=== PATIENT | female | born 1940 | race Two or more races ===

== ENCOUNTER 2017-04-28 20:31 | Emergency (ER) | payer OTHER ==
[2017-04-28 20:56] VITALS: BP 123/45; PULSE 64; TEMP 97.4; BMI 23.3
--- NOTE | 2017-04-28 21:08 | PDOC ---
History of Present Illness - General History Source: Patient Exam Limitations: No Limitations - History of Present Illness Initial Comments: 04/28/17 21:22 76 y.o female with significant past medical history of IDDM, CAD s/p stents x2, CHF, who presents today BIBA from home after her blood glucose dropped to 34. EMS administered D-50 in the field. The patient states that she did not eat anything after she took her insulin this evening and believes this is why her glucose dropped. The patient notes that she is taking a Z-pack for a nonproductive cough/ possible pneumonia from her PCP with significant relief of the cough. The patients son reports that the patient was complaining of chest pain this afternoon, however, the patient explains that she just felt "very tired when cooking her food." Denies fever, chills, nausea, vomiting. Denies headache, lightheadedness. Denies SOB, chest pain. PAST SURGICAL HISTORY: no significant history FAMILY HISTORY: no pertinent history SOCIAL HISTORY: Pt lives with family and is employed. MEDICATIONS: reviewed ALLERGIES: As per nursing notes PCP: Dr. Leah MCMILLAN General: No fevers or chills, no weakness, no weight loss HEENT: No change in vision. No sore throat, No ear pain Cardiovascular: No chest pain or shortness of breath Respiratory:No cough, no wheezing. Gastrointestinal: No nausea, vomiting, diarrhea or constipation, No rectal bleeding Genitourinary: No dysuria, hematuria, or frequency Musculoskeletal: No joint or muscle pain or swelling Neurologic: No headache, vertigo, dizziness or loss of consciousness Psychiatric: No depression Skin: No rashes or easy bruising Endocrine: +low blood glucose. No increased thirst or abnormal weight change Allergic: No skin or latex allergy All other systems reviewed and normal Physical Exam General: Well-nourished well-developed individual, no acute distress HEENT: Throat: Normal, tonsils normal, no erythema or exudate Neck: Supple, no meningeal signs, no lymphadenopathy Eyes::Pupils equal reactive and round, extraocular motion intact Chest: Nontender to palpation Cardiac: S1-S2 normal, regular rate and rhythm, no murmurs rubs or gallops Respiratory: Lungs clear to auscultation bilateral Abdomen: Soft, nondistended, normal bowel sounds, nontender to palpation diffusely Extremities: Warm, dry, no cyanosis, clubbing, or edema Skin: No rashes Neuro: Alert and oriented x3, nonfocal exam, grossly intact, normal gait Psych: Normal mood and affect <Trisha Hernandez - Last Filed: 04/28/17 21:23> - General History Source: Patient Exam Limitations: No Limitations - History of Present Illness Initial Comments: A portion of this note was documented by scribe services under my direction. I have reviewed the details of the note, within reason, and agree with the documentation. The case summary and management plan written by me. Medical decision making: This is a 76 her old female who comes via EMS post a hypoglycemic episode. Patient has history significant for being on azithromycin for a presumptive pneumonia. Patient takes insulin for her diabetes. Will obtain workup including EKG, chest x-ray, CBC, comp and cardiac profile. EKG shows normal sinus rhythm at a rate of [address]-T wave changes normal EKG Chest x-ray shows a probable resolving atypical pneumonia. Patient's repeat fingerstick post a sandwich and some orange juice was 156 Assessment and plan: This is a 76 her old female who comes in via EMS for evaluation of hypoglycemia. Patient had a fingerstick blood sugar in the field of 35. Patient is an insulin-dependent diabetic who said she took her insulin and then was late eating her dinner. Patient was given glucose in the field and her fingerstick prior to arrival was over 100. Here in the emergency room patient was given a sandwich and some orange juice and a repeat fingerstick was Patient did have a mildly elevated white count but no left shift. Patient is also anemia but in review of prior labs it appears that this is close to her baseline. Patient's x-ray is consistent with a resolving atypical pneumonia for which patient is taking azithromycin and improving. Patient's O2 sat was 100% and her respiratory rate was normal she complained of no shortness of breath but was noted to have a nonproductive mild cough in the emergency room. Patient will be discharged discussed with her family the importance of returning if she develops a fever, worsening cough congestion or shortness of breath. <Mateusz Bach I - Last Filed: 04/28/17 22:27> - General Chief Complaint: Blood Sugar Problem Stated Complaint: LOW BLOOD SUGAR Time Seen by Provider: 04/28/17 21:05 Past History <Trisha Hernandez - Last Filed: 04/28/17 21:23> - Past Medical History Anemia: Yes Asthma: No Cancer: No Cardiac Disorders: Yes (CHEST PAIN) CVA: No COPD: No CHF: No Diabetes: Yes (NIDDM) GI Disorders: Yes (GERD) Disorders: No HTN: Yes Hypercholesterolemia: Yes Liver Disease: No Seizures: No Thyroid Disease: No - Surgical History Abdominal Surgery: No Appendectomy: No Cardiac Surgery: Yes (STENT X 2) Cholecystectomy: No Lung Surgery: No Neurologic Surgery: No Orthopedic Surgery: No - Suicide/Smoking/Psychosocial Hx Smoking Status: No Smoking History: Never smoked Have you smoked in the past 12 months: No Number of Cigarettes Smoked Daily: 0 Information on smoking cessation initiated: No Hx Alcohol Use: No Drug/Substance Use Hx: No Substance Use Type: None Hx Substance Use Treatment: No <Mateusz Bach I - Last Filed: 04/28/17 22:27> - Past Medical History Allergies/Adverse Reactions: Allergies Allergy/AdvReac Type Severity Reaction Status Date / Time diphenhydramine HCl Allergy Severe Itching Verified 04/28/17 20:51 [From Benadryl] Home Medications: Ambulatory Orders Alprazolam 1 mg PO DAILY 04/06/14 Amlodipine Besylate [Norvasc -] 10 mg PO DAILY 04/06/14 Brimonidine Tartrate [Alphagan 0.15% -] 1 drop OS Q12H 04/06/14 Carvedilol [Coreg] 25 mg PO Q12H 04/06/14 Cholecalciferol (Vitamin D3) [Vitamin D3] 2,000 unit PO DAILY 04/06/14 Clopidogrel Bisulfate [Clopidogrel] 75 mg PO DAILY 04/06/14 Docosahexanoic Acid/Epa [Fish Oil Softgel] 1 each PO BID 04/06/14 Dorzolamide HCl/Timolol Maleat [Cosopt Eye Drops] 1 drop OU DAILY 04/06/14 Ferrous Sulfate [Feosol] 325 mg PO BID 04/06/14 Glipizide Xl [Glucotrol Xl -] 10 mg PO BID 04/06/14 Insulin (Levemir) [Levemir Vial] 18 unit SQ DAILY 04/06/14 Insulin Aspart [Novolog] 0 unit SQ ASDIR 04/06/14 Isosorbide Mononitrate [Isosorbide Mononitrate ER] 30 mg PO Q12H 04/06/14 Latanoprost 1 drop OU HS 04/06/14 Pnv/Iron,Carb/Om-3/FA/Fat 1 [Multivitamin with Minerals Cap] 1 each PO DAILY Sertraline HCl [Zoloft -] 100 mg PO Q12H 04/06/14 Simvastatin [Zocor] 80 mg PO HS 04/06/14 Vitamin B Complex 1 each PO DAILY 04/06/14 Docusate Sodium [Colace -] 100 mg PO BID #60 capsule 10/11/14 Losartan 50Mg/Hctz 12.5MG [Hyzaar -] 1 tab PO DAILY tablet 10/11/14 *Physical Exam - Vital Signs Last Vital Signs Temp Pulse Resp BP Pulse Ox 97.4 F L 64 18 123/45 100 04/28/17 20:52 04/28/17 20:52 04/28/17 20:52 04/28/17 20:52 04/28/17 20:52 <Trisha Hernandez - Last Filed: 04/28/17 21:23> - Vital Signs Last Vital Signs Temp Pulse Resp BP Pulse Ox 97.4 F L 64 18 123/45 100 04/28/17 20:52 04/28/17 20:52 04/28/17 20:52 04/28/17 20:52 04/28/17 20:52 <Mateusz Bach I - Last Filed: 04/28/17 22:27> ED Treatment Course - LABORATORY CBC & Chemistry Diagram: 04/28/17 21:15 04/28/17 21:15 <Trisha Hernandez - Last Filed: 04/28/17 21:23> - LABORATORY CBC & Chemistry Diagram: 04/28/17 21:15 04/28/17 21:15 <Mateusz Bach I - Last Filed: 04/28/17 22:27> *DC/Admit/Observation/Transfer - Attestations Scribe Attestion: 04/28/17 21:23 Documentation prepared by KP Hi, acting as coroner/medical examiner for Mateusz Bach MD. <Trisha Hernandez - Last Filed: 04/28/17 21:23> <Mateusz Bach I - Last Filed: 04/28/17 22:27> Diagnosis at time of Disposition: Hypoglycemia - Discharge Dispostion Disposition: HOME Condition at time of disposition: Stable - Patient Instructions Additional Instructions: It is important that you finish taking her antibiotics. Call your doctor in the morning and get an appointment to follow-up with your doctor as soon as possible/ Return to the emergency department immediately with ANY new, persistent or worsening symptoms. Continue any medications as previously prescribed by your physician. . Please make sure your doctor reviews the results of your emergency evaluation. Thank you for coming to the Emergency Department today for your care. It was a pleasure to see you today. Please note that your evaluation is INCOMPLETE until you follow-up with your doctor.
[2017-04-28 21:35] LABS: BASO % 0.2 % (0-2.0); EOS % 5.3 % (0-4.5); HEMATOCRIT 29.4 % (32.4-45.2); HEMOGLOBIN 9.5 GM/dl (10.7-15.3); LYMPH % 12.6 % (8-40); MCH 30.3 pg (25.7-33.7); MCHC 32.5 g/dl (32.0-36.0); MEAN CELL VOLUME 93.2 fl (80-96); MEAN PLT VOLUME 9.6 fl (7.5-11.1); MONO % 7.6 % (3.8-10.2); NEUT % 74.3 % (42.8-82.8); PLATELET COUNT 325 K/MM3 (134-434); RBC 3.15 M/mm3 (3.60-5.2); RDW 12.4 % (11.6-15.6); WHITE BLOOD COUNT 12.2 K/mm3 (4.0-10.8)
[2017-04-28 21:41] LABS: ALBUMIN 3.4 g/dl (3.5-5.0); ALK PHOS 65 U/L (32-92); ANION GAP 8 (8-16); BILIRUBIN,TOTAL 0.2 mg/dl (0.2-1.0); BLOOD UREA NITROGEN 44 mg/dl (7-18); CALCIUM 9.3 mg/dl (8.4-10.2); CHLORIDE 102 mmol/L (98-107); CO2 24 mmol/L (22-28); CREATININE 1.5 mg/dl (0.6-1.3); GLUCOSE,RANDOM 58 mg/dl (74-106); SGOT/AST 27 U/L (10-42); SGPT/ALT 16 U/L (10-40); SODIUM 134 mmol/L (136-145); TOT PROT 6.5 g/dl (6.4-8.3)
[2017-04-28 21:59] LABS: TROPONIN I (DFP) < 0.03 ng/ml (0.03-0.50)
[2017-04-28] MEDS ORDERED: HEMOQUE TEST 1 EACH EACH ONE (22:22)
--- NOTE | 2017-04-29 18:57 | EKG ---
Test Reason : Blood Pressure : / mmHG Vent. Rate : 062 BPM Atrial Rate : 062 BPM P-R Int : 148 ms QRS Dur : 074 ms QT Int : 432 ms P-R-T Axes : 064 023 083 degrees QTc Int : 438 ms NORMAL SINUS RHYTHM NONSPECIFIC T WAVE ABNORMALITY WHEN COMPARED WITH ECG OF 05-OCT-2014 09:16, NO SIGNIFICANT CHANGE WAS FOUND Confirmed by SHERRY CARPENTER MD ([id number]) on 04/29/2017 6:57:31 PM Referred By: DR LAMAR Confirmed By:SHERRY CARPENTER MD
== END 2017-04-28 22:31 | disposition home or self-care (01) ==
LOC: FER 20:31
DX: E11.649 Type 2 diabetes mellitus with hypoglycemia without coma (principal); Z79.84 Long term (current) use of oral hypoglycemic drugs; Z79.4 Long term (current) use of insulin; I50.9 Heart failure, unspecified
CPT/HCPCS: 36415; 71045-TC; 80053; 82550; 82962; 84484; 85025; 93005; 99281-25

== ENCOUNTER 2017-11-07 14:12 | Inpatient (IN) | payer OTHER ==
[2017-11-07] MEDS ORDERED: LABETALOL HCL 5 MG/1 ML (100MG/20 ML VIAL) IVPUSH ONE (15:03)
[2017-11-07 15:33] LABS: BASO % 0.4 % (0-2.0); EOS % 1.8 % (0-4.5); HEMATOCRIT 34.2 % (32.4-45.2); HEMOGLOBIN 11.6 GM/dL (10.7-15.3); LYMPH % 18.5 % (8-40); MCH 31.5 pg (25.7-33.7); MCHC 33.8 g/dl (32.0-36.0); MEAN CELL VOLUME 93.1 fl (80-96); MEAN PLT VOLUME 10.3 fl (7.5-11.1); MONO % 7.2 % (3.8-10.2); NEUT % 72.1 % (42.8-82.8); PLATELET COUNT 213 K/MM3 (134-434); RBC 3.67 M/mm3 (3.60-5.2); RDW 12.9 % (11.6-15.6); WHITE BLOOD COUNT 9.5 K/mm3 (4.0-10.0)
[2017-11-07 16:22] LABS: ALBUMIN 3.8 g/dl (3.4-5.0); ANION GAP 9 (8-16); BLOOD UREA NITROGEN 42 mg/dL (7-18); CALCIUM 9.6 mg/dL (8.5-10.1); CHLORIDE 95 mmol/L (98-107); CO2 28 mmol/L (21-32); CREATININE 1.3 mg/dL (0.55-1.02); GLUCOSE,RANDOM 198 mg/dL (74-106); POTASSIUM 4.6 mmol/L (3.5-5.1); SGOT/AST 24 U/L (15-37); SGPT/ALT 29 U/L (12-78); SODIUM 132 mmol/L (136-145)
[2017-11-07 16:24] LABS: ALK PHOS 171 U/L (45-117); BILIRUBIN,TOTAL 0.3 mg/dL (0.2-1.0); TOT PROT 7.3 g/dl (6.4-8.2)
--- NOTE | 2017-11-07 16:49 | PDOC ---
History of Present Illness - General Chief Complaint: CVA/TIA Stated Complaint: WEAKNESS Time Seen by Provider: 11/07/17 14:37 Past History - Past Medical History Allergies/Adverse Reactions: Allergies Allergy/AdvReac Type Severity Reaction Status Date / Time diphenhydramine HCl Allergy Severe Itching Verified 11/07/17 14:22 [From Bobby] Home Medications: Ambulatory Orders Alprazolam 1 mg PO DAILY 04/06/14 Amlodipine Besylate [Norvasc -] 10 mg PO DAILY 04/06/14 Brimonidine Tartrate [Alphagan 0.15% -] 1 drop OS Q12H 04/06/14 Carvedilol [Coreg] 25 mg PO Q12H 04/06/14 Cholecalciferol (Vitamin D3) [Vitamin D3] 2,000 unit PO DAILY 04/06/14 Clopidogrel Bisulfate [Clopidogrel] 75 mg PO DAILY 04/06/14 Docosahexanoic Acid/Epa [Fish Oil Softgel] 1 each PO BID 04/06/14 Dorzolamide HCl/Timolol Maleat [Cosopt Eye Drops] 1 drop OU DAILY 04/06/14 Ferrous Sulfate [Feosol] 325 mg PO BID 04/06/14 Glipizide Xl [Glucotrol Xl -] 10 mg PO BID 04/06/14 Insulin (Levemir) [Levemir Vial] 18 unit SQ DAILY 04/06/14 Insulin Aspart [Novolog] 0 unit SQ ASDIR 04/06/14 Isosorbide Mononitrate [Isosorbide Mononitrate ER] 30 mg PO Q12H 04/06/14 Latanoprost 1 drop OU HS 04/06/14 Pnv/Iron,Carb/Om-3/FA/Fat 1 [Multivitamin with Minerals Cap] 1 each PO DAILY Sertraline HCl [Zoloft -] 100 mg PO Q12H 04/06/14 Simvastatin [Zocor] 80 mg PO HS 04/06/14 Vitamin B Complex 1 each PO DAILY 04/06/14 Docusate Sodium [Colace -] 100 mg PO BID #60 capsule 10/11/14 Losartan 50Mg/Hctz 12.5MG [Hyzaar -] 1 tab PO DAILY tablet 10/11/14 Anemia: Yes Asthma: No Cancer: No Cardiac Disorders: Yes (CHEST PAIN) CVA: No COPD: No CHF: No Diabetes: Yes (NIDDM) GI Disorders: Yes (GERD) Disorders: No HTN: Yes Hypercholesterolemia: Yes Liver Disease: No Seizures: No Thyroid Disease: No - Surgical History Abdominal Surgery: No Appendectomy: No Cardiac Surgery: Yes (STENT X 2) Cholecystectomy: No Lung Surgery: No Neurologic Surgery: No Orthopedic Surgery: No - Suicide/Smoking/Psychosocial Hx Smoking Status: No Smoking History: Never smoked Have you smoked in the past 12 months: No Number of Cigarettes Smoked Daily: 0 Information on smoking cessation initiated: No Hx Alcohol Use: No Drug/Substance Use Hx: No Substance Use Type: None Hx Substance Use Treatment: No *Physical Exam - Vital Signs Last Vital Signs Temp Pulse Resp BP Pulse Ox 98.3 F 73 20 186/78 99 11/07/17 14:18 11/07/17 14:18 11/07/17 14:18 11/07/17 14:18 11/07/17 14:18 ED Treatment Course - LABORATORY CBC & Chemistry Diagram: 11/07/17 15:07 11/07/17 15:07 - ADDITIONAL ORDERS Additional order review: Laboratory Results 11/07/17 11/07/17 15:14 15:07 Sodium 132 L Potassium 4.6 Chloride 95 L Carbon Dioxide 28 Anion Gap 9 BUN 42 H Creatinine 1.3 H Creat Clearance w eGFR 39.72 POC Glucometer [phone] Random Glucose 198 H Calcium 9.6 Total Bilirubin 0.3 AST 24 ALT 29 Alkaline Phosphatase 171 H Total Protein 7.3 Albumin 3.8 11/07/17 11/07/17 15:14 15:07 RBC 3.67 MCV 93.1 MCHC 33.8 RDW 12.9 MPV 10.3 Neutrophils % 72.1 Lymphocytes % 18.5 Monocytes % 7.2 Eosinophils % 1.8 Basophils % 0.4 POC Glucometer [phone] - RADIOLOGY Radiology Studies Ordered: Category Date Time Status HEAD CT WITHOUT CONTRAST [CT] Stat CT Scan 11/07/17 14:55 Completed *DC/Admit/Observation/Transfer Diagnosis at time of Disposition: TIA (transient ischemic attack) - Discharge Dispostion Condition at time of disposition: Stable Decision to Admit order: Yes - Referrals Referrals: Emerson Soto MD [Primary Care Provider] - - Patient Instructions - Post Discharge Activity
[2017-11-07 18:01] LABS: URINE APPEARANCE CLEAR; URINE BILIRUBIN NEGATIVE (<2.0 mg/dL); URINE COLOR STRAW; URINE GLUCOSE (UA) 1+ (NEGATIVE); URINE KETONE NEGATIVE (NEGATIVE); URINE LEUK ESTERASE NEGATIVE (NEGATIVE); URINE NITRITE NEGATIVE (NEGATIVE); URINE UROBILINOGEN NEGATIVE mg/dL (0.2-1.0)
[2017-11-07 18:03] LABS: URINE PROTEIN 2+ (NEGATIVE)
--- NOTE | 2017-11-07 18:26 | HP ---
CHIEF COMPLAINT: confusion PCP: Dr. Navarro Nephro: dr. Soto Cardiology: Dr. Soto ([facility]) Endo: Dr. Forde HISTORY OF PRESENT ILLNESS: 77 yr old woman with DM, HTN, CKD III, CAD, HLD, IBS referred from subscription crew leader' s office for elevated BP and AMS. Pt at baseline is alert, oriented and fully cooperative in her care. In the office she appeared confused and was referred to ED for evaluation of stroke. Pt has not been feeling like herself for the past week. Since last friday she has not been able to complete all of the activities she is normally able to do, she is able to make the bed, clean the house and cook, but she has felt confused , "unlike herself" and tired. Her BP during this time showed elevated systolic pressure, 2 days ago it was 250 systolic. Associated with blurry vision. When she was driving today to her appointment she felt "God got" her here. She felt like she was outside herself and she wasn't the one driving, she felt that she should not have been driving. She made it to the appt without an accident. Normally BP is well controlled around 120-130's systolic. She goes to all her dr appts every 3 months, seen by Dr. Burns last week and was told A1c was 6.6. Denies chest pain, palpitations, light ER course was notable for: (1) head ct - negative (2) (3) Recent Travel: none PAST MEDICAL HISTORY: PAST SURGICAL HISTORY: stent placement in 2005 and 2011 Social History: Smoking: never Alcohol: never Drugs: never Family History:[place] Allergies diphenhydramine HCl [From Benadryl] Allergy (Severe, Verified 11/07/17 14:22) Itching HOME MEDICATIONS: Home Medications as per pharmacy [facility] HCTZ 25mg po daily, Dr. Navarro Lipitor 40mg po daily Irbasartan 300mg qd, Dr. Prater last filed 10/27 for a 30-day supply losartan 7-day supply filled 10/[address] Navarro, then mail delivery order alprazalam 1 mg po bid, and 2 tabs at bedtime plavix 75mg po daily valsartan 80mg po BID last filled august 2017 for 3-mo supple isosorbide ER 30mg po bid mirtazapine 15mg [address] loaiza sertraline 100mg bid by dr. loaiza amlodipine 5mg po dq by dr. navarro mailed meds: diclomine 10mg po tid last filled september [address] sanabria carvedilol 25mg bid [address]. navarro, last filled september 09 levemir flex touch pen 20units qd last filled in june eye drops dorzolim bid REVIEW OF SYSTEMS CONSTITUTIONAL: Absent: fever, chills, diaphoresis, generalized weakness, malaise, loss of appetite, weight change HEENT: Absent: rhinorrhea, nasal congestion, throat pain, throat swelling, difficulty swallowing, mouth swelling, ear pain, eye pain, visual changes CARDIOVASCULAR: Absent: chest pain, syncope, palpitations, irregular heart rate, lightheadedness , peripheral edema RESPIRATORY: Absent: cough, shortness of breath, dyspnea with exertion, orthopnea, wheezing, stridor, hemoptysis GASTROINTESTINAL: Absent: abdominal pain, abdominal distension, nausea, vomiting, diarrhea, constipation, melena, hematochezia GENITOURINARY: Absent: dysuria, frequency, urgency, hesitancy, hematuria, flank pain, genital pain MUSCULOSKELETAL: Absent: myalgia, arthralgia, joint swelling, back pain, neck pain SKIN: Absent: rash, itching, pallor HEMATOLOGIC/IMMUNOLOGIC: Absent: easy bleeding, easy bruising, lymphadenopathy, frequent infections ENDOCRINE: Absent: unexplained weight gain, unexplained weight loss, heat intolerance, cold intolerance NEUROLOGIC: Present:headache, Absent: focal weakness or paresthesias, dizziness, unsteady gait, seizure, mental status changes, bladder or bowel incontinence PSYCHIATRIC: Present:anxiety, Absent: depression PHYSICAL EXAMINATION Vital Signs - 24 hr 11/07/17 11/07/17 11/07/17 14:18 14:55 15:04 Temperature 98.3 F Pulse Rate 73 Pulse Rate [ 73 Left Radial] Respiratory 20 16 Rate Blood Pressure 186/78 Blood Pressure 163/80 [Right Arm] O2 Sat by Pulse 99 98 98 Oximetry (%) GENERAL: Awake, alert, and oriented to person, place, date, persident. in no acute distress. HEAD: Normal with no signs of trauma. EYES: Pupils equal, round and reactive to light, extraocular movements intact, sclera anicteric, conjunctiva clear. No lid lag. EARS, NOSE, THROAT: Ears normal, nares patent, oropharynx clear without exudates. Moist mucous membranes. NECK: Normal range of motion, supple without lymphadenopathy, JVD, or masses. LUNGS: Breath sounds equal, clear to auscultation bilaterally. No wheezes, and no crackles. No accessory muscle use. HEART: Regular rate and rhythm, normal S1 and S2 with MILAGROS ABDOMEN: Soft, nontender, not distended, normoactive bowel sounds, no guarding, no rebound, no masses. MUSCULOSKELETAL: Normal range of motion at all joints. No bony deformities or tenderness. No CVA tenderness. UPPER EXTREMITIES: 2+ radial pulses, warm, well-perfused. No cyanosis. No clubbing. No peripheral edema. LOWER EXTREMITIES: 2+ dp pulses, warm, well-perfused. No calf tenderness. No peripheral edema. NEUROLOGICAL: Cranial nerves II-XII intact. Normal speech. Normal gait. facial symmetry, delayed response to tasks and verbal answers but answers appropriately and completes task. finger-to nose intact b/l. 4/5 hand histologist technologist b/l, 4/5 extension and flexion at shoulders/triceps/biceps/hips/knees/ankles. 2+ DTR in b/l ue and le. PSYCHIATRIC: Cooperative. Good eye contact. Appropriate mood and affect. SKIN: Warm, dry, normal turgor, no rashes or lesions noted, normal capillary refill. Laboratory Results - last 24 hr 11/07/17 11/07/17 11/07/17 15:07 15:07 15:07 WBC 9.5 RBC 3.67 Hgb 11.6 Hct 34.2 MCV 93.1 MCH 31.5 MCHC 33.8 RDW 12.9 Plt Count 213 MPV 10.3 Absolute Neuts (auto) 6.8 Neutrophils % 72.1 Lymphocytes % 18.5 Monocytes % 7.2 Eosinophils % 1.8 Basophils % 0.4 Nucleated RBC % 0 Sodium 132 L Potassium 4.6 Chloride 95 L Carbon Dioxide 28 Anion Gap 9 BUN 42 H Creatinine 1.3 H Creat Clearance w eGFR 39.72 POC Glucometer Random Glucose 198 H Calcium 9.6 Total Bilirubin 0.3 AST 24 ALT 29 Alkaline Phosphatase 171 H Troponin I < 0.02 Total Protein 7.3 Albumin 3.8 Urine Color Urine Appearance Urine pH Ur Specific [place] Urine Protein Urine Glucose (UA) Urine Ketones Urine Blood Urine Nitrite Urine Bilirubin Urine Urobilinogen Ur Leukocyte Esterase Urine WBC (Auto) Urine RBC (Auto) 11/07/17 11/07/17 15:14 17:40 WBC RBC Hgb Hct MCV MCH MCHC RDW Plt Count MPV Absolute Neuts (auto) Neutrophils % Lymphocytes % Monocytes % Eosinophils % Basophils % Nucleated RBC % Sodium Potassium Chloride Carbon Dioxide Anion Gap BUN Creatinine Creat Clearance w eGFR POC Glucometer [phone] Random Glucose Calcium Total Bilirubin AST ALT Alkaline Phosphatase Troponin I Total Protein Albumin Urine Color Straw Urine Appearance Clear Urine pH 6.0 Ur Specific [place] 1.005 Urine Protein 2+ H Urine Glucose (UA) 1+ H D Urine Ketones Negative Urine Blood Negative Urine Nitrite Negative Urine Bilirubin Negative Urine Urobilinogen Negative Ur Leukocyte Esterase Negative Urine WBC (Auto) <1 Urine RBC (Auto) None Called son for further information. as per son who lives with her, this has been happening for 2 weeks, pt has been anxious about her granddaughter leaving for college. pt saw Dr. Navarro 2 days ago, BP with nurse was 120/80, with dr in the room it was 200's systolic, son thinks it was white coat syndrome. agrees that pt is not acting like herself, and having trouble remembering her medications. This week she appears to have progressed in her confusion. Normally she does her own meds but it took her hours to do what she normally can do in a much shorter amount of time. pt had c/o pain on the left judaism for last 2 weeks. Has not seen a psychiatrist in some time. ASSESSMENT/PLAN: 77 yr old woman with HTN, CKD stage III, DM, CAD, IBS referred to ED by physician to be evaluated for elevated BP and AMS admitted for further work-up. admitted to stroke unit to r.o stroke. - there are variations in pt's medication list between what is in the pharmacy and what is in the progress notes from dr's office. Please have family bring in the pill bottles to verify what the pt is taking. Pharmacy has losartain, irbasartan and valsartan on file. list from nephro's office use to reconcile medications in EMR. #R.o CVA - MRI of brain ordered, echo, evaluate for further carotid stenosis, pt's previous carotid doppler 03/2017 with 60-79% stenosis in left ICA - speech and swallow evaluation, npo until bedside evaluation - neuro consult: Dr. Herrera - physical therapy consult - neuro checks #HTN - elevated on repeat measurements - incr norvasc to 10mg from 5mg for better control - continue coreg 25mg po BID, diovan 80mg po BID - isosorbide mononitrate 30mg po bid - hold nitro SL since pt is not c/o chest pain #DM - check A1c, BGM/NISS ACHS - hold home levemir and novolog #Anxiety d/o - continue home medication sertraline 100mg po HS, alprazolam 1mg po daily, buspar 5mg po daily - remeron, as per chart review pt has previous episode of AMS that was attributed to remeron and was dc'd at that time, unclear if pt is taking this medication and if it should be continued at this time. currently on hold. #CAD - continue plavix 75mg po daily, no ASA due to hx of GI bleed #HLD - continue simvastatin 40mg po HS - Trilipix 45mg daily #IBS - continue xifaxan - continue polyethylenel glycol continue home supplements for vitamin D, calcium, iron supplements, MVI DVT: heparin BID Diet; npo until s/s evaluation then start tolerated diet Visit type - Emergency Visit Emergency Visit: Yes ED Registration Date: 11/07/17 Care time: The patient presented to the Emergency Department on the above date and was hospitalized for further evaluation of their emergent condition. - New Patient This patient is new to me today: Yes Date on this admission: 11/07/17 - Critical Care Critical Care patient: No Hospitalist Screening - Colonoscopy Questionnaire Colonoscopy Questionnaire: Colonoscopy Questionnaire - Patient: 50 - 75 years old and never had a screening colonoscopy: Unknown History of colon or rectal polyps, or CA: Unknown History of IBD, Crohn's disease or UC: Unknown History of abdominal radiation therapy as a child: Unknown - Relative: 1 with colon or rectal CA, or polyps at age 60 or younger: Unknown Colon or rectal CA diagnosed at age 45 or younger: Unknown Multiple relatives with colon or rectal CA: Unknown - Outcome: Screening Result: Negative Screen
[2017-11-07] MEDS ORDERED: amLODIPine BESYLATE 10 MG TABLET (FP) PO ONE (18:30)
[2017-11-07] MEDS ORDERED: SODIUM CHLORIDE 1,000 ML IV SCH ×2 (18:45→20:41)
[2017-11-07] MEDS ORDERED: amLODIPine BESYLATE 5 MG TABLET (FP) ONE (19:04)
--- NOTE | 2017-11-07 19:21 | PDOC ---
Attending Attestation - Resident Resident Name: Daphnie Brock - ED Attending Attestation I have performed the following: I have examined & evaluated the patient, The case was reviewed & discussed with the resident, I agree w/resident's findings & plan, Exceptions are as noted - Medical Decision Making 11/07/17 19:18 A portion of this note was documented by scribe services under my direction. I have reviewed the details of the note, within reason, and agree with the documentation with the following case summary and management plan written by me. Jemima Pittman: The patient is a 77 year old female with significant past medical history of anemia, CAD, CKD III, NIDDM, GERD, HTN, HLD, DM, IBS p/w AMS and elevated BP x 1 week. sent in for r/o CVA/TIA by PMD, Dr. Soto. DDx. CVA, TIA, electrolyte/metabolic derangements. infection, UTI, arrhythmia, ACs. vital signs with mild hypertension. but labs wnl, mildly elevated Cr, lytes wnl , UA neg for infection, CT head unremarkable. no CVA or bleed admit inpatient for medical management, eval for AMS and BP. possible HTN urgency, no indication to treat now, no focal deficits, alert and appropriate currently but concerning story of progressive AMS>. pt made aware of impression and plan 11/07/17 19:19 <Candida Tay - Last Filed: 11/07/17 19:18> - HPI HPI: 11/07/17 19:29 The patient is a 77 year old female with significant past medical history of anemia, CAD, CKD III, NIDDM, GERD, HTN, HLD, DM, IBS, who presents to the emergency department sent from Dr. Soto to be evaluated for high blood pressure and altered mental status. She reports that she has not been feeling like herself lately. The patient states that she has been experiencing episodes of forgetfulness and blurred vision. She currently endorses gas pain and constipation. Denies shortness of breath, chest pain, cough, weakness, numbness, tingling. Allergies: diphenhydramine HCl Social history: none reported Surgical history: Stents x2 PCP: Dr. Navarro Cardio: Dr. Soto Endo: Dr. Forde Nephro: Dr. Soto - Physicial Exam PE: 11/07/17 19:32 No acute distress, well appearing, moist mucus membranes, nl conjunctiva; neck supple, FROM. lungs clear, RRR, abdomen soft NTND, warm and well perfused. No peripheral edema. normal color for ethnicity. Alert, oriented to person time and place. CN II-XII grossly intact. Strength prox and distally 5/5 throughout. Sensation grossly intact to light touch. FARLEY x4. No cerebellar signs, no dysmetria. Speech clear. <Halle Felipe - Last Filed: 11/07/17 19:33> Attestations - Attestations 11/07/17 19:30 Documentation prepared by Halle Felipe, acting as medical transport specialist for Candida Tay MD. <Halle Felipe - Last Filed: 11/07/17 19:33>
--- NOTE | 2017-11-07 20:35 | PN ---
Teaching Attending Note Name of Resident: Dinh Garcia ATTENDING PHYSICIAN STATEMENT I saw and evaluated the patient. I reviewed the resident's note and discussed the case with the resident. I agree with the resident's findings and plan as documented. SUBJECTIVE: Patient is a 77yo female with PMHx of DM, HTN, CKD III, CAD, HLD, IBS , was send from [employer] [facility] [employer] office for elevated SBP of 250/120's and AMS.Patient denies any headache no chest pain or palpitation, no nausea. OBJECTIVE: Vital Signs Temperature 98.1 F 11/07/17 19:14 Pulse Rate 78 11/07/17 19:14 Respiratory Rate 16 11/07/17 19:14 Blood Pressure 174/86 11/07/17 19:14 O2 Sat by Pulse Oximetry (%) 98 11/07/17 19:14 GENERAL: The patient is awake, alert, and fully oriented, with slow speech . HEAD: Normal with no signs of trauma. EYES: PERRL, extraocular movements intact, sclera anicteric, conjunctiva clear. ENT: Ears normal, oropharynx clear without exudates, moist mucous membranes. NECK: Trachea midline, full range of motion, supple. LUNGS: Breath sounds equal, clear to auscultation bilaterally, no wheezes, no crackles, no accessory muscle use. HEART: Regular rate and rhythm, S1, S2 without murmur, rub or gallop. ABDOMEN: Soft, nontender, nondistended, normoactive bowel sounds, no guarding, no rebound, no hepatosplenomegaly, no masses. EXTREMITIES: 2+ pulses, warm, well-perfused, no edema. NEUROLOGICAL: Cranial nerves II through XII grossly intact. slow speech, gait not observed. PSYCH: Normal mood, normal affect. SKIN: Warm, dry, normal turgor, no rashes or lesions noted CBCD WBC 9.5 K/mm3 (4.0-10.0) 11/07/17 15:07 RBC 3.67 M/mm3 (3.60-5.2) 11/07/17 15:07 Hgb 11.6 GM/dL (10.7-15.3) 11/07/17 15:07 Hct 34.2 % (32.4-45.2) 11/07/17 15:07 MCV 93.1 fl (80-96) 11/07/17 15:07 MCHC 33.8 g/dl (32.0-36.0) 11/07/17 15:07 RDW 12.9 % (11.6-15.6) 11/07/17 15:07 Plt Count 213 K/MM3 (134-434) 11/07/17 15:07 MPV 10.3 fl (7.5-11.1) 11/07/17 15:07 CMP Sodium 132 mmol/L (136-145) L 11/07/17 15:07 Potassium 4.6 mmol/L (3.5-5.1) 11/07/17 15:07 Chloride 95 mmol/L (98-107) L 11/07/17 15:07 Carbon Dioxide 28 mmol/L (21-32) 11/07/17 15:07 Anion Gap 9 (8-16) 11/07/17 15:07 BUN 42 mg/dL (7-18) H 11/07/17 15:07 Creatinine 1.3 mg/dL (0.55-1.02) H 11/07/17 15:07 Creat Clearance w eGFR 39.72 (>60) 11/07/17 15:07 Random Glucose 198 mg/dL (74-106) H 11/07/17 15:07 Calcium 9.6 mg/dL (8.5-10.1) 11/07/17 15:07 Total Bilirubin 0.3 mg/dL (0.2-1.0) 11/07/17 15:07 AST 24 U/L (15-37) 11/07/17 15:07 ALT 29 U/L (12-78) 11/07/17 15:07 Alkaline Phosphatase 171 U/L (45-117) H 11/07/17 15:07 Total Protein 7.3 g/dl (6.4-8.2) 11/07/17 15:07 Albumin 3.8 g/dl (3.4-5.0) 11/07/17 15:07 CARDIAC ENZYMES Troponin I < 0.02 ng/ml (0.00-0.05) 11/07/17 15:07 Current Medications Generic Name Dose Route Start Last Admin Trade Name Freq PRN Reason Stop Dose Admin Alprazolam 1 mg 11/08/17 10:00 Xanax - PO 11/14/17 09:59 DAILY [facility] Atorvastatin Calcium 20 mg 11/07/17 22:00 Lipitor - PO HS [facility] Buspirone HCl 5 mg 11/08/17 10:00 Buspar - PO DAILY [facility] Carvedilol 25 mg 11/07/17 22:00 Coreg - PO BID [facility] Cholecalciferol 2,000 unit 11/08/17 10:00 Vitamin D3 - PO DAILY [facility] Clopidogrel Bisulfate 75 mg 11/08/17 10:00 Plavix - PO DAILY [facility] Fenofibric Acid 45 mg 11/08/17 10:00 Trilipix - PO DAILY [facility] Ferrous Sulfate 325 mg 11/08/17 10:00 Feosol - PO DAILY [facility] Fluticasone Propionate 1 spray 11/08/17 10:00 Flonase - NS DAILY [facility] Heparin Sodium (Porcine) 5,000 unit 11/07/17 22:00 Heparin - SQ BID [facility] Hydrochlorothiazide 25 mg 11/07/17 22:00 Hctz - PO BID [facility] Sodium Chloride 1,000 mls @ 75 mls/hr 11/07/17 18:45 11/07/17 19:04 Normal Saline - IV 11/08/17 08:04 75 mls/hr ASDIR [facility] Administration Insulin Aspart 1 vial 11/07/17 22:00 Novolog Vial Sliding Scale - SQ ACHS [facility] Protocol Isosorbide Mononitrate 30 mg 11/07/17 22:00 Imdur - PO BID [facility] Multivitamins 1 each 11/08/17 10:00 Total B With C - PO DAILY [facility] Multivitamins/Minerals 1 each 11/08/17 10:00 Theragran-M PO DAILY [facility] Non-Formulary Medication 290 mcg 11/08/17 10:00 Linaclotide [Linzess] PO DAILY [facility] Polyethylene Glycol 17 gm 11/08/17 10:00 Miralax (For Daily Use) - PO DAILY [facility] Rifaximin 550 mg 11/08/17 10:00 Xifaxan - PO DAILY [facility] Sertraline HCl 100 mg 11/07/17 22:00 Zoloft - PO HS [facility] Valsartan 80 mg 11/07/17 22:00 Diovan - PO BID [facility] Home Medications Medication Instructions Recorded Alprazolam 1 mg PO DAILY 11/07/17 Amlodipine Besylate 5 mg PO DAILY 11/07/17 Buspirone HCl [Buspar -] 5 mg PO DAILY 11/07/17 Cholecalciferol (Vitamin D3) 2,000 unit PO DAILY 11/07/17 [Vitamin D3 -] Clopidogrel Bisulfate [Plavix -] 75 mg PO DAILY 11/07/17 Fenofibrate Nanocrystallized 48 mg PO DAILY 11/07/17 [Fenofibrate] Ferrous Sulfate 325 mg PO DAILY 11/07/17 Fluticasone Prop 0.05% Nasal 1 - 2 spray NS DAILY 11/07/17 [Flonase -] Hydrochlorothiazide 25 mg PO BID 11/07/17 Insulin (LOG) Aspart [NovoLOG -] 0 unit SQ DAILY 11/07/17 Insulin Detemir [Levemir Flextouch] 0 unit SQ ASDIR 11/07/17 Isosorbide Mononitrate [Imdur -] 30 mg PO BID 11/07/17 Ketoconazole 2% Cream [Nizoral 2% 1 applic TP DAILY 11/07/17 Cream -] Linaclotide [Linzess] 290 mcg PO DAILY 11/07/17 Mirtazapine [Remeron -] 15 mg PO DAILY 11/07/17 Multivit-Min/Iron/Folic/Lutein 1 each PO DAILY 11/07/17 [Centrum Silver Women Tablet] Nitroglycerin 0.4 mg SL PRN PRN 11/07/17 Polyethylene Glycol 3350 [Clearlax] 17 gm PO DAILY 11/07/17 Rifaximin [Xifaxan] 550 mg PO DAILY 11/07/17 Sertraline HCl 100 mg PO HS 11/07/17 Simvastatin 40 mg PO HS 11/07/17 Valsartan [Diovan] 80 mg PO BID 11/07/17 Vitamin B Complex 1 each PO DAILY 11/07/17 ASSESSMENT AND PLAN: Patient is a 77yo female with PMHx of DM, HTN, CKD III, CAD, HLD, IBS referred from [employer] office for elevated BP 250/120 and AMS # Hypertensive Urgency with possible hypertensive encephalopathy initially On coreg/ diovan/ Imdur/Hctz continue since has not taken any meds today , r/o TIA getting admitted to stroke unit , will get echo and carotids, CT of the head is negative # difficulty with speech with Hx of CVA in 2014 , neuro consult appreciated # Hx of CAD on Plavix/Asa continue, Lipitor # T2DM SS with coverage, Levemir continue # HLD on Lipitor and Fenofibrate #Hx of depression continue zoloft # Hx of constipation continue Miralax DVT Px: heparin
[2017-11-07] MEDS ORDERED: CARVEDILOL 25 MG TABLET (FP) PO SCH (22:00)
[2017-11-07] MEDS ORDERED: HYDROCHLOROTHIAZIDE 25 MG TABLET (FP) PO SCH (22:00)
[2017-11-07] MEDS: ISOSORBIDE MONONITRATE 30 MG TAB.SR.24H (FP) PO SCH (23:22)
[2017-11-07] MEDS: VALSARTAN 80 MG TABLET (UD) PO SCH (23:23)
[2017-11-07] MEDS: SERTRALINE HCL 50 MG TABLET (FP) PO SCH (23:23)
[2017-11-07] MEDS: INSULIN SLIDING SCALE (NOVOLOG) 1 VIAL SQ SCH (23:23)
[2017-11-07] MEDS: HEPARIN NA (PORCINE) 5,000 UNITS/ML 1ML VIAL SQ SCH (23:23)
[2017-11-07] MEDS: ATORVASTATIN CA 20 MG TABLET (FP) PO SCH (23:23)
[2017-11-08] MEDS: INSULIN SLIDING SCALE (NOVOLOG) 1 VIAL SQ SCH ×4 (08:12→21:06)
[2017-11-08 08:42] LABS: ANION GAP 7 (8-16); BLOOD UREA NITROGEN 36 mg/dL (7-18); CALCIUM 9.2 mg/dL (8.5-10.1); CHLORIDE 101 mmol/L (98-107); CO2 29 mmol/L (21-32); CREATININE 1.2 mg/dL (0.55-1.02); GLUCOSE,RANDOM 182 mg/dL (74-106); POTASSIUM 4.4 mmol/L (3.5-5.1); SODIUM 137 mmol/L (136-145)
--- NOTE | 2017-11-08 09:12 | EKG ---
Test Reason : Blood Pressure : / mmHG Vent. Rate : 069 BPM Atrial Rate : 069 BPM P-R Int : 160 ms QRS Dur : 070 ms QT Int : 390 ms P-R-T Axes : 044 008 093 degrees QTc Int : 417 ms NORMAL SINUS RHYTHM POSSIBLE LEFT ATRIAL ENLARGEMENT LEFT VENTRICULAR HYPERTROPHY ABNORMAL QRS-T ANGLE, CONSIDER PRIMARY T WAVE ABNORMALITY ABNORMAL ECG WHEN COMPARED WITH ECG OF 28-APR-2017 21:47, NO SIGNIFICANT CHANGE WAS FOUND Confirmed by PAUL LUJAN MD ([id number]) on 11/08/2017 9:12:22 AM Referred By: Confirmed By:PAUL LUJAN MD
[2017-11-08] MEDS ORDERED: PATIENT'S OWN MEDICATION (NON-FORMULARY) (Linaclotide [Linzess] 290 MCG) PO SCH (10:00)
[2017-11-08] MEDS ORDERED: PT OWN MED DRAWER 7, Y5N ONE (10:20)
[2017-11-08] MEDS: HEPARIN NA (PORCINE) 5,000 UNITS/ML 1ML VIAL SQ SCH ×2 (10:22→21:06)
[2017-11-08] MEDS: amLODIPine BESYLATE 10 MG TABLET (FP) PO SCH (10:23)
[2017-11-08] MEDS: MULTIVITAMINS THER W-MINERALS COMBO TABLET (FP) PO SCH (10:23)
[2017-11-08] MEDS: CHOLECALCIFEROL (VITAMIN D3) 1,000 UNIT TABLET (FP) PO SCH (10:23)
[2017-11-08] MEDS: VALSARTAN 80 MG TABLET (UD) PO SCH ×2 (10:23→20:59)
[2017-11-08] MEDS: CLOPIDOGREL BISULFATE 75 MG TABLET (FP) PO SCH (10:23)
[2017-11-08] MEDS: ISOSORBIDE MONONITRATE 30 MG TAB.SR.24H (FP) PO SCH ×2 (10:23→20:59)
[2017-11-08] MEDS: busPIRone HCL 5 MG TABLET PO SCH (10:23)
[2017-11-08] MEDS: RIFAXIMIN 550 MG TABLET (UD) PO SCH (10:23)
[2017-11-08] MEDS: FERROUS SO4 325 MG TABLET (FP) PO SCH (10:23)
[2017-11-08] MEDS: VITAMIN B COMPLEX W/C COMBO TABLET (FP) PO SCH (10:23)
[2017-11-08] MEDS: FENOFIBRIC ACID 45 MG CAP PO SCH (10:24)
[2017-11-08] MEDS: ALPRAZolam 2 MG TABLET PO SCH (10:24)
[2017-11-08] MEDS: POLYETHYLENE GLYCOL 3350 119 GM BTL PO SCH (10:25)
[2017-11-08] MEDS: CARVEDILOL 25 MG TABLET (FP) PO SCH ×2 (11:18→20:59)
[2017-11-08] MEDS: ENALAPRILAT DIHYDRATE 1.25 MG/1 ML VIAL IVPB SCH ×3 (11:18→21:14)
[2017-11-08] MEDS: FLUTICASONE PROP 0.05% 16 GM NASAL SPRAY NS SCH (11:49)
--- NOTE | 2017-11-08 12:03 | CON.NEURO ---
Consult Consult Specialty:: Sharon Referred by:: Neurology - History of Present Illness History of Present Illness: 77 woman with AMS HPI 77 years old woman with PMH CAD IBS OA DM CRI patient was sent from the [facility] worker office with the altered mental status CAT scan of the head was done in the emergency room revealed no evidence of acute patholog Patient had an MRI this morning of the brain I reviewed the MRI with no acute stroke Patient with no altered sensorium since admission to telemetry Patient still hemodynamically unstable with high blood pressure I spoke to the registered nurse patient with no confusion no change in behavior no fever no neck pain. Patient is a poor historian she keeps talking about pain with no specific location - History Source History Provided By: Medical Record Limitations to Obtaining History: Clinical Condition - Past Medical History Cardio/Vascular: Yes: CAD, CHF, HTN, Hyperlipdemia, Other (s/p stent in LAD and RCA.) ...: No Psych: Yes: Anxiety, Depression, Other (had suicidal attempts in the past and recently few months ago had been admitted in [facility] for suicidal attempt.) Endocrine: Yes: Diabetes Mellitus - Past Surgical History Past Surgical History: Yes: - Alcohol/Substance Use Hx Alcohol Use: No History of Substance Use: reports: None - Smoking History Smoking history: Never smoked Have you smoked in the past 12 months: No Aproximately how many cigarettes per day: 0 - Social History Usual Living Arrangement: With Child ADL: Independent 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 of Recent Travel: No Home Medications - Allergies Allergies/Adverse Reactions: Allergies Allergy/AdvReac Type Severity Reaction Status Date / Time diphenhydramine HCl Allergy Severe Itching Verified 11/07/17 14:22 [From Benadryl] - Home Medications Home Medications: Ambulatory Orders Alprazolam 1 mg PO DAILY 11/07/17 Amlodipine Besylate 5 mg PO DAILY 11/07/17 Buspirone HCl [Buspar -] 5 mg PO DAILY 11/07/17 Cholecalciferol (Vitamin D3) [Vitamin D3 -] 2,000 unit PO DAILY 11/07/17 Clopidogrel Bisulfate [Plavix -] 75 mg PO DAILY 11/07/17 Fenofibrate Nanocrystallized [Fenofibrate] 48 mg PO DAILY 11/07/17 Ferrous Sulfate 325 mg PO DAILY 11/07/17 Fluticasone Prop 0.05% Nasal [Flonase -] 1 - 2 spray NS DAILY 11/07/17 Hydrochlorothiazide 25 mg PO BID 11/07/17 Insulin (LOG) Aspart [NovoLOG -] 0 unit SQ DAILY 11/07/17 Insulin Detemir [Levemir Flextouch] 0 unit SQ ASDIR 11/07/17 Isosorbide Mononitrate [Imdur -] 30 mg PO BID 11/07/17 Ketoconazole 2% Cream [Nizoral 2% Cream -] 1 applic TP DAILY 11/07/17 Linaclotide [Linzess] 290 mcg PO DAILY 11/07/17 Mirtazapine [Remeron -] 15 mg PO DAILY 11/07/17 Multivit-Min/Iron/Folic/Lutein [Centrum Silver Women Tablet] 1 each PO DAILY 06/22 Nitroglycerin 0.4 mg SL PRN PRN 11/07/17 Polyethylene Glycol 3350 [Clearlax] 17 gm PO DAILY 11/07/17 Rifaximin [Xifaxan] 550 mg PO DAILY 11/07/17 Sertraline HCl 100 mg PO HS 11/07/17 Simvastatin 40 mg PO HS 11/07/17 Valsartan [Diovan] 80 mg PO BID 11/07/17 Vitamin B Complex 1 each PO DAILY 11/07/17 Family Disease History - Family Disease History Family History: Unable to Obtain Review of Systems - Review of Systems Gastrointestinal: reports: Abdominal Pain Physical Exam-Neuro Vital Signs: Vital Signs Temperature 98.4 F 11/08/17 10:15 Pulse Rate 71 11/08/17 10:15 Respiratory Rate 18 11/08/17 10:15 Blood Pressure 192/70 11/08/17 10:15 O2 Sat by Pulse Oximetry (%) 98 11/07/17 23:00 Constitutional: Yes: Well Nourished Neck: Yes: WNL Labs: CBC, BMP 11/07/17 15:07 11/08/17 07:30 - Neuro Exam Level Of Consciousness: Yes: Oriented to Person, Oriented to Place, Oriented to Time Eyes: Yes: PERRLA Speech: WNL Dominant Hand: Right Mini Mental Exam: 22 Cranial Nerves II-XII Intact: Yes DTR's: 0 Left Brachioradialis, 0 Right Brachioradialis, 0 Left Achilles, 0 Right Achilles, 1+ Left Bicep, 1+ Right Bicep Babinski: Present Response to light touch: Abnormal Response to pain prick: Abnormal Motor Strength: 2/5: Right Arm, 4/5: Left Arm, Left Leg, Right Leg Gait: Deferred (pt on monitor ) Imaging - Results Cat Scan: Image Reviewed MRI: Image Reviewed Assessment/Plan Ams Slightly better Still with high BP No evidence of acute CVA HTN urgency 1. neuro q2 2. Fall precaution 3 .Tight BOP control 4. Carvidolol 5. One dose lopressor 6. DVT prophylaxis 7. Blood work Thank you for [facility] kind referral
[2017-11-08] MEDS ORDERED: METOPROLOL TARTRATE 5 MG/5 ML VIAL IVPUSH ONE (12:22)
--- NOTE | 2017-11-08 13:21 | CON.CARD ---
Consult Consult Specialty:: Cardiology Referred by:: Refugio Reason for Consultation:: HTN CVA - History of Present Illness Chief Complaint: AMS History of Present Illness: She is a 77 year old woman with a history of CAD, CHF, HTN, Hyperlipdemia, Other (s/p stent in LAD and RCA.), DJD admitted with changing mental status, confusion found with very elevated blood pressure. It is unclear whether she is taking her medications. She is a poor informant due to confusion at this time. Echo ordered Carotid duplex 11/07/17 bilat disease. - History Source History Provided By: Patient, Medical Record - Past Medical History Cardio/Vascular: Yes: CAD, CHF, HTN, Hyperlipdemia, Other (s/p stent in LAD and RCA.) ...: No Psych: Yes: Anxiety, Depression, Other (had suicidal attempts in the past and recently few months ago had been admitted in [facility] for suicidal attempt.) Endocrine: Yes: Diabetes Mellitus - Past Surgical History Past Surgical History: Yes: - Alcohol/Substance Use Hx Alcohol Use: No History of Substance Use: reports: None - Smoking History Smoking history: Never smoked Have you smoked in the past 12 months: No Aproximately how many cigarettes per day: 0 - Social History Usual Living Arrangement: With Child ADL: Independent 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 of 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 Travel: No Home Medications - Allergies Allergies/Adverse Reactions: Allergies Allergy/AdvReac Type Severity Reaction Status Date / Time diphenhydramine HCl Allergy Severe Itching Verified 11/07/17 14:22 [From Benadryl] - Home Medications Home Medications: Ambulatory Orders Alprazolam 1 mg PO DAILY 11/07/17 Amlodipine Besylate 5 mg PO DAILY 11/07/17 Buspirone HCl [Buspar -] 5 mg PO DAILY 11/07/17 Cholecalciferol (Vitamin D3) [Vitamin D3 -] 2,000 unit PO DAILY 11/07/17 Clopidogrel Bisulfate [Plavix -] 75 mg PO DAILY 11/07/17 Fenofibrate Nanocrystallized [Fenofibrate] 48 mg PO DAILY 11/07/17 Ferrous Sulfate 325 mg PO DAILY 11/07/17 Fluticasone Prop 0.05% Nasal [Flonase -] 1 - 2 spray NS DAILY 11/07/17 Hydrochlorothiazide 25 mg PO BID 11/07/17 Insulin (LOG) Aspart [NovoLOG -] 0 unit SQ DAILY 11/07/17 Insulin Detemir [Levemir Flextouch] 0 unit SQ ASDIR 11/07/17 Isosorbide Mononitrate [Imdur -] 30 mg PO BID 11/07/17 Ketoconazole 2% Cream [Nizoral 2% Cream -] 1 applic TP DAILY 11/07/17 Linaclotide [Linzess] 290 mcg PO DAILY 11/07/17 Mirtazapine [Remeron -] 15 mg PO DAILY 11/07/17 Multivit-Min/Iron/Folic/Lutein [Centrum Silver Women Tablet] 1 each PO DAILY 06/22 Nitroglycerin 0.4 mg SL PRN PRN 11/07/17 Polyethylene Glycol 3350 [Clearlax] 17 gm PO DAILY 11/07/17 Rifaximin [Xifaxan] 550 mg PO DAILY 11/07/17 Sertraline HCl 100 mg PO HS 11/07/17 Simvastatin 40 mg PO HS 11/07/17 Valsartan [Diovan] 80 mg PO BID 11/07/17 Vitamin B Complex 1 each PO DAILY 11/07/17 Vital Signs: Vital Signs Temperature 98.4 F 11/08/17 10:15 Pulse Rate 67 11/08/17 12:38 Respiratory Rate 18 11/08/17 12:19 Blood Pressure 185/74 11/08/17 12:38 O2 Sat by Pulse Oximetry (%) 98 11/07/17 23:00 - Other Data Labs, Other Data: CBC, BMP 11/07/17 15:07 11/08/17 07:30 Troponin, BNP 11/07/17 15:07 Troponin I < 0.02 Troponin, BNP 11/07/17 15:07 Troponin I < 0.02 Imaging - Results EKG: Report Reviewed (nsr LVH) Other: Report Reviewed (carotid 50-70% right ICA, 70% left ICA. MRI negative for CVA) Problem List - Problems (1) Hypertension Assessment/Plan: Her blood pressure is slowly coming under control. Would continue PO and discontinue IV blood pressure medications. No acute CVA, ACS or hypertensive emergency. add HCTZ 25 mg daily. If blood pressure continues to rise change valsartan to Valsartan HCTZ and increase dose to 320 mg/25 mg. Hydralazine or minoxidil is another option. Continue amlodipine and coreg. Echo pending. Code(s): I10 - ESSENTIAL (PRIMARY) HYPERTENSION Qualifiers: Hypertension type: essential hypertension Qualified Code(s): I10 - Essential (primary) hypertension
[2017-11-08] MEDS: HYDROCHLOROTHIAZIDE 25 MG TABLET (FP) PO SCH (14:29)
--- NOTE | 2017-11-08 18:22 | PN ---
Physical Exam: SUBJECTIVE: Patient seen and examined Patient is comfortable , but continues to have elevated high blood pressure. Speech is better but still is slow but not as slow as at the admission time. OBJECTIVE: Vital Signs Temperature 98.7 F 11/08/17 14:30 Pulse Rate 63 11/08/17 14:30 Respiratory Rate 19 11/08/17 14:30 Blood Pressure 180/66 11/08/17 14:30 O2 Sat by Pulse Oximetry (%) 98 11/08/17 09:00 GENERAL: The patient is awake, alert, and fully oriented, in no acute distress. HEAD: Normal with no signs of trauma. EYES: PERRL, extraocular movements intact, sclera anicteric, conjunctiva clear. ENT: Ears normal, oropharynx clear without exudates, moist mucous membranes. NECK: Trachea midline, full range of motion, supple. LUNGS: Breath sounds equal, clear to auscultation bilaterally, no wheezes, no crackles, no accessory muscle use. HEART: Regular rate and rhythm, S1, S2 without murmur, rub or gallop. ABDOMEN: Soft, nontender, nondistended, normoactive bowel sounds, no guarding, no rebound, no hepatosplenomegaly, no masses. EXTREMITIES: 2+ pulses, warm, well-perfused, no edema. NEUROLOGICAL: Cranial nerves II through XII grossly intact. Normal speech, gait is not observed. PSYCH: Normal mood, normal affect. SKIN: Warm, dry, normal turgor, no rashes or lesions noted CBCD WBC 9.5 K/mm3 (4.0-10.0) 11/07/17 15:07 RBC 3.67 M/mm3 (3.60-5.2) 11/07/17 15:07 Hgb 11.6 GM/dL (10.7-15.3) 11/07/17 15:07 Hct 34.2 % (32.4-45.2) 11/07/17 15:07 MCV 93.1 fl (80-96) 11/07/17 15:07 MCHC 33.8 g/dl (32.0-36.0) 11/07/17 15:07 RDW 12.9 % (11.6-15.6) 11/07/17 15:07 Plt Count 213 K/MM3 (134-434) 11/07/17 15:07 MPV 10.3 fl (7.5-11.1) 11/07/17 15:07 CMP Sodium 137 mmol/L (136-145) 11/08/17 07:30 Potassium 4.4 mmol/L (3.5-5.1) 11/08/17 07:30 Chloride 101 mmol/L (98-107) 11/08/17 07:30 Carbon Dioxide 29 mmol/L (21-32) 11/08/17 07:30 Anion Gap 7 (8-16) L 11/08/17 07:30 BUN 36 mg/dL (7-18) H 11/08/17 07:30 Creatinine 1.2 mg/dL (0.55-1.02) H 11/08/17 07:30 Creat Clearance w eGFR 43.56 (>60) 11/08/17 07:30 Random Glucose 182 mg/dL (74-106) H 11/08/17 07:30 Calcium 9.2 mg/dL (8.5-10.1) 11/08/17 07:30 Total Bilirubin 0.3 mg/dL (0.2-1.0) 11/07/17 15:07 AST 24 U/L (15-37) 11/07/17 15:07 ALT 29 U/L (12-78) 11/07/17 15:07 Alkaline Phosphatase 171 U/L (45-117) H 11/07/17 15:07 Total Protein 7.3 g/dl (6.4-8.2) 11/07/17 15:07 Albumin 3.8 g/dl (3.4-5.0) 11/07/17 15:07 CARDIAC ENZYMES Troponin I < 0.02 ng/ml (0.00-0.05) 11/07/17 15:07 Active Medications Generic Name Dose Route Start Last Admin Trade Name Freq PRN Reason Stop Dose Admin Alprazolam 1 mg 11/08/17 10:00 11/08/17 10:24 Xanax - PO 11/14/17 09:59 1 mg DAILY BLAS Administration Amlodipine Besylate 10 mg 11/08/17 10:00 11/08/17 10:23 Norvasc - PO 10 mg DAILY BLAS Administration Atorvastatin Calcium 20 mg 11/07/17 22:00 11/07/17 23:23 Lipitor - PO 20 mg HS BLAS Administration Buspirone HCl 5 mg 11/08/17 10:00 11/08/17 10:23 Buspar - PO 5 mg DAILY BLAS Administration Carvedilol 25 mg 11/08/17 11:00 11/08/17 11:18 Coreg - PO 25 mg BID BLAS Administration Cholecalciferol 2,000 unit 11/08/17 10:00 11/08/17 10:23 Vitamin D3 - PO 2,000 unit DAILY BLAS Administration Clopidogrel Bisulfate 75 mg 11/08/17 10:00 11/08/17 10:23 Plavix - PO 75 mg DAILY BLAS Administration Enalaprilat 1.25 mg 11/08/17 09:45 11/08/17 15:19 Vasotec Injection - IVPB 1.25 mg Q6H-IV BLAS Administration Fenofibric Acid 45 mg 11/08/17 10:00 11/08/17 10:24 Trilipix - PO 45 mg DAILY BLAS Administration Ferrous Sulfate 325 mg 11/08/17 10:00 11/08/17 10:23 Feosol - PO 325 mg DAILY BLAS Administration Fluticasone Propionate 1 spray 11/08/17 10:00 11/08/17 11:49 Flonase - NS 1 spray DAILY BLAS Administration Heparin Sodium (Porcine) 5,000 unit 11/07/17 22:00 11/08/17 10:22 Heparin - SQ 5,000 unit BID BLAS Administration Hydrochlorothiazide 25 mg 11/08/17 13:30 11/08/17 14:29 Hctz - PO 25 mg DAILY BLAS Administration Sodium Chloride 1,000 mls @ 42 mls/hr 11/07/17 20:41 11/07/17 20:54 Normal Saline - IV 11/08/17 18:34 42 mls/hr ASDIR BLAS Administration Insulin Aspart 1 vial 11/07/17 22:00 11/08/17 17:22 Novolog Vial Sliding Scale - SQ Not Given ACHS [facility] Protocol Isosorbide Mononitrate 30 mg 11/07/17 22:00 11/08/17 10:23 Imdur - PO 30 mg BID BLAS Administration Multivitamins 1 each 11/08/17 10:00 11/08/17 10:23 Total B With C - PO 1 each DAILY BLAS Administration Multivitamins/Minerals 1 each 11/08/17 10:00 11/08/17 10:23 Theragran-M PO 1 each DAILY BLAS Administration Non-Formulary Medication 290 mcg 11/08/17 10:00 Linaclotide [Linzess] PO DAILY BLAS Polyethylene Glycol 17 gm 11/08/17 10:00 11/08/17 10:25 Miralax (For Daily Use) - PO 17 gm DAILY BLAS Administration Rifaximin 550 mg 11/08/17 10:00 11/08/17 10:23 Xifaxan - PO 550 mg DAILY BLAS Administration Sertraline HCl 100 mg 11/07/17 22:00 11/07/17 23:23 Zoloft - PO 100 mg HS BLAS Administration Valsartan 80 mg 11/07/17 22:00 11/08/17 10:23 Diovan - PO 80 mg BID BLAS Administration Home Medications Medication Instructions Recorded Alprazolam 1 mg PO DAILY 11/07/17 Amlodipine Besylate 5 mg PO DAILY 11/07/17 Buspirone HCl [Buspar -] 5 mg PO DAILY 11/07/17 Cholecalciferol (Vitamin D3) 2,000 unit PO DAILY 11/07/17 [Vitamin D3 -] Clopidogrel Bisulfate [Plavix -] 75 mg PO DAILY 11/07/17 Fenofibrate Nanocrystallized 48 mg PO DAILY 11/07/17 [Fenofibrate] Ferrous Sulfate 325 mg PO DAILY 11/07/17 Fluticasone Prop 0.05% Nasal 1 - 2 spray NS DAILY 11/07/17 [Flonase -] Hydrochlorothiazide 25 mg PO BID 11/07/17 Insulin (LOG) Aspart [NovoLOG -] 0 unit SQ DAILY 11/07/17 Insulin Detemir [Levemir Flextouch] 0 unit SQ ASDIR 11/07/17 Isosorbide Mononitrate [Imdur -] 30 mg PO BID 11/07/17 Ketoconazole 2% Cream [Nizoral 2% 1 applic TP DAILY 11/07/17 Cream -] Linaclotide [Linzess] 290 mcg PO DAILY 11/07/17 Mirtazapine [Remeron -] 15 mg PO DAILY 11/07/17 Multivit-Min/Iron/Folic/Lutein 1 each PO DAILY 11/07/17 [Centrum Silver Women Tablet] Nitroglycerin 0.4 mg SL PRN PRN 11/07/17 Polyethylene Glycol 3350 [Clearlax] 17 gm PO DAILY 11/07/17 Rifaximin [Xifaxan] 550 mg PO DAILY 11/07/17 Sertraline HCl 100 mg PO HS 11/07/17 Simvastatin 40 mg PO HS 11/07/17 Valsartan [Diovan] 80 mg PO BID 11/07/17 Vitamin B Complex 1 each PO DAILY 11/07/17 EXAM#: TYPE/EXAM: RESULT: [id number] MRI/BRAIN MRI W/O CONTRAST MRI of the brain noncontrast Clinical history: Rule out CVA. Sagittal, coronal and axial T1, T2, FLAIR and diffusion weighted images were obtained. The midline structures unremarkable. No evidence Chiari malformation. On the T2 and FLAIR weighted images there are scattered small vessel infarcts in periventricular distribution in both cerebral hemispheres which may be sequela of small vessel atherosclerosis or hypertension. No evidence of acute infarction. The diffusion weighted images unremarkable. No evidence of acute intracerebral hemorrhage, subdural fluid collection or hydrocephalus. Cerebellopontine angles and basilar artery unremarkable. Impression: No evidence of acute infarct. No evidence of acute intracerebral hemorrhage, subdural fluid collection or hydrocephalus. Scattered old small vessel infarctions in the white matter of both cerebral hemispheres sequela most probably to long-standing hypertension or small vessel atherosclerosis. Cerebellopontine angles, basilar artery and cavernous portion internal carotid arteries unremarkable. Satisfactory pneumatization of the facial sinuses and mastoid cells. Reported By: Arron Toure MD 11/08/17 0676 Carotid duplex: the exam was performed utilizing grayscale as well as color flow and spectral Doppler sonography. Evaluation of the extracranial left carotid artery demonstrates a peak systolic flow velocity of 258 cm/s at the level of the proximal internal carotid artery suggestive of a luminal diameter stenosis of more than 70% (NASCET criteria). There also appears to be an elevated end-diastolic flow velocity at that level of 49 cm/s. Evaluation of the extracranial right carotid artery demonstrates a somewhat elevated peak systolic flow velocity of 136 cm/s at the level of the proximal internal carotid artery which could be on the basis of an approximately 50-70% luminal diameter stenosis (NASCET criteria). The remaining flow velocities within the right carotid artery appear unremarkable. At least moderate atherosclerotic plaque formation is seen at the level of the carotid artery bifurcations. The vertebral arteries appear to be patent demonstrating antegrade flow. Impression : The exam suggests a stenosis of more than 70% involving the proximal left internal carotid artery The exam is also suggestive of an approximately 50-70% stenosis of the proximal right internal carotid artery. Confirmation and further evaluation utilizing CT angiography is suggested. If there is a significant contraindication to contrast enhanced imaging additional evaluation utilizing noncontrast MRA may be performed. Reported By: Kushal Bowman MD 06/22 ASSESSMENT AND PLAN: Patient is a 77yo female with PMHx of DM, HTN, CKD III, CAD, HLD, IBS referred from [facility] office for elevated BP 250/120 and AMS # Hypertensive Urgency still elevated will continue coreg/ diovan/ Imdur/Hctz continue , Cardio consult appreciated , MRI is done , echo ordered carotids are done , CT of the head is negative #Proximal Left internal carotid artery stenosis more than 70% , will get vascular involved, will increase the Lipitor to 40mg # difficulty with speech with Hx of CVA in 2014 , neuro consult appreciated, Going for mRI # Hx of CAD on Plavix/Asa continue, Lipitor # T2DM SS with coverage, Levemir continue # HLD on Lipitor and Fenofibrate #Hx of depression continue zoloft # Hx of constipation continue Miralax DVT Px: heparin Visit type - Emergency Visit Emergency Visit: Yes ED Registration Date: 11/07/17 Care time: The patient presented to the Emergency Department on the above date and was hospitalized for further evaluation of their emergent condition. - New Patient This patient is new to me today: No - Critical Care Critical Care patient: No - Discharge Referral Referred to [facility] Med P.C.: No
[2017-11-08] MEDS: ATORVASTATIN CA 20 MG TABLET (FP) PO SCH (20:59)
[2017-11-08] MEDS: SERTRALINE HCL 50 MG TABLET (FP) PO SCH (20:59)
[2017-11-09] MEDS: ENALAPRILAT DIHYDRATE 1.25 MG/1 ML VIAL IVPB SCH ×4 (02:42→21:56)
[2017-11-09] MEDS: INSULIN SLIDING SCALE (NOVOLOG) 1 VIAL SQ SCH ×4 (06:20→22:00)
[2017-11-09] MEDS: MULTIVITAMINS THER W-MINERALS COMBO TABLET (FP) PO SCH (09:01)
[2017-11-09] MEDS: HEPARIN NA (PORCINE) 5,000 UNITS/ML 1ML VIAL SQ SCH ×2 (09:01→21:55)
[2017-11-09] MEDS: FERROUS SO4 325 MG TABLET (FP) PO SCH (09:01)
[2017-11-09] MEDS: VALSARTAN 80 MG TABLET (UD) PO SCH ×2 (09:01→21:59)
[2017-11-09] MEDS: amLODIPine BESYLATE 10 MG TABLET (FP) PO SCH (09:01)
[2017-11-09] MEDS: CHOLECALCIFEROL (VITAMIN D3) 1,000 UNIT TABLET (FP) PO SCH (09:01)
[2017-11-09] MEDS: HYDROCHLOROTHIAZIDE 25 MG TABLET (FP) PO SCH (09:01)
[2017-11-09] MEDS: FLUTICASONE PROP 0.05% 16 GM NASAL SPRAY NS SCH ×2 (09:02→10:22)
[2017-11-09] MEDS: ISOSORBIDE MONONITRATE 30 MG TAB.SR.24H (FP) PO SCH ×2 (09:02→21:59)
[2017-11-09] MEDS: CLOPIDOGREL BISULFATE 75 MG TABLET (FP) PO SCH (09:02)
[2017-11-09] MEDS: CARVEDILOL 25 MG TABLET (FP) PO SCH ×2 (09:02→21:59)
[2017-11-09] MEDS: POLYETHYLENE GLYCOL 3350 119 GM BTL PO SCH (09:02)
[2017-11-09] MEDS: busPIRone HCL 5 MG TABLET PO SCH (09:03)
[2017-11-09] MEDS: FENOFIBRIC ACID 45 MG CAP PO SCH (09:03)
[2017-11-09] MEDS: VITAMIN B COMPLEX W/C COMBO TABLET (FP) PO SCH (09:03)
[2017-11-09] MEDS: RIFAXIMIN 550 MG TABLET (UD) PO SCH (09:03)
--- NOTE | 2017-11-09 09:42 | HP ---
CHIEF COMPLAINT: PCP: HISTORY OF PRESENT ILLNESS: ER course was notable for: (1) (2) (3) Recent Travel: PAST MEDICAL HISTORY: PAST SURGICAL HISTORY: Social History: Smoking: Alcohol: Drugs: Family History: Allergies diphenhydramine HCl [From Benadryl] Allergy (Severe, Verified 11/07/17 14:22) Itching HOME MEDICATIONS: Home Medications Medication Instructions Recorded Alprazolam 1 mg PO DAILY 11/07/17 Amlodipine Besylate 5 mg PO DAILY 11/07/17 Buspirone HCl [Buspar -] 5 mg PO DAILY 11/07/17 Cholecalciferol (Vitamin D3) 2,000 unit PO DAILY 11/07/17 [Vitamin D3 -] Clopidogrel Bisulfate [Plavix -] 75 mg PO DAILY 11/07/17 Fenofibrate Nanocrystallized 48 mg PO DAILY 11/07/17 [Fenofibrate] Ferrous Sulfate 325 mg PO DAILY 11/07/17 Fluticasone Prop 0.05% Nasal 1 - 2 spray NS DAILY 11/07/17 [Flonase -] Hydrochlorothiazide 25 mg PO BID 11/07/17 Insulin (LOG) Aspart [NovoLOG -] 0 unit SQ DAILY 11/07/17 Insulin Detemir [Levemir Flextouch] 0 unit SQ ASDIR 11/07/17 Isosorbide Mononitrate [Imdur -] 30 mg PO BID 11/07/17 Ketoconazole 2% Cream [Nizoral 2% 1 applic TP DAILY 11/07/17 Cream -] Linaclotide [Linzess] 290 mcg PO DAILY 11/07/17 Mirtazapine [Remeron -] 15 mg PO DAILY 11/07/17 Multivit-Min/Iron/Folic/Lutein 1 each PO DAILY 11/07/17 [Centrum Silver Women Tablet] Nitroglycerin 0.4 mg SL PRN PRN 11/07/17 Polyethylene Glycol 3350 [Clearlax] 17 gm PO DAILY 11/07/17 Rifaximin [Xifaxan] 550 mg PO DAILY 11/07/17 Sertraline HCl 100 mg PO HS 11/07/17 Simvastatin 40 mg PO HS 11/07/17 Valsartan [Diovan] 80 mg PO BID 11/07/17 Vitamin B Complex 1 each PO DAILY 11/07/17 REVIEW OF SYSTEMS CONSTITUTIONAL: Absent: fever, chills, diaphoresis, generalized weakness, malaise, loss of appetite, weight change HEENT: Absent: rhinorrhea, nasal congestion, throat pain, throat swelling, difficulty swallowing, mouth swelling, ear pain, eye pain, visual changes CARDIOVASCULAR: Absent: chest pain, syncope, palpitations, irregular heart rate, lightheadedness , peripheral edema RESPIRATORY: Absent: cough, shortness of breath, dyspnea with exertion, orthopnea, wheezing, stridor, hemoptysis GASTROINTESTINAL: Absent: abdominal pain, abdominal distension, nausea, vomiting, diarrhea, constipation, melena, hematochezia GENITOURINARY: Absent: dysuria, frequency, urgency, hesitancy, hematuria, flank pain, genital pain MUSCULOSKELETAL: Absent: myalgia, arthralgia, joint swelling, back pain, neck pain SKIN: Absent: rash, itching, pallor HEMATOLOGIC/IMMUNOLOGIC: Absent: easy bleeding, easy bruising, lymphadenopathy, frequent infections ENDOCRINE: Absent: unexplained weight gain, unexplained weight loss, heat intolerance, cold intolerance NEUROLOGIC: Absent: headache, focal weakness or paresthesias, dizziness, unsteady gait, seizure, mental status changes, bladder or bowel incontinence PSYCHIATRIC: Absent: anxiety, depression, suicidal or homicidal ideation, hallucinations. PHYSICAL EXAMINATION Vital Signs - 24 hr 11/08/17 11/08/17 11/08/17 10:15 12:19 12:38 Temperature 98.4 F Pulse Rate 71 67 67 Respiratory 18 18 Rate Blood Pressure 192/70 185/74 185/74 O2 Sat by Pulse Oximetry (%) 11/08/17 11/08/17 11/08/17 14:30 18:24 20:30 Temperature 98.7 F 97.8 F 97.0 F L Pulse Rate 63 75 81 Respiratory 19 18 18 Rate Blood Pressure 180/66 188/74 169/63 O2 Sat by Pulse Oximetry (%) 11/08/17 11/09/17 11/09/17 21:00 02:00 06:00 Temperature 98 F 98.0 F Pulse Rate 67 68 Respiratory 18 20 Rate Blood Pressure 147/72 146/66 O2 Sat by Pulse 98 Oximetry (%) 11/09/17 09:16 Temperature 98.9 F Pulse Rate 61 Respiratory 19 Rate Blood Pressure 155/62 O2 Sat by Pulse Oximetry (%) GENERAL: Awake, alert, and fully oriented, in no acute distress. HEAD: Normal with no signs of trauma. EYES: Pupils equal, round and reactive to light, extraocular movements intact, sclera anicteric, conjunctiva clear. No lid lag. EARS, NOSE, THROAT: Ears normal, nares patent, oropharynx clear without exudates. Moist mucous membranes. NECK: Normal range of motion, supple without lymphadenopathy, JVD, or masses. LUNGS: Breath sounds equal, clear to auscultation bilaterally. No wheezes, and no crackles. No accessory muscle use. HEART: Regular rate and rhythm, normal S1 and S2 without murmur, rub or gallop. ABDOMEN: Soft, nontender, not distended, normoactive bowel sounds, no guarding, no rebound, no masses. No hepatomegaly or splenomegaly. MUSCULOSKELETAL: Normal range of motion at all joints. No bony deformities or tenderness. No CVA tenderness. UPPER EXTREMITIES: 2+ pulses, warm, well-perfused. No cyanosis. No clubbing. No peripheral edema. LOWER EXTREMITIES: 2+ pulses, warm, well-perfused. No calf tenderness. No peripheral edema. NEUROLOGICAL: Cranial nerves II-XII intact. Normal speech. Normal gait. PSYCHIATRIC: Cooperative. Good eye contact. Appropriate mood and affect. SKIN: Warm, dry, normal turgor, no rashes or lesions noted, normal capillary refill. Laboratory Results - last 24 hr 11/07/17 11/08/17 11/08/17 15:02 07:30 11:21 POC Glucometer 240 Hemoglobin A1c % 7.0 H Vitamin B12 2533 H 11/08/17 11/08/17 11/09/17 16:54 21:00 06:18 POC Glucometer 143 328 164 Hemoglobin A1c % Vitamin B12 ASSESSMENT/PLAN: Hospitalist Screening - Colonoscopy Questionnaire Colonoscopy Questionnaire: Colonoscopy Questionnaire
--- NOTE | 2017-11-09 09:56 | PN ---
Physical Exam: SUBJECTIVE: Patient seen and examined feels better today, more like her normal self. has been eating well, says she has been walking by herself to the bathroom without difficulty OBJECTIVE: Vital Signs Period Temp Pulse Resp BP Sys/Morrison Pulse Ox Last 24 Hr 97.0 F-98.9 F 61-81 18-20 146-192/62-74 98 GENERAL: The patient is awake, alert, and fully oriented, in no acute distress. EYES: extraocular movements intact, sclera anicteric, conjunctiva clear. No ptosis. ENT: oropharynx clear without exudates, moist mucous membranes. LUNGS: Breath sounds equal, clear to auscultation bilaterally, no wheezes, no crackles, no accessory muscle use. HEART: Regular rate and rhythm, S1, S2 with murmur, ABDOMEN: Soft, nontender, nondistended, normoactive bowel sounds, EXTREMITIES: 2+ radial pulses, warm, well-perfused, no LE edema. NEUROLOGICAL: Cranial nerves II through XII grossly intact. Normal speech, facial symmetry. no delay in completing tasks or answering questions. PSYCH: Normal mood, normal affect. SKIN: Warm, dry, normal turgor, no rashes or lesions noted Laboratory Results - last 24 hr 11/07/17 11/08/17 11/08/17 15:02 07:30 11:21 POC Glucometer 240 Hemoglobin A1c % 7.0 H Vitamin B12 2533 H 11/08/17 11/08/17 11/09/17 16:54 21:00 06:18 POC Glucometer 143 328 164 Hemoglobin A1c % Vitamin B12 Active Medications Generic Name Dose Route Start Last Admin Trade Name Naa PRN Reason Stop Dose Admin Alprazolam 1 mg 11/08/17 10:00 11/08/17 10:24 Xanax - PO 11/14/17 09:59 1 mg DAILY BLAS Administration Amlodipine Besylate 10 mg 11/08/17 10:00 11/09/17 09:01 Norvasc - PO 10 mg DAILY BLAS Administration Atorvastatin Calcium 20 mg 11/07/17 22:00 11/08/17 20:59 Lipitor - PO 20 mg HS BLAS Administration Carvedilol 25 mg 11/08/17 11:00 11/09/17 09:02 Coreg - PO 25 mg BID BLAS Administration Cholecalciferol 2,000 unit 11/08/17 10:00 08/05/18 09:01 Vitamin D3 - PO 2,000 unit DAILY BLAS Administration Clopidogrel Bisulfate 75 mg 11/08/17 10:00 11/09/17 09:02 Plavix - PO 75 mg DAILY BLAS Administration Enalaprilat 1.25 mg 11/08/17 09:45 11/09/17 09:01 Vasotec Injection - IVPB 1.25 mg Q6H-IV BLAS Administration Fenofibric Acid 45 mg 11/08/17 10:00 11/09/17 09:03 Trilipix - PO 45 mg DAILY BLAS Administration Ferrous Sulfate 325 mg 11/08/17 10:00 11/09/17 09:01 Feosol - PO 325 mg DAILY BLAS Administration Fluticasone Propionate 1 spray 11/08/17 10:00 11/09/17 09:02 Flonase - NS 1 spray DAILY BLAS Administration Heparin Sodium (Porcine) 5,000 unit 11/07/17 22:00 11/09/17 09:01 Heparin - SQ 5,000 unit BID BLAS Administration Hydrochlorothiazide 25 mg 11/08/17 13:30 11/09/17 09:01 Hctz - PO 25 mg DAILY BLAS Administration Insulin Aspart 1 vial 11/07/17 22:00 11/09/17 06:20 Novolog Vial Sliding Scale - SQ 2 units ACHS BLAS Administration Protocol Isosorbide Mononitrate 30 mg 11/07/17 22:00 11/09/17 09:02 Imdur - PO 30 mg BID BLAS Administration Multivitamins 1 each 11/08/17 10:00 11/09/17 09:03 Total B With C - PO 1 each DAILY BLAS Administration Multivitamins/Minerals 1 each 11/08/17 10:00 11/09/17 09:01 Theragran-M PO 1 each DAILY BLAS Administration Non-Formulary Medication 290 mcg 11/08/17 10:00 Linaclotide [Linzess] PO DAILY BLAS Polyethylene Glycol 17 gm 11/08/17 10:00 11/09/17 09:02 Miralax (For Daily Use) - PO 17 gm DAILY BLAS Administration Rifaximin 550 mg 11/08/17 10:00 11/09/17 09:03 Xifaxan - PO 550 mg DAILY BLAS Administration Sertraline HCl 100 mg 11/07/17 22:00 11/08/17 20:59 Zoloft - PO 100 mg HS BLAS Administration Valsartan 80 mg 11/07/17 22:00 11/09/17 09:01 Diovan - PO 80 mg BID BLAS Administration ASSESSMENT/PLAN: 77 yr old woman with HTN, CKD stage III, DM, CAD, IBS referred to ED by physician to be evaluated for elevated BP and AMS admitted for further work-up. admitted to stroke unit to r.o stroke. - there are variations in pt's medication list between what is in the pharmacy and what is in the progress notes from dr's office. Please have family bring in the pill bottles to verify what the pt is taking. Pharmacy has losartain, irbasartan and valsartan on file. list from nephro's office use to reconcile medications in EMR. #R.o CVA - MRI of brain without acute infarct - carotid doppler with 70% in left ICA and 50-70% in right ICA, suggest noncontrast MRA for further evaluation pt's previous carotid doppler 03/2017 with 60-79% stenosis in left ICA - speech and swallow evaluation, npo until bedside evaluation - neuro consult: Dr. Herrera - physical therapy consult: pt walked 20ft, discussed with pt and family, pt refused placement and wants VNS - neuro checks #HTN - improved, ongoing medication adjustments for optimal control - incr norvasc to 10mg from 5mg for better control - continue coreg 25mg po BID, diovan 80mg po BID - addition of HCTZ 25mg po daily - isosorbide mononitrate 30mg po bid - hold nitro SL since pt is not c/o chest pain - cardio consult Dr. Flor - pending echo #DM - A1c 7.0% - BGM/NISS ACHS - hold home levemir and novolog #Anxiety d/o - continue home medication sertraline 100mg po HS, alprazolam 1mg po daily - dc'd buspar - pt is not taking - remeron, as per chart review pt has previous episode of AMS that was attributed to remeron and was dc'd at that time, unclear if pt is taking this medication and if it should be continued at this time. currently on hold. - consulted Dr. Gould, appreciate recommendation for psychiatry f/u for cognitive therapy and neuropsych evalution for developing appropriate treatment plan #CAD - continue plavix 75mg po daily, no ASA due to hx of GI bleed #HLD - continue simvastatin 40mg po HS - Trilipix 45mg daily #IBS - continue xifaxan - continue polyethylenel glycol continue home supplements for vitamin D, calcium, iron supplements, MVI DVT: heparin BID Diet; diabetic/renal/low sodium Visit type - Emergency Visit Emergency Visit: No - New Patient This patient is new to me today: No - Critical Care Critical Care patient: No - Discharge Referral Referred to [facility] Med P.C.: No
[2017-11-09] MEDS: ALPRAZolam 2 MG TABLET PO SCH (10:20)
--- NOTE | 2017-11-09 13:24 | PN ---
Progress Note, Physician Chief Complaint: comfortable. tele neg. History of Present Illness: She is a 77 year old woman with a history of CAD, CHF, HTN, Hyperlipdemia, Other (s/p stent in LAD and RCA.), DJD admitted with changing mental status, confusion found with very elevated blood pressure. It is unclear whether she is taking her medications. She is a poor informant due to confusion at this time. Echo ordered Carotid duplex 11/07/17 bilat disease. - Current Medication List Current Medications: Active Medications Alprazolam (Xanax -) 1 mg PO DAILY [facility] Stop: 11/14/17 09:59 Last Admin: 11/09/17 10:20 Dose: 1 mg Amlodipine Besylate (Norvasc -) 10 mg PO DAILY [facility] Last Admin: 11/09/17 09:01 Dose: 10 mg Atorvastatin Calcium (Lipitor -) 20 mg PO HS [facility] Last Admin: 11/08/17 20:59 Dose: 20 mg Carvedilol (Coreg -) 25 mg PO BID [facility] Last Admin: 11/09/17 09:02 Dose: 25 mg Cholecalciferol (Vitamin D3 -) 2,000 unit PO DAILY [facility] Last Admin: 11/09/17 09:01 Dose: 2,000 unit Clopidogrel Bisulfate (Plavix -) 75 mg PO DAILY [facility] Last Admin: 11/09/17 09:02 Dose: 75 mg Enalaprilat (Vasotec Injection -) 1.25 mg IVPB Q6H-IV [facility] Last Admin: 11/09/17 09:01 Dose: 1.25 mg Fenofibric Acid (Trilipix -) 45 mg PO DAILY [facility] Last Admin: 11/09/17 09:03 Dose: 45 mg Ferrous Sulfate (Feosol -) 325 mg PO DAILY [facility] Last Admin: 11/09/17 09:01 Dose: 325 mg Fluticasone Propionate (Flonase -) 1 spray NS DAILY [facility] Last Admin: 11/09/17 10:22 Dose: Not Given Heparin Sodium (Porcine) (Heparin -) 5,000 unit SQ BID [facility] Last Admin: 11/09/17 09:01 Dose: 5,000 unit Hydrochlorothiazide (Hctz -) 25 mg PO DAILY [facility] Last Admin: 11/09/17 09:01 Dose: 25 mg Insulin Aspart (Novolog Vial Sliding Scale -) 1 vial SQ [facility]; Protocol Last Admin: 11/09/17 11:42 Dose: 6 units Isosorbide Mononitrate (Imdur -) 30 mg PO BID [facility] Last Admin: 11/09/17 09:02 Dose: 30 mg Multivitamins (Total B With C -) 1 each PO DAILY [facility] Last Admin: 11/09/17 09:03 Dose: 1 each Multivitamins/Minerals (Theragran-M) 1 each PO DAILY [facility] Last Admin: 11/09/17 09:01 Dose: 1 each Non-Formulary Medication (Linaclotide [Linzess]) 290 mcg PO DAILY [facility] Polyethylene Glycol (Miralax (For Daily Use) -) 17 gm PO DAILY [facility] Last Admin: 11/09/17 09:02 Dose: 17 gm Rifaximin (Xifaxan -) 550 mg PO DAILY [facility] Last Admin: 11/09/17 09:03 Dose: 550 mg Sertraline HCl (Zoloft -) 100 mg PO HS [facility] Last Admin: 11/08/17 20:59 Dose: 100 mg Valsartan (Diovan -) 80 mg PO BID [facility] Last Admin: 11/09/17 09:01 Dose: 80 mg - Objective Vital Signs: Vital Signs Temperature 98.9 F 11/09/17 09:16 Pulse Rate 61 11/09/17 09:16 Respiratory Rate 19 11/09/17 09:16 Blood Pressure 155/62 11/09/17 09:16 O2 Sat by Pulse Oximetry (%) 98 11/08/17 21:00 Constitutional: Yes: No Distress, Calm Eyes: Yes: Conjunctiva Clear, EOM Intact HENT: Yes: Atraumatic, Normocephalic Neck: Yes: Supple, Trachea Midline Cardiovascular: Yes: Regular Rate and Rhythm Respiratory: Yes: CTA Bilaterally Musculoskeletal: Yes: WNL Extremities: Yes: WNL Edema: No Labs: CBC, BMP 11/07/17 15:07 11/08/17 07:30 Problem List - Problems (1) Hypertension Assessment/Plan: Her blood pressure is slowly coming under control. Would continue PO and discontinue IV blood pressure medications. No acute CVA, ACS or hypertensive emergency. add HCTZ 25 mg daily. If blood pressure continues to rise change valsartan to Valsartan HCTZ and increase dose to 320 mg/25 mg. Hydralazine or minoxidil is another option. Continue amlodipine and coreg. Echo pending. Code(s): I10 - ESSENTIAL (PRIMARY) HYPERTENSION Qualifiers: Hypertension type: essential hypertension Qualified Code(s): I10 - Essential (primary) hypertension
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
--- NOTE | 2017-11-09 16:05 | PN ---
Teaching Attending Note Name of Resident: Dinh Garcia ATTENDING PHYSICIAN STATEMENT I saw and evaluated the patient. I reviewed the resident's note and discussed the case with the resident. I agree with the resident's findings and plan as documented. SUBJECTIVE: Patient is feeling better , with no acute events. OBJECTIVE: Vital Signs Temperature 98.2 F 11/09/17 14:00 Pulse Rate 63 11/09/17 14:00 Respiratory Rate 18 11/09/17 14:00 Blood Pressure 141/58 11/09/17 14:00 O2 Sat by Pulse Oximetry (%) 98 11/09/17 09:00 CBCD WBC 9.5 K/mm3 (4.0-10.0) 11/07/17 15:07 RBC 3.67 M/mm3 (3.60-5.2) 11/07/17 15:07 Hgb 11.6 GM/dL (10.7-15.3) 11/07/17 15:07 Hct 34.2 % (32.4-45.2) 11/07/17 15:07 MCV 93.1 fl (80-96) 11/07/17 15:07 MCHC 33.8 g/dl (32.0-36.0) 11/07/17 15:07 RDW 12.9 % (11.6-15.6) 11/07/17 15:07 Plt Count 213 K/MM3 (134-434) 11/07/17 15:07 MPV 10.3 fl (7.5-11.1) 11/07/17 15:07 CMP Sodium 137 mmol/L (136-145) 11/08/17 07:30 Potassium 4.4 mmol/L (3.5-5.1) 11/08/17 07:30 Chloride 101 mmol/L (98-107) 11/08/17 07:30 Carbon Dioxide 29 mmol/L (21-32) 11/08/17 07:30 Anion Gap 7 (8-16) L 11/08/17 07:30 BUN 36 mg/dL (7-18) H 11/08/17 07:30 Creatinine 1.2 mg/dL (0.55-1.02) H 11/08/17 07:30 Creat Clearance w eGFR 43.56 (>60) 11/08/17 07:30 Random Glucose 182 mg/dL (74-106) H 11/08/17 07:30 Calcium 9.2 mg/dL (8.5-10.1) 11/08/17 07:30 Total Bilirubin 0.3 mg/dL (0.2-1.0) 11/07/17 15:07 AST 24 U/L (15-37) 11/07/17 15:07 ALT 29 U/L (12-78) 11/07/17 15:07 Alkaline Phosphatase 171 U/L (45-117) H 11/07/17 15:07 Total Protein 7.3 g/dl (6.4-8.2) 11/07/17 15:07 Albumin 3.8 g/dl (3.4-5.0) 11/07/17 15:07 CARDIAC ENZYMES Troponin I < 0.02 ng/ml (0.00-0.05) 11/07/17 15:07 Current Medications Generic Name Dose Route Start Last Admin Trade Name Freq PRN Reason Stop Dose Admin Alprazolam 1 mg 11/08/17 10:00 11/09/17 10:20 Xanax - PO 11/14/17 09:59 1 mg DAILY [facility] Administration Amlodipine Besylate 10 mg 11/08/17 10:00 11/09/17 09:01 Norvasc - PO 10 mg DAILY [facility] Administration Atorvastatin Calcium 20 mg 11/07/17 22:00 11/08/17 20:59 Lipitor - PO 20 mg HS [facility] Administration Carvedilol 25 mg 11/08/17 11:00 11/09/17 09:02 Coreg - PO 25 mg BID [facility] Administration Cholecalciferol 2,000 unit 11/08/17 10:00 11/09/17 09:01 Vitamin D3 - PO 2,000 unit DAILY [facility] Administration Clopidogrel Bisulfate 75 mg 11/08/17 10:00 11/09/17 09:02 Plavix - PO 75 mg DAILY [facility] Administration Enalaprilat 1.25 mg 11/08/17 09:45 11/09/17 09:01 Vasotec Injection - IVPB 1.25 mg Q6H-IV [facility] Administration Fenofibric Acid 45 mg 11/08/17 10:00 11/09/17 09:03 Trilipix - PO 45 mg DAILY [facility] Administration Ferrous Sulfate 325 mg 11/08/17 10:00 11/09/17 09:01 Feosol - PO 325 mg DAILY [facility] Administration Fluticasone Propionate 1 spray 11/08/17 10:00 11/09/17 10:22 Flonase - NS Not Given DAILY [facility] Heparin Sodium (Porcine) 5,000 unit 11/07/17 22:00 11/09/17 09:01 Heparin - SQ 5,000 unit BID [facility] Administration Hydrochlorothiazide 25 mg 11/08/17 13:30 11/09/17 09:01 Hctz - PO 25 mg DAILY [facility] Administration Insulin Aspart 1 vial 11/07/17 22:00 11/09/17 11:42 Novolog Vial Sliding Scale - SQ 6 units ACHS [facility] Administration Protocol Isosorbide Mononitrate 30 mg 11/07/17 22:00 11/09/17 09:02 Imdur - PO 30 mg BID [facility] Administration Multivitamins 1 each 11/08/17 10:00 11/09/17 09:03 Total B With C - PO 1 each DAILY [facility] Administration Multivitamins/Minerals 1 each 11/08/17 10:00 11/09/17 09:01 Theragran-M PO 1 each DAILY [facility] Administration Non-Formulary Medication 290 mcg 11/08/17 10:00 Linaclotide [Linzess] PO DAILY [facility] Polyethylene Glycol 17 gm 11/08/17 10:00 11/09/17 09:02 Miralax (For Daily Use) - PO 17 gm DAILY [facility] Administration Rifaximin 550 mg 11/08/17 10:00 11/09/17 09:03 Xifaxan - PO 550 mg DAILY [facility] Administration Sertraline HCl 100 mg 11/07/17 22:00 11/08/17 20:59 Zoloft - PO 100 mg HS [facility] Administration Valsartan 80 mg 11/07/17 22:00 11/09/17 09:01 Diovan - PO 80 mg BID [facility] Administration Home Medications Medication Instructions Recorded Alprazolam 1 mg PO DAILY 11/07/17 Amlodipine Besylate 5 mg PO DAILY 11/07/17 Buspirone HCl [Buspar -] 5 mg PO DAILY 11/07/17 Cholecalciferol (Vitamin D3) 2,000 unit PO DAILY 11/07/17 [Vitamin D3 -] Clopidogrel Bisulfate [Plavix -] 75 mg PO DAILY 11/07/17 Fenofibrate Nanocrystallized 48 mg PO DAILY 11/07/17 [Fenofibrate] Ferrous Sulfate 325 mg PO DAILY 11/07/17 Fluticasone Prop 0.05% Nasal 1 - 2 spray NS DAILY 11/07/17 [Flonase -] Hydrochlorothiazide 25 mg PO BID 11/07/17 Insulin (LOG) Aspart [NovoLOG -] 0 unit SQ DAILY 11/07/17 Insulin Detemir [Levemir Flextouch] 0 unit SQ [facility]IR 11/07/17 Isosorbide Mononitrate [Imdur -] 30 mg PO BID 11/07/17 Ketoconazole 2% Cream [Nizoral 2% 1 applic TP DAILY 11/07/17 Cream -] Linaclotide [Linzess] 290 mcg PO DAILY 11/07/17 Mirtazapine [Remeron -] 15 mg PO DAILY 11/07/17 Multivit-Min/Iron/Folic/Lutein 1 each PO DAILY 11/07/17 [Centrum Silver Women Tablet] Nitroglycerin 0.4 mg SL PRN PRN 11/07/17 Polyethylene Glycol 3350 [Clearlax] 17 gm PO DAILY 11/07/17 Rifaximin [Xifaxan] 550 mg PO DAILY 11/07/17 Sertraline HCl 100 mg PO HS 11/07/17 Simvastatin 40 mg PO HS 11/07/17 Valsartan [Diovan] 80 mg PO BID 11/07/17 Vitamin B Complex 1 each PO DAILY 11/07/17 PE: per resident's note EXAM#: TYPE/EXAM: RESULT: [id number] MRI/BRAIN MRI W/O CONTRAST MRI of the brain noncontrast Clinical history: Rule out CVA. Sagittal, coronal and axial T1, T2, FLAIR and diffusion weighted images were obtained. The midline structures unremarkable. No evidence Chiari malformation. On the T2 and FLAIR weighted images there are scattered small vessel infarcts in periventricular distribution in both cerebral hemispheres which may be sequela of small vessel atherosclerosis or hypertension. No evidence of acute infarction. The diffusion weighted images unremarkable. No evidence of acute intracerebral hemorrhage, subdural fluid collection or hydrocephalus. Cerebellopontine angles and basilar artery unremarkable. Impression: No evidence of acute infarct. No evidence of acute intracerebral hemorrhage, subdural fluid collection or hydrocephalus. Scattered old small vessel infarctions in the white matter of both cerebral hemispheres sequela most probably to long-standing hypertension or small vessel atherosclerosis. Cerebellopontine angles, basilar artery and cavernous portion internal carotid arteries unremarkable. Satisfactory pneumatization of the facial sinuses and mastoid cells. Reported By: Arron Toure MD 11/08/17 1207 Carotid duplex: the exam was performed utilizing grayscale as well as color flow and spectral Doppler sonography. Evaluation of the extracranial left carotid artery demonstrates a peak systolic flow velocity of 258 cm/s at the level of the proximal internal carotid artery suggestive of a luminal diameter stenosis of more than 70% (NASCET criteria). There also appears to be an elevated end-diastolic flow velocity at that level of 49 cm/s. Evaluation of the extracranial right carotid artery demonstrates a somewhat elevated peak systolic flow velocity of 136 cm/s at the level of the proximal internal carotid artery which could be on the basis of an approximately 50-70% luminal diameter stenosis (NASCET criteria). The remaining flow velocities within the right carotid artery appear unremarkable. At least moderate atherosclerotic plaque formation is seen at the level of the carotid artery bifurcations. The vertebral arteries appear to be patent demonstrating antegrade flow. Impression : The exam suggests a stenosis of more than 70% involving the proximal left internal carotid artery The exam is also suggestive of an approximately 50-70% stenosis of the proximal right internal carotid artery. Confirmation and further evaluation utilizing CT angiography is suggested. If there is a significant contraindication to contrast enhanced imaging additional evaluation utilizing noncontrast MRA may be performed. Reported By: Kushal Bowman MD 06/22 ASSESSMENT AND PLAN: Patient is a 77yo female with PMHx of DM, HTN, CKD III, CAD, HLD, IBS referred from principal automation engineer's office for elevated BP 250/120 and AMS # Hypertensive Urgency still elevated will continue coreg/ diovan/ Imdur/Hctz continue , Cardio consult appreciated , MRI is done , echo ordered carotids are done , CT of the head is negative . The result of MRI as above and carotid #Proximal Left internal carotid artery stenosis more than 70% , will get vascular involved, will increase the Lipitor to 40mg # difficulty with speech with Hx of CVA in 2015 , neuro consult appreciated. # Hx of CAD on Plavix/Asa continue, Lipitor # T2DM SS with coverage, Levemir continue # HLD on Lipitor and Fenofibrate #Hx of depression continue zoloft # Hx of constipation continue Miralax DVT Px: heparin
[2017-11-09] MEDS ORDERED: PT OWN MED DRAWER 7, Y5N ONE (21:44)
[2017-11-09] MEDS ORDERED: INSULIN (NOVOLOG) ASPART 100 UNITS/ML 10ML VIAL ONE (21:45)
[2017-11-09] MEDS: SERTRALINE HCL 50 MG TABLET (FP) PO SCH (21:58)
[2017-11-09] MEDS: ATORVASTATIN CA 20 MG TABLET (FP) PO SCH (21:59)
[2017-11-10] MEDS: ENALAPRILAT DIHYDRATE 1.25 MG/1 ML VIAL IVPB SCH ×2 (02:29→09:09)
[2017-11-10] MEDS: INSULIN SLIDING SCALE (NOVOLOG) 1 VIAL SQ SCH ×4 (06:15→22:07)
[2017-11-10] MEDS: HEPARIN NA (PORCINE) 5,000 UNITS/ML 1ML VIAL SQ SCH ×2 (09:09→22:08)
[2017-11-10] MEDS: POLYETHYLENE GLYCOL 3350 119 GM BTL PO SCH (09:10)
[2017-11-10] MEDS: CLOPIDOGREL BISULFATE 75 MG TABLET (FP) PO SCH (09:10)
[2017-11-10] MEDS: VALSARTAN 80 MG TABLET (UD) PO SCH (09:10)
[2017-11-10] MEDS: HYDROCHLOROTHIAZIDE 25 MG TABLET (FP) PO SCH (09:10)
[2017-11-10] MEDS: CARVEDILOL 25 MG TABLET (FP) PO SCH ×2 (09:10→22:06)
[2017-11-10] MEDS: ISOSORBIDE MONONITRATE 30 MG TAB.SR.24H (FP) PO SCH ×2 (09:10→22:06)
[2017-11-10] MEDS: amLODIPine BESYLATE 10 MG TABLET (FP) PO SCH (09:10)
[2017-11-10] MEDS: FERROUS SO4 325 MG TABLET (FP) PO SCH (09:10)
[2017-11-10] MEDS: CHOLECALCIFEROL (VITAMIN D3) 1,000 UNIT TABLET (FP) PO SCH (09:10)
[2017-11-10] MEDS: MULTIVITAMINS THER W-MINERALS COMBO TABLET (FP) PO SCH (09:10)
[2017-11-10] MEDS: FLUTICASONE PROP 0.05% 16 GM NASAL SPRAY NS SCH (09:11)
[2017-11-10] MEDS ORDERED: PT OWN MED DRAWER 7, Y5N ONE ×2 (09:30→12:21)
[2017-11-10] MEDS: ALPRAZolam 2 MG TABLET PO SCH (09:40)
[2017-11-10] MEDS: RIFAXIMIN 550 MG TABLET (UD) PO SCH (09:42)
[2017-11-10] MEDS: VITAMIN B COMPLEX W/C COMBO TABLET (FP) PO SCH (09:42)
[2017-11-10] MEDS: FENOFIBRIC ACID 45 MG CAP PO SCH (09:44)
[2017-11-10] MEDS ORDERED: ACETAMINOPHEN 500 MG TABLET (FP) PO ONE (09:45)
[2017-11-10] MEDS ORDERED: VALSARTAN 80 MG TABLET (UD) PO ONE (10:57)
--- NOTE | 2017-11-10 11:12 | CONSULT ---
Admitting History and Physical - Primary Care Physician PCP: Nickie Ferrer - Admission History of Present Illness: 77 year old woman with a history of CAD, CHF, HTN, Hyperlipdemia, Other (s/p stent in LAD and RCA.), DJD admitted with changing mental status, confusion found with very elevated blood pressure. - MRI of brain without acute infarct - carotid doppler with 70% in left ICA and 50-70% in right ICA, suggest noncontrast MRA for further evaluation pt's previous carotid doppler 03/2017 with 60-79% stenosis in left ICA Selected Entries 11/08/17 11/08/17 11/09/17 14:30 18:24 02:00 Breakfast 50% Lunch 50% Supper 50% Temperature 98 F 11/09/17 11/09/17 11/09/17 06:00 09:16 09:43 Breakfast 100% Lunch Supper Temperature 98.0 F 98.9 F 11/09/17 11/09/17 11/09/17 14:00 18:32 21:00 Breakfast Lunch 100% Supper 100% Temperature 98.2 F 98.1 F 97.3 F L 11/10/17 11/10/17 11/10/17 02:00 06:00 10:00 Breakfast Lunch Supper Temperature 98.3 F 98.8 F 98.3 F 11/10/17 10:02 Breakfast 100% Lunch Supper Temperature Laboratory Tests 11/07/17 15:07 WBC 9.5 History Source: Patient Limitations to Obtaining History: No Limitations - Past Medical History Cardiovascular: Yes: CAD, CHF, HTN, Hyperlipdemia, Other (s/p stent in LAD and RCA.) ...: No Psych: Yes: Anxiety, Depression, Other (had suicidal attempts in the past and recently few months ago had been admitted in [facility] for suicidal attempt.) Endocrine: Yes: Diabetes Mellitus - Past Surgical History Past Surgical History: Yes: - Advance Directives Advance Directives: Yes: Health Care Proxy - Smoking History Smoking history: Never smoked Have you smoked in the past 12 months: No Aproximately how many cigarettes per day: 0 - Alcohol/Substance Use Hx Alcohol Use: No History of Substance Use: reports: None - Social History ADL: Independent 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 of Recent Travel: No History - Admission Reason For Visit: ALTERED MENTAL STATUS - Diagnostics X-ray: Report Reviewed CT Scan: Report Reviewed MRI: Report Reviewed - General Mental Status: Alert and Oriented, Awake and Alert, Able to Follow Commands, Anxious Attention: Intact Ability to Follow Directions: Good Head/Neck Control: Fair - Hearing Hearing: Normal Hearing Aide: No With Patient: No Speech Evaluation - Communication Primary Language: AZERI Communication: Yes: Within Normal Limits Oral Expression Ability: Yes: No Impairment - Speech Production Able to Make Needs Known: Yes: WNL Intelligibility: Yes: WNL - Speech Characteristics Voice Loudness: Mildly Soft/Quiet Voice Pitch: Yes: Normal Voice Phonatory-based Quality: Yes: Normal Speech Pattern: Normal Nasal Resonance: Normal Articulation: Yes: Precise Dysfluency: Yes: Clonic (occasional. facial twitching.) - Language/Auditory Comprehension Follows: Yes: 1 Stage Simple Commands Observation: Able to respond to yes/no queries: Yes, Yes/No Confusion: No, Comprehends Conversational Speech: Yes - Language/Verbal Expression Functional Communication Status: Yes: Mildly Impaired (Low volume, occasional dysfluency, oral twitching, rambles about her career, seems anxious although nursing reports this is improved, as compaired to previous.) Attention: Yes: Intact - Swallow Evaluation/Bedside Assessment Current Nutritional Intake: Regular, Thin Liquids Oral Secretions: Yes: WFL Dentition: Yes: Adequate Facial Symmetry at Rest: Symmetrical Facial Symmetry on Retraction: Symmetrical Facial Movement: Involuntary (twitches) Against Resistance Opening: Normal Against Resistance Closing: Normal Pucker Lips: Normal Smile: Normal Lingual Movement: Normal, Symmetric Lingual Speed of Movement: Normal Lingual Movement Strgth Against Opposition: Normal Lingual Movement Characteristics: Normal Velopharyngeal Movement: Normal Laryngeal Elevation: WFL Laryngeal Movement: Able to Palpate Rate of Intake: WFL Bolus Size: WFL Labial Seal: WFL Chewing: WFL Oral Prep Time: WFL A-P Transit: WFL Pocketing: None Coughing/Throat Clear: No Change in Voice: No Recommendations - Speech Evaluation, Impression/Plan Impression: Seems anxious, but this is reportedly improves. Low volume. Swallowing intact. - Dysphagia Impressions/Plan Swallowing Skills: WFL Dysphagia Impressions: No Impairment *Silent aspiration: cannot be R/O at bedside - Recommendations Diet Consistency: Regular Medication Administration: Whole with water Liquids: Thin Liquids
[2017-11-10] MEDS ORDERED: INSULIN (NOVOLOG) ASPART 100 UNITS/ML 10ML VIAL ONE (12:22)
--- NOTE | 2017-11-10 13:41 | CONSULT ---
- Consultation REQUESTING PROVIDER: CONSULT REQUEST: We have been asked to surgically evaluate this patient for Carotid stenosis. PCP:Nickie Ferrer HISTORY OF PRESENT ILLNESS: 77yo F was consulted to evaluate for carotid stenosis found on inpatient workup. Pt was initially admitted for HTN and AMS, which has since resolved. Pt states she has known history of carotid stenosis and has 6 month follow up carotid US with her PMD. Pt denies any history of stroke. Denies tobacco. PMHx: CAD, CKD, DM, HTN Home Medications Medication Instructions Recorded Alprazolam 1 mg PO DAILY 11/07/17 Amlodipine Besylate 5 mg PO DAILY 11/07/17 Buspirone HCl [Buspar -] 5 mg PO DAILY 11/07/17 Cholecalciferol (Vitamin D3) 2,000 unit PO DAILY 11/07/17 [Vitamin D3 -] Clopidogrel Bisulfate [Plavix -] 75 mg PO DAILY 11/07/17 Fenofibrate Nanocrystallized 48 mg PO DAILY 11/07/17 [Fenofibrate] Ferrous Sulfate 325 mg PO DAILY 11/07/17 Fluticasone Prop 0.05% Nasal 1 - 2 spray NS DAILY 11/07/17 [Flonase -] Hydrochlorothiazide 25 mg PO BID 11/07/17 Insulin (LOG) Aspart [NovoLOG -] 0 unit SQ DAILY 11/07/17 Insulin Detemir [Levemir Flextouch] 0 unit SQ ASDIR 11/07/17 Isosorbide Mononitrate [Imdur -] 30 mg PO BID 11/07/17 Ketoconazole 2% Cream [Nizoral 2% 1 applic TP DAILY 11/07/17 Cream -] Linaclotide [Linzess] 290 mcg PO DAILY 11/07/17 Mirtazapine [Remeron -] 15 mg PO DAILY 11/07/17 Multivit-Min/Iron/Folic/Lutein 1 each PO DAILY 11/07/17 [Centrum Silver Women Tablet] Nitroglycerin 0.4 mg SL PRN PRN 11/07/17 Polyethylene Glycol 3350 [Clearlax] 17 gm PO DAILY 11/07/17 Rifaximin [Xifaxan] 550 mg PO DAILY 11/07/17 Sertraline HCl 100 mg PO HS 11/07/17 Simvastatin 40 mg PO HS 11/07/17 Valsartan [Diovan] 80 mg PO BID 11/07/17 Vitamin B Complex 1 each PO DAILY 11/07/17 Allergies Allergy/AdvReac Type Severity Reaction Status Date / Time diphenhydramine HCl Allergy Severe Itching Verified 11/07/17 14:22 [From Bobby] REVIEW OF SYSTEMS: CONSTITUTIONAL: Absent: fever, chills, diaphoresis, generalized weakness, malaise, loss of appetite, weight change CARDIOVASCULAR: Absent: chest pain, syncope, palpitations, irregular heart rate, lightheadedness , peripheral edema RESPIRATORY: Absent: cough, shortness of breath, dyspnea with exertion, wheezing, stridor, hemoptysis GASTROINTESTINAL: Absent: abdominal pain, abdominal distension, nausea, vomiting, diarrhea, constipation, melena, hematochezia GENITOURINARY: Absent: dysuria, frequency, urgency, hesitancy, hematuria, flank pain, genital pain MUSCULOSKELETAL: Absent: myalgia, arthralgia, joint swelling, back pain, neck pain SKIN: Absent: rash, itching, pallor HEMATOLOGIC/IMMUNOLOGIC: Absent: easy bleeding, easy bruising, lymphadenopathy NEUROLOGIC: Absent: headache, focal weakness, paresthesias, dizziness, unsteady gait, seizure, mental status changes, bladder or bowel incontinence PSYCHIATRIC: Absent: anxiety, depression, suicidal or homicidal ideation, hallucinations. PHYSICAL EXAM: GENERAL: Awake, alert, and fully oriented, in no acute distress. HEAD: Normal with no signs of trauma. EYES: PERRL, sclera anicteric, conjunctiva clear. NECK: Normal ROM, supple without lymphadenopathy, JVD, or masses. LUNGS: Clear to auscultation bilat anteriorly. No wheezes, and no crackles. No accessory muscle use. HEART: Regular rate and rhythm. No murmurs UPPER EXTREMITIES: 2+ pulses, warm, well-perfused. No cyanosis. Cap refill <2 seconds. No peripheral edema. LOWER EXTREMITIES: 2+ pulses, warm, well-perfused. No calf tenderness. No peripheral edema. NEUROLOGICAL: Normal speech, gait not observed. PSYCH: Cooperative. Good eye contact. Appropriate mood and affect. SKIN: Warm, dry, normal turgor, no rashes or lesions noted. Vital Signs Temperature 98.3 F 11/10/17 10:00 Pulse Rate 85 11/10/17 11:55 Respiratory Rate 19 11/10/17 11:55 Blood Pressure 143/52 11/10/17 11:55 O2 Sat by Pulse Oximetry (%) 98 11/10/17 09:00 Lab Results WBC 9.5 K/mm3 (4.0-10.0) 11/07/17 15:07 RBC 3.67 M/mm3 (3.60-5.2) 11/07/17 15:07 Hgb 11.6 GM/dL (10.7-15.3) 11/07/17 15:07 Hct 34.2 % (32.4-45.2) 11/07/17 15:07 MCV 93.1 fl (80-96) 11/07/17 15:07 MCHC 33.8 g/dl (32.0-36.0) 11/07/17 15:07 RDW 12.9 % (11.6-15.6) 11/07/17 15:07 Plt Count 213 K/MM3 (134-434) 11/07/17 15:07 Sodium 137 mmol/L (136-145) 11/08/17 07:30 Potassium 4.4 mmol/L (3.5-5.1) 11/08/17 07:30 Chloride 101 mmol/L (98-107) 11/08/17 07:30 Carbon Dioxide 29 mmol/L (21-32) 11/08/17 07:30 Anion Gap 7 (8-16) L 11/08/17 07:30 BUN 36 mg/dL (7-18) H 11/08/17 07:30 Creatinine 1.2 mg/dL (0.55-1.02) H 11/08/17 07:30 Random Glucose 182 mg/dL (74-106) H 11/08/17 07:30 Calcium 9.2 mg/dL (8.5-10.1) 11/08/17 07:30 Problem List - Problems (1) Carotid stenosis Assessment/Plan: Plan -pt had carotid duplex in 03/2017 which was largely unchanged, would advise continue conservative management/observation at this time. -pt may follow up with Dr. Tran as an outpatient for management -please contact vascular surgery if any further questions. Code(s): I65.29 - OCCLUSION AND STENOSIS OF UNSPECIFIED CAROTID ARTERY Qualifiers: Laterality: left Qualified Code(s): I65.22 - Occlusion and stenosis of left carotid artery
--- NOTE | 2017-11-10 14:14 | PN ---
Progress Note, Physician Chief Complaint: comfortable. tele neg. History of Present Illness: She is a 77 year old woman with a history of CAD, CHF, HTN, Hyperlipdemia, Other (s/p stent in LAD and RCA.), DJD admitted with changing mental status, confusion found with very elevated blood pressure. It is unclear whether she is taking her medications. She is a poor informant due to confusion at this time. Echo ordered Carotid duplex 11/07/17 bilat disease. - Current Medication List Current Medications: Active Medications Alprazolam (Xanax -) 1 mg PO DAILY [facility] TO [facility] Stop: 11/14/17 09:59 Last Admin: 11/10/17 09:40 Dose: 1 mg Amlodipine Besylate (Norvasc -) 10 mg PO DAILY [facility] Last Admin: 11/10/17 09:10 Dose: 10 mg Atorvastatin Calcium (Lipitor -) 20 mg PO HS [facility] Last Admin: 11/09/17 21:59 Dose: 20 mg Carvedilol (Coreg -) 25 mg PO BID [facility] Last Admin: 11/10/17 09:10 Dose: 25 mg Cholecalciferol (Vitamin D3 -) 2,000 unit PO DAILY [facility] Last Admin: 11/10/17 09:10 Dose: 2,000 unit Clopidogrel Bisulfate (Plavix -) 75 mg PO DAILY [facility] Last Admin: 11/10/17 09:10 Dose: 75 mg Fenofibric Acid (Trilipix -) 45 mg PO DAILY [facility] Last Admin: 11/10/17 09:44 Dose: 45 mg Ferrous Sulfate (Feosol -) 325 mg PO DAILY [facility] Last Admin: 11/10/17 09:10 Dose: 325 mg Fluticasone Propionate (Flonase -) 1 spray NS DAILY [facility] Last Admin: 11/10/17 09:11 Dose: Not Given Heparin Sodium (Porcine) (Heparin -) 5,000 unit SQ BID [facility] Last Admin: 11/10/17 09:09 Dose: 5,000 unit Hydrochlorothiazide (Hctz -) 25 mg PO DAILY [facility] Last Admin: 11/10/17 09:10 Dose: 25 mg Insulin Aspart (Novolog Vial Sliding Scale -) 1 vial SQ ACHS [facility]; Protocol Last Admin: 11/10/17 12:25 Dose: 6 units Isosorbide Mononitrate (Imdur -) 30 mg PO BID [facility] Last Admin: 11/10/17 09:10 Dose: 30 mg Multivitamins (Total B With C -) 1 each PO DAILY [facility] Last Admin: 11/10/17 09:42 Dose: 1 each Multivitamins/Minerals (Theragran-M) 1 each PO DAILY [facility] Last Admin: 11/10/17 09:10 Dose: 1 each Non-Formulary Medication (Linaclotide [Linzess]) 290 mcg PO DAILY [facility] Polyethylene Glycol (Miralax (For Daily Use) -) 17 gm PO DAILY [facility] Last Admin: 11/10/17 09:10 Dose: 17 gm Rifaximin (Xifaxan -) 550 mg PO DAILY [facility] Last Admin: 11/10/17 09:42 Dose: 550 mg Sertraline HCl (Zoloft -) 100 mg PO HS [facility] Last Admin: 11/09/17 21:58 Dose: 100 mg Valsartan (Diovan -) 160 mg PO BID [facility] - Objective Vital Signs: Vital Signs Temperature 98.7 F 11/10/17 13:46 Pulse Rate 62 11/10/17 13:46 Respiratory Rate 19 11/10/17 13:46 Blood Pressure 116/54 11/10/17 13:46 O2 Sat by Pulse Oximetry (%) 98 11/10/17 09:00 Constitutional: Yes: No Distress Eyes: Yes: Conjunctiva Clear HENT: Yes: Normocephalic Neck: Yes: Trachea Midline Cardiovascular: Yes: Regular Rate and Rhythm Respiratory: Yes: CTA Bilaterally Musculoskeletal: Yes: WNL Edema: No Labs: CBC, BMP 11/07/17 15:07 11/08/17 07:30 Problem List - Problems (1) Hypertension Assessment/Plan: Her blood pressure is slowly coming under control. Would continue PO and discontinue IV blood pressure medications. No acute CVA, ACS or hypertensive emergency. add HCTZ 25 mg daily. If blood pressure continues to rise change valsartan to Valsartan HCTZ and increase dose to 320 mg/25 mg. Hydralazine or minoxidil is another option. Continue amlodipine and coreg. Echo pending. Code(s): I10 - ESSENTIAL (PRIMARY) HYPERTENSION Qualifiers: Hypertension type: essential hypertension Qualified Code(s): I10 - Essential (primary) hypertension
[2017-11-10] MEDS ORDERED: ATORVASTATIN CA 40 MG TABLET (FP) PO SCH (14:23)
--- NOTE | 2017-11-10 14:23 | PN ---
Teaching Attending Note Name of Resident: Dori Rosario ATTENDING PHYSICIAN STATEMENT I saw and evaluated the patient. I reviewed the resident's note and discussed the case with the resident. I agree with the resident's findings and plan as documented. SUBJECTIVE: Patient is feeling better with no acute distress. No nausea or vomiting, no shortness of breath. OBJECTIVE: Vital Signs Temperature 98.7 F 11/10/17 13:46 Pulse Rate 62 11/10/17 13:46 Respiratory Rate 19 11/10/17 13:46 Blood Pressure 116/54 11/10/17 13:46 O2 Sat by Pulse Oximetry (%) 98 11/10/17 09:00 CBCD WBC 9.5 K/mm3 (4.0-10.0) 11/07/17 15:07 RBC 3.67 M/mm3 (3.60-5.2) 11/07/17 15:07 Hgb 11.6 GM/dL (10.7-15.3) 11/07/17 15:07 Hct 34.2 % (32.4-45.2) 11/07/17 15:07 MCV 93.1 fl (80-96) 11/07/17 15:07 MCHC 33.8 g/dl (32.0-36.0) 11/07/17 15:07 RDW 12.9 % (11.6-15.6) 11/07/17 15:07 Plt Count 213 K/MM3 (134-434) 11/07/17 15:07 MPV 10.3 fl (7.5-11.1) 11/07/17 15:07 CMP Sodium 137 mmol/L (136-145) 11/08/17 07:30 Potassium 4.4 mmol/L (3.5-5.1) 11/08/17 07:30 Chloride 101 mmol/L (98-107) 11/08/17 07:30 Carbon Dioxide 29 mmol/L (21-32) 11/08/17 07:30 Anion Gap 7 (8-16) L 11/08/17 07:30 BUN 36 mg/dL (7-18) H 11/08/17 07:30 Creatinine 1.2 mg/dL (0.55-1.02) H 11/08/17 07:30 Creat Clearance w eGFR 43.56 (>60) 11/08/17 07:30 Random Glucose 182 mg/dL (74-106) H 11/08/17 07:30 Calcium 9.2 mg/dL (8.5-10.1) 11/08/17 07:30 Total Bilirubin 0.3 mg/dL (0.2-1.0) 11/07/17 15:07 AST 24 U/L (15-37) 11/07/17 15:07 ALT 29 U/L (12-78) 11/07/17 15:07 Alkaline Phosphatase 171 U/L (45-117) H 11/07/17 15:07 Total Protein 7.3 g/dl (6.4-8.2) 11/07/17 15:07 Albumin 3.8 g/dl (3.4-5.0) 11/07/17 15:07 CARDIAC ENZYMES Troponin I < 0.02 ng/ml (0.00-0.05) 11/07/17 15:07 Home Medications Medication Instructions Recorded Alprazolam 1 mg PO DAILY 11/07/17 Amlodipine Besylate 5 mg PO DAILY 11/07/17 Buspirone HCl [Buspar -] 5 mg PO DAILY 11/07/17 Cholecalciferol (Vitamin D3) 2,000 unit PO DAILY 11/07/17 [Vitamin D3 -] Clopidogrel Bisulfate [Plavix -] 75 mg PO DAILY 11/07/17 Fenofibrate Nanocrystallized 48 mg PO DAILY 11/07/17 [Fenofibrate] Ferrous Sulfate 325 mg PO DAILY 11/07/17 Fluticasone Prop 0.05% Nasal 1 - 2 spray NS DAILY 11/07/17 [Flonase -] Hydrochlorothiazide 25 mg PO BID 11/07/17 Insulin (LOG) Aspart [NovoLOG -] 0 unit SQ DAILY 11/07/17 Insulin Detemir [Levemir Flextouch] 0 unit SQ ASDIR 11/07/17 Isosorbide Mononitrate [Imdur -] 30 mg PO BID 11/07/17 Ketoconazole 2% Cream [Nizoral 2% 1 applic TP DAILY 11/07/17 Cream -] Linaclotide [Linzess] 290 mcg PO DAILY 11/07/17 Mirtazapine [Remeron -] 15 mg PO DAILY 11/07/17 Multivit-Min/Iron/Folic/Lutein 1 each PO DAILY 11/07/17 [Centrum Silver Women Tablet] Nitroglycerin 0.4 mg SL PRN PRN 11/07/17 Polyethylene Glycol 3350 [Clearlax] 17 gm PO DAILY 11/07/17 Rifaximin [Xifaxan] 550 mg PO DAILY 11/07/17 Sertraline HCl 100 mg PO HS 11/07/17 Simvastatin 40 mg PO HS 11/07/17 Valsartan [Diovan] 80 mg PO BID 11/07/17 Vitamin B Complex 1 each PO DAILY 11/07/17 Current Medications Generic Name Dose Route Start Last Admin Trade Name Freq PRN Reason Stop Dose Admin Alprazolam 2 mg 11/10/17 22:00 Xanax - PO HS [facility] Alprazolam 1 mg 11/10/17 14:25 Xanax - PO 11/14/17 09:59 BID PRN ANXIETY Amlodipine Besylate 10 mg 11/08/17 10:00 11/10/17 09:10 Norvasc - PO 10 mg DAILY [facility] Administration Atorvastatin Calcium 40 mg 11/10/17 14:23 Lipitor - PO HS [facility] Carvedilol 25 mg 11/08/17 11:00 11/10/17 09:10 Coreg - PO 25 mg BID [facility] Administration Cholecalciferol 2,000 unit 11/08/17 10:00 11/10/17 09:10 Vitamin D3 - PO 2,000 unit DAILY [facility] Administration Clopidogrel Bisulfate 75 mg 11/08/17 10:00 11/10/17 09:10 Plavix - PO 75 mg DAILY [facility] Administration Fenofibric Acid 45 mg 11/08/17 10:00 11/10/17 09:44 Trilipix - PO 45 mg DAILY [facility] Administration Ferrous Sulfate 325 mg 11/08/17 10:00 11/10/17 09:10 Feosol - PO 325 mg DAILY [facility] Administration Fluticasone Propionate 1 spray 11/08/17 10:00 11/10/17 09:11 Flonase - NS Not Given DAILY [facility] Heparin Sodium (Porcine) 5,000 unit 11/07/17 22:00 11/10/17 09:09 Heparin - SQ 5,000 unit BID [facility] Administration Hydrochlorothiazide 25 mg 11/08/17 13:30 11/10/17 09:10 Hctz - PO 25 mg DAILY [facility] Administration Insulin Aspart 1 vial 11/07/17 22:00 11/10/17 12:25 Novolog Vial Sliding Scale - SQ 6 units ACHS [facility] Administration Protocol Isosorbide Mononitrate 30 mg 11/07/17 22:00 11/10/17 09:10 Imdur - PO 30 mg BID [facility] Administration Multivitamins 1 each 11/08/17 10:00 11/10/17 09:42 Total B With C - PO 1 each DAILY [facility] Administration Multivitamins/Minerals 1 each 11/08/17 10:00 11/10/17 09:10 Theragran-M PO 1 each DAILY [facility] Administration Non-Formulary Medication 290 mcg 11/08/17 10:00 Linaclotide [Linzess] PO DAILY [facility] Polyethylene Glycol 17 gm 11/08/17 10:00 11/10/17 09:10 Miralax (For Daily Use) - PO 17 gm DAILY [facility] Administration Rifaximin 550 mg 11/08/17 10:00 11/10/17 09:42 Xifaxan - PO 550 mg DAILY [facility] Administration Sertraline HCl 100 mg 11/07/17 22:00 11/09/17 21:58 Zoloft - PO 100 mg HS [facility] Administration Valsartan 160 mg 11/10/17 22:00 Diovan - PO BID [facility] PE: per resident's note EXAM#: TYPE/EXAM: RESULT: [id number] MRI/BRAIN MRI W/O CONTRAST MRI of the brain noncontrast Clinical history: Rule out CVA. Sagittal, coronal and axial T1, T2, FLAIR and diffusion weighted images were obtained. The midline structures unremarkable. No evidence Chiari malformation. On the T2 and FLAIR weighted images there are scattered small vessel infarcts in periventricular distribution in both cerebral hemispheres which may be sequela of small vessel atherosclerosis or hypertension. No evidence of acute infarction. The diffusion weighted images unremarkable. No evidence of acute intracerebral hemorrhage, subdural fluid collection or hydrocephalus. Cerebellopontine angles and basilar artery unremarkable. Impression: No evidence of acute infarct. No evidence of acute intracerebral hemorrhage, subdural fluid collection or hydrocephalus. Scattered old small vessel infarctions in the white matter of both cerebral hemispheres sequela most probably to long-standing hypertension or small vessel atherosclerosis. Cerebellopontine angles, basilar artery and cavernous portion internal carotid arteries unremarkable. Satisfactory pneumatization of the facial sinuses and mastoid cells. Reported By: Arron Toure MD 11/08/17 1207 Carotid duplex: the exam was performed utilizing grayscale as well as color flow and spectral Doppler sonography. Evaluation of the extracranial left carotid artery demonstrates a peak systolic flow velocity of 258 cm/s at the level of the proximal internal carotid artery suggestive of a luminal diameter stenosis of more than 70% (NASCET criteria). There also appears to be an elevated end-diastolic flow velocity at that level of 49 cm/s. Evaluation of the extracranial right carotid artery demonstrates a somewhat elevated peak systolic flow velocity of 136 cm/s at the level of the proximal internal carotid artery which could be on the basis of an approximately 50-70% luminal diameter stenosis (NASCET criteria). The remaining flow velocities within the right carotid artery appear unremarkable. At least moderate atherosclerotic plaque formation is seen at the level of the carotid artery bifurcations. The vertebral arteries appear to be patent demonstrating antegrade flow. Impression : The exam suggests a stenosis of more than 70% involving the proximal left internal carotid artery The exam is also suggestive of an approximately 50-70% stenosis of the proximal right internal carotid artery. Confirmation and further evaluation utilizing CT angiography is suggested. If there is a significant contraindication to contrast enhanced imaging additional evaluation utilizing noncontrast MRA may be performed. 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 The result of MRI as above and carotid #Proximal Left internal carotid artery stenosis more than 70% , will get vascular involved, will increase the Lipitor to 40mg # difficulty with speech with Hx of CVA in 2014 , neuro consult appreciated. Patient's speech improved back to her baseline # Hx of CAD on Plavix/Asa continue, Lipitor # T2DM SS with coverage, Levemir continue # HLD on Lipitor and Fenofibrate #Hx of depression continue zoloft # Hx of constipation continue Miralax DVT Px: heparin
[2017-11-10] MEDS ORDERED: ALPRAZolam 2 MG TABLET PO PRN (14:25)
--- NOTE | 2017-11-10 15:19 | ECHO ---
Name: SHERLEY ARIAS Exam:Adult Echocardiogram Study Date: 11/10/2017 11:36 AM Age: 77 yrs Reason For Study: R/O LV DYSFUNCTION Height: 63 in Weight: 126 lb BSA: 1.6 m2 MMode/2D Measurements & Calculations IVSd: 0.86 cm Ao root diam: 2.3 cm LVIDd: 4.4 cm LA dimension: 3.1 cm LVIDs: 2.7 cm LVPWd: 0.74 cm EDV(Teich): 86.4 ml TAPSE: 2.5 cm ESV(Teich): 27.3 ml RV S Chris: 13.7 cm/sec Doppler Measurements & Calculations MV E max chris: 43.9 cm/sec MR max chris: 275.5 cm/sec MV A max chris: 78.5 cm/sec MR max P.4 mmHg MV E/A: 0.56 TR max chris: 232.7 cm/sec PI end-d chris: 52.4 cm/sec TR max P.8 mmHg Med Peak E' Chris: 4.0 cm/sec Med E/e': 11.0 Lat Peak E' Chris: 4.1 cm/sec Lat E/e': 10.7 Procedure The study was technically adequate with some images being suboptimal in quality. Left Ventricle The left ventricle is normal in size. Left ventricular systolic function is normal. Ejection Fraction = 65- 70%. E/A reversal with TDI revaling impaired relaxation with normal filling pressure (E' 4 and E/E' 1 1). No regional wall motion abnormalities noted. Right Ventricle The right ventricle is normal size. The right ventricular systolic function is normal. RV systolic TD I is 14 cm/s. Atria The left atrial size is normal. Right atrial size is normal. Mitral Valve There is mild mitral annular calcification. There is mild mitral regurgitation. Tricuspid Valve The tricuspid valve is normal in structure and function. There is moderate tricuspid regurgitation. P ulmonary artery sysolic pressure is at least 30 mmHg assuming RA pressure of 3 mmHg. Aortic Valve The aortic valve is normal in structure and function. The aortic valve is trileaflet. The aortic valv e opens well. No aortic regurgitation is present. Pulmonic Valve The pulmonic valve is not well visualized. Great Vessels The aortic root is normal size. Pericardium/Pleura Small pericardial effusion (<1cm). Interpretation Summary The left ventricle is normal in size. Left ventricular systolic function is normal. No regional wall motion abnormalities noted. Ejection Fraction = 65-70%. E/A reversal with TDI revaling impaired relaxation with normal filling pressure (E' 4 and E/E' 11) The right ventricular systolic function is normal. The left atrial size is normal. Right atrial size is normal. There is mild mitral annular calcification. There is mild mitral regurgitation. There is moderate tricuspid regurgitation. Pulmonary artery sysolic pressure is at least 30 mmHg assuming RA pressure of 3 mmHg Small pericardial effusion (<1cm) Ricardo Quick MD 11/10/2017 03:19 PM
[2017-11-10 15:46] VITALS: BMI 22.1
--- NOTE | 2017-11-10 17:17 | PN ---
Physical Exam: SUBJECTIVE: Patient is a 77 y/o woman with HTN, CKD stage III, DM, CAD, IBS who is here for elevated BP. Patient only complained of headache over night. No acute events but states she has some anxiety. OBJECTIVE: Vital Signs Period Temp Pulse Resp BP Sys/Morrison Pulse Ox Last 24 Hr 97.3 F-98.8 F 62-85 16-20 116-196/52-72 98-98 GENERAL: The patient is awake, alert, and fully oriented HEAD: Normal with no signs of trauma. LUNGS: Breath sounds equal, clear to auscultation bilaterally HEART: Regular rate and rhythm, ABDOMEN: Soft, nontender, nondistended, normoactive bowel sounds EXTREMITIES: 2+ pulses, warm, well-perfused, no edema. PSYCH: Normal mood, normal affect. SKIN: Warm, dry, normal turgor, no rashes or lesions noted Laboratory Results - last 24 hr 11/09/1718 11/10/17 06:05 20:48 05:27 POC Glucometer 264 137 ADRIENNE Screen Negative 11/10/17 12:24 POC Glucometer 265 ADRIENNE Screen Active Medications Generic Name Dose Route Start Last Admin Trade Name Freq PRN Reason Stop Dose Admin Alprazolam 2 mg 11/10/17 22:00 Xanax - PO HS BLAS Alprazolam 1 mg 11/10/17 14:25 Xanax - PO 11/14/17 09:59 BID PRN ANXIETY Amlodipine Besylate 10 mg 11/08/17 10:00 11/10/17 09:10 Norvasc - PO 10 mg DAILY BLAS Administration Atorvastatin Calcium 40 mg 11/10/17 14:23 Lipitor - PO HS BLAS Carvedilol 25 mg 11/08/17 11:00 11/10/17 09:10 Coreg - PO 25 mg BID BLAS Administration Cholecalciferol 2,000 unit 11/08/17 10:00 11/10/17 09:10 Vitamin D3 - PO 2,000 unit DAILY BLAS Administration Clopidogrel Bisulfate 75 mg 11/08/17 10:00 11/10/17 09:10 Plavix - PO 75 mg DAILY BLAS Administration Fenofibric Acid 45 mg 11/08/17 10:00 11/10/17 09:44 Trilipix - PO 45 mg DAILY BLAS Administration Ferrous Sulfate 325 mg 11/08/17 10:00 11/10/17 09:10 Feosol - PO 325 mg DAILY BLAS Administration Fluticasone Propionate 1 spray 11/08/17 10:00 11/10/17 09:11 Flonase - NS Not Given DAILY BLAS Heparin Sodium (Porcine) 5,000 unit 11/07/17 22:00 11/10/17 09:09 Heparin - SQ 5,000 unit BID BLAS Administration Hydrochlorothiazide 25 mg 11/08/17 13:30 11/10/17 09:10 Hctz - PO 25 mg DAILY BLAS Administration Insulin Aspart 1 vial 11/07/17 22:00 11/10/17 12:25 Novolog Vial Sliding Scale - SQ 6 units ACHS BLAS Administration Protocol Isosorbide Mononitrate 30 mg 11/07/17 22:00 11/10/17 09:10 Imdur - PO 30 mg BID BLAS Administration Multivitamins 1 each 11/08/17 10:00 11/10/17 09:42 Total B With C - PO 1 each DAILY BLAS Administration Multivitamins/Minerals 1 each 11/08/17 10:00 11/10/17 09:10 Theragran-M PO 1 each DAILY BLAS Administration Non-Formulary Medication 290 mcg 11/08/17 10:00 Linaclotide [Linzess] PO DAILY BLAS Polyethylene Glycol 17 gm 11/08/17 10:00 11/10/17 09:10 Miralax (For Daily Use) - PO 17 gm DAILY BLAS Administration Rifaximin 550 mg 11/08/17 10:00 11/10/17 09:42 Xifaxan - PO 550 mg DAILY BLAS Administration Sertraline HCl 100 mg 11/07/17 22:00 11/09/17 21:58 Zoloft - PO 100 mg HS BLAS Administration Valsartan 160 mg 11/10/17 22:00 Diovan - PO BID BLAS ASSESSMENT/PLAN: Patient is a 77 y/o woman with HTN, CKD stage III, DM, CAD, IBS who is here for elevated BP. #Hypertension - Valsartan 160 mg BID - Carvediliol 25 mg po - HCTZ 25 mg po daily - amlodipine 10 mg daily - isosorbide mononitrate 30 mg po bid - f/u Cardio consult Dr. Flor - pending echo - carotid doppler 70% left ICA and 50-70% in right ICA - MRI of brain without acute infarct #DM - A1c% - BGM/NISS ACHS - SS #CAD - continue plavix 75 mg po daily #Anxiety - Zoloft, Xifaxan, Xanax #IBS - continue xifaxan - continue polethylenel glycol Dispo: tomorrow Visit type - Emergency Visit Emergency Visit: No - New Patient This patient is new to me today: No - Critical Care Critical Care patient: No
[2017-11-10] MEDS ORDERED: ALPRAZolam 2 MG TABLET PO SCH (22:00)
[2017-11-10] MEDS: VALSARTAN 160 MG TABLET (UD) PO SCH (22:06)
[2017-11-10] MEDS: SERTRALINE HCL 50 MG TABLET (FP) PO SCH (22:06)
[2017-11-11] MEDS: INSULIN SLIDING SCALE (NOVOLOG) 1 VIAL SQ SCH ×3 (06:40→16:37)
--- NOTE | 2017-11-11 08:43 | PN ---
Teaching Attending Note Name of Resident: Dori Rosario ATTENDING PHYSICIAN STATEMENT I saw and evaluated the patient. I reviewed the resident's note and discussed the case with the resident. I agree with the resident's findings and plan as documented. SUBJECTIVE: Patient is comfortable with no acute distress. Blood pressure is better controlled now. OBJECTIVE: Vital Signs Temperature 98.1 F 11/11/17 05:59 Pulse Rate 80 11/11/17 05:59 Respiratory Rate 18 11/11/17 05:59 Blood Pressure 144/74 11/11/17 05:59 O2 Sat by Pulse Oximetry (%) 98 11/10/17 21:00 CBCD WBC 9.5 K/mm3 (4.0-10.0) 11/07/17 15:07 RBC 3.67 M/mm3 (3.60-5.2) 11/07/17 15:07 Hgb 11.6 GM/dL (10.7-15.3) 11/07/17 15:07 Hct 34.2 % (32.4-45.2) 11/07/17 15:07 MCV 93.1 fl (80-96) 11/07/17 15:07 MCHC 33.8 g/dl (32.0-36.0) 11/07/17 15:07 RDW 12.9 % (11.6-15.6) 11/07/17 15:07 Plt Count 213 K/MM3 (134-434) 11/07/17 15:07 MPV 10.3 fl (7.5-11.1) 11/07/17 15:07 CMP Sodium 137 mmol/L (136-145) 11/08/17 07:30 Potassium 4.4 mmol/L (3.5-5.1) 11/08/17 07:30 Chloride 101 mmol/L (98-107) 11/08/17 07:30 Carbon Dioxide 29 mmol/L (21-32) 11/08/17 07:30 Anion Gap 7 (8-16) L 11/08/17 07:30 BUN 36 mg/dL (7-18) H 11/08/17 07:30 Creatinine 1.2 mg/dL (0.55-1.02) H 11/08/17 07:30 Creat Clearance w eGFR 43.56 (>60) 11/08/17 07:30 Random Glucose 182 mg/dL (74-106) H 11/08/17 07:30 Calcium 9.2 mg/dL (8.5-10.1) 11/08/17 07:30 Total Bilirubin 0.3 mg/dL (0.2-1.0) 11/07/17 15:07 AST 24 U/L (15-37) 11/07/17 15:07 ALT 29 U/L (12-78) 11/07/17 15:07 Alkaline Phosphatase 171 U/L (45-117) H 11/07/17 15:07 Total Protein 7.3 g/dl (6.4-8.2) 11/07/17 15:07 Albumin 3.8 g/dl (3.4-5.0) 11/07/17 15:07 CARDIAC ENZYMES Troponin I < 0.02 ng/ml (0.00-0.05) 11/07/17 15:07 Current Medications Generic Name Dose Route Start Last Admin Trade Name Freq PRN Reason Stop Dose Admin Alprazolam 2 mg 11/10/17 22:00 11/10/17 22:07 Xanax - PO 2 mg HS BLAS Administration Alprazolam 1 mg 11/10/17 14:25 Xanax - PO 11/14/17 09:59 BID PRN ANXIETY Amlodipine Besylate 10 mg 11/08/17 10:00 11/10/17 09:10 Norvasc - PO 10 mg DAILY BLAS Administration Atorvastatin Calcium 40 mg 11/10/17 14:23 11/10/17 22:06 Lipitor - PO 40 mg HS BLAS Administration Carvedilol 25 mg 11/08/17 11:00 11/10/17 22:06 Coreg - PO 25 mg BID BLAS Administration Cholecalciferol 2,000 unit 11/08/17 10:00 11/10/17 09:10 Vitamin D3 - PO 2,000 unit DAILY BLAS Administration Clopidogrel Bisulfate 75 mg 11/08/17 10:00 11/10/17 09:10 Plavix - PO 75 mg DAILY BLAS Administration Fenofibric Acid 45 mg 11/08/17 10:00 11/10/17 09:44 Trilipix - PO 45 mg DAILY BLAS Administration Ferrous Sulfate 325 mg 11/08/17 10:00 11/10/17 09:10 Feosol - PO 325 mg DAILY BLAS Administration Fluticasone Propionate 1 spray 11/08/17 10:00 11/10/17 09:11 Flonase - NS Not Given DAILY BLAS Heparin Sodium (Porcine) 5,000 unit 11/07/17 22:00 11/10/17 22:08 Heparin - SQ 5,000 unit BID BLAS Administration Hydrochlorothiazide 25 mg 11/08/17 13:30 11/10/17 09:10 Hctz - PO 25 mg DAILY BLAS Administration Insulin Aspart 1 vial 11/07/17 22:00 11/11/17 06:40 Novolog Vial Sliding Scale - SQ Not Given [facility] Protocol Isosorbide Mononitrate 30 mg 11/07/17 22:00 11/10/17 22:06 Imdur - PO 30 mg BID BLAS Administration Multivitamins 1 each 11/08/17 10:00 11/10/17 09:42 Total B With C - PO 1 each DAILY BLAS Administration Multivitamins/Minerals 1 each 11/08/17 10:00 11/10/17 09:10 Theragran-M PO 1 each DAILY BLAS Administration Non-Formulary Medication 290 mcg 11/08/17 10:00 Linaclotide [Linzess] PO DAILY BLAS Polyethylene Glycol 17 gm 11/08/17 10:00 11/10/17 09:10 Miralax (For Daily Use) - PO 17 gm DAILY [facility] Administration Rifaximin 550 mg 11/08/17 10:00 11/10/17 09:42 Xifaxan - PO 550 mg DAILY BLAS Administration Sertraline HCl 100 mg 11/07/17 22:00 11/10/17 22:06 Zoloft - PO 100 mg HS [facility] Administration Valsartan 160 mg 11/10/17 22:00 11/10/17 22:06 Diovan - PO 160 mg BID BLAS Administration Home Medications Medication Instructions Recorded Alprazolam 1 mg PO BId 11/11/17 Alprazolam [Xanax] 2 mg PO HS 11/11/17 Amlodipine Besylate [Norvasc -] 10 mg PO DAILY #30 tablet 11/11/17 Atorvastatin Ca [Lipitor] 40 mg PO HS 11/11/17 Buspirone HCl [Buspar -] 5 mg PO BID 11/11/17 Carvedilol 25 mg PO BID #60 tablet 11/11/17 Cholecalciferol (Vitamin D3) 1 cap PO DAILY 11/11/17 [Vitamin D3] Clopidogrel Bisulfate [Plavix] 75 mg PO DAILY 11/11/17 Dorzolamide HCl [Trusopt 2% -] 1 drop OU DAILY 11/11/17 Econazole Nitrate 1 applic TP ASDIR 11/11/17 Ferrous Sulfate 325 mg PO DAILY 11/11/17 Fluticasone Prop 0.05% Nasal 1 spray NS DAILY spray 11/11/17 [Flonase -] Hydrochlorothiazide [Hctz -] 25 mg PO DAILY #30 tablet 11/11/17 Hydroxyzine HCl 25 mg PO DAILY 11/11/17 Insulin Aspart [Novolog Flexpen] See Protocol SQ TIDCM 11/11/17 Insulin Detemir [Levemir Flextouch] 20 units SQ DAILY 11/11/17 Isosorbide Mononitrate [Isosorbide 30 mg PO BID #60 tab.er.24h 11/11/17 Mononitrate ER] Latanoprost 0.005% Eye Drops 1 drop OU HS 11/11/17 [Xalatan 0.005% Eye Drops -] Linaclotide [Linzess] 290 mcg PO DAILY 11/11/17 Losartan Potassium 50 mg PO BID #60 tablet 11/11/17 Mirtazapine [Remeron -] 15 mg PO DAILY 11/11/17 Nitroglycerin [Nitrostat] 0.4 mg SL TID PRN 11/11/17 Polyethylene Glycol 3350 238 gm PO DAILY 11/11/17 [Powderlax] Rifaximin [Xifaxan] 550 mg PO DAILY 11/11/17 Sertraline HCl 100 mg PO DAILY 11/11/17 Triamcinolone Acetonide 1 applic TP DAILY 11/11/17 Vitamin B Complex 1 cap PO DAILY 11/11/17 PE: per resident's note Chest: CTA bl Heart:S1S2 positive abdomen: soft, NT ext: No edema, pulses are positive. EXAM#: TYPE/EXAM: RESULT: [id number] MRI/BRAIN MRI W/O CONTRAST MRI of the brain noncontrast Clinical history: Rule out CVA. Sagittal, coronal and axial T1, T2, FLAIR and diffusion weighted images were obtained. The midline structures unremarkable. No evidence Chiari malformation. On the T2 and FLAIR weighted images there are scattered small vessel infarcts in periventricular distribution in both cerebral hemispheres which may be sequela of small vessel atherosclerosis or hypertension. No evidence of acute infarction. The diffusion weighted images unremarkable. No evidence of acute intracerebral hemorrhage, subdural fluid collection or hydrocephalus. Cerebellopontine angles and basilar artery unremarkable. Impression: No evidence of acute infarct. No evidence of acute intracerebral hemorrhage, subdural fluid collection or hydrocephalus. Scattered old small vessel infarctions in the white matter of both cerebral hemispheres sequela most probably to long-standing hypertension or small vessel atherosclerosis. Cerebellopontine angles, basilar artery and cavernous portion internal carotid arteries unremarkable. Satisfactory pneumatization of the facial sinuses and mastoid cells. Reported By: Arron Toure MD 11/08/17 1204 Carotid duplex: the exam was performed utilizing grayscale as well as color flow and spectral Doppler sonography. Evaluation of the extracranial left carotid artery demonstrates a peak systolic flow velocity of 258 cm/s at the level of the proximal internal carotid artery suggestive of a luminal diameter stenosis of more than 70% (NASCET criteria). There also appears to be an elevated end-diastolic flow velocity at that level of 49 cm/s. Evaluation of the extracranial right carotid artery demonstrates a somewhat elevated peak systolic flow velocity of 136 cm/s at the level of the proximal internal carotid artery which could be on the basis of an approximately 50-70% luminal diameter stenosis (NASCET criteria). The remaining flow velocities within the right carotid artery appear unremarkable. At least moderate atherosclerotic plaque formation is seen at the level of the carotid artery bifurcations. The vertebral arteries appear to be patent demonstrating antegrade flow. Impression : The exam suggests a stenosis of more than 70% involving the proximal left internal carotid artery The exam is also suggestive of an approximately 50-70% stenosis of the proximal right internal carotid artery. Confirmation and further evaluation utilizing CT angiography is suggested. If there is a significant contraindication to contrast enhanced imaging additional evaluation utilizing noncontrast MRA may be performed. 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 The result of MRI as above and carotid #Proximal Left internal carotid artery stenosis more than 70% , will get vascular involved, will increase the Lipitor to 40mg. follow with vascular as an outpatient, patient is aware and this is not new as per patient. # difficulty with speech with Hx of CVA in 2014 , neuro consult appreciated. 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
[2017-11-11] MEDS: ISOSORBIDE MONONITRATE 30 MG TAB.SR.24H (FP) PO SCH (10:25)
[2017-11-11] MEDS: CHOLECALCIFEROL (VITAMIN D3) 1,000 UNIT TABLET (FP) PO SCH (10:25)
[2017-11-11] MEDS: HEPARIN NA (PORCINE) 5,000 UNITS/ML 1ML VIAL SQ SCH (10:25)
[2017-11-11] MEDS: HYDROCHLOROTHIAZIDE 25 MG TABLET (FP) PO SCH (10:26)
[2017-11-11] MEDS: FERROUS SO4 325 MG TABLET (FP) PO SCH (10:26)
[2017-11-11] MEDS: CLOPIDOGREL BISULFATE 75 MG TABLET (FP) PO SCH (10:26)
[2017-11-11] MEDS: FLUTICASONE PROP 0.05% 16 GM NASAL SPRAY NS SCH (10:26)
[2017-11-11] MEDS: CARVEDILOL 25 MG TABLET (FP) PO SCH (10:26)
[2017-11-11] MEDS: amLODIPine BESYLATE 10 MG TABLET (FP) PO SCH (10:26)
[2017-11-11] MEDS: VALSARTAN 160 MG TABLET (UD) PO SCH (10:26)
[2017-11-11] MEDS: MULTIVITAMINS THER W-MINERALS COMBO TABLET (FP) PO SCH (10:26)
[2017-11-11] MEDS: POLYETHYLENE GLYCOL 3350 119 GM BTL PO SCH (10:26)
[2017-11-11] MEDS: FENOFIBRIC ACID 45 MG CAP PO SCH (10:27)
[2017-11-11] MEDS: RIFAXIMIN 550 MG TABLET (UD) PO SCH (10:27)
[2017-11-11] MEDS: VITAMIN B COMPLEX W/C COMBO TABLET (FP) PO SCH (10:27)
[2017-11-11] MEDS ORDERED: INSULIN (NOVOLOG) ASPART 100 UNITS/ML 10ML VIAL ONE (10:34)
--- NOTE | 2017-11-11 11:40 | PN ---
Progress Note, TELESERVICES REPRESENTATIVE - Note Progress Note: Selected Entries 11/10/17 11/10/17 11/11/17 10:02 14:03 01:28 Breakfast 100% 100% Diet Tolerated Well Well Temperature 98.2 F 11/11/17 11/11/17 11/11/17 05:59 09:00 10:59 Breakfast 100% Diet Tolerated Well Temperature 98.1 F 97.4 F L Laboratory Tests 11/07/17 15:07 WBC 9.5 Tolerating diet. No further f/u indicated.
--- NOTE | 2017-11-11 11:59 | PN ---
Progress Note, Physician History of Present Illness: seen and examined today in nad. sitting in chair, nad, states she is feeling well, denies any complaints. - Current Medication List Current Medications: Active Medications Alprazolam (Xanax -) 2 mg PO HS [facility] Last Admin: 11/10/17 22:07 Dose: 2 mg Alprazolam (Xanax -) 1 mg PO BID PRN PRN Reason: ANXIETY Stop: 11/14/17 09:59 Amlodipine Besylate (Norvasc -) 10 mg PO DAILY [facility] Last Admin: 11/11/17 10:26 Dose: 10 mg Atorvastatin Calcium (Lipitor -) 40 mg PO HS [facility] Last Admin: 11/10/17 22:06 Dose: 40 mg Carvedilol (Coreg -) 25 mg PO BID [facility] Last Admin: 11/11/17 10:26 Dose: 25 mg Cholecalciferol (Vitamin D3 -) 2,000 unit PO DAILY [facility] Last Admin: 11/11/17 10:25 Dose: 2,000 unit Clopidogrel Bisulfate (Plavix -) 75 mg PO DAILY [facility] Last Admin: 11/11/17 10:26 Dose: 75 mg Fenofibric Acid (Trilipix -) 45 mg PO DAILY [facility] Last Admin: 11/11/17 10:27 Dose: 45 mg Ferrous Sulfate (Feosol -) 325 mg PO DAILY [facility] Last Admin: 11/11/17 10:26 Dose: 325 mg Fluticasone Propionate (Flonase -) 1 spray NS DAILY [facility] Last Admin: 11/11/17 10:26 Dose: Not Given Heparin Sodium (Porcine) (Heparin -) 5,000 unit SQ BID [facility] Last Admin: 11/11/17 10:25 Dose: 5,000 unit Hydrochlorothiazide (Hctz -) 25 mg PO DAILY [facility] Last Admin: 11/11/17 10:26 Dose: 25 mg Insulin Aspart (Novolog Vial Sliding Scale -) 1 vial SQ ACHS [facility]; Protocol Last Admin: 11/11/17 11:27 Dose: 6 units Isosorbide Mononitrate (Imdur -) 30 mg PO BID [facility] Last Admin: 11/11/17 10:25 Dose: 30 mg Multivitamins (Total B With C -) 1 each PO DAILY [facility] Last Admin: 11/11/17 10:27 Dose: 1 each Multivitamins/Minerals (Theragran-M) 1 each PO DAILY [facility] Last Admin: 11/11/17 10:26 Dose: 1 each Non-Formulary Medication (Linaclotide [Linzess]) 290 mcg PO DAILY [facility] Polyethylene Glycol (Miralax (For Daily Use) -) 17 gm PO DAILY [facility] Last Admin: 11/11/17 10:26 Dose: 17 gm Rifaximin (Xifaxan -) 550 mg PO DAILY [facility] Last Admin: 11/11/17 10:27 Dose: 550 mg Sertraline HCl (Zoloft -) 100 mg PO HS [facility] Last Admin: 11/10/17 22:06 Dose: 100 mg Valsartan (Diovan -) 160 mg PO BID [facility] Last Admin: 11/11/17 10:26 Dose: 160 mg - Objective Vital Signs: Vital Signs Temperature 97.4 F L 11/11/17 09:00 Pulse Rate 65 11/11/17 09:00 Respiratory Rate 18 11/11/17 09:00 Blood Pressure 129/51 11/11/17 09:00 O2 Sat by Pulse Oximetry (%) 98 11/10/17 21:00 Constitutional: Yes: Well Nourished, No Distress, Calm Eyes: Yes: Conjunctiva Clear, EOM Intact HENT: Yes: Atraumatic, Normocephalic Neck: Yes: Supple, Trachea Midline Cardiovascular: Yes: WNL, Regular Rate and Rhythm, S1, S2. No: Bradycardia, Tachycardia, Pulse Irregular, Bruit, JVD, Gallop, Murmur, Rub, S3, S4, Varicosities Respiratory: Yes: Regular, CTA Bilaterally. No: Rales, Rhonchi, Wheezes Gastrointestinal: Yes: Normal Bowel Sounds, Soft. No: Distention, Tenderness Musculoskeletal: Yes: WNL Extremities: Yes: WNL Edema: No Peripheral Pulses WNL: Yes Peripheral Pulses: Left Doralis Pedis: 2+, Right Dorsalis Pedis: 2+ Neurological: Yes: Alert, Oriented Psychiatric: Yes: Alert, Oriented Labs: CBC, BMP 11/07/17 15:07 11/08/17 07:30 - ....Imaging Chest X-ray: Report Reviewed, Image Reviewed EKG: Report Reviewed, Image Reviewed Other: Report Reviewed, Image Reviewed (tele-nsr, no events recorded) Assessment/Plan 77 year old woman with a history of CAD, CHF, HTN, Hyperlipdemia, Other (s/p stent in LAD and RCA.), DJD admitted with changing mental status, confusion found with very elevated blood pressure. It is unclear whether she is taking her medications. She is a poor informant due to confusion at this time. Echo 11/10/17-Normal LVEF, small pericardial effusion, mod TR, mild MR Carotid duplex 11/07/17 bilat disease. HTN is much better controlled, well controlled on last check 129/51 cont Coreg, norvasc, HCTZ, Imdur -would change Valsartan to Losartan or other ARB given recent recall of Valsartan No signs of acute CVA, ACS or hypertensive emergency. Echo as above showed normal LVEF, small pericardial effusion, mod TR, mild MR -Carotid stenosis on doppler, fup Vascular evaluation -no additional inpatient cardiac work up needed at this time, pt can follow as outpatient for further work up as needed Please call with any additional questions.
--- NOTE | 2017-11-11 14:51 | DS ---
Physical Exam: SUBJECTIVE: Patient is a 77 y/o woman with HTN, CKD stage III, DM, CAD, IBS who is here for elevated BP. Patient has no complaints overnight. States she is working with her PCP to find a psychologist to talk with. OBJECTIVE: Vital Signs Period Temp Pulse Resp BP Sys/Morrison Pulse Ox Last 24 Hr 97.4 F-98.4 F 62-80 16-18 129-150/51-74 98-98 PHYSICAL EXAM GENERAL: The patient is awake, alert, and fully oriented HEAD: Normal with no signs of trauma. LUNGS: Breath sounds equal, clear to auscultation bilaterally HEART: Regular rate and rhythm, ABDOMEN: Soft, nontender, nondistended, normoactive bowel sounds EXTREMITIES: 2+ pulses, warm, well-perfused, no edema. PSYCH: Normal mood, normal affect. SKIN: Warm, dry, normal turgor, no rashes or lesions noted LABS Laboratory Results - last 24 hr 11/09/17 11/10/17 11/10/17 06:05 16:44 22:05 POC Glucometer 173 227 ADRIENNE Screen Negative 11/11/17 11/11/17 06:39 11:26 POC Glucometer 129 279 ARDIENNE Screen HOSPITAL COURSE: Date of Admission:11/07/17 Patient is a 77 y/o woman with HTN, CKD stage III, DM, CAD, IBS who is presented with elevated BP and AMS. BP on admission was 186/78. Her norvasc was increased to 10 mg and she was given one dose of lopressor. Imaging was done and showed: Head CT: no intracranial hemorrhage, no discrete infarct Carotid Doppler: stenosis of more than 70% of proximal left carotid artery, 50- 70% stenosis of the right internal carotid artery Brain MRI: no evidence of intracerebral hemorrhage, scattered old small vessel infarcts Patients HTN medications were adjusted and her BP stabalized with: Losartan 50 mg BID Carvedilol 25 mg po BID HCTZ 25 mg po daily Amlodipine 10 mg daily Isosorbide mononitrate 30 mg po BID Patient will continue these new medications as an outpatient. Surgery was consulted, Dr. Navarrete, and patient will follow up with Dr. Tran for management of her carotid artery stenosis. Psychology was consulted, Dr. Gould, and recommended patient finding a psychiatrist. Patient reports she is working with her PCP to find one that fits her needs. Date of Discharge: 11/11/17 Minutes to complete discharge: 36 Discharge Summary Reason For Visit: ALTERED MENTAL STATUS Current Active Problems Depressed (Chronic) Condition: Stable - Instructions Diet, Activity, Other Instructions: You came to the hospital because you had high blood pressure. While you were here we adjusted your medications and your blood pressure has stabilized. You will continue to take: Carvedilol 25 by mouth twice a day Losartan 50 mg by mouth twice a day Hydrochlorothiazide 25 mg by mouth once a day Isosorbide Mononitrate 30 mg by mouth twice a day Amlodipine 10 mg by mouth once a day You should follow up with Dr. Flor as an outpatient to continue to monitor you high blood pressure. Please take your other home medications as prescribed. Please follow up with your primary care physician within one week. Please return to the Emergency department if you have chest pain, shortness of breath, nausea, vomiting, or headache. Referrals: Bill Flor MD [Staff Physician] - Emerson Soto MD [Primary Care Provider] - 1 Week Disposition: HOME - Home Medications Comprehensive Discharge Medication List: Ambulatory Orders Alprazolam 1 mg PO QID 11/11/17 Alprazolam [Xanax] 2 mg PO HS 11/11/17 Amlodipine Besylate [Norvasc -] 10 mg PO DAILY #30 tablet 11/11/17 Atorvastatin Ca [Lipitor] 40 mg PO HS 11/11/17 Buspirone HCl [Buspar -] 5 mg PO BID 11/11/17 Carvedilol 25 mg PO BID #60 tablet 11/11/17 Cholecalciferol (Vitamin D3) [Vitamin D3] 1 cap PO DAILY 11/11/17 Clopidogrel Bisulfate [Plavix] 75 mg PO DAILY 11/11/17 Dorzolamide HCl [Trusopt 2%] 1 drop OU DAILY 11/11/17 Econazole Nitrate 1 applic TP ASDIR 11/11/17 Ferrous Sulfate 325 mg PO DAILY 11/11/17 Fluticasone Prop 0.05% Nasal [Flonase -] 1 spray NS DAILY spray 11/11/17 Hydrochlorothiazide [Hctz -] 25 mg PO DAILY #30 tablet 11/11/17 Hydroxyzine HCl 25 mg PO DAILY 11/11/17 Insulin Aspart [Novolog] See Protocol SQ TIDCM 11/11/17 Insulin Detemir [Levemir Flextouch] 20 units SQ DAILY 11/11/17 Isosorbide Mononitrate [Isosorbide Mononitrate ER] 30 mg PO BID #60 tab.er.24h 11/11/17 Latanoprost 0.005% Eye Drops [Xalatan 0.005% Eye Drops -] 1 drop OU HS 11/11/17 Linaclotide [Linzess] 290 mcg PO DAILY 11/11/17 Losartan Potassium 50 mg PO BID #60 tablet 11/11/17 Mirtazapine [Remeron -] 15 mg PO DAILY 11/11/17 Nitroglycerin [Nitrostat] 0.4 mg SL TID PRN 11/11/17 Polyethylene Glycol 3350 [Powderlax] 238 gm PO DAILY 11/11/17 Rifaximin [Xifaxan] 550 mg PO DAILY 11/11/17 Sertraline HCl 100 mg PO DAILY 11/11/17 Triamcinolone Acetonide 1 applic TP DAILY 11/11/17 Vitamin B Complex 1 cap PO DAILY 11/11/17 This patient is new to me today: No Emergency Visit: No Critical Care patient: No - Discharge Referral Referred to [facility] No
[2017-11-11 17:42] VITALS: BP 140/70; PULSE 60; TEMP 98.2
== END 2017-11-11 20:08 | disposition home or self-care (01) | DRG 78 ==
LOC: JER 14:12 → J4S 16:49
PROVIDERS: ADMIT Internal Medicine; ATTEND Internal Medicine
DX: I67.4 Hypertensive encephalopathy (principal); F33.1 Major depressive disorder, recurrent, moderate; I16.0 Hypertensive urgency; I65.03 Occlusion and stenosis of bilateral vertebral arteries; I13.10 Hypertensive heart and chronic kidney disease without heart failure, with stage 1 through stage 4 chronic kidney disease, or unspecified chronic kidney disease; N18.3 Chronic kidney disease, stage 3 (moderate); E78.5 Hyperlipidemia, unspecified; E11.22 Type 2 diabetes mellitus with diabetic chronic kidney disease; I25.10 Atherosclerotic heart disease of native coronary artery without angina pectoris; R41.82 Altered mental status, unspecified; Z79.4 Long term (current) use of insulin; K59.00 Constipation, unspecified; F41.8 Other specified anxiety disorders; K21.9 Gastro-esophageal reflux disease without esophagitis
CPT/HCPCS: 36415; 70450-TC; 70551-TC; 80048; 80053; 81003; 81015; 82607; 82962; 83036; 83090; 84484; 85025; 86038; 86593; 87086; 93005; 93010; 93306-TC; 93880-TC; 97116-GP; 99285-25; J1644; J7030

== ENCOUNTER 2018-02-28 11:11 | Inpatient (IN) | payer OTHER ==
[2018-02-28 11:37] VITALS: BMI 24.3
[2018-02-28 13:00] LABS: BASO % 0.2 % (0-2.0); EOS % 0.4 % (0-4.5); HEMATOCRIT 23.5 % (32.4-45.2); HEMOGLOBIN 8.1 GM/dL (10.7-15.3); LYMPH % 6.2 % (8-40); MCH 32.2 pg (25.7-33.7); MCHC 34.3 g/dl (32.0-36.0); MEAN CELL VOLUME 93.8 fl (80-96); MEAN PLT VOLUME 10.6 fl (7.5-11.1); MONO % 7.3 % (3.8-10.2); NEUT % 85.9 % (42.8-82.8); PLATELET COUNT 194 K/MM3 (134-434); RBC 2.51 M/mm3 (3.60-5.2); RDW 13.8 % (11.6-15.6); WHITE BLOOD COUNT 11.4 K/mm3 (4.0-10.0)
--- NOTE | 2018-02-28 13:00 | PDOC ---
History of Present Illness - General Chief Complaint: Weakness Stated Complaint: WEANKESS,BILATERAL SWELLING Time Seen by Provider: 02/28/18 11:53 - History of Present Illness Initial Comments: 02/28/18 12:55 The patient is a 77-year-old female with past medical history significant for NIDDM, HTN, GERD, HLD, CAD s/p stents, CKD III, anemia and IBS presents to the emergency department with bilateral lower extremity swelling for the past 4 days. The patient reports since Friday shes been having increased bilateral swelling to the legs, associated with 10-pound weight gain. The patient reports associated symptoms of shortness of breath and orthopnea with difficulty moving around secondary to leg heaviness. She reports that the swelling has extended to her abdomen as well. The patient reports following up with Dr. Navarro (PCP) on Friday, who referred the patient the ER for IV Lasix. The patient did not come in at that time because she wanted to spend Thanksgiving with her family. Pt denies CP. Allergies: diphenhydramine HCl Social history: No past or present use of tobacco, alcohol or recreational drugs. Surgical history: Cardiac Stents (2005 and 2011) PCP: Dr. Kar Navarro Support Group Manager: Dr. Soto. ([place]) Travel Cota: Dr. Eason. Past History - Past Medical History Allergies/Adverse Reactions: Allergies Allergy/AdvReac Type Severity Reaction Status Date / Time diphenhydramine HCl Allergy Severe Itching Verified 02/28/18 11:37 [From Benadryl] Influenza Virus Vaccines Allergy Verified 02/28/18 12:22 trazodone Allergy Verified 02/28/18 12:22 zolpidem [From Ambien] Allergy Verified 02/28/18 12:22 prestik Allergy Uncoded 02/28/18 12:22 Home Medications: Ambulatory Orders Alprazolam [Xanax] 1 mg PO BID PRN 11/11/17 Amlodipine Besylate [Norvasc -] 10 mg PO DAILY #30 tablet 11/11/17 Atorvastatin Ca [Lipitor] 40 mg PO HS 11/11/17 Carvedilol 25 mg PO BID #60 tablet 11/11/17 Cholecalciferol (Vitamin D3) [Vitamin D3] 1 cap PO DAILY 11/11/17 Clopidogrel Bisulfate [Plavix] 75 mg PO DAILY 11/11/17 Dorzolamide HCl [Trusopt 2% -] 1 drop OU DAILY 11/11/17 Ferrous Sulfate 325 mg PO BID 11/11/17 Hydrochlorothiazide [Hctz -] 25 mg PO DAILY #30 tablet 11/11/17 Hydroxyzine HCl 25 mg PO DAILY 11/11/17 Insulin Aspart [Novolog Flexpen] See Protocol SQ TIDCM 11/11/17 Insulin Detemir [Levemir Flextouch] 20 units SQ DAILY 11/11/17 Isosorbide Mononitrate [Isosorbide Mononitrate ER] 30 mg PO BID #60 tab.er.24h 11/11/17 Latanoprost 0.005% Eye Drops [Xalatan 0.005% Eye Drops -] 1 drop OU HS 11/11/17 Linaclotide [Linzess] 290 mcg PO DAILY 11/11/17 Losartan Potassium 50 mg PO BID #60 tablet 11/11/17 Nitroglycerin [Nitrostat] 0.4 mg SL TID PRN 11/11/17 Polyethylene Glycol 3350 [Powderlax] 238 gm PO DAILY 11/11/17 Sertraline HCl 100 mg PO BID 11/11/17 Vitamin B Complex 1 cap PO DAILY 11/11/17 Fluticasone Prop 0.05% Nasal [Flonase -] 1 spray NS DAILY PRN 02/28/18 Anemia: Yes Asthma: No Cancer: No Cardiac Disorders: Yes (CHEST PAIN) CVA: No COPD: No CHF: No Diabetes: Yes (NIDDM) GI Disorders: Yes (GERD) Disorders: No HTN: Yes Hypercholesterolemia: Yes Liver Disease: No Seizures: No Thyroid Disease: No - Surgical History Abdominal Surgery: No Appendectomy: No Cardiac Surgery: Yes (STENT X 2) Cholecystectomy: No Lung Surgery: No Neurologic Surgery: No Orthopedic Surgery: No - Suicide/Smoking/Psychosocial Hx Smoking Status: No Smoking History: Never smoked Have you smoked in the past 12 months: No Number of Cigarettes Smoked Daily: 0 Information on smoking cessation initiated: No Hx Alcohol Use: No Drug/Substance Use Hx: No Substance Use Type: None Hx Substance Use Treatment: No Review of Systems - Review of Systems Comments:: 02/28/18 13:00 "GENERAL/CONSTITUTIONAL: No fever or chills. No weakness. HEAD, EYES, EARS, NOSE AND THROAT: No change in vision. No ear pain or discharge. No sore throat. CARDIOVASCULAR: + shortness of breath. No chest pain. RESPIRATORY: No cough, wheezing, or hemoptysis. GASTROINTESTINAL: No nausea, vomiting, diarrhea or constipation. GENITOURINARY: No dysuria, frequency, or change in urination. MUSCULOSKELETAL: +bilateral lower extremity swelling. No joint or muscle swelling or pain. No neck or back pain. SKIN: No rash NEUROLOGIC: No headache, vertigo, loss of consciousness, or change in strength/ sensation. ENDOCRINE: No increased thirst. No abnormal weight change. HEMATOLOGIC/LYMPHATIC: No anemia, easy bleeding, or history of blood clots. ALLERGIC/IMMUNOLOGIC: No hives or skin allergy. *Physical Exam - Vital Signs Last Vital Signs Temp Pulse Resp BP Pulse Ox 98.6 F 73 16 150/47 L 100 02/28/18 11:20 02/28/18 11:20 02/28/18 11:20 02/28/18 11:20 02/28/18 11:20 - Physical Exam Comments: 02/28/18 13:00 GENERAL: Awake, alert, and fully oriented, in no acute distress. HEAD: No signs of trauma EYES: PERRLA, EOMI, sclera anicteric, conjunctiva clear ENT: Auricles normal inspection, hearing grossly normal, nares patent, oropharynx clear without exudates. Moist mucosa NECK: Nontender, no stepoffs, Normal ROM, supple, no lymphadenopathy, JVD, or masses LUNGS: + bibasilar rales HEART: Regular rate and rhythm, normal S1 and S2, no murmurs, rubs or gallops ABDOMEN: Soft, nontender, normoactive bowel sounds. No guarding, no rebound. No masses EXTREMITIES: +2 PE BLE, Normal range of motion, No clubbing or cyanosis. No cords, erythema, or tenderness NEUROLOGICAL: Cranial nerves II through XII intact. 5/5 strength and sensation in all extremities, Normal speech, normal gait, normal cerebellar function SKIN: Warm, Dry, normal turgor, no rashes or lesions noted. Heart Score/ECG Review - ECG Impressions Comment:: 02/28/18 13:04 NSR, no CHAY/STDs, TWI in I and aVL, axis wnl, intervals wnl, rate 70 ED Treatment Course - LABORATORY CBC & Chemistry Diagram: 11/24/18 12:50 02/28/18 12:50 - RADIOLOGY Radiology Studies Ordered: Category Date Time Status CHEST PA & LAT [RAD] Stat Radiology 02/28/18 12:27 Ordered Medical Decision Making - Medical Decision Making 02/28/18 13:01 77 F with BLE swelling and orthopnea + SOB. Pt clinically appears volume overloaded. - Labs, BNP, trop - CXR - IV lasix - Admit 02/28/18 14:23 CXR with new congestive changes Last echo in 11/2017 was normal Likely new CHF Lasix 40mg IV given Will admit to hospitalist 02/28/18 14:42 Pt admitted to tele obs *DC/Admit/Observation/Transfer Diagnosis at time of Disposition: CHF (congestive heart failure) - Discharge Dispostion Decision to Admit order: Yes - Referrals Referrals: Leah Navarro [Primary Care Provider] - - Patient Instructions - Post Discharge Activity - Attestations Physician Attestion: 02/28/18 14:42 I, Dr. Calixto Mercedes MD, attest that this document has been prepared under my direction and personally reviewed by me in its entirety. I further attest, that it accurately reflects all work, treatment, procedures and medical decision -making performed by me.
[2018-02-28] MEDS ORDERED: FUROSEMIDE 40 MG/4 ML INJECTABLE VIAL IVPUSH ONE (13:01)
[2018-02-28 13:25] LABS: ALK PHOS 160 U/L (45-117); ANION GAP 9 MMOL/L (8-16); BILIRUBIN,TOTAL 0.4 mg/dL (0.2-1); BLOOD UREA NITROGEN 56 mg/dL (7-18); CALCIUM 8.3 mg/dL (8.5-10.1); CHLORIDE 101 mmol/L (98-107); CO2 22 mmol/L (21-32); CREATININE 1.8 mg/dL (0.55-1.3); GLUCOSE,RANDOM 236 mg/dL (74-106); POTASSIUM 4.4 mmol/L (3.5-5.1); SGOT/AST 38 U/L (15-37); SGPT/ALT 82 U/L (13-61); SODIUM 132 mmol/L (136-145); TOT PROT 6.1 g/dl (6.4-8.2)
[2018-02-28] MEDS ORDERED: FUROSEMIDE 40 MG/4 ML INJECTABLE VIAL ONE (13:34)
[2018-02-28 14:25] LABS: URINE APPEARANCE CLEAR; URINE BILIRUBIN NEGATIVE (<2.0 mg/dL); URINE COLOR LTYELLOW; URINE GLUCOSE (UA) NEGATIVE (NEGATIVE); URINE KETONE NEGATIVE (NEGATIVE); URINE LEUK ESTERASE NEGATIVE (NEGATIVE); URINE NITRITE NEGATIVE (NEGATIVE); URINE PROTEIN 2+ (NEGATIVE); URINE UROBILINOGEN NEGATIVE mg/dL (0.2-1.0)
[2018-02-28 14:32] LABS: N-TERMINAL BNP 4756.5 pg/ml (5-450)
[2018-02-28] MEDS ORDERED: NITROGLYCERIN SUBLINGUAL 1/150 0.4 MG TAB SL PRN (15:16)
[2018-02-28] MEDS ORDERED: FLUTICASONE PROP 0.05% 16 GM NASAL SPRAY NS PRN (15:16)
[2018-02-28] MEDS ORDERED: ALPRAZolam 2 MG TABLET PO PRN (15:16)
--- NOTE | 2018-02-28 16:07 | HP ---
CHIEF COMPLAINT: SOB, b/l edema PCP: Dr. Kar Navarro Commercial Lender: Dr. Soto. ([place]) Post Doc Fellowship: Dr. Soto. HISTORY OF PRESENT ILLNESS: 77 year old female with a PMH significant for CAD s/p 2 stents, HTN, HLD, DM, CKD stage III, Depression/anxiety, glaucoma and IBS presented to the ED at the request of her PCP with increased leg swelling and SOB, cough, ECKERT over the past 4 days. Patient reports she has had a 10 lb weight gain over the past several weeks though it has been harder for her to eat with the fluid accumulation and chronic gas problem. She was seen by her PCP Dr. Navarro on Friday who recommended she present to the ED for IV diuresis. Denies headaches, chest pain, palpitations, n/v/d. Upon admission to the ED she had a low grade temperature of 99.0. Labs notable for BNP 4756, BUN/Cr 56/1.8 (baseline), slightly elevated AST/ALT/Alk Phos elevated at 38/82/160, Trop negative CXR positive for congestive changes, ECG unremarkable. She was given IM Lasix in the ED which she reports at the time of exam not to have cause her to urinate very much yet. 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 Smoking: No Alcohol: No Drugs: No Family History: Allergies diphenhydramine HCl [From Benadryl] Allergy (Severe, Verified 02/28/18 11:37) Itching Influenza Virus Vaccines Allergy (Verified 02/28/18 12:22) trazodone Allergy (Verified 02/28/18 12:22) zolpidem [From Ambien] Allergy (Verified 02/28/18 12:22) prestik Allergy (Uncoded 02/28/18 12:22) HOME MEDICATIONS: Home Medications Medication Instructions Recorded Alprazolam [Xanax] 1 mg PO BID PRN 11/11/17 Amlodipine Besylate [Norvasc -] 10 mg PO DAILY #30 tablet 11/11/17 Atorvastatin Ca [Lipitor] 40 mg PO HS 11/11/17 Carvedilol 25 mg PO BID #60 tablet 11/11/17 Cholecalciferol (Vitamin D3) 1 cap PO DAILY 11/11/17 [Vitamin D3] Clopidogrel Bisulfate [Plavix] 75 mg PO DAILY 11/11/17 Dorzolamide HCl [Trusopt 2% -] 1 drop OU DAILY 11/11/17 Ferrous Sulfate 325 mg PO BID 11/11/17 Hydrochlorothiazide [Hctz -] 25 mg PO DAILY #30 tablet 11/11/17 Hydroxyzine HCl 25 mg PO DAILY 11/11/17 Insulin Aspart [Novolog Flexpen] See Protocol SQ TIDCM 11/11/17 Insulin Detemir [Levemir Flextouch] 20 units SQ DAILY 11/11/17 Isosorbide Mononitrate [Isosorbide 30 mg PO BID #60 tab.er.24h 11/11/17 Mononitrate ER] Latanoprost 0.005% Eye Drops 1 drop OU HS 11/11/17 [Xalatan 0.005% Eye Drops -] Linaclotide [Linzess] 290 mcg PO DAILY 11/11/17 Losartan Potassium 50 mg PO BID #60 tablet 11/11/17 Nitroglycerin [Nitrostat] 0.4 mg SL TID PRN 11/11/17 Polyethylene Glycol 3350 238 gm PO DAILY 11/11/17 [Powderlax] Sertraline HCl 100 mg PO BID 11/11/17 Vitamin B Complex 1 cap PO DAILY 11/11/17 Fluticasone Prop 0.05% Nasal 1 spray NS DAILY PRN 02/28/18 [Flonase -] REVIEW OF SYSTEMS CONSTITUTIONAL: Absent: fever, chills, diaphoresis, generalized weakness, malaise, loss of appetite, weight change HEENT: Absent: rhinorrhea, nasal congestion, throat pain, throat swelling, difficulty swallowing, mouth swelling, ear pain, eye pain, visual changes CARDIOVASCULAR: Absent: chest pain, syncope, palpitations, irregular heart rate, lightheadedness , peripheral edema RESPIRATORY: Absent: cough, shortness of breath, dyspnea with exertion, orthopnea, wheezing, stridor, hemoptysis GASTROINTESTINAL: Absent: abdominal pain, abdominal distension, nausea, vomiting, diarrhea, constipation, melena, hematochezia GENITOURINARY: Absent: dysuria, frequency, urgency, hesitancy, hematuria, flank pain, genital pain MUSCULOSKELETAL: Absent: myalgia, arthralgia, joint swelling, back pain, neck pain SKIN: Absent: rash, itching, pallor HEMATOLOGIC/IMMUNOLOGIC: Absent: easy bleeding, easy bruising, lymphadenopathy, frequent infections ENDOCRINE: Absent: unexplained weight gain, unexplained weight loss, heat intolerance, cold intolerance NEUROLOGIC: Absent: headache, focal weakness or paresthesias, dizziness, unsteady gait, seizure, mental status changes, bladder or bowel incontinence PSYCHIATRIC: Absent: anxiety, depression, suicidal or homicidal ideation, hallucinations. PHYSICAL EXAMINATION Vital Signs - 24 hr 02/28/18 11:20 Temperature 98.6 F Pulse Rate 73 Respiratory 16 Rate Blood Pressure 150/47 L O2 Sat by Pulse 100 Oximetry (%) GENERAL: Frail, elderly awake, alert, and fully oriented, speaks in a quite voice HEAD: Receding hairline, no signs of trauma. EYES: Arcus senilis b/l, pupils equal, round and reactive to light, extraocular movements intact, sclera anicteric, conjunctiva clear. No lid lag. EARS, NOSE, THROAT: Nares patent, oropharynx clear without exudates. Moist mucous membranes. NECK: Normal range of motion, supple without lymphadenopathy, JVD, or masses. LUNGS: Basilar crackles b/l. No accessory muscle use. HEART: Regular rate and rhythm, normal S1 and S2 without murmur, rub or gallop. ABDOMEN: Soft, nontender, distended, tympanic to percussion normoactive bowel sounds, no guarding, no rebound, no masses. UPPER EXTREMITIES: 2+ pulses, warm, well-perfused. No cyanosis. No clubbing. No peripheral edema. LOWER EXTREMITIES: 2+ pitting edema to b/l LE 2+ pulses, warm, well-perfused. No calf tenderness. NEUROLOGICAL: No facial droop, tongue midline PSYCHIATRIC: Cooperative. Good eye contact. somnolent affect. SKIN: Warm, dry, normal turgor, no rashes or lesions noted, normal capillary refill. Laboratory Results - last 24 hr 02/28/18 02/28/18 02/28/18 12:50 12:50 13:40 WBC 11.4 H RBC 2.51 L Hgb 8.1 L Hct 23.5 L D MCV 93.8 MCH 32.2 MCHC 34.3 RDW 13.8 Plt Count 194 MPV 10.6 Absolute Neuts (auto) 9.8 H Neutrophils % 85.9 H Lymphocytes % 6.2 L D Monocytes % 7.3 Eosinophils % 0.4 Basophils % 0.2 Nucleated RBC % 0 Sodium 132 L Potassium 4.4 Chloride 101 Carbon Dioxide 22 Anion Gap 9 BUN 56 H Creatinine 1.8 H Creat Clearance w eGFR 27.28 Random Glucose 236 H Calcium 8.3 L Total Bilirubin 0.4 AST 38 H ALT 82 H Alkaline Phosphatase 160 H Creatine Kinase 122 Troponin I 0.04 B-Natriuretic Peptide 4756.5 H Total Protein 6.1 L Albumin 3.0 L Urine Color Ltyellow Urine Appearance Clear Urine pH 6.0 Ur Specific [place] 1.014 Urine Protein 2+ H Urine Glucose (UA) Negative Urine Ketones Negative Urine Blood Negative Urine Nitrite Negative Urine Bilirubin Negative Urine Urobilinogen Negative Ur Leukocyte Esterase Negative Urine WBC (Auto) 1 Urine RBC (Auto) 1 CXR New congestive changes and fluid in horizontal fissure compared with . ECG NSR, no CHAY/STDs, TWI in I and aVL, axis wnl, intervals wnl, rate 70 ASSESSMENT/PLAN: 77 year old woman with a PMH significant for CAD s/p 2 stents, HTN, HLD, DM, CKD stage III, Depression/anxiety, glaucoma and IBS presented to the ED at the request of her PCP with increased leg swelling and SOB over the past 4 days. CXR positive for congestive changes, BNP 4756, she was given IM Lasix in the ED. She was placed on observation for diuresis and cardiac monitoring. CHF Exacerbation - CXR with new congestive changes - BNP 4756 - Echo in 11/10/2017 EF WNL - Possibly new CHF - Lasix 40mg IV given in ED - Repeat echo pending Transaminitis - AST/ALT/Alk Phos elevated at 38/82/160 - Repeat CMP ordered TIA history - Plavix 75 mg PO qday CAD - S/p LAD and RCA stents - Carotid Doppler from 11/07/17: stenosis of more than 70% of proximal left carotid artery, 50-70% stenosis of the right internal carotid artery - Imdur 30 mg PO BID - Nitroglycerin SL PRN - Followed by budget manager Dr. Soto ([place]) Diabetes - Levemir 20 U SQ QHS - SS with Novolog - Monitor BS - Diabetic diet HTN - Amlodipine 10 mg PO qday - Carvedilol 25 mg PO BID - HCZT 25 mg PO qday - Losartan 50 mg PO BID HLD - Atorvastatin 40 mg PO QHS CKD Stage III - BUN/Cr 56/1.8 (baseline) - Followed by can pusher Dr. Soto - Monitor BMP - Renally dose medications Iron Deficiency Anemia - H&H currently stable: 8.1/23.5 - FeSO4 325 mg PO BID IBS - Linzess 290 mcg PO qday - Miralax 238 gm qday Depression/anxiety - Hx of suicide attempts - Xanax 1 mg PO BID - Vistaril 25 mg PO qday - Zoloft 100 mg PO BID Glaucoma - Dorzolamide 2% 1 gtt OU qday - Lantanoprost 0.005% 1 gtt OU qhs Supplement - Vitamin D3 - Vitamin B Complex Prophylaxis DVT: On Plavix FEN - PO intake adequate - Replete as needed - Diabetic, sodium controlled diet Disp: Patient requires inpatient observation, may be appropriate for d/c tomorrow after diuresis. FULL CODE Visit type - Emergency Visit Emergency Visit: Yes ED Registration Date: 02/28/18 Care time: The patient presented to the Emergency Department on the above date and was hospitalized for further evaluation of their emergent condition. - New Patient This patient is new to me today: Yes Date on this admission: 02/28/18 - Critical Care Critical Care patient: No
[2018-02-28] MEDS: INSULIN SLIDING SCALE (NOVOLOG) 1 VIAL SQ SCH (18:14)
[2018-02-28] MEDS: LOSARTAN POTASSIUM 50 MG TABLET (FP) PO SCH (21:44)
[2018-02-28] MEDS: CARVEDILOL 25 MG TABLET (FP) PO SCH (21:44)
[2018-02-28] MEDS: SERTRALINE HCL 50 MG TABLET (FP) PO SCH (21:44)
[2018-02-28] MEDS: FERROUS SO4 325 MG TABLET (FP) PO SCH (21:44)
[2018-02-28] MEDS: ATORVASTATIN CA 40 MG TABLET (FP) PO SCH (21:44)
[2018-02-28] MEDS: ISOSORBIDE MONONITRATE 30 MG TAB.SR.24H (FP) PO SCH (21:44)
[2018-02-28] MEDS: INSULIN (LEVEMIR) 100 UNITS/ML UNITS SQ SCH (22:00)
[2018-02-28] MEDS ORDERED: PT OWN MED DRAWER 7, Y5N ONE (22:55)
[2018-03-01] MEDS: LATANOPROST 0.005% OPHTH SOLN 2.5ML BOTTLE OU SCH ×2 (04:21→21:09)
[2018-03-01] MEDS: INSULIN SLIDING SCALE (NOVOLOG) 1 VIAL SQ SCH ×3 (06:22→18:55)
[2018-03-01] MEDS ORDERED: ACETAMINOPHEN 325 MG TABLET (FP) PO ONE ×2 (06:30→21:41)
[2018-03-01 08:23] LABS: HEMATOCRIT 24.1 % (32.4-45.2); HEMOGLOBIN 7.9 GM/dL (10.7-15.3); MCH 31.2 pg (25.7-33.7); MEAN CELL VOLUME 94.6 fl (80-96); MEAN PLT VOLUME 10.4 fl (7.5-11.1); PLATELET COUNT 209 K/MM3 (134-434); RBC 2.55 M/mm3 (3.60-5.2); RDW 13.9 % (11.6-15.6)
[2018-03-01 08:27] LABS: ALK PHOS 137 U/L (45-117); ANION GAP 12 MMOL/L (8-16); BILIRUBIN,TOTAL 0.4 mg/dL (0.2-1); BLOOD UREA NITROGEN 51 mg/dL (7-18); CALCIUM 8.7 mg/dL (8.5-10.1); CHLORIDE 105 mmol/L (98-107); CO2 24 mmol/L (21-32); CREATININE 1.8 mg/dL (0.55-1.3); GLUCOSE,RANDOM 140 mg/dL (74-106); MAGNESIUM 2.5 mg/dL (1.8-2.4); POTASSIUM 3.9 mmol/L (3.5-5.1); SGOT/AST 24 U/L (15-37); SGPT/ALT 64 U/L (13-61); SODIUM 140 mmol/L (136-145); TOT PROT 6.2 g/dl (6.4-8.2)
[2018-03-01] MEDS ORDERED: PATIENT'S OWN MEDICATION (NON-FORMULARY) (Linaclotide [Linzess] 290 MCG) PO SCH (10:00)
[2018-03-01] MEDS ORDERED: hydrOXYzine HCL 25 MG TABLET (FP) PO SCH (10:00)
[2018-03-01] MEDS: CHOLECALCIFEROL (VITAMIN D3) 1,000 UNIT TABLET (FP) PO SCH (11:27)
[2018-03-01] MEDS: CLOPIDOGREL BISULFATE 75 MG TABLET (FP) PO SCH (11:28)
[2018-03-01] MEDS: FERROUS SO4 325 MG TABLET (FP) PO SCH ×2 (11:28→21:05)
[2018-03-01] MEDS: LOSARTAN POTASSIUM 50 MG TABLET (FP) PO SCH ×2 (11:28→21:04)
[2018-03-01] MEDS: SERTRALINE HCL 50 MG TABLET (FP) PO SCH ×2 (11:28→21:04)
[2018-03-01] MEDS: amLODIPine BESYLATE 10 MG TABLET (FP) PO SCH (11:28)
[2018-03-01] MEDS: HYDROCHLOROTHIAZIDE 25 MG TABLET (FP) PO SCH (11:28)
[2018-03-01] MEDS: ISOSORBIDE MONONITRATE 30 MG TAB.SR.24H (FP) PO SCH ×2 (11:28→21:04)
[2018-03-01] MEDS: CARVEDILOL 25 MG TABLET (FP) PO SCH ×2 (11:28→21:04)
--- NOTE | 2018-03-01 11:28 | PN ---
Physical Exam: SUBJECTIVE: Patient seen and examined. Patient reports she is feeling better than yesterday; breathing much easier but she still somewhat weak and not completely better. Denies pain. Low grade temperature and slight WBC, seen by ID specialist Dr. Bee who started her on ceftriaxone and azithromycin. OBJECTIVE: Vital Signs Period Temp Pulse Resp BP Sys/Morrison Pulse Ox Last 24 Hr 98.1 F-101.5 F 73-85 16-24 127-167/47-66 97-100 GENERAL: Frail, elderly awake, alert, and fully oriented, speaks in a quite voice HEAD: Receding hairline, no signs of trauma. EYES: Arcus senilis b/l, pupils equal, round and reactive to light, extraocular movements intact, sclera anicteric, conjunctiva clear. No lid lag. EARS, NOSE, THROAT: Nares patent, oropharynx clear without exudates. Moist mucous membranes. NECK: Normal range of motion, supple without lymphadenopathy, JVD, or masses. LUNGS: Diminished breath sounds, b/l. No accessory muscle use. HEART: Regular rate and rhythm, normal S1 and S2 without murmur, rub or gallop. ABDOMEN: Soft, nontender, distended, tympanic to percussion normoactive bowel sounds, no guarding, no rebound, no masses. UPPER EXTREMITIES: 2+ pulses, warm, well-perfused. No cyanosis. No clubbing. No peripheral edema. LOWER EXTREMITIES: 1+ pitting edema to b/l LE 2+ pulses, warm, well-perfused. No calf tenderness. NEUROLOGICAL: No facial droop, tongue midline PSYCHIATRIC: Cooperative. Good eye contact. somnolent affect. SKIN: Warm, dry, normal turgor, no rashes or lesions noted, normal capillary refill. Laboratory Results - last 24 hr 02/28/18 02/28/18 02/28/18 12:50 12:50 13:40 WBC 11.4 H RBC 2.51 L Hgb 8.1 L Hct 23.5 L D MCV 93.8 MCH 32.2 MCHC 34.3 RDW 13.8 Plt Count 194 MPV 10.6 Absolute Neuts (auto) 9.8 H Neutrophils % 85.9 H Lymphocytes % 6.2 L D Monocytes % 7.3 Eosinophils % 0.4 Basophils % 0.2 Nucleated RBC % 0 Sodium 132 L Potassium 4.4 Chloride 101 Carbon Dioxide 22 Anion Gap 9 BUN 56 H Creatinine 1.8 H Creat Clearance w eGFR 27.28 POC Glucometer Random Glucose 236 H Lactic Acid Calcium 8.3 L Magnesium Total Bilirubin 0.4 AST 38 H ALT 82 H Alkaline Phosphatase 160 H Creatine Kinase 122 Troponin I 0.04 B-Natriuretic Peptide 4756.5 H Total Protein 6.1 L Albumin 3.0 L Urine Color Ltyellow Urine Appearance Clear Urine pH 6.0 Ur Specific Spencer 1.014 Urine Protein 2+ H Urine Glucose (UA) Negative Urine Ketones Negative Urine Blood Negative Urine Nitrite Negative Urine Bilirubin Negative Urine Urobilinogen Negative Ur Leukocyte Esterase Negative Urine WBC (Auto) 1 Urine RBC (Auto) 1 02/28/18 02/28/18 02/28/18 17:13 19:54 21:55 WBC RBC Hgb Hct MCV MCH MCHC RDW Plt Count MPV Absolute Neuts (auto) Neutrophils % Lymphocytes % Monocytes % Eosinophils % Basophils % Nucleated RBC % Sodium Potassium Chloride Carbon Dioxide Anion Gap BUN Creatinine Creat Clearance w eGFR POC Glucometer 178 129 Random Glucose Lactic Acid Calcium Magnesium Total Bilirubin AST ALT Alkaline Phosphatase Creatine Kinase Troponin I 0.11 H B-Natriuretic Peptide Total Protein Albumin Urine Color Urine Appearance Urine pH Ur Specific Spencer Urine Protein Urine Glucose (UA) Urine Ketones Urine Blood Urine Nitrite Urine Bilirubin Urine Urobilinogen Ur Leukocyte Esterase Urine WBC (Auto) Urine RBC (Auto) 03/01/18 03/01/18 03/01/18 05:56 06:20 06:20 WBC 11.0 H RBC 2.55 L Hgb 7.9 L Hct 24.1 L MCV 94.6 MCH 31.2 MCHC 33.0 RDW 13.9 Plt Count 209 MPV 10.4 Absolute Neuts (auto) Neutrophils % Lymphocytes % Monocytes % Eosinophils % Basophils % Nucleated RBC % Sodium 140 Potassium 3.9 Chloride 105 Carbon Dioxide 24 Anion Gap 12 BUN 51 H Creatinine 1.8 H Creat Clearance w eGFR 27.28 POC Glucometer 156 Random Glucose 140 H Lactic Acid Calcium 8.7 Magnesium 2.5 H Total Bilirubin 0.4 AST 24 ALT 64 H Alkaline Phosphatase 137 H Creatine Kinase Troponin I 0.16 H B-Natriuretic Peptide Total Protein 6.2 L Albumin 3.0 L Urine Color Urine Appearance Urine pH Ur Specific Spencer Urine Protein Urine Glucose (UA) Urine Ketones Urine Blood Urine Nitrite Urine Bilirubin Urine Urobilinogen Ur Leukocyte Esterase Urine WBC (Auto) Urine RBC (Auto) 03/01/18 06:20 WBC RBC Hgb Hct MCV MCH MCHC RDW Plt Count MPV Absolute Neuts (auto) Neutrophils % Lymphocytes % Monocytes % Eosinophils % Basophils % Nucleated RBC % Sodium Potassium Chloride Carbon Dioxide Anion Gap BUN Creatinine Creat Clearance w eGFR POC Glucometer Random Glucose Lactic Acid 0.8 Calcium Magnesium Total Bilirubin AST ALT Alkaline Phosphatase Creatine Kinase Troponin I B-Natriuretic Peptide Total Protein Albumin Urine Color Urine Appearance Urine pH Ur Specific Spencer Urine Protein Urine Glucose (UA) Urine Ketones Urine Blood Urine Nitrite Urine Bilirubin Urine Urobilinogen Ur Leukocyte Esterase Urine WBC (Auto) Urine RBC (Auto) Active Medications Generic Name Dose Route Start Last Admin Trade Name Freq PRN Reason Stop Dose Admin Alprazolam 1 mg 02/28/18 15:16 02/28/18 21:43 Xanax - PO 1 mg Q12H PRN Administration ANXIETY Amlodipine Besylate 10 mg 03/01/18 10:00 Norvasc - PO DAILY [facility] Atorvastatin Calcium 40 mg 02/28/18 22:00 02/28/18 21:44 Lipitor - PO 40 mg HS [facility] Administration Carvedilol 25 mg 02/28/18 22:00 02/28/18 21:44 Coreg - PO 25 mg BID [facility] Administration Cholecalciferol 2,000 unit 03/01/18 10:00 Vitamin D3 - PO DAILY [facility] Clopidogrel Bisulfate 75 mg 03/01/18 10:00 Plavix - PO DAILY [facility] Dorzolamide HCl 1 drop 03/01/18 10:00 Trusopt 2% OU DAILY [facility] Ferrous Sulfate 325 mg 02/28/18 22:00 02/28/18 21:44 Feosol - PO 325 mg BID [facility] Administration Fluticasone Propionate 1 spray 02/28/18 15:16 Flonase - NS DAILY PRN NASAL ALLERGY Hydrochlorothiazide 25 mg 03/01/18 10:00 Hctz - PO DAILY [facility] Insulin Aspart 1 vial 02/28/18 16:30 03/01/18 06:22 Novolog Vial Sliding Scale - SQ 2 units TIDAC [facility] Administration Protocol Insulin Detemir 20 units 02/28/18 22:00 02/28/18 22:00 Levemir Vial SQ Not Given HS [facility] Isosorbide Mononitrate 30 mg 02/28/18 22:00 02/28/18 21:44 Imdur - PO 30 mg BID [facility] Administration Latanoprost 1 drop 02/28/18 22:00 03/01/18 04:21 Xalatan 0.005% Eye Drops - OU 1 drop HS [facility] Administration Losartan Potassium 50 mg 02/28/18 22:00 02/28/18 21:44 Cozaar - PO 50 mg BID [facility] Administration Multivitamins 1 each 03/01/18 10:00 Total B With C - PO DAILY [facility] Nitroglycerin 0.4 mg 02/28/18 15:16 Nitrostat - SL TID PRN FOR CHEST PAIN Non-Formulary Medication 290 mcg 03/01/18 10:00 Linaclotide [Linzess] PO DAILY [facility] Polyethylene Glycol 17 gm 03/01/18 10:00 Miralax (For Daily Use) - PO DAILY [facility] Sertraline HCl 100 mg 02/28/18 22:00 02/28/18 21:44 Zoloft - PO 100 mg BID [facility] Administration CXR New congestive changes and fluid in horizontal fissure compared with . ECG NSR, no CHAY/STDs, TWI in I and aVL, axis wnl, intervals wnl, rate 70 ASSESSMENT/PLAN: 77 year old woman with a PMH significant for CAD s/p 2 stents, HTN, HLD, DM, CKD stage III, Depression/anxiety, glaucoma and IBS presented to the ED at the request of her PCP with increased leg swelling and SOB over the past 4 days. CXR positive for congestive changes, BNP 4756, she was given IM Lasix in the ED. She was placed on observation for diuresis and cardiac monitoring. CHF Exacerbation - CXR with new congestive changes - BNP 4756 - Echo in 11/10/2017 EF WNL - Possibly new CHF - Lasix 40mg IV given in ED - Repeat echo pending Leukocytosis/Temperature - Temperature 101.5 - 11.4 -> 11.0 - Seen by ID specialist Dr. Bee - Start ceftriaxone 1 mg IV until fever breaks, then PO - Azithromycin 500 mg IV, then 250 mg IV - Azithromycin 500 mg IVP x 1 Transaminitis - Improving - AST/ALT/Alk Phos elevated at 38/82/160 -> 24/64/137 - Repeat CMP ordered TIA history - Plavix 75 mg PO qday CAD - S/p LAD and RCA stents - Carotid Doppler from 11/07/17: stenosis of more than 70% of proximal left carotid artery, 50-70% stenosis of the right internal carotid artery - Imdur 30 mg PO BID - Nitroglycerin SL PRN - Followed by round corner cutter operator Dr. Soto ([place]) Diabetes - Levemir 20 U SQ QHS - SS with Novolog - Monitor BS - Diabetic diet HTN - Amlodipine 10 mg PO qday - Carvedilol 25 mg PO BID - HCZT 25 mg PO qday - Losartan 50 mg PO BID HLD - Atorvastatin 40 mg PO QHS CKD Stage III - BUN/Cr 56/1.8 -> 51/1.8 (baseline) - Followed by length control tester Dr. Soto - Monitor BMP - Renally dose medications Iron Deficiency Anemia - H&H currently stable: .04/29.5 - FeSO4 325 mg PO BID IBS - Linzess 290 mcg PO qday - Miralax 238 gm qday Depression/anxiety - Hx of suicide attempts - Xanax 1 mg PO BID - Vistaril 25 mg PO qday - Zoloft 100 mg PO BID Glaucoma - Dorzolamide 2% 1 gtt OU qday - Lantanoprost 0.005% 1 gtt OU qhs Supplement - Vitamin D3 - Vitamin B Complex Prophylaxis DVT: On Plavix FEN - PO intake adequate - Replete as needed - Diabetic, sodium controlled diet Disp: Patient requires inpatient observation, may be appropriate for d/c tomorrow after diuresis. FULL CODE Visit type - Emergency Visit Emergency Visit: No - New Patient This patient is new to me today: No - Critical Care Critical Care patient: No
[2018-03-01] MEDS ORDERED: AZITHROMYCIN IVPB 500 MG/250 ML BAG IVPB ONE (12:00)
--- NOTE | 2018-03-01 13:44 | EKG ---
Test Reason : Blood Pressure : / mmHG Vent. Rate : 070 BPM Atrial Rate : 070 BPM P-R Int : 150 ms QRS Dur : 078 ms QT Int : 394 ms P-R-T Axes : 050 032 107 degrees QTc Int : 425 ms NORMAL SINUS RHYTHM NONSPECIFIC T WAVE ABNORMALITY ABNORMAL ECG WHEN COMPARED WITH ECG OF 07-NOV-2017 15:41, NONSPECIFIC T WAVE ABNORMALITY, WORSE IN LATERAL LEADS Confirmed by GUEVARA DUGGAN MD ([id number]) on 03/01/2018 1:43:55 PM Referred By: Confirmed By:GUEVARA DUGGAN MD
--- NOTE | 2018-03-01 14:28 | CON.ID ---
Consult Consult Specialty:: infectious diseases Referred by:: Joanne Reason for Consultation:: fever,leukocytosis - History of Present Illness Chief Complaint: weakness History of Present Illness: 77 year old female with a PMH significant for CAD s/p 2 stents, HTN, HLD, DM, CKD stage III, Depression/anxiety, glaucoma and IBS presented to the ED at the request of her PCP with increased leg swelling and SOB, cough, ECKERT over the past 4 days. Patient reports she has had a 10 lb weight gain over the past several weeks though it has been harder for her to eat with the fluid accumulation and chronic gas problem. She was seen by her PCP Dr. Navarro on Friday who recommended she present to the ED for IV diuresis. Denies headaches, chest pain, palpitations, n/v/d. patient had low grade fever and was started on zithro also of note was that patient had leukocytosis. according to her son patient is more lethargic and not herself - History Source History Provided By: Patient, Medical Record Limitations to Obtaining History: Poor Historian - Past Medical History Cardio/Vascular: Yes: CAD, CHF, HTN, Hyperlipdemia, Other (s/p stent in LAD and RCA.) Psych: Yes: Anxiety, Depression, Other (had suicidal attempts in the past and recently few months ago had been admitted in [facility] for suicidal attempt.) Endocrine: Yes: Diabetes Mellitus - Past Surgical History Past Surgical History: Yes: - Alcohol/Substance Use Hx Alcohol Use: No History of Substance Use: reports: None - Smoking History Smoking history: Never smoked Have you smoked in the past 12 months: No Aproximately how many cigarettes per day: 0 - Social History Usual Living Arrangement: With Child ADL: Independent 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 of Recent Travel: No Home Medications - Allergies Allergies/Adverse Reactions: Allergies Allergy/AdvReac Type Severity Reaction Status Date / Time diphenhydramine HCl Allergy Severe Itching Verified 02/28/18 11:37 [From Benadryl] Influenza Virus Vaccines Allergy Verified 02/28/18 12:22 trazodone Allergy Verified 02/28/18 12:22 zolpidem [From Ambien] Allergy Verified 02/28/18 12:22 prestik Allergy Uncoded 02/28/18 12:22 - Home Medications Home Medications: Ambulatory Orders RX: Alprazolam [Xanax] 1 mg PO BID PRN 11/11/17 RX: Amlodipine Besylate [Norvasc -] 10 mg PO DAILY #30 tablet 11/11/17 RX: Atorvastatin Ca [Lipitor] 40 mg PO HS 11/11/17 RX: Carvedilol 25 mg PO BID #60 tablet 11/11/17 RX: Cholecalciferol (Vitamin D3) [Vitamin D3] 1 cap PO DAILY 11/11/17 RX: Clopidogrel Bisulfate [Plavix] 75 mg PO DAILY 11/11/17 RX: Dorzolamide HCl [Trusopt 2% -] 1 drop OU DAILY 11/11/17 RX: Ferrous Sulfate 325 mg PO BID 11/11/17 RX: Hydrochlorothiazide [Hctz -] 25 mg PO DAILY #30 tablet 11/11/17 RX: Hydroxyzine HCl 25 mg PO DAILY 11/11/17 RX: Insulin Aspart [Novolog Flexpen] See Protocol SQ TIDCM 11/11/17 RX: Insulin Detemir [Levemir Flextouch] 20 units SQ DAILY 11/11/17 RX: Isosorbide Mononitrate [Isosorbide Mononitrate ER] 30 mg PO BID #60 tab.er.24h 11/11/17 RX: Latanoprost 0.005% Eye Drops [Xalatan 0.005% Eye Drops -] 1 drop OU HS 11/11 RX: Linaclotide [Linzess] 290 mcg PO DAILY 11/11/17 RX: Losartan Potassium 50 mg PO BID #60 tablet 11/11/17 RX: Nitroglycerin [Nitrostat] 0.4 mg SL TID PRN 11/11/17 RX: Polyethylene Glycol 3350 [Powderlax] 238 gm PO DAILY 11/11/17 RX: Sertraline HCl 100 mg PO BID 11/11/17 RX: Vitamin B Complex 1 cap PO DAILY 11/11/17 RX: Fluticasone Prop 0.05% Nasal [Flonase -] 1 spray NS DAILY PRN 02/28/18 Review of Systems - Review of Systems Constitutional: reports: Fever, Weakness Eyes: reports: No Symptoms HENT: reports: No Symptoms Neck: reports: No Symptoms Cardiovascular: reports: No Symptoms Respiratory: reports: No Symptoms Gastrointestinal: reports: No Symptoms Genitourinary: reports: No Symptoms Musculoskeletal: reports: No Symptoms Integumentary: reports: No Symptoms Neurological: reports: No Symptoms Endocrine: reports: No Symptoms Hematology/Lymphatic: reports: No Symptoms Psychiatric: reports: No Symptoms Physical Exam Vital Signs: Vital Signs Temperature 99.5 F 03/01/18 10:00 Pulse Rate 80 03/01/18 10:00 Respiratory Rate 20 03/01/18 10:00 Blood Pressure 144/49 L 03/01/18 10:00 O2 Sat by Pulse Oximetry (%) 99 03/01/18 04:00 Constitutional: Yes: No Distress, Calm Cardiovascular: Yes: Regular Rate and Rhythm Respiratory: Yes: Regular, CTA Bilaterally, On Nasal O2 Gastrointestinal: Yes: Normal Bowel Sounds, Soft Musculoskeletal: Yes: WNL Extremities: Yes: Other Neurological: Yes: Alert, Other Psychiatric: Yes: Alert Labs: CBC, BMP 03/01/18 06:20 03/01/18 06:20 Imaging - Results Chest X-ray: Report Reviewed, Image Reviewed Assessment/Plan 7 year old woman with a PMH significant for CAD s/p 2 stents, HTN, HLD, DM, CKD stage III, Depression/anxiety, glaucoma and IBS presented to the ED at the request of her PCP with increased leg swelling and SOB over the past 4 days. CXR positive for congestive changes, BNP 4756, she was given IM Lasix in the ED. She was placed on observation for diuresis and cardiac monitoring. CHF Exacerbation Transaminitis TIA history CAD Diabetes HTN HLD CKD Stage III Iron Deficiency Anemia IBS Depression/anxiety Glaucoma plan continue zithro will add ceftriaxone resp support rest as per the team
[2018-03-01] MEDS ORDERED: cefTRIAXone SODIUM 1 GM VIAL ONE (17:24)
[2018-03-01] MEDS ORDERED: DEXTROSE 5%-WATER - 50 ML IVPB ONE (17:24)
[2018-03-01] MEDS: CEFTRIAXONE 1 GM in DEXTROSE 5%-WATER - 50 ML IVPB SCH (17:30)
[2018-03-01] MEDS: DORZOLAMIDE 2% HCL OPHTHALMIC SOLUTION 10 ML BOTTLE OU SCH (18:53)
[2018-03-01] MEDS: POLYETHYLENE GLYCOL 3350 119 GM BTL PO SCH (18:54)
[2018-03-01] MEDS: VITAMIN B COMPLEX W/C COMBO TABLET (FP) PO SCH (19:04)
[2018-03-01] MEDS: ATORVASTATIN CA 40 MG TABLET (FP) PO SCH (21:04)
[2018-03-01] MEDS: INSULIN (LEVEMIR) 100 UNITS/ML UNITS SQ SCH (21:08)
[2018-03-01] MEDS ORDERED: PT OWN MED DRAWER 7, Y5N ONE (21:31)
[2018-03-02] MEDS: INSULIN SLIDING SCALE (NOVOLOG) 1 VIAL SQ SCH ×3 (06:50→18:45)
[2018-03-02 07:00] LABS: HEMATOCRIT 24.6 % (32.4-45.2); HEMOGLOBIN 7.9 GM/dL (10.7-15.3); MCH 30.5 pg (25.7-33.7); MCHC 32.2 g/dl (32.0-36.0); MEAN CELL VOLUME 94.6 fl (80-96); MEAN PLT VOLUME 9.9 fl (7.5-11.1); PLATELET COUNT 236 K/MM3 (134-434); RDW 13.8 % (11.6-15.6); WHITE BLOOD COUNT 12.8 K/mm3 (4.0-10.0)
[2018-03-02 07:37] LABS: ALBUMIN 2.9 g/dl (3.4-5.0); ALK PHOS 122 U/L (45-117); ANION GAP 8 MMOL/L (8-16); BILIRUBIN,TOTAL 0.3 mg/dL (0.2-1); BLOOD UREA NITROGEN 51 mg/dL (7-18); CALCIUM 8.8 mg/dL (8.5-10.1); CHLORIDE 108 mmol/L (98-107); CO2 25 mmol/L (21-32); CREATININE 1.6 mg/dL (0.55-1.3); GLUCOSE,RANDOM 56 mg/dL (74-106); POTASSIUM 3.7 mmol/L (3.5-5.1); SGOT/AST 24 U/L (15-37); SGPT/ALT 52 U/L (13-61); SODIUM 141 mmol/L (136-145); TOT PROT 6.3 g/dl (6.4-8.2)
[2018-03-02] MEDS: SERTRALINE HCL 50 MG TABLET (FP) PO SCH ×2 (10:00→21:07)
[2018-03-02] MEDS ORDERED: cefTRIAXone SODIUM 1 GM VIAL ONE (10:18)
[2018-03-02] MEDS ORDERED: PT OWN MED DRAWER 7, Y5N ONE ×2 (10:18→15:03)
[2018-03-02] MEDS ORDERED: DEXTROSE 5%-WATER - 50 ML IVPB ONE (10:18)
[2018-03-02] MEDS: CEFTRIAXONE 1 GM in DEXTROSE 5%-WATER - 50 ML IVPB SCH (10:49)
[2018-03-02] MEDS: ISOSORBIDE MONONITRATE 30 MG TAB.SR.24H (FP) PO SCH ×2 (10:50→21:07)
[2018-03-02] MEDS: FERROUS SO4 325 MG TABLET (FP) PO SCH ×2 (10:50→21:07)
[2018-03-02] MEDS: CLOPIDOGREL BISULFATE 75 MG TABLET (FP) PO SCH (10:50)
[2018-03-02] MEDS: CHOLECALCIFEROL (VITAMIN D3) 1,000 UNIT TABLET (FP) PO SCH (10:50)
[2018-03-02] MEDS: LOSARTAN POTASSIUM 50 MG TABLET (FP) PO SCH ×2 (10:50→21:07)
[2018-03-02] MEDS: HYDROCHLOROTHIAZIDE 25 MG TABLET (FP) PO SCH (10:50)
[2018-03-02] MEDS: amLODIPine BESYLATE 10 MG TABLET (FP) PO SCH (10:50)
[2018-03-02] MEDS ORDERED: POTASSIUM CHLORIDE ORAL LIQUID 20 MEQ/15 ML PO ONE (10:51)
[2018-03-02] MEDS: VITAMIN B COMPLEX W/C COMBO TABLET (FP) PO SCH (10:51)
[2018-03-02] MEDS: CARVEDILOL 25 MG TABLET (FP) PO SCH ×2 (10:51→21:07)
[2018-03-02] MEDS: AZITHROMYCIN IVPB 250 MG in DEXTROSE 5%-WATER - 250 ML IVPB SCH (10:52)
[2018-03-02] MEDS: DORZOLAMIDE 2% HCL OPHTHALMIC SOLUTION 10 ML BOTTLE OU SCH (11:05)
[2018-03-02] MEDS: POLYETHYLENE GLYCOL 3350 119 GM BTL PO SCH (11:06)
--- NOTE | 2018-03-02 11:14 | PN ---
Progress Note, Physician History of Present Illness: patient looks more dull today says she is not feeling that well tired according to the son she is not at baseline no fevers after yesterday - Current Medication List Current Medications: Active Medications Alprazolam (Xanax -) 1 mg PO Q12H PRN PRN Reason: ANXIETY Last Admin: 02/28/18 21:43 Dose: 1 mg Amlodipine Besylate (Norvasc -) 10 mg PO DAILY [facility] Last Admin: 03/02/18 10:50 Dose: 10 mg Atorvastatin Calcium (Lipitor -) 40 mg PO HS [facility] Last Admin: 03/01/18 21:04 Dose: 40 mg Carvedilol (Coreg -) 25 mg PO BID [facility] Last Admin: 03/02/18 10:51 Dose: 25 mg Cholecalciferol (Vitamin D3 -) 2,000 unit PO DAILY [facility] Last Admin: 03/02/18 10:50 Dose: 2,000 unit Clopidogrel Bisulfate (Plavix -) 75 mg PO DAILY [facility] Last Admin: 03/02/18 10:50 Dose: 75 mg Dorzolamide HCl (Trusopt 2%) 1 drop OU DAILY [facility] Last Admin: 03/02/18 11:05 Dose: 1 drop Ferrous Sulfate (Feosol -) 325 mg PO BID [facility] Last Admin: 03/02/18 10:50 Dose: 325 mg Fluticasone Propionate (Flonase -) 1 spray NS DAILY PRN PRN Reason: NASAL ALLERGY Hydrochlorothiazide (Hctz -) 25 mg PO DAILY [facility] Last Admin: 03/02/18 10:50 Dose: 25 mg Azithromycin 250 mg/ Dextrose 250 mls @ 250 mls/hr IVPB DAILY [facility] Stop: 03/05/18 10:59 Last Admin: 03/02/18 10:52 Dose: 250 mls/hr Ceftriaxone Sodium 1 gm/ (Dextrose) 50 mls @ 100 mls/hr IVPB DAILY [facility] Last Admin: 03/02/18 10:49 Dose: 100 mls/hr Insulin Aspart (Novolog Vial Sliding Scale -) 1 vial SQ TIDAC [facility]; Protocol Last Admin: 03/02/18 06:50 Dose: Not Given Insulin Detemir (Levemir Vial) 20 units SQ [facility] Last Admin: 03/01/18 21:08 Dose: 20 units Isosorbide Mononitrate (Imdur -) 30 mg PO BID [facility] Last Admin: 03/02/18 10:50 Dose: 30 mg Latanoprost (Xalatan 0.005% Eye Drops -) 1 drop OU HS [facility] Last Admin: 03/01/18 21:09 Dose: 1 drop Losartan Potassium (Cozaar -) 50 mg PO BID [facility] Last Admin: 03/02/18 10:50 Dose: 50 mg Multivitamins (Total B With C -) 1 each PO DAILY [facility] Last Admin: 03/02/18 10:51 Dose: 1 each Nitroglycerin (Nitrostat -) 0.4 mg SL TID PRN PRN Reason: FOR CHEST PAIN Non-Formulary Medication (Linaclotide [Linzess]) 290 mcg PO DAILY [facility] Polyethylene Glycol (Miralax (For Daily Use) -) 17 gm PO DAILY [facility] Last Admin: 03/02/18 11:06 Dose: Not Given Sertraline HCl (Zoloft -) 100 mg PO BID [facility] Last Admin: 03/01/18 21:04 Dose: 100 mg - Objective Vital Signs: Vital Signs Temperature 98.2 F 03/02/18 05:00 Pulse Rate 73 03/02/18 05:00 Respiratory Rate 20 03/02/18 05:00 Blood Pressure 164/67 03/02/18 05:00 O2 Sat by Pulse Oximetry (%) 100 03/01/18 20:00 Constitutional: Yes: Calm, Other Cardiovascular: Yes: S1, S2 Respiratory: Yes: Regular, On Nasal O2 Gastrointestinal: Yes: Normal Bowel Sounds, Soft Musculoskeletal: Yes: WNL Extremities: Yes: WNL Labs: CBC, BMP 03/02/18 05:50 03/02/18 05:50 Assessment/Plan 7 year old woman with a PMH significant for CAD s/p 2 stents, HTN, HLD, DM, CKD stage III, Depression/anxiety, glaucoma and IBS presented to the ED at the request of her PCP with increased leg swelling and SOB over the past 4 days. CXR positive for congestive changes, BNP 4756, she was given IM Lasix in the ED. She was placed on observation for diuresis and cardiac monitoring. CHF Exacerbation Transaminitis TIA history CAD Diabetes HTN HLD CKD Stage III Iron Deficiency Anemia IBS Depression/anxiety Glaucoma patients wbc is increasing,close watch continue abx if wbc still increases then check urine and blood again monitor sugars carefully rest as per the team
[2018-03-02 11:48] LABS: HEMATOCRIT 23.6 % (32.4-45.2); MCH 31.9 pg (25.7-33.7); MCHC 33.9 g/dl (32.0-36.0); MEAN CELL VOLUME 94.1 fl (80-96); PLATELET COUNT 248 K/MM3 (134-434); RBC 2.51 M/mm3 (3.60-5.2); WHITE BLOOD COUNT 12.7 K/mm3 (4.0-10.0)
--- NOTE | 2018-03-02 12:10 | ECHO ---
Name: SHERLEY ARIAS Exam:Adult Echocardiogram Study Date: 03/02/2018 08:04 AM Age: 77 yrs Reason For Study: CHF EXACERBATION Height: 63 in Weight: 137 lb BSA: 1.6 m2 MMode/2D Measurements & Calculations IVSd: 0.87 cm Ao root diam: 2.5 cm LVIDd: 4.1 cm LA dimension: 3.9 cm LVIDs: 2.2 cm ACS: 1.5 cm LVPWd: 0.99 cm IVSs: 1.2 cm LVPWs: 1.2 cm EDV(Teich): 72.1 ml ESV(Teich): 15.4 ml Doppler Measurements & Calculations MV E max chris: 142.2 cm/sec Ao V2 max: 162.9 cm/sec MV A max chris: 91.5 cm/sec Ao max P.6 mmHg MV E/A: 1.6 MR max chris: 499.5 cm/sec TR max chris: 350.2 cm/sec MR max P.8 mmHg TR max P.1 mmHg PA V2 max: 133.0 cm/sec PI end-d chris: 131.7 cm/sec PA max P.1 mmHg PA V2 mean: 82.9 cm/sec PA mean P.3 mmHg PA V2 VTI: 28.0 cm Med Peak E' Chris: 5.7 cm/sec Med E/e': 24.9 Procedure A complete two-dimensional transthoracic echocardiogram was performed (2D, M-mode, Doppler and color flow Doppler). Left Ventricle The left ventricle is normal in size. Left ventricular systolic function is normal. Ejection Fraction = 65- 70%. Diastolic dysfunction, Grade II, consistent with elevated left atrial pressure. No regional wall motion abnormalities noted. Right Ventricle The right ventricle is normal size. The right ventricular systolic function is normal. Atria Borderline left atrial enlargement. Right atrial size is normal. Mitral Valve There is mild mitral annular calcification. There is mild mitral regurgitation. Tricuspid Valve The tricuspid valve is normal in structure and function. There is moderate tricuspid regurgitation. P ulmonary artery systolic pressure is at least 54 mmHg assuming RA pressure of 3 mmHg. Aortic Valve The aortic valve is normal in structure and function. No aortic regurgitation is present. Pulmonic Valve The pulmonic valve is not well visualized. Mild pulmonic valvular regurgitation. Great Vessels The aortic root is normal size. Pericardium/Pleura Trivial pericardial effusion not hemodynamically significant. Interpretation Summary The left ventricle is normal in size. Left ventricular systolic function is normal. No regional wall motion abnormalities noted. Ejection Fraction = 65-70%. Diastolic dysfunction, Grade II, consistent with elevated left atrial pressure. (Pseudonormal mitral inflow) The right ventricular systolic function is normal. Borderline left atrial enlargement. Right atrial size is normal. There is mild mitral annular calcification. There is mild mitral regurgitation. There is moderate tricuspid regurgitation. Pulmonary artery systolic pressure is at least 54 mmHg assuming RA pressure of 3 mmHg Mild pulmonic valvular regurgitation. Trivial pericardial effusion not hemodynamically significant When compared to study dated 11/10/17, pulmonary artery systolic pressure has increased and mitral infl ow and TDI demonstrates pseudonormal pattern with increased filling pressure. Clinical correlation is recomm ended Ricardo Quick MD 03/02/2018 12:09 PM
--- NOTE | 2018-03-02 15:52 | CON.GI ---
Consult Consult Specialty:: GI Referred by:: Medicine Reason for Consultation:: Anemia - History of Present Illness Chief Complaint: SOB History of Present Illness: 77F with h/o CAD s/p stents , CHF, HTN, HL, DM, CKDIII, h/o CVA on Plavix, admitted with edema, ECKERT, SOB, LE edema c/w CHF exacerbation. Has been diuresed and has improved. GI consulted for anemia. Per record, hgb was baseline 11 in summer 2017, but has been 8 on this hospitalization. Patient denies N/V, BRBPR. Denies weight loss. Reports episodic abdominal pain which she relates to gas. She has an outpatient GI doctor (Pablito Story MD) who has prescribed her phazyme and dicyclomine for this. She reports she has had several colonoscopies and endoscopies in search of the etiology of anemia, but on last outpatient visit with her GI, they decided not to investigate further. h /o EGD at [facility] with Dr. Soto 2011 with antral erythema, otherwise normal. She thinks her last colonoscopy was at [facility] within the last couple of years. She chronically takes iron BID-TID, and reports her stool is always formed dark. 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: TIA Cardio/Vascular: Yes: CAD, CHF, HTN, Hyperlipdemia, Other (s/p stent in LAD and RCA.) Renal/: Yes: Renal Inusuff Psych: Yes: Anxiety, Depression, Other (had suicidal attempts in the past and recently few months ago had been admitted in psych [facility] for suicidal attempt.) Endocrine: Yes: Diabetes Mellitus - Past Surgical History Past Surgical History: Yes: - Alcohol/Substance Use Hx Alcohol Use: No History of Substance Use: reports: None - Smoking History Smoking history: Never smoked Have you smoked in the past 12 months: No Aproximately how many cigarettes per day: 0 - Social History Usual Living Arrangement: With Child ADL: Independent 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 of Recent Travel: No Home Medications - Allergies Allergies/Adverse Reactions: Allergies Allergy/AdvReac Type Severity Reaction Status Date / Time diphenhydramine HCl Allergy Severe Itching Verified 02/28/18 11:37 [From Benadryl] Influenza Virus Vaccines Allergy Verified 02/28/18 12:22 trazodone Allergy Verified 02/28/18 12:22 zolpidem [From Ambien] Allergy Verified 02/28/18 12:22 prestik Allergy Uncoded 02/28/18 12:22 - Home Medications Home Medications: Ambulatory Orders Alprazolam [Xanax] 1 mg PO BID PRN 11/11/17 Amlodipine Besylate [Norvasc -] 10 mg PO DAILY #30 tablet 11/11/17 Atorvastatin Ca [Lipitor] 40 mg PO HS 11/11/17 Carvedilol 25 mg PO BID #60 tablet 11/11/17 Cholecalciferol (Vitamin D3) [Vitamin D3] 1 cap PO DAILY 11/11/17 Clopidogrel Bisulfate [Plavix] 75 mg PO DAILY 11/11/17 Dorzolamide HCl [Trusopt 2% -] 1 drop OU DAILY 11/11/17 Ferrous Sulfate 325 mg PO BID 11/11/17 Hydrochlorothiazide [Hctz -] 25 mg PO DAILY #30 tablet 11/11/17 Hydroxyzine HCl 25 mg PO DAILY 11/11/17 Insulin Aspart [Novolog Flexpen] See Protocol SQ TIDCM 11/11/17 Insulin Detemir [Levemir Flextouch] 20 units SQ DAILY 11/11/17 Isosorbide Mononitrate [Isosorbide Mononitrate ER] 30 mg PO BID #60 tab.er.24h 11/11/17 Latanoprost 0.005% Eye Drops [Xalatan 0.005% Eye Drops -] 1 drop OU HS 11/11/17 Linaclotide [Linzess] 290 mcg PO DAILY 11/11/17 Losartan Potassium 50 mg PO BID #60 tablet 11/11/17 Nitroglycerin [Nitrostat] 0.4 mg SL TID PRN 11/11/17 Polyethylene Glycol 3350 [Powderlax] 238 gm PO DAILY 11/11/17 Sertraline HCl 100 mg PO BID 11/11/17 Vitamin B Complex 1 cap PO DAILY 11/11/17 Fluticasone Prop 0.05% Nasal [Flonase -] 1 spray NS DAILY PRN 02/28/18 Review of Systems - Review of Systems Constitutional: denies: Loss of Appetite, Unintentional Wgt. Loss Cardiovascular: reports: Shortness of Breath Respiratory: reports: Exercise Intolerance, SOB, SOB on Exertion Gastrointestinal: reports: Abdominal Pain, Bloating. denies: Diarrhea, Melena, Nausea, Rectal Bleeding, Vomiting Neurological: reports: Change in Speech Physical Exam-GI Vital Signs: Vital Signs Temperature 98.6 F 03/02/18 14:00 Pulse Rate 74 03/02/18 14:00 Respiratory Rate 20 03/02/18 14:00 Blood Pressure 145/66 03/02/18 14:00 O2 Sat by Pulse Oximetry (%) 100 03/01/18 20:00 Constitutional: Yes: Well Nourished, No Distress, Calm Eyes: Yes: WNL, Conjunctiva Clear HENT: Yes: WNL, Atraumatic, Normocephalic Cardiovascular: Yes: WNL, Regular Rate and Rhythm, Other (soft MILAGROS across precordium) Respiratory: Yes: WNL, Regular, CTA Bilaterally, On Nasal O2. No: Rales, Rhonchi ...Palpate: Yes: Soft, Tenderness (mild diffuse left sided ttp) ...Percussion: Yes: Tympanitic (mild) ...Rectal Exam: Yes: Other (External no lesions, SURESH without mass or blood; dark greenish scant stool) Psychiatric: Yes: WNL, Alert, Oriented Labs: CBC, BMP 03/02/18 11:40 03/02/18 05:50 Of note, hgb 8.1 --> 7.9 --> 7.9 --> 8, MCV 94 Low level elevations in transaminases on admission have largely resolved Imaging - Results Other: Other (TTE results reviewed) Problem List - Problems (1) Anemia, unspecified Assessment/Plan: Likely multifactorial - anemia of chronic disease given multiple comorbidities and renal insufficiency and possible component of iron deficiency given history. - check Fe, TIBC, % saturation, ferritin - would ask that family bring in reports from prior endoscopic exams for review , patient reports she has them at home - defer endoscopic evaluation at this time but suggest short interval follow up with her outpatient senior support engineer Code(s): D64.9 - ANEMIA, UNSPECIFIED (2) Abnormal liver function tests Assessment/Plan: Given rapid improvement with diuresis and TTE findings, likely congestive hepatopathy. - can get abdominal US with doppler to assess, but given improvement, can consider deferring this to outpatient setting, as well. Code(s): R94.5 - ABNORMAL RESULTS OF LIVER FUNCTION STUDIES Assessment/Plan Please call GI with questions or changes in clinical status Anabel Lou MD
--- NOTE | 2018-03-02 18:29 | PN ---
Progress Note, Physician Chief Complaint: Patient admitted with CHF exacerbation which has now improved. Today, she reports general malaise and not feeling herself. Her speech is pressured and she appears short of breath with extensive speaking. There is a notable drop in her H/H, today 7.5/25. Will repeat CBC and transfuse if hgb remains < 8.0. Pt reports decreased appetite, BG = 65mg/dl this morning. - Current Medication List Current Medications: Active Medications Alprazolam (Xanax -) 1 mg PO Q12H PRN PRN Reason: ANXIETY Last Admin: 02/28/18 21:43 Dose: 1 mg Amlodipine Besylate (Norvasc -) 10 mg PO DAILY [facility] Last Admin: 03/02/18 10:50 Dose: 10 mg Atorvastatin Calcium (Lipitor -) 40 mg PO HS [facility] Last Admin: 03/01/18 21:04 Dose: 40 mg Carvedilol (Coreg -) 25 mg PO BID [facility] Last Admin: 03/02/18 10:51 Dose: 25 mg Cholecalciferol (Vitamin D3 -) 2,000 unit PO DAILY [facility] Last Admin: 03/02/18 10:50 Dose: 2,000 unit Clopidogrel Bisulfate (Plavix -) 75 mg PO DAILY [facility] Last Admin: 03/02/18 10:50 Dose: 75 mg Dorzolamide HCl (Trusopt 2%) 1 drop OU DAILY [facility] Last Admin: 03/02/18 11:05 Dose: 1 drop Ferrous Sulfate (Feosol -) 325 mg PO BID [facility] Last Admin: 03/02/18 10:50 Dose: 325 mg Fluticasone Propionate (Flonase -) 1 spray NS DAILY PRN PRN Reason: NASAL ALLERGY Hydrochlorothiazide (Hctz -) 25 mg PO DAILY [facility] Last Admin: 03/02/18 10:50 Dose: 25 mg Azithromycin 250 mg/ Dextrose 250 mls @ 250 mls/hr IVPB DAILY [facility] Stop: 03/05/18 10:59 Last Admin: 03/02/18 10:52 Dose: 250 mls/hr Ceftriaxone Sodium 1 gm/ (Dextrose) 50 mls @ 100 mls/hr IVPB DAILY [facility] Last Admin: 03/02/18 10:49 Dose: 100 mls/hr Insulin Aspart (Novolog Vial Sliding Scale -) 1 vial SQ TIDAC [facility]; Protocol Last Admin: 03/02/18 13:03 Dose: 6 units Insulin Detemir (Levemir Vial) 20 units SQ HS [facility] Last Admin: 03/01/18 21:08 Dose: 20 units Isosorbide Mononitrate (Imdur -) 30 mg PO BID [facility] Last Admin: 03/02/18 10:50 Dose: 30 mg Latanoprost (Xalatan 0.005% Eye Drops -) 1 drop OU HS [facility] Last Admin: 03/01/18 21:09 Dose: 1 drop Losartan Potassium (Cozaar -) 50 mg PO BID [facility] Last Admin: 03/02/18 10:50 Dose: 50 mg Multivitamins (Total B With C -) 1 each PO DAILY [facility] Last Admin: 03/02/18 10:51 Dose: 1 each Nitroglycerin (Nitrostat -) 0.4 mg SL TID PRN PRN Reason: FOR CHEST PAIN Non-Formulary Medication (Linaclotide [Linzess]) 290 mcg PO DAILY [facility] Polyethylene Glycol (Miralax (For Daily Use) -) 17 gm PO DAILY [facility] Last Admin: 03/02/18 11:06 Dose: Not Given Sertraline HCl (Zoloft -) 100 mg PO BID [facility] Last Admin: 03/02/18 10:00 Dose: Not Given - Objective Vital Signs: Vital Signs Temperature 98.6 F 03/02/18 14:00 Pulse Rate 74 03/02/18 14:00 Respiratory Rate 20 03/02/18 14:00 Blood Pressure 145/66 03/02/18 14:00 O2 Sat by Pulse Oximetry (%) 100 03/01/18 20:00 Constitutional: Yes: No Distress, Calm Eyes: Yes: Conjunctiva Clear, PERRL HENT: Yes: Atraumatic, Normocephalic Neck: Yes: Supple Cardiovascular: Yes: Regular Rate and Rhythm, Murmur (3/6 SM) Respiratory: Yes: CTA Bilaterally Gastrointestinal: Yes: Soft, Hypoactive Bowel Sounds Musculoskeletal: Yes: Muscle Weakness Extremities: Yes: WNL Edema: No Peripheral Pulses WNL: Yes Peripheral Pulses: Left Radial: 2+, Right Radial: 2+, Left Doralis Pedis: 2+, Right Dorsalis Pedis: 2+ Integumentary: Yes: WNL Neurological: Yes: Oriented, Lethargy, Unsteady Gait, Weakness, Other (slow pressured speech) ...Motor Strength: LLE (decreased 4/5), RLE Psychiatric: Yes: Oriented Labs: CBC, BMP 03/02/18 11:40 03/02/18 05:50 - ....Imaging Cat Scan: Report Reviewed (HEAD CT 03/02: no evidence of intracranial hemorrhage , edema, midline shift, mass effect or skull fracture.) Other: Report Reviewed (ECHO: 03/02 Summary: EF 65-70%. Diastolis dysfunction grade II, consistent with elevated left atrial pressure. Borderline LAE. Mild mitral annular calcifications, mild mitral regurg, moderate tricuspid regurg. Pulmonary artery systolic pressure is at least 54mmHg. RA 3mmHg.) Problem List - Problems (1) Anemia, unspecified Assessment/Plan: goal hemoglobin 8.0 transfuse for hgb < 8 c/w iron therapy GI consult today Code(s): D64.9 - ANEMIA, UNSPECIFIED (2) CHF (congestive heart failure) Assessment/Plan: c/w coreg, imdur Code(s): I50.9 - HEART FAILURE, UNSPECIFIED (3) Depressed Assessment/Plan: c/w xanax 1mg BID c/w Zoloft 100mg BID Code(s): F32.9 - MAJOR DEPRESSIVE DISORDER, SINGLE EPISODE, UNSPECIFIED Qualifiers: Depression Type: major depressive disorder Major depression recurrence: recurrent Active/Remission status: currently active Major depression episode severity: moderate Qualified Code(s): F33.1 - Major depressive disorder, recurrent, moderate (4) Diabetes mellitus Assessment/Plan: diabetic diet insulin SS monitor for hypoglycemia in setting of decreased appetite Code(s): E11.9 - TYPE 2 DIABETES MELLITUS WITHOUT COMPLICATIONS (5) Hyperlipidemia Assessment/Plan: lipitor qhs Code(s): E78.5 - HYPERLIPIDEMIA, UNSPECIFIED (6) Hypertension Assessment/Plan: norvasc and coreg at current dose, hold for SBP <90mmHg Code(s): I10 - ESSENTIAL (PRIMARY) HYPERTENSION Qualifiers: Hypertension type: essential hypertension Qualified Code(s): I10 - Essential (primary) hypertension (7) Altered mental status Assessment/Plan: head CT to evaluate for pathologic causes Code(s): R41.82 - ALTERED MENTAL STATUS, UNSPECIFIED (8) Leukocytosis, unspecified Assessment/Plan: c/w with empiric abx for leukocytosis and low grade fever trend WBCs and fever curve. pt being followed by ID Code(s): D72.829 - ELEVATED WHITE BLOOD CELL COUNT, UNSPECIFIED (9) TIA on medication Assessment/Plan: c/w plavix daily Code(s): G45.9 - TRANSIENT CEREBRAL ISCHEMIC ATTACK, UNSPECIFIED (10) CKD (chronic kidney disease) stage 3, GFR 30-59 ml/min Assessment/Plan: renally dose meds serial Cr trend electrolytes and replete as needed Code(s): N18.3 - CHRONIC KIDNEY DISEASE, STAGE 3 (MODERATE) (11) IBS (irritable bowel syndrome) Assessment/Plan: continue Linzess and miralax Code(s): K58.9 - IRRITABLE BOWEL SYNDROME WITHOUT DIARRHEA Visit type - Emergency Visit Emergency Visit: Yes ED Registration Date: 03/02/18 Care time: The patient presented to the Emergency Department on the above date and was hospitalized for further evaluation of their emergent condition. - New Patient This patient is new to me today: Yes Date on this admission: 02/28/18 - Critical Care Critical Care patient: No - Discharge Referral Referred to [facility] Med P.C.: No
[2018-03-02] MEDS: ATORVASTATIN CA 40 MG TABLET (FP) PO SCH (21:07)
[2018-03-02] MEDS: INSULIN (LEVEMIR) 100 UNITS/ML UNITS SQ SCH (21:08)
[2018-03-02] MEDS: LATANOPROST 0.005% OPHTH SOLN 2.5ML BOTTLE OU SCH (21:08)
[2018-03-03] MEDS: INSULIN SLIDING SCALE (NOVOLOG) 1 VIAL SQ SCH ×3 (06:00→17:51)
--- NOTE | 2018-03-03 09:26 | PN ---
Physical Exam: SUBJECTIVE: Patient seen and examined at the bedside. In no acute distress. ambulating, denies shortness of breath. OBJECTIVE: Vital Signs Period Temp Pulse Resp BP Sys/Morrison Pulse Ox Last 24 Hr 98.1 F-98.9 F 74-81 20-20 145-174/64-69 98 GENERAL: The patient is awake, alert, and fully oriented, in no acute distress. HEAD: Normal with no signs of trauma. EYES: PERRL, extraocular movements intact, sclera anicteric, conjunctiva clear. No ptosis. ENT: Ears normal, nares patent, oropharynx clear without exudates, moist mucous membranes. NECK: Trachea midline, full range of motion, supple. LUNGS: fine crackles at the bases HEART: Regular rate and rhythm ABDOMEN: Soft, nontender, nondistended, normoactive bowel sounds, no guarding EXTREMITIES: no edema. NEUROLOGICAL: Normal speech, gait steady PSYCH: withdrawn at times. SKIN: Warm, dry, normal turgor, no rashes or lesions noted Laboratory Results - last 24 hr 03/02/18 03/02/18 03/02/18 11:40 11:40 11:40 WBC 12.7 H RBC 2.51 L Hgb 8.0 L Hct 23.6 L MCV 94.1 MCH 31.9 MCHC 33.9 RDW 14.0 Plt Count 248 MPV 10.0 POC Glucometer Hemoglobin A1c % Ferritin Ammonia Creatine Kinase 60 Troponin I 0.05 Blood Type O POSITIVE Antibody Screen Negative 03/02/18 03/02/18 03/02/18 11:40 11:40 11:40 WBC RBC Hgb Hct MCV MCH MCHC RDW Plt Count MPV POC Glucometer Hemoglobin A1c % 6.6 H Ferritin 338.0 Ammonia 23.80 Creatine Kinase Troponin I Blood Type Antibody Screen 03/02/18 03/02/18 03/02/18 11:51 17:27 21:06 WBC RBC Hgb Hct MCV MCH MCHC RDW Plt Count MPV POC Glucometer 262 248 151 Hemoglobin A1c % Ferritin Ammonia Creatine Kinase Troponin I Blood Type Antibody Screen 03/03/18 05:46 WBC RBC Hgb Hct MCV MCH MCHC RDW Plt Count MPV POC Glucometer 248 Hemoglobin A1c % Ferritin Ammonia Creatine Kinase Troponin I Blood Type Antibody Screen Active Medications Generic Name Dose Route Start Last Admin Trade Name Freq PRN Reason Stop Dose Admin Alprazolam 1 mg 02/28/18 15:16 02/28/18 21:43 Xanax - PO 1 mg Q12H PRN Administration ANXIETY Amlodipine Besylate 10 mg 03/01/18 10:00 03/02/18 10:50 Norvasc - PO 10 mg DAILY [facility] Administration Atorvastatin Calcium 40 mg 02/28/18 22:00 03/02/18 21:07 Lipitor - PO 40 mg HS [facility] Administration Carvedilol 25 mg 02/28/18 22:00 03/02/18 21:07 Coreg - PO 25 mg BID [facility] Administration Cholecalciferol 2,000 unit 03/01/18 10:00 03/02/18 10:50 Vitamin D3 - PO 2,000 unit DAILY [facility] Administration Clopidogrel Bisulfate 75 mg 03/01/18 10:00 03/02/18 10:50 Plavix - PO 75 mg DAILY [facility] Administration Dorzolamide HCl 1 drop 03/01/18 10:00 03/02/18 11:05 Trusopt 2% OU 1 drop DAILY [facility] Administration Ferrous Sulfate 325 mg 02/28/18 22:00 03/02/18 21:07 Feosol - PO 325 mg BID [facility] Administration Fluticasone Propionate 1 spray 02/28/18 15:16 Flonase - NS DAILY PRN NASAL ALLERGY Hydrochlorothiazide 25 mg 03/01/18 10:00 03/02/18 10:50 Hctz - PO 25 mg DAILY [facility] Administration Azithromycin 250 mg/ Dextrose 250 mls @ 250 mls/hr 03/02/18 10:00 03/02/18 10 :52 IVPB 03/05/18 10:59 250 mls/hr DAILY [facility] Administration Ceftriaxone Sodium 1 gm/ 50 mls @ 100 mls/hr 03/01/18 16:00 03/02/18 10:49 Dextrose IVPB 100 mls/hr DAILY [facility] Administration Insulin Aspart 1 vial 02/28/18 16:30 03/03/18 06:00 Novolog Vial Sliding Scale - SQ 4 units TIDAC [facility] Administration Protocol Insulin Detemir 20 units 02/28/18 22:00 03/02/18 21:08 Levemir Vial SQ Not Given HS [facility] Isosorbide Mononitrate 30 mg 02/28/18 22:00 03/02/18 21:07 Imdur - PO 30 mg BID [facility] Administration Latanoprost 1 drop 02/28/18 22:00 03/02/18 21:08 Xalatan 0.005% Eye Drops - OU 1 drop HS [facility] Administration Losartan Potassium 50 mg 02/28/18 22:00 03/02/18 21:07 Cozaar - PO 50 mg BID [facility] Administration Multivitamins 1 each 03/01/18 10:00 03/02/18 10:51 Total B With C - PO 1 each DAILY [facility] Administration Nitroglycerin 0.4 mg 02/28/18 15:16 Nitrostat - SL TID PRN FOR CHEST PAIN Non-Formulary Medication 290 mcg 03/01/18 10:00 Linaclotide [Linzess] PO DAILY [facility] Polyethylene Glycol 17 gm 03/01/18 10:00 03/02/18 11:06 Miralax (For Daily Use) - PO Not Given DAILY [facility] Sertraline HCl 100 mg 02/28/18 22:00 03/02/18 21:07 Zoloft - PO 100 mg BID [facility] Administration Imaging: chest xray: new congestive changes and fluid in horizontal fissure compared with 07/23 EKG: nsr, TWI in leads 1 and avl, axis wnl, intervals wnl ASSESSMENT/PLAN: Patient is a 77 year old female with a significant past medical history of s/p 2 stents, HTN, HLD, DM, CKD stage III, depression/anxiety, glaucoma and IBS. She presented to the ED at the request of her PCP after she was noted to have increased leg swelling, SOB, cough, decreased physical activity over the past 4 days. Patient reports she has had a 10 lb weight gain over the past several weeks. On admission she was noted to have a low grade temperature of 99F and labs notable with BNP 4756, BUN/Cr 56/1.8 (baseline), slightly elevated AST/ALT/Alk Phos elevated at 38/82/160. Her initial troponin was negative. Cardiology: CHF exacerbation. shortness of breath. CXR with new congestive changes. bnp elevated @ 4700 on admission. Echo 2017 Given lasix 40mg iv in the Ed, now on HCTZ. echo with normal LVEF; severe pulmonary HTN CAD S/p LAD and RCA stents. On imdur, nitroglycerin Outpatient cardiology follow up Hypertension. slightly elevated today. On amlodopine 10mg daily, coreq 25 po bid, hctz 25mg daily, losartan 50mg bid. monitor. HLD, chronic On statin therapy ID: Leukocytosis, improved fever of 101.5 and leukocytosis on admission. WBC trending down, now afebrile. Followed by ID and started on ceftriaxone and azithromycin. Monitor labs, vitals. blood cultures negative. UA negative. GI: Transaminitis. improving Monitor with daily labs Neuro: TIA, history No neuro deficits noted. On Plavix 75 mg PO Endocrine: Diabetes. SS with Novolog coverage. On Levemir. diabetic diet. Renal: CKD Stage III. creat at baseline. Follows renal outpatient Heme: Iron Deficiency Anemia. hmg/hct, low stable. Seen by GI. Patient had colonoscopy outpatient. will need GI follow up as outpatient. On Iron 325mg bid tabs. GI: IBS On Linzess 290 mcg PO qday Psyche: Depression/anxiety Hx of suicide attempts On Vistaril 25 mg PO qday, Zoloft 100 mg PO BID Hold xanax as pt was much weaker today and had episode of confusion earlier in day. fen tolerating PO monitor electrolytes low salt diet prophy ambulation defer a/c 2/2 anemia full code Visit type - Emergency Visit Emergency Visit: Yes ED Registration Date: 03/02/18 Care time: The patient presented to the Emergency Department on the above date and was hospitalized for further evaluation of their emergent condition. - New Patient This patient is new to me today: Yes Date on this admission: 03/03/18 - Critical Care Critical Care patient: No - Discharge Referral Referred to [facility] Med P.C.: No
[2018-03-03 09:49] LABS: BASO % 0.3 % (0-2.0); EOS % 0.6 % (0-4.5); HEMATOCRIT 22.7 % (32.4-45.2); HEMOGLOBIN 7.7 GM/dL (10.7-15.3); LYMPH % 7.2 % (8-40); MCH 32.3 pg (25.7-33.7); MCHC 34.1 g/dl (32.0-36.0); MEAN CELL VOLUME 94.7 fl (80-96); MEAN PLT VOLUME 10.3 fl (7.5-11.1); NEUT % 86.9 % (42.8-82.8); PLATELET COUNT 261 K/MM3 (134-434); RDW 13.8 % (11.6-15.6); WHITE BLOOD COUNT 12.4 K/mm3 (4.0-10.0)
[2018-03-03 10:02] LABS: ALBUMIN 2.8 g/dl (3.4-5.0); ALK PHOS 120 U/L (45-117); ANION GAP 9 MMOL/L (8-16); BILIRUBIN,TOTAL 0.3 mg/dL (0.2-1); BLOOD UREA NITROGEN 42 mg/dL (7-18); CALCIUM 8.6 mg/dL (8.5-10.1); CHLORIDE 110 mmol/L (98-107); CO2 23 mmol/L (21-32); CREATININE 1.3 mg/dL (0.55-1.3); GLUCOSE,RANDOM 216 mg/dL (74-106); POTASSIUM 4.1 mmol/L (3.5-5.1); SGOT/AST 17 U/L (15-37); SGPT/ALT 42 U/L (13-61); SODIUM 143 mmol/L (136-145); TOT PROT 5.9 g/dl (6.4-8.2)
[2018-03-03] MEDS: CLOPIDOGREL BISULFATE 75 MG TABLET (FP) PO SCH (10:13)
[2018-03-03] MEDS: SERTRALINE HCL 50 MG TABLET (FP) PO SCH ×2 (10:13→21:36)
[2018-03-03] MEDS: ISOSORBIDE MONONITRATE 30 MG TAB.SR.24H (FP) PO SCH ×2 (10:13→21:36)
[2018-03-03] MEDS: CHOLECALCIFEROL (VITAMIN D3) 1,000 UNIT TABLET (FP) PO SCH (10:13)
[2018-03-03] MEDS: amLODIPine BESYLATE 10 MG TABLET (FP) PO SCH (10:13)
[2018-03-03] MEDS: LOSARTAN POTASSIUM 50 MG TABLET (FP) PO SCH ×2 (10:13→21:36)
[2018-03-03] MEDS: VITAMIN B COMPLEX W/C COMBO TABLET (FP) PO SCH (10:13)
[2018-03-03] MEDS: DORZOLAMIDE 2% HCL OPHTHALMIC SOLUTION 10 ML BOTTLE OU SCH (10:14)
[2018-03-03] MEDS: CARVEDILOL 25 MG TABLET (FP) PO SCH ×2 (10:14→21:36)
[2018-03-03] MEDS: CEFTRIAXONE 1 GM in DEXTROSE 5%-WATER - 50 ML IVPB SCH (10:14)
[2018-03-03] MEDS: FERROUS SO4 325 MG TABLET (FP) PO SCH ×2 (10:14→21:36)
[2018-03-03] MEDS: HYDROCHLOROTHIAZIDE 25 MG TABLET (FP) PO SCH (10:14)
[2018-03-03] MEDS: AZITHROMYCIN IVPB 250 MG in DEXTROSE 5%-WATER - 250 ML IVPB SCH (10:15)
--- NOTE | 2018-03-03 12:32 | CON.CARD ---
Consult Consult Specialty:: cardiology Reason for Consultation:: shortness of breath; rapid weight gain - History of Present Illness History of Present Illness: 77 year old black female (zaria Rouse), with a PMH significant for CAD s/p 2 stents ,(the 1st in 2005), HTN, HLD, DM, CKD stage III, Depression/anxiety, glaucoma and IBS presented to the ED at the request of her PCP with increased leg swelling and SOB, cough, ECKERT over the past 4 days. Patient reports she has had a 10 lb weight gain over the past several weeks though it has been harder for her to eat with the fluid accumulation and chronic gas problem. She was seen by her PCP Dr. Navarro on Friday who recommended she present to the ED for IV diuresis. Denies headaches, chest pain, palpitations, n/v/d. Upon admission to the ED she had a low grade temperature of 99.0. Labs notable for BNP 4756, BUN/Cr 56/1.8 (baseline), slightly elevated AST/ALT/Alk Phos elevated at 38/82/160, Trop negative CXR positive for congestive changes, ECG unremarkable. She was given IM Lasix in the ED which she reports at the time of exam not to have cause her to urinate very much yet. - History Source History Provided By: Patient, Medical Record - Past Medical History DEPARTMENT CHAIR: Yes: TIA Cardio/Vascular: Yes: CAD, CHF, HTN, Hyperlipdemia, Other (s/p stent in LAD and RCA.) Renal/: Yes: Renal Inusuff Psych: Yes: Anxiety, Depression, Other (had suicidal attempts in the past and recently few months ago had been admitted in [facility] for suicidal attempt.) Endocrine: Yes: Diabetes Mellitus - Past Surgical History Past Surgical History: Yes: - Alcohol/Substance Use Hx Alcohol Use: No History of Substance Use: reports: None - Smoking History Smoking history: Never smoked Have you smoked in the past 12 months: No Aproximately how many cigarettes per day: 0 - Social History Usual Living Arrangement: With Child ADL: Independent 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 of Recent Travel: No Home Medications - Allergies Allergies/Adverse Reactions: Allergies Allergy/AdvReac Type Severity Reaction Status Date / Time diphenhydramine HCl Allergy Severe Itching Verified 02/28/18 11:37 [From Benadryl] Influenza Virus Vaccines Allergy Verified 02/28/18 12:22 trazodone Allergy Verified 02/28/18 12:22 zolpidem [From Ambien] Allergy Verified 02/28/18 12:22 prestik Allergy Uncoded 02/28/18 12:22 - Home Medications Home Medications: Ambulatory Orders Alprazolam [Xanax] 1 mg PO BID PRN 11/11/17 Amlodipine Besylate [Norvasc -] 10 mg PO DAILY #30 tablet 11/11/17 Atorvastatin Ca [Lipitor] 40 mg PO HS 11/11/17 Carvedilol 25 mg PO BID #60 tablet 11/11/17 Cholecalciferol (Vitamin D3) [Vitamin D3] 1 cap PO DAILY 11/11/17 Clopidogrel Bisulfate [Plavix] 75 mg PO DAILY 11/11/17 Dorzolamide HCl [Trusopt 2% -] 1 drop OU DAILY 11/11/17 Ferrous Sulfate 325 mg PO BID 11/11/17 Hydrochlorothiazide [Hctz -] 25 mg PO DAILY #30 tablet 11/11/17 Hydroxyzine HCl 25 mg PO DAILY 11/11/17 Insulin Aspart [Novolog Flexpen] See Protocol SQ TIDCM 11/11/17 Insulin Detemir [Levemir Flextouch] 20 units SQ DAILY 11/11/17 Isosorbide Mononitrate [Isosorbide Mononitrate ER] 30 mg PO BID #60 tab.er.24h 11/11/17 Latanoprost 0.005% Eye Drops [Xalatan 0.005% Eye Drops -] 1 drop OU HS 11/11/17 Linaclotide [Linzess] 290 mcg PO DAILY 11/11/17 Losartan Potassium 50 mg PO BID #60 tablet 11/11/17 Nitroglycerin [Nitrostat] 0.4 mg SL TID PRN 11/11/17 Polyethylene Glycol 3350 [Powderlax] 238 gm PO DAILY 11/11/17 Sertraline HCl 100 mg PO BID 11/11/17 Vitamin B Complex 1 cap PO DAILY 11/11/17 Fluticasone Prop 0.05% Nasal [Flonase -] 1 spray NS DAILY PRN 02/28/18 Vital Signs: Vital Signs Temperature 99 F 03/03/18 10:11 Pulse Rate 84 03/03/18 11:00 Respiratory Rate 20 03/03/18 10:11 Blood Pressure 158/78 03/03/18 10:11 O2 Sat by Pulse Oximetry (%) 100 03/03/18 11:00 - Other Data Labs, Other Data: CBC, BMP 03/03/18 05:30 03/03/18 05:30 Problem List - Problems (1) Acute on chronic diastolic (congestive) heart failure Assessment/Plan: ECHO: normal LVEF; severe pulmonary HTN On beta blockers. On ARB, HCTZ, Imdur. F/u BUN/Cr, electrolytes, daily weight, Is and Os. Code(s): I50.33 - ACUTE ON CHRONIC DIASTOLIC (CONGESTIVE) HEART FAILURE (2) CKD (chronic kidney disease) stage 3, GFR 30-59 ml/min Code(s): N18.3 - CHRONIC KIDNEY DISEASE, STAGE 3 (MODERATE) (3) IBS (irritable bowel syndrome) Code(s): K58.9 - IRRITABLE BOWEL SYNDROME WITHOUT DIARRHEA (4) Diabetes mellitus Code(s): E11.9 - TYPE 2 DIABETES MELLITUS WITHOUT COMPLICATIONS (5) Hyperlipidemia Code(s): E78.5 - HYPERLIPIDEMIA, UNSPECIFIED (6) Hypertension Assessment/Plan: See "diastolic CHF". Code(s): I10 - ESSENTIAL (PRIMARY) HYPERTENSION Qualifiers: Hypertension type: essential hypertension Qualified Code(s): I10 - Essential (primary) hypertension (7) Severe pulmonary arterial systolic hypertension Code(s): I27.21 - SECONDARY PULMONARY ARTERIAL HYPERTENSION (8) H/O heart artery stent Assessment/Plan: f/u records of coronary angiograms and PCIs. TNI 0.05 Consider stress MIBI when stable. Code(s): Z95.5 - PRESENCE OF CORONARY ANGIOPLASTY IMPLANT AND GRAFT
[2018-03-03] MEDS: POLYETHYLENE GLYCOL 3350 119 GM BTL PO SCH (12:51)
[2018-03-03] MEDS: ATORVASTATIN CA 40 MG TABLET (FP) PO SCH (21:35)
[2018-03-03] MEDS: INSULIN (LEVEMIR) 100 UNITS/ML UNITS SQ SCH (21:36)
[2018-03-03] MEDS: LATANOPROST 0.005% OPHTH SOLN 2.5ML BOTTLE OU SCH (21:36)
--- NOTE | 2018-03-04 01:42 | HOSP ---
Subjective - Review of Symptoms Events since last encounter: Hospitalist Encounter Notified by the RN, that the patient appears confused, refusing to wear the cardiac electrodes for monitoring, removed the hospital gown and redressed in her street clothes, insisting on leaving to go home. Subjective: Arrived to bedside patient is awake, alert, oriented x2, patient at times appears to be searching for words when she is speaking. Per the RN the patient' s son who was visiting last evening thought his mother was confused and acting different. Assessment: Patient is a 77 year old female with a significant past medical history of s/p 2 stents, HTN, HLD, DM, CKD stage III, depression/anxiety, glaucoma and IBS. She presented to the ED at the request of her PCP after she was noted to have increased leg swelling, SOB, cough, decreased physical activity over the past 4 days. Admitted for CHF Exacerbation, AMS Plan: Neurology Consult Fall Precautions Neurological: Yes: Confusion Physical Examination Vital Signs: Vital Signs Temperature 99.2 F 03/03/18 22:00 Pulse Rate 87 03/03/18 22:00 Respiratory Rate 20 03/03/18 22:00 Blood Pressure 157/62 03/03/18 22:00 O2 Sat by Pulse Oximetry (%) 97 03/03/18 21:00 Constitutional: Yes: No Distress, Calm, Thin Eyes: Yes: WNL, Conjunctiva Clear, EOM Intact, PERRL HENT: Yes: WNL, Atraumatic, Normocephalic Neck: Yes: WNL, Supple, Trachea Midline Cardiovascular: Yes: Regular Rate and Rhythm, S1, S2 Respiratory: Yes: On Nasal O2, Rhonchi (bases) Gastrointestinal: Yes: WNL, Normal Bowel Sounds, Soft Breast(s): Yes: WNL Musculoskeletal: Yes: WNL Extremities: Yes: WNL Edema: No Peripheral Pulses WNL: Yes Neurological: Yes: Alert, Confusion, Cran Nerves II-XII Intact ...Motor Strength: WNL Psychiatric: Yes: WNL, Alert, Oriented Labs: CBC, BMP 03/03/18 05:30 03/03/18 05:30 Laboratory Results - last 24 hr 03/03/18 03/03/18 03/03/18 05:30 05:30 05:46 WBC 12.4 H RBC 2.40 L Hgb 7.7 L Hct 22.7 L MCV 94.7 MCH 32.3 MCHC 34.1 RDW 13.8 Plt Count 261 MPV 10.3 Absolute Neuts (auto) 10.8 H Neutrophils % 86.9 H Lymphocytes % 7.2 L Monocytes % 5.0 Eosinophils % 0.6 Basophils % 0.3 Nucleated RBC % 0 Sodium 143 Potassium 4.1 Chloride 110 H Carbon Dioxide 23 Anion Gap 9 BUN 42 H Creatinine 1.3 Creat Clearance w eGFR 39.72 POC Glucometer 248 Random Glucose 216 H Calcium 8.6 Total Bilirubin 0.3 AST 17 ALT 42 Alkaline Phosphatase 120 H Total Protein 5.9 L Albumin 2.8 L 03/03/18 03/03/18 03/03/18 12:17 16:52 21:19 WBC RBC Hgb Hct MCV MCH MCHC RDW Plt Count MPV Absolute Neuts (auto) Neutrophils % Lymphocytes % Monocytes % Eosinophils % Basophils % Nucleated RBC % Sodium Potassium Chloride Carbon Dioxide Anion Gap BUN Creatinine Creat Clearance w eGFR POC Glucometer 229 168 216 Random Glucose Calcium Total Bilirubin AST ALT Alkaline Phosphatase Total Protein Albumin Intake & Output 03/01/18 03/02/18 03/03/18 03/04/18 23:59 23:59 23:59 23:59 Intake Total 890 250 250 Balance 890 250 250 Current Medications Generic Name Dose Route Start Last Admin Trade Name Reneq PRN Reason Stop Dose Admin Amlodipine Besylate 10 mg 03/01/18 10:00 03/03/18 10:13 Norvasc - PO 10 mg DAILY [facility] Administration Atorvastatin Calcium 40 mg 02/28/18 22:00 03/03/18 21:35 Lipitor - PO 40 mg HS [facility]AS Administration Carvedilol 25 mg 02/28/18 22:00 03/03/18 21:36 Coreg - PO 25 mg BID BLAS Administration Cholecalciferol 2,000 unit 03/01/18 10:00 03/03/18 10:13 Vitamin D3 - PO 2,000 unit DAILY [facility] Administration Clopidogrel Bisulfate 75 mg 03/01/18 10:00 03/03/18 10:13 Plavix - PO 75 mg DAILY [facility] Administration Dorzolamide HCl 1 drop 03/01/18 10:00 03/03/18 10:14 Trusopt 2% OU 1 drop DAILY [facility]AS Administration Ferrous Sulfate 325 mg 02/28/18 22:00 03/03/18 21:36 Feosol - PO 325 mg BID BLAS Administration Fluticasone Propionate 1 spray 02/28/18 15:16 Flonase - NS DAILY PRN NASAL ALLERGY Hydrochlorothiazide 25 mg 03/01/18 10:00 03/03/18 10:14 Hctz - PO 25 mg DAILY [facility]AS Administration Azithromycin 250 mg/ Dextrose 250 mls @ 250 mls/hr 03/02/18 10:00 03/03/18 10 :15 IVPB 03/05/18 10:59 250 mls/hr DAILY [facility] Administration Ceftriaxone Sodium 1 gm/ 50 mls @ 100 mls/hr 03/01/18 16:00 03/03/18 10:14 Dextrose IVPB 100 mls/hr DAILY [facility] Administration Insulin Aspart 1 vial 02/28/18 16:30 03/03/18 17:51 Novolog Vial Sliding Scale - SQ 2 units TIDAC BLAS Administration Protocol Insulin Detemir 20 units 02/28/18 22:00 03/03/18 21:36 Levemir Vial SQ Not Given HS [facility]AS Isosorbide Mononitrate 30 mg 02/28/18 22:00 03/03/18 21:36 Imdur - PO 30 mg BID [facility] Administration Latanoprost 1 drop 02/28/18 22:00 03/03/18 21:36 Xalatan 0.005% Eye Drops - OU 1 drop HS [facility]AS Administration Losartan Potassium 50 mg 02/28/18 22:00 03/03/18 21:36 Cozaar - PO 50 mg BID BLAS Administration Multivitamins 1 each 03/01/18 10:00 03/03/18 10:13 Total B With C - PO 1 each DAILY [facility] Administration Nitroglycerin 0.4 mg 02/28/18 15:16 Nitrostat - SL TID PRN FOR CHEST PAIN Non-Formulary Medication 290 mcg 03/01/18 10:00 Linaclotide [Linzess] PO DAILY [facility] Polyethylene Glycol 17 gm 03/01/18 10:00 03/03/18 12:51 Miralax (For Daily Use) - PO Not Given DAILY [facility] Sertraline HCl 100 mg 02/28/18 22:00 03/03/18 21:36 Zoloft - PO 100 mg BID [facility]AS Administration
[2018-03-04] MEDS: INSULIN SLIDING SCALE (NOVOLOG) 1 VIAL SQ SCH ×3 (06:13→19:14)
[2018-03-04 07:21] LABS: BASO % 0.5 % (0-2.0); EOS % 0.9 % (0-4.5); HEMATOCRIT 23.6 % (32.4-45.2); HEMOGLOBIN 7.7 GM/dL (10.7-15.3); LYMPH % 9.8 % (8-40); MCH 30.7 pg (25.7-33.7); MCHC 32.4 g/dl (32.0-36.0); MEAN CELL VOLUME 94.7 fl (80-96); MEAN PLT VOLUME 9.7 fl (7.5-11.1); MONO % 5.1 % (3.8-10.2); NEUT % 83.7 % (42.8-82.8); PLATELET COUNT 259 K/MM3 (134-434); RDW 13.8 % (11.6-15.6); WHITE BLOOD COUNT 12.5 K/mm3 (4.0-10.0)
[2018-03-04 08:03] LABS: ALBUMIN 2.8 g/dl (3.4-5.0); ALK PHOS 121 U/L (45-117); ANION GAP 8 MMOL/L (8-16); BILIRUBIN,TOTAL 0.4 mg/dL (0.2-1); BLOOD UREA NITROGEN 39 mg/dL (7-18); CALCIUM 8.7 mg/dL (8.5-10.1); CHLORIDE 111 mmol/L (98-107); CO2 25 mmol/L (21-32); CREATININE 1.3 mg/dL (0.55-1.3); GLUCOSE,RANDOM 208 mg/dL (74-106); MAGNESIUM 2.1 mg/dL (1.8-2.4); SGOT/AST 21 U/L (15-37); SGPT/ALT 42 U/L (13-61); SODIUM 144 mmol/L (136-145); TOT PROT 6.1 g/dl (6.4-8.2)
[2018-03-04] MEDS ORDERED: DEXTROSE 5%-WATER - 50 ML IVPB ONE (09:38)
[2018-03-04] MEDS ORDERED: cefTRIAXone SODIUM 1 GM VIAL ONE (09:38)
--- NOTE | 2018-03-04 10:05 | CONSULT ---
Consult - text type - Consultation Consultation Note: Neurology History of Present Illness 77-year-old female with past medical history significant for NIDDM, HTN, GERD, HLD, CAD s/p stents, CKD III, anemia and IBS presented to the emergency department with bilateral lower extremity swelling for 4 days. The patient reported having increased bilateral swelling to the legs, associated with 10- pound weight change. The patient reported associated symptoms of shortness of breath and orthopnea with difficulty moving around secondary to leg heaviness. She reported that the swelling has extended to her abdomen as well. The patient reported following up with Dr. Navarro (PCP) on Friday, who referred the patient the ER for IV Lasix. She's been admitted and being managed for CHF exacerbation. However, she developed episodes of confusion during her admission. Discussed with nurse who mentioned patient being disoriented on two occasions. She reported the son also noticed she was confused. She completed CT head which I reviewed and did not show acute changes. During my eval, she was able to tell me she's at [facility]. She knows it's February 2018 though believed it was the middle of the month. She knows President is Jessica. Past History - Past Medical History Allergies/Adverse Reactions: Allergies Allergy/AdvReac Type Severity Reaction Status Date / Time diphenhydramine HCl Allergy Severe Itching Verified 02/28/18 11:37 [From Benadryl] Influenza Virus Vaccines Allergy Verified 02/28/18 12:22 trazodone Allergy Verified 02/28/18 12:22 zolpidem [From Ambien] Allergy Verified 02/28/18 12:22 prestik Allergy Uncoded 02/28/18 12:22 Home Medications: Ambulatory Orders Alprazolam [Xanax] 1 mg PO BID PRN 11/11/17 Amlodipine Besylate [Norvasc -] 10 mg PO DAILY #30 tablet 11/11/17 Atorvastatin Ca [Lipitor] 40 mg PO HS 11/11/17 Carvedilol 25 mg PO BID #60 tablet 11/11/17 Cholecalciferol (Vitamin D3) [Vitamin D3] 1 cap PO DAILY 11/11/17 Clopidogrel Bisulfate [Plavix] 75 mg PO DAILY 11/11/17 Dorzolamide HCl [Trusopt 2% -] 1 drop OU DAILY 11/11/17 Ferrous Sulfate 325 mg PO BID 11/11/17 Hydrochlorothiazide [Hctz -] 25 mg PO DAILY #30 tablet 11/11/17 Hydroxyzine HCl 25 mg PO DAILY 11/11/17 Insulin Aspart [Novolog Flexpen] See Protocol SQ TIDCM 11/11/17 Insulin Detemir [Levemir Flextouch] 20 units SQ DAILY 11/11/17 Isosorbide Mononitrate [Isosorbide Mononitrate ER] 30 mg PO BID #60 tab.er.24h 11/11/17 Latanoprost 0.005% Eye Drops [Xalatan 0.005% Eye Drops -] 1 drop OU HS 11/11/17 Linaclotide [Linzess] 290 mcg PO DAILY 11/11/17 Losartan Potassium 50 mg PO BID #60 tablet 11/11/17 Nitroglycerin [Nitrostat] 0.4 mg SL TID PRN 11/11/17 Polyethylene Glycol 3350 [Powderlax] 238 gm PO DAILY 11/11/17 Sertraline HCl 100 mg PO BID 11/11/17 Vitamin B Complex 1 cap PO DAILY 11/11/17 Fluticasone Prop 0.05% Nasal [Flonase -] 1 spray NS DAILY PRN 02/28/18 Anemia: Yes Asthma: No Cancer: No Cardiac Disorders: Yes (CHEST PAIN) CVA: No COPD: No CHF: No Diabetes: Yes (NIDDM) GI Disorders: Yes (GERD) Disorders: No HTN: Yes Hypercholesterolemia: Yes Liver Disease: No Seizures: No Thyroid Disease: No - Surgical History Abdominal Surgery: No Appendectomy: No Cardiac Surgery: Yes (STENT X 2) Cholecystectomy: No Lung Surgery: No Neurologic Surgery: No Orthopedic Surgery: No - Suicide/Smoking/Psychosocial Hx Smoking Status: No Smoking History: Never smoked Have you smoked in the past 12 months: No Number of Cigarettes Smoked Daily: 0 Information on smoking cessation initiated: No Hx Alcohol Use: No Drug/Substance Use Hx: No Substance Use Type: None Hx Substance Use Treatment: No Review of Systems GENERAL/CONSTITUTIONAL: No fever or chills. No weakness. HEAD, EYES, EARS, NOSE AND THROAT: No change in vision. No ear pain or discharge. No sore throat. CARDIOVASCULAR: + shortness of breath. No chest pain. RESPIRATORY: No cough, wheezing, or hemoptysis. GASTROINTESTINAL: No nausea, vomiting, diarrhea or constipation. GENITOURINARY: No dysuria, frequency, or change in urination. MUSCULOSKELETAL: +bilateral lower extremity swelling. No joint or muscle swelling or pain. No neck or back pain. SKIN: No rash NEUROLOGIC: No headache, vertigo, loss of consciousness, or change in strength/ sensation. ENDOCRINE: No increased thirst. No abnormal weight change. HEMATOLOGIC/LYMPHATIC: No anemia, easy bleeding, or history of blood clots. ALLERGIC/IMMUNOLOGIC: No hives or skin allergy. *Physical Exam Vital Signs Period Temp Pulse Resp BP Sys/Morrison Pulse Ox Last 24 Hr 98.3 F-99.2 F 78-111 18-20 135-159/62-81 97-100 GENERAL: Awake, alert, and fully oriented, in no acute distress. HEAD: No signs of trauma EYES: PERRLA, EOMI, sclera anicteric, conjunctiva clear ENT: Auricles normal inspection, hearing grossly normal, nares patent, oropharynx clear without exudates. Moist mucosa NECK: Nontender, no stepoffs, Normal ROM, supple, no lymphadenopathy, JVD, or masses LUNGS: + bibasilar rales HEART: Regular rate and rhythm, normal S1 and S2, no murmurs, rubs or gallops ABDOMEN: Soft, nontender, normoactive bowel sounds. No guarding, no rebound. No masses EXTREMITIES: +2 PE BLE, Normal range of motion, No clubbing or cyanosis. No cords, erythema, or tenderness NEUROLOGICAL: Cranial nerves II through XII intact. 5/5 grossly, sensation intact in all extremities, Normal speech, normal cerebellar function SKIN: Warm, Dry, normal turgor, no rashes or lesions noted. CBCD WBC 12.5 K/mm3 (4.0-10.0) H 03/04/18 06:20 RBC 2.50 M/mm3 (3.60-5.2) L 03/04/18 06:20 Hgb 7.7 GM/dL (10.7-15.3) L 03/04/18 06:20 Hct 23.6 % (32.4-45.2) L 03/04/18 06:20 MCV 94.7 fl (80-96) 03/04/18 06:20 MCHC 32.4 g/dl (32.0-36.0) 03/04/18 06:20 RDW 13.8 % (11.6-15.6) 03/04/18 06:20 Plt Count 259 K/MM3 (134-434) 03/04/18 06:20 MPV 9.7 fl (7.5-11.1) 03/04/18 06:20 CMP Sodium 144 mmol/L (136-145) 03/04/18 06:20 Potassium 4.0 mmol/L (3.5-5.1) 03/04/18 06:20 Chloride 111 mmol/L (98-107) H 03/04/18 06:20 Carbon Dioxide 25 mmol/L (21-32) 03/04/18 06:20 Anion Gap 8 MMOL/L (8-16) 03/04/18 06:20 BUN 39 mg/dL (7-18) H 03/04/18 06:20 Creatinine 1.3 mg/dL (0.55-1.3) 03/04/18 06:20 Creat Clearance w eGFR 39.72 (>60) 03/04/18 06:20 Random Glucose 208 mg/dL (74-106) H 03/04/18 06:20 Calcium 8.7 mg/dL (8.5-10.1) 03/04/18 06:20 Total Bilirubin 0.4 mg/dL (0.2-1) 03/04/18 06:20 AST 21 U/L (15-37) 03/04/18 06:20 ALT 42 U/L (13-61) 03/04/18 06:20 Alkaline Phosphatase 121 U/L (45-117) H 03/04/18 06:20 Total Protein 6.1 g/dl (6.4-8.2) L 03/04/18 06:20 Albumin 2.8 g/dl (3.4-5.0) L 03/04/18 06:20 CARDIAC ENZYMES Creatine Kinase 60 IU/L (26-192) 03/02/18 11:40 Troponin I 0.05 ng/ml (0.00-0.05) 03/02/18 11:40 Medical Decision Making 77-year-old female with past medical history significant for NIDDM, HTN, GERD, HLD, CAD s/p stents, CKD III, anemia and IBS presented to the emergency department with bilateral lower extremity swelling for 4 days. The patient reported having increased bilateral swelling to the legs, associated with 10- pound weight change. The patient reported associated symptoms of shortness of breath and orthopnea with difficulty moving around secondary to leg heaviness. She reported that the swelling has extended to her abdomen as well. The patient reported following up with Dr. Navarro (PCP) on Friday, who referred the patient the ER for IV Lasix. She's been admitted and being managed for CHF exacerbation. However, she developed episodes of confusion during her admission. Discussed with nurse who mentioned patient being disoriented on two occasions. She reported the son also noticed she was confused. She completed CT head which I reviewed and did not show acute changes. During my eval, she was able to tell me she's at [facility]. She knows it's February 2018 though believed it was the middle of the month. She knows President is [place]. Agree with MRI brain, already ordered. Continue mgmt of CHF exacerbation. Confusion maybe episodes of delirium in context of being in hospital, but would rule out organic etiology, and optimize medically. Monitor bp, maintain normotensive ranges. Continue hydration, PO intake.
[2018-03-04] MEDS: CHOLECALCIFEROL (VITAMIN D3) 1,000 UNIT TABLET (FP) PO SCH (10:50)
[2018-03-04] MEDS: LOSARTAN POTASSIUM 50 MG TABLET (FP) PO SCH ×2 (10:50→21:51)
[2018-03-04] MEDS: VITAMIN B COMPLEX W/C COMBO TABLET (FP) PO SCH (10:50)
[2018-03-04] MEDS: SERTRALINE HCL 50 MG TABLET (FP) PO SCH ×2 (10:50→21:51)
[2018-03-04] MEDS: ISOSORBIDE MONONITRATE 30 MG TAB.SR.24H (FP) PO SCH ×2 (10:51→21:51)
[2018-03-04] MEDS: HYDROCHLOROTHIAZIDE 25 MG TABLET (FP) PO SCH (10:51)
[2018-03-04] MEDS: DORZOLAMIDE 2% HCL OPHTHALMIC SOLUTION 10 ML BOTTLE OU SCH (10:51)
[2018-03-04] MEDS: CARVEDILOL 25 MG TABLET (FP) PO SCH ×2 (10:51→21:51)
[2018-03-04] MEDS: PANTOPRAZOLE 40 MG TABLET (FP) PO SCH (10:51)
[2018-03-04] MEDS: amLODIPine BESYLATE 10 MG TABLET (FP) PO SCH (10:51)
[2018-03-04] MEDS: FERROUS SO4 325 MG TABLET (FP) PO SCH ×2 (10:51→21:51)
[2018-03-04] MEDS: CLOPIDOGREL BISULFATE 75 MG TABLET (FP) PO SCH (10:51)
[2018-03-04] MEDS: CEFTRIAXONE 1 GM in DEXTROSE 5%-WATER - 50 ML IVPB SCH (10:52)
--- NOTE | 2018-03-04 12:29 | PN ---
Progress Note, Physician History of Present Illness: 77 year old black female (zaria Rouse), with a PMH significant for CAD s/p 2 stents ,(the 1st in 2005), HTN, HLD, DM, CKD stage III, Depression/anxiety, glaucoma and IBS presented to the ED at the request of her PCP with increased leg swelling and SOB, cough, ECKERT over the past 4 days. Patient reports she has had a 10 lb weight gain over the past several weeks though it has been harder for her to eat with the fluid accumulation and chronic gas problem. She was seen by her PCP Dr. Navarro on Friday who recommended she present to the ED for IV diuresis. Denies headaches, chest pain, palpitations, n/v/d. Upon admission to the ED she had a low grade temperature of 99.0. Labs notable for BNP 4756, BUN/Cr 56/1.8 (baseline), slightly elevated AST/ALT/Alk Phos elevated at 38/82/160, Trop negative CXR positive for congestive changes, ECG unremarkable. She was given IM Lasix in the ED which she reports at the time of exam not to have cause her to urinate very much yet. - Current Medication List Current Medications: Active Medications Amlodipine Besylate (Norvasc -) 10 mg PO DAILY [facility] Last Admin: 03/04/18 10:51 Dose: 10 mg Atorvastatin Calcium (Lipitor -) 40 mg PO HS [facility] Last Admin: 03/03/18 21:35 Dose: 40 mg Carvedilol (Coreg -) 25 mg PO BID [facility] Last Admin: 03/04/18 10:51 Dose: 25 mg Cholecalciferol (Vitamin D3 -) 2,000 unit PO DAILY [facility] Last Admin: 03/04/18 10:50 Dose: 2,000 unit Clopidogrel Bisulfate (Plavix -) 75 mg PO DAILY [facility] Last Admin: 03/04/18 10:51 Dose: 75 mg Dorzolamide HCl (Trusopt 2%) 1 drop OU DAILY [facility] Last Admin: 03/04/18 10:51 Dose: 1 drop Ferrous Sulfate (Feosol -) 325 mg PO BID [facility] Last Admin: 03/04/18 10:51 Dose: 325 mg Fluticasone Propionate (Flonase -) 1 spray NS DAILY PRN PRN Reason: NASAL ALLERGY Hydrochlorothiazide (Hctz -) 25 mg PO DAILY [facility] Last Admin: 03/04/18 10:51 Dose: 25 mg Azithromycin 250 mg/ Dextrose 250 mls @ 250 mls/hr IVPB DAILY [facility] Stop: 03/05/18 10:59 Last Admin: 03/03/18 10:15 Dose: 250 mls/hr Ceftriaxone Sodium 1 gm/ (Dextrose) 50 mls @ 100 mls/hr IVPB DAILY [facility] Last Admin: 03/04/18 10:52 Dose: 100 mls/hr Insulin Aspart (Novolog Vial Sliding Scale -) 1 vial SQ TIDAC [facility]; Protocol Last Admin: 03/04/18 06:13 Dose: Not Given Insulin Detemir (Levemir Vial) 20 units SQ HS [facility] Last Admin: 03/03/18 21:36 Dose: Not Given Isosorbide Mononitrate (Imdur -) 30 mg PO BID [facility] Last Admin: 03/04/18 10:51 Dose: 30 mg Latanoprost (Xalatan 0.005% Eye Drops -) 1 drop OU HS [facility] Last Admin: 03/03/18 21:36 Dose: 1 drop Losartan Potassium (Cozaar -) 50 mg PO BID [facility] Last Admin: 03/04/18 10:50 Dose: 50 mg Multivitamins (Total B With C -) 1 each PO DAILY [facility] Last Admin: 03/04/18 10:50 Dose: 1 each Nitroglycerin (Nitrostat -) 0.4 mg SL TID PRN PRN Reason: FOR CHEST PAIN Non-Formulary Medication (Linaclotide [Linzess]) 290 mcg PO DAILY [facility] Pantoprazole Sodium (Protonix -) 40 mg PO DAILY [facility] Last Admin: 03/04/18 10:51 Dose: 40 mg Polyethylene Glycol (Miralax (For Daily Use) -) 17 gm PO DAILY [facility] Last Admin: 03/03/18 12:51 Dose: Not Given Sertraline HCl (Zoloft -) 100 mg PO BID [facility] Last Admin: 03/04/18 10:50 Dose: 100 mg - Objective Vital Signs: Vital Signs Temperature 99 F 03/04/18 10:00 Pulse Rate 70 03/04/18 10:00 Respiratory Rate 20 03/04/18 10:00 Blood Pressure 168/70 03/04/18 10:00 O2 Sat by Pulse Oximetry (%) 97 03/03/18 21:00 Eyes: Yes: WNL, Conjunctiva Clear, EOM Intact HENT: Yes: WNL, Atraumatic, Normocephalic Neck: Yes: WNL, Supple, Trachea Midline Cardiovascular: Yes: WNL, Regular Rate and Rhythm Respiratory: Yes: WNL, Regular, CTA Bilaterally Gastrointestinal: Yes: WNL, Normal Bowel Sounds Genitourinary: Yes: WNL Musculoskeletal: Yes: WNL Extremities: Yes: WNL Edema: No Integumentary: Yes: WNL Neurological: Yes: WNL, Alert, Oriented ...Motor Strength: WNL Psychiatric: Yes: WNL Labs: CBC, BMP 03/04/18 06:20 03/04/18 06:20 Assessment/Plan Problems (1) Acute on chronic diastolic (congestive) heart failure Assessment/Plan: ECHO: normal LVEF; severe pulmonary HTN On beta blockers. On ARB, HCTZ, Imdur. F/u BUN/Cr, electrolytes, daily weight, Is and Os. Code(s): I50.33 - ACUTE ON CHRONIC DIASTOLIC (CONGESTIVE) HEART FAILURE (2) CKD (chronic kidney disease) stage 3, GFR 30-59 ml/min Code(s): N18.3 - CHRONIC KIDNEY DISEASE, STAGE 3 (MODERATE) (3) IBS (irritable bowel syndrome) Code(s): K58.9 - IRRITABLE BOWEL SYNDROME WITHOUT DIARRHEA (4) Diabetes mellitus Code(s): E11.9 - TYPE 2 DIABETES MELLITUS WITHOUT COMPLICATIONS (5) Hyperlipidemia Code(s): E78.5 - HYPERLIPIDEMIA, UNSPECIFIED (6) Hypertension Assessment/Plan: See "diastolic CHF". Code(s): I10 - ESSENTIAL (PRIMARY) HYPERTENSION Qualifiers: Hypertension type: essential hypertension Qualified Code(s): I10 - Essential (primary) hypertension (7) Severe pulmonary arterial systolic hypertension Code(s): I27.21 - SECONDARY PULMONARY ARTERIAL HYPERTENSION (8) H/O heart artery stent Assessment/Plan: f/u records of coronary angiograms and PCIs. TNI 0.05 Consider stress MIBI when stable. Code(s): Z95.5 - PRESENCE OF CORONARY ANGIOPLASTY IMPLANT AND GRAFT
--- NOTE | 2018-03-04 13:24 | PN ---
Progress Note, Physician History of Present Illness: patient stable wbc still high sitting in chair - Current Medication List Current Medications: Active Medications Amlodipine Besylate (Norvasc -) 10 mg PO DAILY [facility] Last Admin: 03/04/18 10:51 Dose: 10 mg Atorvastatin Calcium (Lipitor -) 40 mg PO HS [facility] Last Admin: 03/03/18 21:35 Dose: 40 mg Carvedilol (Coreg -) 25 mg PO BID [facility] Last Admin: 03/04/18 10:51 Dose: 25 mg Cholecalciferol (Vitamin D3 -) 2,000 unit PO DAILY [facility] Last Admin: 03/04/18 10:50 Dose: 2,000 unit Clopidogrel Bisulfate (Plavix -) 75 mg PO DAILY [facility] Last Admin: 03/04/18 10:51 Dose: 75 mg Dorzolamide HCl (Trusopt 2%) 1 drop OU DAILY [facility] Last Admin: 03/04/18 10:51 Dose: 1 drop Ferrous Sulfate (Feosol -) 325 mg PO BID [facility] Last Admin: 03/04/18 10:51 Dose: 325 mg Fluticasone Propionate (Flonase -) 1 spray NS DAILY PRN PRN Reason: NASAL ALLERGY Hydrochlorothiazide (Hctz -) 25 mg PO DAILY [facility] Last Admin: 03/04/18 10:51 Dose: 25 mg Azithromycin 250 mg/ Dextrose 250 mls @ 250 mls/hr IVPB DAILY [facility] Stop: 03/05/18 10:59 Last Admin: 03/03/18 10:15 Dose: 250 mls/hr Ceftriaxone Sodium 1 gm/ (Dextrose) 50 mls @ 100 mls/hr IVPB DAILY [facility] Last Admin: 03/04/18 10:52 Dose: 100 mls/hr Insulin Aspart (Novolog Vial Sliding Scale -) 1 vial SQ TIDAC [facility]; Protocol Last Admin: 03/04/18 06:13 Dose: Not Given Insulin Detemir (Levemir Vial) 20 units SQ [facility] Last Admin: 03/03/18 21:36 Dose: Not Given Isosorbide Mononitrate (Imdur -) 30 mg PO BID [facility] Last Admin: 03/04/18 10:51 Dose: 30 mg Latanoprost (Xalatan 0.005% Eye Drops -) 1 drop OU HS [facility] Last Admin: 03/03/18 21:36 Dose: 1 drop Losartan Potassium (Cozaar -) 50 mg PO BID [facility] Last Admin: 03/04/18 10:50 Dose: 50 mg Multivitamins (Total B With C -) 1 each PO DAILY [facility] Last Admin: 03/04/18 10:50 Dose: 1 each Nitroglycerin (Nitrostat -) 0.4 mg SL TID PRN PRN Reason: FOR CHEST PAIN Non-Formulary Medication (Linaclotide [Linzess]) 290 mcg PO DAILY [facility] Pantoprazole Sodium (Protonix -) 40 mg PO DAILY [facility] Last Admin: 03/04/18 10:51 Dose: 40 mg Polyethylene Glycol (Miralax (For Daily Use) -) 17 gm PO DAILY [facility] Last Admin: 03/03/18 12:51 Dose: Not Given Sertraline HCl (Zoloft -) 100 mg PO BID [facility] Last Admin: 03/04/18 10:50 Dose: 100 mg - Objective Vital Signs: Vital Signs Temperature 99 F 03/04/18 10:00 Pulse Rate 70 03/04/18 10:00 Respiratory Rate 20 03/04/18 10:00 Blood Pressure 168/70 03/04/18 10:00 O2 Sat by Pulse Oximetry (%) 97 03/03/18 21:00 Constitutional: Yes: No Distress, Calm Cardiovascular: Yes: S1, S2 Respiratory: Yes: Regular, CTA Bilaterally Musculoskeletal: Yes: WNL Extremities: Yes: WNL Neurological: Yes: Alert, Oriented Psychiatric: Yes: Alert, Oriented Labs: CBC, BMP 03/04/18 06:20 03/04/18 06:20 Assessment/Plan 7 year old woman with a PMH significant for CAD s/p 2 stents, HTN, HLD, DM, CKD stage III, Depression/anxiety, glaucoma and IBS presented to the ED at the request of her PCP with increased leg swelling and SOB over the past 4 days. CXR positive for congestive changes, BNP 4756, she was given IM Lasix in the ED. She was placed on observation for diuresis and cardiac monitoring. CHF Exacerbation Transaminitis TIA history CAD Diabetes HTN HLD CKD Stage III Iron Deficiency Anemia IBS Depression/anxiety Glaucoma patients wbc is increasing,close watch continue abx if wbc still increases then check urine and blood again monitor sugars carefully rest as per the team
--- NOTE | 2018-03-04 13:26 | PN ---
Progress Note, Physician History of Present Illness: stable no complaints neurology on case wbc still increasing - Current Medication List Current Medications: Active Medications Amlodipine Besylate (Norvasc -) 10 mg PO DAILY [facility] Last Admin: 03/04/18 10:51 Dose: 10 mg Atorvastatin Calcium (Lipitor -) 40 mg PO HS [facility] Last Admin: 03/03/18 21:35 Dose: 40 mg Carvedilol (Coreg -) 25 mg PO BID [facility] Last Admin: 03/04/18 10:51 Dose: 25 mg Cholecalciferol (Vitamin D3 -) 2,000 unit PO DAILY [facility] Last Admin: 03/04/18 10:50 Dose: 2,000 unit Clopidogrel Bisulfate (Plavix -) 75 mg PO DAILY [facility] Last Admin: 03/04/18 10:51 Dose: 75 mg Dorzolamide HCl (Trusopt 2%) 1 drop OU DAILY [facility] Last Admin: 03/04/18 10:51 Dose: 1 drop Ferrous Sulfate (Feosol -) 325 mg PO BID [facility] Last Admin: 03/04/18 10:51 Dose: 325 mg Fluticasone Propionate (Flonase -) 1 spray NS DAILY PRN PRN Reason: NASAL ALLERGY Hydrochlorothiazide (Hctz -) 25 mg PO DAILY [facility] Last Admin: 03/04/18 10:51 Dose: 25 mg Azithromycin 250 mg/ Dextrose 250 mls @ 250 mls/hr IVPB DAILY [facility] Stop: 03/05/18 10:59 Last Admin: 03/03/18 10:15 Dose: 250 mls/hr Ceftriaxone Sodium 1 gm/ (Dextrose) 50 mls @ 100 mls/hr IVPB DAILY [facility] Last Admin: 03/04/18 10:52 Dose: 100 mls/hr Insulin Aspart (Novolog Vial Sliding Scale -) 1 vial SQ TIDAC [facility]; Protocol Last Admin: 03/04/18 06:13 Dose: Not Given Insulin Detemir (Levemir Vial) 20 units SQ [facility] Last Admin: 03/03/18 21:36 Dose: Not Given Isosorbide Mononitrate (Imdur -) 30 mg PO BID [facility] Last Admin: 03/04/18 10:51 Dose: 30 mg Latanoprost (Xalatan 0.005% Eye Drops -) 1 drop OU [facility] Last Admin: 03/03/18 21:36 Dose: 1 drop Losartan Potassium (Cozaar -) 50 mg PO BID [facility] Last Admin: 03/04/18 10:50 Dose: 50 mg Multivitamins (Total B With C -) 1 each PO DAILY [facility] Last Admin: 03/04/18 10:50 Dose: 1 each Nitroglycerin (Nitrostat -) 0.4 mg SL TID PRN PRN Reason: FOR CHEST PAIN Non-Formulary Medication (Linaclotide [Linzess]) 290 mcg PO DAILY [facility] Pantoprazole Sodium (Protonix -) 40 mg PO DAILY [facility] Last Admin: 03/04/18 10:51 Dose: 40 mg Polyethylene Glycol (Miralax (For Daily Use) -) 17 gm PO DAILY [facility] Last Admin: 03/03/18 12:51 Dose: Not Given Sertraline HCl (Zoloft -) 100 mg PO BID [facility] Last Admin: 03/04/18 10:50 Dose: 100 mg - Objective Vital Signs: Vital Signs Temperature 99 F 03/04/18 10:00 Pulse Rate 70 03/04/18 10:00 Respiratory Rate 20 03/04/18 10:00 Blood Pressure 168/70 03/04/18 10:00 O2 Sat by Pulse Oximetry (%) 97 03/03/18 21:00 Constitutional: Yes: No Distress, Calm Cardiovascular: Yes: S1, S2 Respiratory: Yes: Regular, CTA Bilaterally Gastrointestinal: Yes: Normal Bowel Sounds, Soft Musculoskeletal: Yes: WNL Extremities: Yes: WNL Neurological: Yes: Alert, Other Labs: CBC, BMP 03/04/18 06:20 03/04/18 06:20 Assessment/Plan 7 year old woman with a PMH significant for CAD s/p 2 stents, HTN, HLD, DM, CKD stage III, Depression/anxiety, glaucoma and IBS presented to the ED at the request of her PCP with increased leg swelling and SOB over the past 4 days. CXR positive for congestive changes, BNP 4756, she was given IM Lasix in the ED. She was placed on observation for diuresis and cardiac monitoring. CHF Exacerbation Transaminitis TIA history CAD Diabetes HTN HLD CKD Stage III Iron Deficiency Anemia IBS Depression/anxiety Glaucoma wbc has increased again patient clinically looks comfortable will stop abx and see how patient does consider sending urine for c and sensitivitie if patient spikes fevees then will ahve to work him up
[2018-03-04] MEDS ORDERED: ALPRAZolam 0.25 MG TABLET PO PRN (16:58)
[2018-03-04] MEDS ORDERED: ATORVASTATIN CA 40 MG TABLET (FP) PO SCH (17:00)
[2018-03-04] MEDS: AZITHROMYCIN IVPB 250 MG in DEXTROSE 5%-WATER - 250 ML IVPB SCH (17:02)
--- NOTE | 2018-03-04 18:15 | PN ---
Physical Exam: SUBJECTIVE: Patient seen and examined at the bedside. feels well, in no acute distress. Her son concerned over AMS changes. OBJECTIVE: discussed with neuro, brain mri ordered to further evaluate carotid stenosis with left internal arterial stenosis 80-99% Vital Signs Period Temp Pulse Resp BP Sys/Morrison Pulse Ox Last 24 Hr 98.3 F-99.2 F 70-87 18-20 124-168/61-75 97 GENERAL: The patient is awake, alert, and fully oriented, in no acute distress. episodes of confusion overnight reported. HEAD: Normal with no signs of trauma. EYES: PERRL, extraocular movements intact, sclera anicteric, conjunctiva clear. No ptosis. ENT: Ears normal, nares patent, oropharynx clear without exudates, moist mucous membranes. NECK: Trachea midline, full range of motion, supple. LUNGS:fine crackles at the bases HEART: Regular rate and rhythm ABDOMEN: Soft, nontender, nondistended, normoactive bowel sounds, no guarding EXTREMITIES: no edema. NEUROLOGICAL: Normal speech, gait steady PSYCH: withdrawn at times. SKIN: Warm, dry, normal turgor, no rashes or lesions noted Laboratory Results - last 24 hr 03/03/18 03/03/18 03/04/18 05:30 21:19 06:18 WBC RBC Hgb Hct MCV MCH MCHC RDW Plt Count MPV Absolute Neuts (auto) Neutrophils % Lymphocytes % Monocytes % Eosinophils % Basophils % Nucleated RBC % Sodium Potassium Chloride Carbon Dioxide Anion Gap BUN Creatinine Creat Clearance w eGFR POC Glucometer 216 243 Random Glucose Calcium Magnesium Iron 26 L Total Bilirubin AST ALT Alkaline Phosphatase Total Protein Albumin Vitamin B12 Serum Folate 03/04/18 03/04/18 03/04/18 06:20 06:20 11:48 WBC 12.5 H RBC 2.50 L Hgb 7.7 L Hct 23.6 L MCV 94.7 MCH 30.7 MCHC 32.4 RDW 13.8 Plt Count 259 MPV 9.7 Absolute Neuts (auto) 10.4 H Neutrophils % 83.7 H Lymphocytes % 9.8 D Monocytes % 5.1 Eosinophils % 0.9 Basophils % 0.5 Nucleated RBC % 0 Sodium 144 Potassium 4.0 Chloride 111 H Carbon Dioxide 25 Anion Gap 8 BUN 39 H Creatinine 1.3 Creat Clearance w eGFR 39.72 POC Glucometer 194 Random Glucose 208 H Calcium 8.7 Magnesium 2.1 Iron Total Bilirubin 0.4 AST 21 ALT 42 Alkaline Phosphatase 121 H Total Protein 6.1 L Albumin 2.8 L Vitamin B12 > 2000 H Serum Folate 74 H 03/04/18 17:46 WBC RBC Hgb Hct MCV MCH MCHC RDW Plt Count MPV Absolute Neuts (auto) Neutrophils % Lymphocytes % Monocytes % Eosinophils % Basophils % Nucleated RBC % Sodium Potassium Chloride Carbon Dioxide Anion Gap BUN Creatinine Creat Clearance w eGFR POC Glucometer 211 Random Glucose Calcium Magnesium Iron Total Bilirubin AST ALT Alkaline Phosphatase Total Protein Albumin Vitamin B12 Serum Folate Active Medications Generic Name Dose Route Start Last Admin Trade Name Freq PRN Reason Stop Dose Admin Alprazolam 0.25 mg 03/04/18 16:58 Xanax - PO Q12H PRN ANXIETY Amlodipine Besylate 10 mg 03/01/18 10:00 03/04/18 10:51 Norvasc - PO 10 mg DAILY [facility] Administration Atorvastatin Calcium 80 mg 03/04/18 22:00 Lipitor - PO HS [facility] Carvedilol 25 mg 02/28/18 22:00 03/04/18 10:51 Coreg - PO 25 mg BID [facility] Administration Cholecalciferol 2,000 unit 03/01/18 10:00 03/04/18 10:50 Vitamin D3 - PO 2,000 unit DAILY [facility] Administration Clopidogrel Bisulfate 75 mg 03/01/18 10:00 03/04/18 10:51 Plavix - PO 75 mg DAILY [facility] Administration Dorzolamide HCl 1 drop 03/01/18 10:00 03/04/18 10:51 Trusopt 2% OU 1 drop DAILY [facility] Administration Ferrous Sulfate 325 mg 02/28/18 22:00 03/04/18 10:51 Feosol - PO 325 mg BID [facility] Administration Fluticasone Propionate 1 spray 02/28/18 15:16 Flonase - NS DAILY PRN NASAL ALLERGY Hydrochlorothiazide 25 mg 03/01/18 10:00 03/04/18 10:51 Hctz - PO 25 mg DAILY [facility] Administration Insulin Aspart 1 vial 02/28/18 16:30 03/04/18 06:13 Novolog Vial Sliding Scale - SQ Not Given TIDAC [facility] Protocol Insulin Detemir 20 units 02/28/18 22:00 03/03/18 21:36 Levemir Vial SQ Not Given HS [facility] Isosorbide Mononitrate 30 mg 02/28/18 22:00 03/04/18 10:51 Imdur - PO 30 mg BID [facility] Administration Latanoprost 1 drop 02/28/18 22:00 03/03/18 21:36 Xalatan 0.005% Eye Drops - OU 1 drop HS [facility] Administration Losartan Potassium 50 mg 02/28/18 22:00 03/04/18 10:50 Cozaar - PO 50 mg BID [facility] Administration Multivitamins 1 each 03/01/18 10:00 03/04/18 10:50 Total B With C - PO 1 each DAILY [facility] Administration Nitroglycerin 0.4 mg 02/28/18 15:16 Nitrostat - SL TID PRN FOR CHEST PAIN Non-Formulary Medication 290 mcg 03/01/18 10:00 Linaclotide [Linzess] PO DAILY [facility] Pantoprazole Sodium 40 mg 03/04/18 10:00 03/04/18 10:51 Protonix - PO 40 mg DAILY [facility] Administration Polyethylene Glycol 17 gm 03/01/18 10:00 03/03/18 12:51 Miralax (For Daily Use) - PO Not Given DAILY [facility] Sertraline HCl 100 mg 02/28/18 22:00 03/04/18 10:50 Zoloft - PO 100 mg BID [facility] Administration Imaging: chest xray: new congestive changes and fluid in horizontal fissure compared with 07/23 EKG: nsr, TWI in leads 1 and avl, axis wnl, intervals wnl carotid doppler, stenosis of left internal artery, 80-99%. ASSESSMENT/PLAN: Patient is a 77 year old female with a significant past medical history of s/p 2 stents, HTN, HLD, DM, CKD stage III, depression/anxiety, glaucoma and IBS. She presented to the ED at the request of her PCP after she was noted to have increased leg swelling, SOB, cough, decreased physical activity over the past 4 days. Patient reports she has had a 10 lb weight gain over the past several weeks. On admission she was noted to have a low grade temperature of 99F and labs notable with BNP 4756, BUN/Cr 56/1.8 (baseline), slightly elevated AST/ALT/Alk Phos elevated at 38/82/160. Her initial troponin was negative. Cardiology: CHF exacerbation. shortness of breath. CXR with new congestive changes. bnp elevated @ 4700 on admission. Given lasix 40mg iv in the Ed, now on HCTZ. no signs of volume overload. daily weights 62kg > 59kg. continue to monitor intake and output. echo with normal LVEF; severe pulmonary HTN CAD S/p LAD and RCA stents. On imdur, nitroglycerin Outpatient cardiology follow up Hypertension. improving On amlodopine 10mg daily, coreq 25 po bid, hctz 25mg daily, losartan 50mg bid. monitor. HLD, chronic On statin therapy, increased to lipitor 80mg daily Vascular Carotid stenosis Doppler study 11/2017, showed 70% occulusion of left internal carotid artery. Doppler study 02/22, shows 80-99% occlusion of left internal carotid artery Vascular surgery consulted. Will order neck CTA. Patient on Plavix 75mg daily. ID: Leukocytosis @ 12.4 WBC slowly trending down, remains afebrile. Followed by ID. ceftriaxone and azithromycin d/cd today blood cultures negative. UA negative. Monitor off antibiotics. GI: Transaminitis. improving Monitor with daily labs Neuro: TIA, history No neuro deficits noted. On Plavix [address] negative Altered mental status. Patient reported to be confused overnight and intermittently during the day. Head Ct negative. brain mri pending. Endocrine: Diabetes. SS with Novolog coverage. On Levemir. diabetic diet. Renal: CKD Stage III. creat at baseline. Follows renal outpatient. If patient were to get neck CTA, wll need renal clearance for procedure. Heme: Iron Deficiency Anemia. hmg/hct, low stable. Seen by GI. Patient had colonoscopy outpatient. will need GI follow up as outpatient. On Iron 325mg bid tabs. GI: IBS On Linzess 290 mcg PO qday Psyche: Depression/anxiety Hx of suicide attempts On Vistaril 25 mg PO qday, Zoloft 100 mg PO BID xanax prn fen tolerating PO monitor electrolytes low salt diet prophy ambulation defer a/c 2/2 anemia full code Visit type - Emergency Visit Emergency Visit: Yes ED Registration Date: 03/02/18 Care time: The patient presented to the Emergency Department on the above date and was hospitalized for further evaluation of their emergent condition. - New Patient This patient is new to me today: No - Critical Care Critical Care patient: No - Discharge Referral Referred to [facility] No
[2018-03-04] MEDS: POLYETHYLENE GLYCOL 3350 119 GM BTL PO SCH (18:35)
[2018-03-04] MEDS: INSULIN (LEVEMIR) 100 UNITS/ML UNITS SQ SCH (21:50)
[2018-03-04] MEDS: ATORVASTATIN CA 80 MG TABLET (FP) PO SCH (21:51)
[2018-03-04] MEDS: LATANOPROST 0.005% OPHTH SOLN 2.5ML BOTTLE OU SCH (21:51)
[2018-03-04 22:19] LABS: URINE APPEARANCE SLCLOUDY; URINE BILIRUBIN NEGATIVE (<2.0 mg/dL); URINE COLOR DKYELLOW; URINE GLUCOSE (UA) 1+ (NEGATIVE); URINE KETONE NEGATIVE (NEGATIVE); URINE LEUK ESTERASE NEGATIVE (NEGATIVE); URINE NITRITE NEGATIVE (NEGATIVE); URINE PROTEIN 2+ (NEGATIVE); URINE UROBILINOGEN NEGATIVE mg/dL (0.2-1.0)
[2018-03-04 22:28] LABS: URINE MUCUS RARE
[2018-03-05 00:09] LABS: CK-MM 100 % (97-100)
[2018-03-05] MEDS: INSULIN SLIDING SCALE (NOVOLOG) 1 VIAL SQ SCH ×3 (07:02→18:00)
[2018-03-05 07:46] LABS: BASO % 0.7 % (0-2.0); EOS % 2.4 % (0-4.5); LYMPH % 12.6 % (8-40); MCH 30.2 pg (25.7-33.7); MCHC 31.9 g/dl (32.0-36.0); MEAN CELL VOLUME 94.6 fl (80-96); MEAN PLT VOLUME 9.5 fl (7.5-11.1); MONO % 6.7 % (3.8-10.2); NEUT % 77.6 % (42.8-82.8); PLATELET COUNT 297 K/MM3 (134-434); RBC 2.64 M/mm3 (3.60-5.2); RDW 13.4 % (11.6-15.6); WHITE BLOOD COUNT 11.7 K/mm3 (4.0-10.0)
[2018-03-05 08:46] LABS: ALK PHOS 123 U/L (45-117); ANION GAP 10 MMOL/L (8-16); BILIRUBIN,TOTAL 0.4 mg/dL (0.2-1); BLOOD UREA NITROGEN 42 mg/dL (7-18); CALCIUM 9.1 mg/dL (8.5-10.1); CHLORIDE 111 mmol/L (98-107); CO2 24 mmol/L (21-32); CREATININE 1.2 mg/dL (0.55-1.3); GLUCOSE,RANDOM 189 mg/dL (74-106); POTASSIUM 3.9 mmol/L (3.5-5.1); SGOT/AST 20 U/L (15-37); SGPT/ALT 38 U/L (13-61); SODIUM 145 mmol/L (136-145); TOT PROT 6.3 g/dl (6.4-8.2)
[2018-03-05] MEDS: ISOSORBIDE MONONITRATE 30 MG TAB.SR.24H (FP) PO SCH ×2 (09:57→22:04)
[2018-03-05] MEDS: HYDROCHLOROTHIAZIDE 25 MG TABLET (FP) PO SCH (09:57)
[2018-03-05] MEDS: amLODIPine BESYLATE 10 MG TABLET (FP) PO SCH (09:57)
[2018-03-05] MEDS: FERROUS SO4 325 MG TABLET (FP) PO SCH ×2 (09:57→22:03)
[2018-03-05] MEDS: LOSARTAN POTASSIUM 50 MG TABLET (FP) PO SCH ×2 (09:57→22:03)
[2018-03-05] MEDS: CHOLECALCIFEROL (VITAMIN D3) 1,000 UNIT TABLET (FP) PO SCH (09:57)
[2018-03-05] MEDS: CLOPIDOGREL BISULFATE 75 MG TABLET (FP) PO SCH (09:57)
[2018-03-05] MEDS: CARVEDILOL 25 MG TABLET (FP) PO SCH ×2 (09:57→22:03)
[2018-03-05] MEDS: VITAMIN B COMPLEX W/C COMBO TABLET (FP) PO SCH (09:58)
--- NOTE | 2018-03-05 09:58 | PN ---
Physical Exam: SUBJECTIVE: Patient seen and examined at the bedside. Son and daughter present. family meeting held as family concerned over patient' s AMS. Reviewed all imaging (brain mri, ct scan) with family as well as POC and need for neck CTA for left internal carotid stenosis and risk of kidney compromise with the CTA contrast. Family asking for 2nd opinion at [facility] and asked that I coordinate transfer with a physician that they know at [facility] (Dr Herbert Bragg). I spoke to Dr. Yemi MURRAY and discussed POC and patient's family request to sent patient to [facility] for carotid neck CTA and possible surgical intervention. Dr. Bragg to get back to me (my cell no provided) if patient is to accepted for transfer. Family also spoke to Dr. Chapa and Dr. Zhu. Family then informed me that they would like to continue with care here at [facility] and are no longer looking to transfer their mother to [facility]. Patient for neck CTA today. IVF to be started prior to procedure. I spoke to Dr. Leah Navarro, patient's PCP and updated her as well as she updated and informed me of patient's pmhx. Stress test done 2011 faxed over to me and reviewed by Dr. Lemus. (Dr Soto is her supervisor plasma @ [place]). OBJECTIVE: Vital Signs Period Temp Pulse Resp BP Sys/Morrison Pulse Ox Last 24 Hr 99 F-100.2 F 70-93 18-20 124-189/50-78 97 GENERAL: The patient is awake, alert, and fully oriented, in no acute distress. episodes of confusion overnight reported. HEAD: Normal with no signs of trauma. EYES: PERRL, extraocular movements intact, sclera anicteric, conjunctiva clear. No ptosis. ENT: Ears normal, nares patent, oropharynx clear without exudates, moist mucous membranes. NECK: Trachea midline, full range of motion, supple. LUNGS:fine crackles at the bases HEART: Regular rate and rhythm ABDOMEN: Soft, nontender, nondistended, normoactive bowel sounds, no guarding EXTREMITIES: no edema. NEUROLOGICAL: Normal speech, gait steady PSYCH: withdrawn at times. SKIN: Warm, dry, normal turgor, no rashes or lesions noted Laboratory Results - last 24 hr 03/02/18 03/04/18 03/04/18 11:40 06:20 11:48 WBC RBC Hgb Hct MCV MCH MCHC RDW Plt Count MPV Absolute Neuts (auto) Neutrophils % Lymphocytes % Monocytes % Eosinophils % Basophils % Nucleated RBC % Sodium Potassium Chloride Carbon Dioxide Anion Gap BUN Creatinine Creat Clearance w eGFR POC Glucometer 194 Random Glucose Calcium Magnesium Total Bilirubin AST ALT Alkaline Phosphatase CK-BB (CK-1) 0 CK/CKMB % Calc 0 Total Protein Albumin Vitamin B12 > 2000 H Serum Folate 74 H Urine Color Urine Appearance Urine pH Ur Specific [place] Urine Protein Urine Glucose (UA) Urine Ketones Urine Blood Urine Nitrite Urine Bilirubin Urine Urobilinogen Ur Leukocyte Esterase Urine WBC (Auto) Urine RBC (Auto) Urine Mucus 03/04/18 03/04/18 03/04/18 17:46 19:45 21:17 WBC RBC Hgb Hct MCV MCH MCHC RDW Plt Count MPV Absolute Neuts (auto) Neutrophils % Lymphocytes % Monocytes % Eosinophils % Basophils % Nucleated RBC % Sodium Potassium Chloride Carbon Dioxide Anion Gap BUN Creatinine Creat Clearance w eGFR POC Glucometer 211 219 Random Glucose Calcium Magnesium Total Bilirubin AST ALT Alkaline Phosphatase CK-BB (CK-1) CK/CKMB % Calc Total Protein Albumin Vitamin B12 Serum Folate Urine Color Dkyellow Urine Appearance Slcloudy Urine pH 5.0 Ur Specific [place] 1.017 Urine Protein 2+ H Urine Glucose (UA) 1+ H Urine Ketones Negative Urine Blood Negative Urine Nitrite Negative Urine Bilirubin Negative Urine Urobilinogen Negative Ur Leukocyte Esterase Negative Urine WBC (Auto) 2 Urine RBC (Auto) 1 Urine Mucus Rare 03/05/18 03/05/18 03/05/18 06:17 06:43 06:43 WBC 11.7 H RBC 2.64 L Hgb 8.0 L Hct 25.0 L MCV 94.6 MCH 30.2 MCHC 31.9 L RDW 13.4 Plt Count 297 MPV 9.5 Absolute Neuts (auto) 9.1 H Neutrophils % 77.6 Lymphocytes % 12.6 D Monocytes % 6.7 Eosinophils % 2.4 D Basophils % 0.7 Nucleated RBC % 0 Sodium 145 Potassium 3.9 Chloride 111 H Carbon Dioxide 24 Anion Gap 10 BUN 42 H Creatinine 1.2 Creat Clearance w eGFR 43.56 POC Glucometer 211 Random Glucose 189 H Calcium 9.1 Magnesium 2.0 Total Bilirubin 0.4 AST 20 ALT 38 Alkaline Phosphatase 123 H CK-BB (CK-1) CK/CKMB % Calc Total Protein 6.3 L Albumin 3.0 L Vitamin B12 Serum Folate Urine Color Urine Appearance Urine pH Ur Specific [place] Urine Protein Urine Glucose (UA) Urine Ketones Urine Blood Urine Nitrite Urine Bilirubin Urine Urobilinogen Ur Leukocyte Esterase Urine WBC (Auto) Urine RBC (Auto) Urine Mucus Active Medications Generic Name Dose Route Start Last Admin Trade Name Freq PRN Reason Stop Dose Admin Alprazolam 0.25 mg 03/04/18 16:58 Xanax - PO Q12H PRN ANXIETY Amlodipine Besylate 10 mg 03/01/18 10:00 03/04/18 10:51 Norvasc - PO 10 mg DAILY BLAS Administration Atorvastatin Calcium 80 mg 03/04/18 22:00 03/04/18 21:51 Lipitor - PO 80 mg HS BLAS Administration Carvedilol 25 mg 02/28/18 22:00 03/04/18 21:51 Coreg - PO 25 mg BID BLAS Administration Cholecalciferol 2,000 unit 03/01/18 10:00 03/04/18 10:50 Vitamin D3 - PO 2,000 unit DAILY BLAS Administration Clopidogrel Bisulfate 75 mg 03/01/18 10:00 03/04/18 10:51 Plavix - PO 75 mg DAILY BLAS Administration Dorzolamide HCl 1 drop 03/01/18 10:00 03/04/18 10:51 Trusopt 2% OU 1 drop DAILY [facility] Administration Ferrous Sulfate 325 mg 02/28/18 22:00 03/04/18 21:51 Feosol - PO 325 mg BID BLAS Administration Fluticasone Propionate 1 spray 02/28/18 15:16 Flonase - NS DAILY PRN NASAL ALLERGY Hydrochlorothiazide 25 mg 03/01/18 10:00 03/04/18 10:51 Hctz - PO 25 mg DAILY BLAS Administration Insulin Aspart 1 vial 02/28/18 16:30 03/05/18 07:02 Novolog Vial Sliding Scale - SQ 2 units TIDAC [facility] Administration Protocol Insulin Detemir 20 units 02/28/18 22:00 03/04/18 21:50 Levemir Vial SQ Not Given HS BLAS Isosorbide Mononitrate 30 mg 02/28/18 22:00 03/04/18 21:51 Imdur - PO 30 mg BID BLAS Administration Latanoprost 1 drop 02/28/18 22:00 03/04/18 21:51 Xalatan 0.005% Eye Drops - OU 1 drop HS BLAS Administration Losartan Potassium 50 mg 02/28/18 22:00 03/04/18 21:51 Cozaar - PO 50 mg BID BLAS Administration Multivitamins 1 each 03/01/18 10:00 03/04/18 10:50 Total B With C - PO 1 each DAILY [facility] Administration Nitroglycerin 0.4 mg 02/28/18 15:16 Nitrostat - SL TID PRN FOR CHEST PAIN Non-Formulary Medication 290 mcg 03/01/18 10:00 Linaclotide [Linzess] PO DAILY [facility] Pantoprazole Sodium 40 mg 03/04/18 10:00 03/04/18 10:51 Protonix - PO 40 mg DAILY [facility] Administration Polyethylene Glycol 17 gm 03/01/18 10:00 03/04/18 18:35 Miralax (For Daily Use) - PO Not Given DAILY [facility] Sertraline HCl 100 mg 02/28/18 22:00 03/04/18 21:51 Zoloft - PO 100 mg BID BLAS Administration Imaging: chest xray: new congestive changes and fluid in horizontal fissure compared with 07/23 EKG: nsr, TWI in leads 1 and avl, axis wnl, intervals wnl carotid doppler, stenosis of left internal artery, 80-99%. ASSESSMENT/PLAN: Patient is a 77 year old female with a significant past medical history of s/p 2 stents, HTN, HLD, DM, CKD stage III, depression/anxiety, glaucoma and IBS. She presented to the ED at the request of her PCP after she was noted to have increased leg swelling, SOB, cough, decreased physical activity over the past 4 days prior to admission. Patient reports she has had a 10 lb weight gain over the past several weeks. On admission she was noted to have a low grade temperature of 99F and labs notable with BNP 4756, BUN/Cr 56/1.8 (baseline), slightly elevated AST/ALT/Alk Phos elevated at 38/82/160. Her initial troponin was negative. Cardiology: CHF exacerbation. shortness of breath. improved since admission CXR with congestive changes. bnp elevated @ 4700 on admission. Given lasix 40mg iv in the Ed, now on HCTZ. no signs of volume overload. daily weights 62kg > 59kg. continue to monitor intake and output. echo with normal LVEF; severe pulmonary HTN Cardiology following. CAD S/p LAD and RCA stents. On imdur, nitroglycerin Outpatient cardiology follow up (Dr SOTO @ [place]) Hypertension. improving On amlodopine 10mg daily, coreq 25 po bid, hctz 25mg daily, losartan 50mg bid. monitor. HLD, chronic On statin therapy, increased to lipitor 80mg daily Vascular Carotid stenosis Doppler study 11/2017, showed 70% occlusion of left internal carotid artery. Doppler study 02/2018, shows 80-99% occlusion of left internal carotid artery Vascular surgery consulted. Will order neck CTA. Patient on Plavix 75mg daily. ID: Leukocytosis @ 11 WBC slowly trending down, remains afebrile. Followed by ID. ceftriaxone and azithromycin d/cd blood cultures negative. UA negative. Monitor off antibiotics. GI: Transaminitis. improving Monitor with daily labs Neuro: TIA, history No neuro deficits noted. On Plavix [address] negative brain mri negative Altered mental status. Patient reported to be confused overnight and intermittently during the day. Head Ct negative. brain mri negative will reculture, ua with cloudy urine, UC pending. blood cultures re-ordered. Endocrine: Diabetes. SS with Novolog coverage. On Levemir. diabetic diet. Renal: CKD Stage III. creat 1.2 Follows renal outpatient (Dr. Soto) Patient for Neck CTA to further evaluate left internal artery stenosis. Will start on NS @ 75cc per renal. and monitor kidney function post CTA. Heme: Iron Deficiency Anemia. hmg/hct, low stable. Seen by GI. Patient had colonoscopy outpatient. will need GI follow up as outpatient. On Iron 325mg bid tabs. GI: IBS On Linzess 290 mcg PO qday Psyche: Depression/anxiety Hx of suicide attempts On Vistaril 25 mg PO qday, Zoloft 100 mg PO BID xanax prn fen tolerating PO monitor electrolytes low salt diet prophy ambulation heparin tid full code Visit type - Emergency Visit Emergency Visit: Yes ED Registration Date: 03/02/18 Care time: The patient presented to the Emergency Department on the above date and was hospitalized for further evaluation of their emergent condition. - New Patient This patient is new to me today: No - Critical Care Critical Care patient: No - Discharge Referral Referred to [facility] Med P.C.: No
[2018-03-05] MEDS: POLYETHYLENE GLYCOL 3350 119 GM BTL PO SCH (10:00)
[2018-03-05] MEDS: DORZOLAMIDE 2% HCL OPHTHALMIC SOLUTION 10 ML BOTTLE OU SCH (10:00)
[2018-03-05] MEDS: SERTRALINE HCL 50 MG TABLET (FP) PO SCH ×2 (10:02→22:04)
[2018-03-05] MEDS: PANTOPRAZOLE 40 MG TABLET (FP) PO SCH (10:02)
--- NOTE | 2018-03-05 10:12 | PN ---
Progress Note (short form) - Note Progress Note: Neurology History of Present Illness 77-year-old female with past medical history significant for NIDDM, HTN, GERD, HLD, CAD s/p stents, CKD III, anemia and IBS presented to the emergency department with bilateral lower extremity swelling for 4 days. The patient reported having increased bilateral swelling to the legs, associated with 10- pound weight change. The patient reported associated symptoms of shortness of breath and orthopnea with difficulty moving around secondary to leg heaviness. She reported that the swelling has extended to her abdomen as well. The patient reported following up with Dr. Navarro (PCP) on Friday, who referred the patient the ER for IV Lasix. She's been admitted and being managed for CHF exacerbation. However, she developed episodes of confusion during her admission. Discussed with nurse who mentioned patient being disoriented on two occasions. She reported the son also noticed she was confused. She completed CT head which I reviewed and did not show acute changes. During my eval, she was able to tell me she's at [facility]. She knows it's February 2018 though believed it was the middle of the month. She knows President is Jessica. MRI brain completed and did not show acute changes, no infarcts, no space occupying lesions. Discussed with hospitalist, called son Jonnie [phone], explained to him. Answered questions and he seemed appreciative of the conversation and insight. Allergies/Adverse Reactions: Allergies Allergy/AdvReac Type Severity Reaction Status Date / Time diphenhydramine HCl Allergy Severe Itching Verified 02/28/18 11:37 [From Benadryl] Influenza Virus Vaccines Allergy Verified 02/28/18 12:22 trazodone Allergy Verified 02/28/18 12:22 zolpidem [From Ambien] Allergy Verified 02/28/18 12:22 prestik Allergy Uncoded 02/28/18 12:22 Active Medications Alprazolam (Xanax -) 0.25 mg PO Q12H PRN PRN Reason: ANXIETY Amlodipine Besylate (Norvasc -) 10 mg PO DAILY [facility] Last Admin: 03/05/18 09:57 Dose: 10 mg Atorvastatin Calcium (Lipitor -) 80 mg PO HS [facility]AS Last Admin: 03/04/18 21:51 Dose: 80 mg Carvedilol (Coreg -) 25 mg PO BID [facility]AS Last Admin: 03/05/18 09:57 Dose: 25 mg Cholecalciferol (Vitamin D3 -) 2,000 unit PO DAILY [facility] Last Admin: 03/05/18 09:57 Dose: 2,000 unit Clopidogrel Bisulfate (Plavix -) 75 mg PO DAILY [facility] Last Admin: 03/05/18 09:57 Dose: 75 mg Dorzolamide HCl (Trusopt 2%) 1 drop OU DAILY [facility] Last Admin: 03/05/18 10:00 Dose: 1 drop Ferrous Sulfate (Feosol -) 325 mg PO BID [facility] Last Admin: 03/05/18 09:57 Dose: 325 mg Fluticasone Propionate (Flonase -) 1 spray NS DAILY PRN PRN Reason: NASAL ALLERGY Hydrochlorothiazide (Hctz -) 25 mg PO DAILY [facility] Last Admin: 03/05/18 09:57 Dose: 25 mg Insulin Aspart (Novolog Vial Sliding Scale -) 1 vial SQ TIDAC [facility]; Protocol Last Admin: 03/05/18 07:02 Dose: 2 units Insulin Detemir (Levemir Vial) 20 units SQ HS [facility] Last Admin: 03/04/18 21:50 Dose: Not Given Isosorbide Mononitrate (Imdur -) 30 mg PO BID [facility] Last Admin: 03/05/18 09:57 Dose: 30 mg Latanoprost (Xalatan 0.005% Eye Drops -) 1 drop OU HS [facility] Last Admin: 03/04/18 21:51 Dose: 1 drop Losartan Potassium (Cozaar -) 50 mg PO BID [facility] Last Admin: 03/05/18 09:57 Dose: 50 mg Multivitamins (Total B With C -) 1 each PO DAILY [facility] Last Admin: 03/05/18 09:58 Dose: 1 each Nitroglycerin (Nitrostat -) 0.4 mg SL TID PRN PRN Reason: FOR CHEST PAIN Non-Formulary Medication (Linaclotide [Linzess]) 290 mcg PO DAILY [facility] Pantoprazole Sodium (Protonix -) 40 mg PO DAILY [facility] Last Admin: 03/05/18 10:02 Dose: 40 mg Polyethylene Glycol (Miralax (For Daily Use) -) 17 gm PO DAILY [facility] Last Admin: 03/04/18 18:35 Dose: Not Given Sertraline HCl (Zoloft -) 100 mg PO BID [facility] Last Admin: 11/29/18 10:02 Dose: 100 mg *Physical Exam Vital Signs Period Temp Pulse Resp BP Sys/Morrison Pulse Ox Last 24 Hr 99.1 F-100.2 F 79-93 18-20 124-189/50-78 97 GENERAL: Awake, alert, and fully oriented, in no acute distress. HEAD: No signs of trauma EYES: PERRLA, EOMI, sclera anicteric, conjunctiva clear ENT: Auricles normal inspection, hearing grossly normal, nares patent, oropharynx clear without exudates. Moist mucosa NECK: Nontender, no stepoffs, Normal ROM, supple, no lymphadenopathy, JVD, or masses LUNGS: + bibasilar rales HEART: Regular rate and rhythm, normal S1 and S2, no murmurs, rubs or gallops ABDOMEN: Soft, nontender, normoactive bowel sounds. No guarding, no rebound. No masses EXTREMITIES: +2 PE BLE, Normal range of motion, No clubbing or cyanosis. No cords, erythema, or tenderness NEUROLOGICAL: Cranial nerves II through XII intact. 5/5 grossly, sensation intact in all extremities, Normal speech, normal cerebellar function SKIN: Warm, Dry, normal turgor, no rashes or lesions noted. CBCD WBC 11.7 K/mm3 (4.0-10.0) H 03/05/18 06:43 RBC 2.64 M/mm3 (3.60-5.2) L 03/05/18 06:43 Hgb 8.0 GM/dL (10.7-15.3) L 03/05/18 06:43 Hct 25.0 % (32.4-45.2) L 03/05/18 06:43 MCV 94.6 fl (80-96) 03/05/18 06:43 MCHC 31.9 g/dl (32.0-36.0) L 03/05/18 06:43 RDW 13.4 % (11.6-15.6) 03/05/18 06:43 Plt Count 297 K/MM3 (134-434) 03/05/18 06:43 MPV 9.5 fl (7.5-11.1) 03/05/18 06:43 CMP Sodium 145 mmol/L (136-145) 03/05/18 06:43 Potassium 3.9 mmol/L (3.5-5.1) 03/05/18 06:43 Chloride 111 mmol/L (98-107) H 03/05/18 06:43 Carbon Dioxide 24 mmol/L (21-32) 03/05/18 06:43 Anion Gap 10 MMOL/L (8-16) 03/05/18 06:43 BUN 42 mg/dL (7-18) H 03/05/18 06:43 Creatinine 1.2 mg/dL (0.55-1.3) 03/05/18 06:43 Creat Clearance w eGFR 43.56 (>60) 03/05/18 06:43 Random Glucose 189 mg/dL (74-106) H 03/05/18 06:43 Calcium 9.1 mg/dL (8.5-10.1) 03/05/18 06:43 Total Bilirubin 0.4 mg/dL (0.2-1) 03/05/18 06:43 AST 20 U/L (15-37) 03/05/18 06:43 ALT 38 U/L (13-61) 03/05/18 06:43 Alkaline Phosphatase 123 U/L (45-117) H 03/05/18 06:43 Total Protein 6.3 g/dl (6.4-8.2) L 03/05/18 06:43 Albumin 3.0 g/dl (3.4-5.0) L 03/05/18 06:43 CARDIAC ENZYMES Creatine Kinase 60 IU/L (26-192) 03/02/18 11:40 Troponin I 0.05 ng/ml (0.00-0.05) 03/02/18 11:40 Medical Decision Making 77-year-old female with past medical history significant for NIDDM, HTN, GERD, HLD, CAD s/p stents, CKD III, anemia and IBS presented to the emergency department with bilateral lower extremity swelling for 4 days. The patient reported having increased bilateral swelling to the legs, associated with 10- pound weight change. The patient reported associated symptoms of shortness of breath and orthopnea with difficulty moving around secondary to leg heaviness. She reported that the swelling has extended to her abdomen as well. The patient reported following up with Dr. Navarro (PCP) on Friday, who referred the patient the ER for IV Lasix. She's been admitted and being managed for CHF exacerbation. However, she developed episodes of confusion during her admission. Discussed with nurse who mentioned patient being disoriented on two occasions. She reported the son also noticed she was confused. She completed CT head which I reviewed and did not show acute changes. During my eval, she was able to tell me she's at [facility]. She knows it's February 2018 though believed it was the middle of the month. She knows President is Jessica. MRI brain revieweed and discussed with hospitalist and son in detail/. Continue mgmt of CHF exacerbation. Confusion maybe episodes of delirium in context of being in hospital, hydration recommended. Monitor bp, maintain normotensive ranges.
--- NOTE | 2018-03-05 11:45 | CONSULT ---
- Consultation REQUESTING PROVIDER: CONSULT REQUEST: We have been asked to surgically evaluate this patient for carotid stenosis PCP:Noemi Polk NP HISTORY OF PRESENT ILLNESS: Obtained from chart- 77 year old female with a PMH significant for CAD s/p 2 stents, HTN, HLD, DM, CKD stage III, Depression/anxiety, glaucoma and IBS presented to the ED at the request of her PCP with increased leg swelling and SOB, cough, ECKERT over the past 4 days. Patient reports she has had a 10 lb weight gain over the past several weeks though it has been harder for her to eat with the fluid accumulation and chronic gas problem. She was seen by her PCP Dr. Navarro on Friday who recommended she present to the ED for IV diuresis. Shortly after admission patient developed AMS prompting a carotid ultrasound which revealed carotid stenosis. Patient denies headaches, chest pain, palpitations, n/v/d. PMHx: CHF Exacerbation TIA history CAD HTN HLD DM CKD Depression/anxiety Glaucoma IBS PSHx: Cardiac stents in LAD and RCA 2005 and 2011 Home Medications Medication Instructions Recorded Alprazolam [Xanax] 1 mg PO BID PRN 11/11/17 Amlodipine Besylate [Norvasc -] 10 mg PO DAILY #30 tablet 11/11/17 Atorvastatin Ca [Lipitor] 40 mg PO HS 11/11/17 Carvedilol 25 mg PO BID #60 tablet 11/11/17 Cholecalciferol (Vitamin D3) 1 cap PO DAILY 11/11/17 [Vitamin D3] Clopidogrel Bisulfate [Plavix] 75 mg PO DAILY 11/11/17 Dorzolamide HCl [Trusopt 2% -] 1 drop OU DAILY 11/11/17 Ferrous Sulfate 325 mg PO BID 11/11/17 Hydrochlorothiazide [Hctz -] 25 mg PO DAILY #30 tablet 11/11/17 Hydroxyzine HCl 25 mg PO DAILY 11/11/17 Insulin Aspart [Novolog Flexpen] See Protocol SQ TIDCM 11/11/17 Insulin Detemir [Levemir Flextouch] 20 units SQ DAILY 11/11/17 Isosorbide Mononitrate [Isosorbide 30 mg PO BID #60 tab.er.24h 11/11/17 Mononitrate ER] Latanoprost 0.005% Eye Drops 1 drop OU HS 11/11/17 [Xalatan 0.005% Eye Drops -] Linaclotide [Linzess] 290 mcg PO DAILY 11/11/17 Losartan Potassium 50 mg PO BID #60 tablet 11/11/17 Nitroglycerin [Nitrostat] 0.4 mg SL TID PRN 11/11/17 Polyethylene Glycol 3350 238 gm PO DAILY 11/11/17 [Powderlax] Sertraline HCl 100 mg PO BID 11/11/17 Vitamin B Complex 1 cap PO DAILY 11/11/17 Fluticasone Prop 0.05% Nasal 1 spray NS DAILY PRN 02/28/18 [Flonase -] Allergies Allergy/AdvReac Type Severity Reaction Status Date / Time diphenhydramine HCl Allergy Severe Itching Verified 02/28/18 11:37 [From Benadryl] Influenza Virus Vaccines Allergy Verified 02/28/18 12:22 trazodone Allergy Verified 02/28/18 12:22 zolpidem [From Ambien] Allergy Verified 02/28/18 12:22 prestik Allergy Uncoded 02/28/18 12:22 REVIEW OF SYSTEMS: unable to obtain PHYSICAL EXAM: GENERAL: Awake, alert, and fully oriented, in no acute distress. HEAD: Normal with no signs of trauma. EYES: PERRL, sclera anicteric, conjunctiva clear. NECK: Normal ROM, supple without lymphadenopathy, JVD, or masses. LUNGS: Clear to auscultation bilat anteriorly. No wheezes, and no crackles. No accessory muscle use. HEART: Regular rate and rhythm. No murmurs ABDOMEN: Soft, nontender, not distended, normoactive bowel sounds, no guarding, no rebound, no masses. No organomegaly. MUSCULOSKELETAL: Normal ROM at all joints. No bony deformities or tenderness. No CVA tenderness. UPPER EXTREMITIES: 2+ pulses, warm, well-perfused. No cyanosis. Cap refill <2 seconds. No peripheral edema. LOWER EXTREMITIES: 2+ pulses, warm, well-perfused. No calf tenderness. No peripheral edema. NEUROLOGICAL: Normal speech, gait not observed. PSYCH: Cooperative. Good eye contact. Appropriate mood and affect. SKIN: Warm, dry, normal turgor, no rashes or lesions noted. Vital Signs Temperature 99.2 F 03/05/18 06:00 Pulse Rate 81 03/05/18 06:00 Respiratory Rate 20 03/05/18 06:00 Blood Pressure 151/66 03/05/18 06:00 O2 Sat by Pulse Oximetry (%) 97 03/04/18 21:00 Lab Results WBC 11.7 K/mm3 (4.0-10.0) H 03/05/18 06:43 RBC 2.64 M/mm3 (3.60-5.2) L 03/05/18 06:43 Hgb 8.0 GM/dL (10.7-15.3) L 03/05/18 06:43 Hct 25.0 % (32.4-45.2) L 03/05/18 06:43 MCV 94.6 fl (80-96) 03/05/18 06:43 MCHC 31.9 g/dl (32.0-36.0) L 03/05/18 06:43 RDW 13.4 % (11.6-15.6) 03/05/18 06:43 Plt Count 297 K/MM3 (134-434) 03/05/18 06:43 Sodium 145 mmol/L (136-145) 03/05/18 06:43 Potassium 3.9 mmol/L (3.5-5.1) 03/05/18 06:43 Chloride 111 mmol/L (98-107) H 03/05/18 06:43 Carbon Dioxide 24 mmol/L (21-32) 03/05/18 06:43 Anion Gap 10 MMOL/L (8-16) 03/05/18 06:43 BUN 42 mg/dL (7-18) H 03/05/18 06:43 Creatinine 1.2 mg/dL (0.55-1.3) 03/05/18 06:43 Random Glucose 189 mg/dL (74-106) H 03/05/18 06:43 Calcium 9.1 mg/dL (8.5-10.1) 03/05/18 06:43 Blood Type O POSITIVE 03/02/18 11:40 Antibody Screen Negative 03/02/18 11:40 Carotid Doppler: Carotid stenosis Doppler study 11/2017, showed 70% occulusion of left internal carotid artery. Doppler study 02/22, shows 80-99% occlusion of left internal carotid artery PE: A&Ox2, gross confusion, says she's cooking unlabored resp on RA Neck, trachea midline, no masses on palpation, bruit heard on b/l carotids Tongue midline, no facial droop 3/5 driller and reamer strength, notable ulnar deviation deformity b/l hands B/L LE compartments soft, supple and non-tender with +Dp pulse Problem List - Problems (1) Carotid stenosis Assessment/Plan: 77 y/o with worsening carotid stenosis and periods of confusion/AMS. 1) F/U neck CTA 2) Continue Antiocoagulaiton per medicine 3) Cardiology input appreciated Evaluation and plan discussed with Dr Chapa Code(s): I65.29 - OCCLUSION AND STENOSIS OF UNSPECIFIED CAROTID ARTERY Qualifiers: Laterality: left Qualified Code(s): I65.22 - Occlusion and stenosis of left carotid artery
[2018-03-05] MEDS: HEPARIN NA (PORCINE) 5,000 UNITS/ML 1ML VIAL SQ SCH ×2 (13:40→22:04)
--- NOTE | 2018-03-05 14:21 | PN ---
Progress Note, Physician History of Present Illness: stable no new issues carotid stenosis vascular on case family in room - Current Medication List Current Medications: Active Medications Alprazolam (Xanax -) 0.25 mg PO Q12H PRN PRN Reason: ANXIETY Amlodipine Besylate (Norvasc -) 10 mg PO DAILY [facility] Last Admin: 03/05/18 09:57 Dose: 10 mg Atorvastatin Calcium (Lipitor -) 80 mg PO HS [facility] Last Admin: 03/04/18 21:51 Dose: 80 mg Carvedilol (Coreg -) 25 mg PO BID [facility] Last Admin: 03/05/18 09:57 Dose: 25 mg Cholecalciferol (Vitamin D3 -) 2,000 unit PO DAILY [facility] Last Admin: 03/05/18 09:57 Dose: 2,000 unit Clopidogrel Bisulfate (Plavix -) 75 mg PO DAILY [facility] Last Admin: 03/05/18 09:57 Dose: 75 mg Dorzolamide HCl (Trusopt 2%) 1 drop OU DAILY [facility] Last Admin: 03/05/18 10:00 Dose: 1 drop Ferrous Sulfate (Feosol -) 325 mg PO BID [facility] Last Admin: 03/05/18 09:57 Dose: 325 mg Fluticasone Propionate (Flonase -) 1 spray NS DAILY PRN PRN Reason: NASAL ALLERGY Heparin Sodium (Porcine) (Heparin -) 5,000 unit SQ TID [facility] Last Admin: 03/05/18 13:40 Dose: 5,000 unit Hydrochlorothiazide (Hctz -) 25 mg PO DAILY [facility] Last Admin: 03/05/18 09:57 Dose: 25 mg Insulin Aspart (Novolog Vial Sliding Scale -) 1 vial SQ [facility]; Protocol Last Admin: 03/05/18 13:39 Dose: 2 units Insulin Detemir (Levemir Vial) 20 units SQ HS [facility] Last Admin: 03/04/18 21:50 Dose: Not Given Isosorbide Mononitrate (Imdur -) 30 mg PO BID [facility] Last Admin: 03/05/18 09:57 Dose: 30 mg Latanoprost (Xalatan 0.005% Eye Drops -) 1 drop OU HS [facility] Last Admin: 03/04/18 21:51 Dose: 1 drop Losartan Potassium (Cozaar -) 50 mg PO BID [facility] Last Admin: 03/05/18 09:57 Dose: 50 mg Multivitamins (Total B With C -) 1 each PO DAILY [facility] Last Admin: 03/05/18 09:58 Dose: 1 each Nitroglycerin (Nitrostat -) 0.4 mg SL TID PRN PRN Reason: FOR CHEST PAIN Non-Formulary Medication (Linaclotide [Linzess]) 290 mcg PO DAILY [facility] Pantoprazole Sodium (Protonix -) 40 mg PO DAILY [facility] Last Admin: 03/05/18 10:02 Dose: 40 mg Polyethylene Glycol (Miralax (For Daily Use) -) 17 gm PO DAILY [facility] Last Admin: 03/05/18 10:00 Dose: Not Given Sertraline HCl (Zoloft -) 100 mg PO BID [facility] Last Admin: 03/05/18 10:02 Dose: 100 mg - Objective Vital Signs: Vital Signs Temperature 99.2 F 03/05/18 06:00 Pulse Rate 81 03/05/18 06:00 Respiratory Rate 20 03/05/18 06:00 Blood Pressure 151/66 03/05/18 06:00 O2 Sat by Pulse Oximetry (%) 97 03/04/18 21:00 Constitutional: Yes: No Distress, Calm Cardiovascular: Yes: Regular Rate and Rhythm Respiratory: Yes: Regular, CTA Bilaterally Gastrointestinal: Yes: Normal Bowel Sounds Musculoskeletal: Yes: WNL Extremities: Yes: WNL Neurological: Yes: Alert, Oriented Psychiatric: Yes: Alert, Oriented Labs: CBC, BMP 03/05/18 06:43 03/05/18 06:43 Assessment/Plan CHF Exacerbation Transaminitis TIA history CAD Diabetes HTN HLD CKD Stage III Iron Deficiency Anemia IBS Depression/anxiety Glaucoma plan continue to monitor off of abx vascular plan awaited rest as per the team
--- NOTE | 2018-03-05 15:15 | CONSULT ---
Consult Consult Specialty:: Nephrology Reason for Consultation:: CKD - History of Present Illness Chief Complaint: initially presented with lower ext swelling History of Present Illness: Pt is a 77 year old female with pmhx of DM, HTN, GERD, HLD, CAD and CKD who initially presented with edema and weight gain. She has been getting periods of confusio. She has carotid disease. I was called to evaluate her for possible contrast. Pt denies shortness of breath or lower ext edema. She denies dysuria or hematuria. She follows with Dr Eason. Family are not sure if they want the ct angio and are asking that pt be transferred to [facility]. I explained the risks of YOUNG to them. They want to discuss the options with vascular surgery. - History Source History Provided By: Patient, Medical Record - Past Medical History ENTEROSTOMAL THERAPY NURSE: Yes: TIA Cardio/Vascular: Yes: CAD, CHF, HTN, Hyperlipdemia, Other (s/p stent in LAD and RCA.) Renal/: Yes: Renal Inusuff Psych: Yes: Anxiety, Depression, Other (had suicidal attempts in the past and recently few months ago had been admitted in [facility] for suicidal attempt.) Endocrine: Yes: Diabetes Mellitus - Past Surgical History Past Surgical History: Yes: - Alcohol/Substance Use Hx Alcohol Use: No History of Substance Use: reports: None - Smoking History Smoking history: Never smoked Have you smoked in the past 12 months: No Aproximately how many cigarettes per day: 0 - Social History Usual Living Arrangement: With Child ADL: Independent 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 of Recent Travel: No Home Medications - Allergies Allergies/Adverse Reactions: Allergies Allergy/AdvReac Type Severity Reaction Status Date / Time diphenhydramine HCl Allergy Severe Itching Verified 02/28/18 11:37 [From Benadryl] Influenza Virus Vaccines Allergy Verified 02/28/18 12:22 trazodone Allergy Verified 02/28/18 12:22 zolpidem [From Ambien] Allergy Verified 02/28/18 12:22 prestik Allergy Uncoded 02/28/18 12:22 - Home Medications Home Medications: Ambulatory Orders Alprazolam [Xanax] 1 mg PO BID PRN 11/11/17 Amlodipine Besylate [Norvasc -] 10 mg PO DAILY #30 tablet 11/11/17 Atorvastatin Ca [Lipitor] 40 mg PO HS 11/11/17 Carvedilol 25 mg PO BID #60 tablet 11/11/17 Cholecalciferol (Vitamin D3) [Vitamin D3] 1 cap PO DAILY 11/11/17 Clopidogrel Bisulfate [Plavix] 75 mg PO DAILY 11/11/17 Dorzolamide HCl [Trusopt 2% -] 1 drop OU DAILY 11/11/17 Ferrous Sulfate 325 mg PO BID 11/11/17 Hydrochlorothiazide [Hctz -] 25 mg PO DAILY #30 tablet 11/11/17 Hydroxyzine HCl 25 mg PO DAILY 11/11/17 Insulin Aspart [Novolog Flexpen] See Protocol SQ TIDCM 11/11/17 Insulin Detemir [Levemir Flextouch] 20 units SQ DAILY 11/11/17 Isosorbide Mononitrate [Isosorbide Mononitrate ER] 30 mg PO BID #60 tab.er.24h 11/11/17 Latanoprost 0.005% Eye Drops [Xalatan 0.005% Eye Drops -] 1 drop OU HS 11/11/17 Linaclotide [Linzess] 290 mcg PO DAILY 11/11/17 Losartan Potassium 50 mg PO BID #60 tablet 11/11/17 Nitroglycerin [Nitrostat] 0.4 mg SL TID PRN 11/11/17 Polyethylene Glycol 3350 [Powderlax] 238 gm PO DAILY 11/11/17 Sertraline HCl 100 mg PO BID 11/11/17 Vitamin B Complex 1 cap PO DAILY 11/11/17 Fluticasone Prop 0.05% Nasal [Flonase -] 1 spray NS DAILY PRN 02/28/18 Family Disease History - Family Disease History Family History: Denies Review of Systems - Review of Systems Constitutional: reports: No Symptoms Eyes: reports: No Symptoms HENT: reports: No Symptoms Neck: reports: No Symptoms Cardiovascular: reports: No Symptoms Respiratory: reports: No Symptoms Gastrointestinal: reports: No Symptoms Genitourinary: reports: No Symptoms Musculoskeletal: reports: No Symptoms Integumentary: reports: No Symptoms Neurological: reports: Confusion Hematology/Lymphatic: reports: No Symptoms Psychiatric: reports: No Symptoms Physical Exam Vital Signs: Vital Signs Temperature 98 F 03/05/18 14:05 Pulse Rate 89 03/05/18 14:05 Respiratory Rate 18 03/05/18 14:05 Blood Pressure 137/61 03/05/18 14:05 O2 Sat by Pulse Oximetry (%) 97 03/04/18 21:00 Constitutional: Yes: Calm Eyes: Yes: Conjunctiva Clear Cardiovascular: Yes: S1, S2 Respiratory: Yes: CTA Bilaterally Gastrointestinal: Yes: Soft Renal/: Yes: WNL Musculoskeletal: Yes: WNL Edema: No Neurological: Yes: Oriented Labs: CBC, BMP 03/05/18 06:43 03/05/18 06:43 Laboratory Tests 12/12/15 03/21/16 07/15/16 08:30 07:50 08:27 Creatinine 1.5 H 1.8 H 1.7 H 10/25/16 01/31/17 04/28/17 08:15 07:45 21:15 Creatinine 1.9 H 1.9 H 1.5 H D 10/22/17 11/07/17 11/08/17 09:45 15:07 07:30 Creatinine 1.1 1.3 H 1.2 H 02/28/18 03/01/18 03/02/18 12:50 06:20 05:50 Creatinine 1.8 H 1.8 H 1.6 H 03/03/18 03/04/18 03/05/18 05:30 06:20 06:43 Creatinine 1.3 1.3 1.2 Imaging - Results Chest X-ray: Report Reviewed Problem List - Problems (1) CHF (congestive heart failure) Code(s): I50.9 - HEART FAILURE, UNSPECIFIED (2) CKD (chronic kidney disease) stage 3, GFR 30-59 ml/min Code(s): N18.3 - CHRONIC KIDNEY DISEASE, STAGE 3 (MODERATE) Assessment/Plan Current Medications Generic Name Dose Route Start Last Admin Trade Name Freq PRN Reason Stop Dose Admin Alprazolam 0.25 mg 03/04/18 16:58 Xanax - PO Q12H PRN ANXIETY Amlodipine Besylate 10 mg 03/01/18 10:00 03/05/18 09:57 Norvasc - PO 10 mg DAILY [facility] Administration Atorvastatin Calcium 80 mg 03/04/18 22:00 03/04/18 21:51 Lipitor - PO 80 mg HS [facility] Administration Carvedilol 25 mg 02/28/18 22:00 03/05/18 09:57 Coreg - PO 25 mg BID [facility] Administration Cholecalciferol 2,000 unit 03/01/18 10:00 03/05/18 09:57 Vitamin D3 - PO 2,000 unit DAILY [facility] Administration Clopidogrel Bisulfate 75 mg 03/01/18 10:00 03/05/18 09:57 Plavix - PO 75 mg DAILY [facility] Administration Dorzolamide HCl 1 drop 03/01/18 10:00 03/05/18 10:00 Trusopt 2% OU 1 drop DAILY [facility] Administration Ferrous Sulfate 325 mg 02/28/18 22:00 03/05/18 09:57 Feosol - PO 325 mg BID [facility] Administration Fluticasone Propionate 1 spray 02/28/18 15:16 Flonase - NS DAILY PRN NASAL ALLERGY Heparin Sodium (Porcine) 5,000 unit 03/05/18 14:00 03/05/18 13:40 Heparin - SQ 5,000 unit TID [facility] Administration Hydrochlorothiazide 25 mg 03/01/18 10:00 03/05/18 09:57 Hctz - PO 25 mg DAILY [facility] Administration Insulin Aspart 1 vial 02/28/18 16:30 03/05/18 13:39 Novolog Vial Sliding Scale - SQ 2 units TIDAC [facility] Administration Protocol Insulin Detemir 20 units 02/28/18 22:00 03/04/18 21:50 Levemir Vial SQ Not Given HS [facility] Isosorbide Mononitrate 30 mg 02/28/18 22:00 03/05/18 09:57 Imdur - PO 30 mg BID [facility] Administration Latanoprost 1 drop 02/28/18 22:00 03/04/18 21:51 Xalatan 0.005% Eye Drops - OU 1 drop HS [facility] Administration Losartan Potassium 50 mg 02/28/18 22:00 03/05/18 09:57 Cozaar - PO 50 mg BID [facility] Administration Multivitamins 1 each 03/01/18 10:00 03/05/18 09:58 Total B With C - PO 1 each DAILY [facility] Administration Nitroglycerin 0.4 mg 02/28/18 15:16 Nitrostat - SL TID PRN FOR CHEST PAIN Non-Formulary Medication 290 mcg 03/01/18 10:00 Linaclotide [Linzess] PO DAILY [facility] Pantoprazole Sodium 40 mg 03/04/18 10:00 03/05/18 10:02 Protonix - PO 40 mg DAILY [facility] Administration Polyethylene Glycol 17 gm 03/01/18 10:00 03/05/18 10:00 Miralax (For Daily Use) - PO Not Given DAILY [facility] Sertraline HCl 100 mg 02/28/18 22:00 03/05/18 10:02 Zoloft - PO 100 mg BID [facility] Administration Impression 1. CKD 2. DM 3. 4. CAD 5. anemia 6. 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
[2018-03-05] MEDS: SODIUM CHLORIDE 1,000 ML IV SCH (15:39)
[2018-03-05] MEDS: LATANOPROST 0.005% OPHTH SOLN 2.5ML BOTTLE OU SCH (22:04)
[2018-03-05] MEDS: ATORVASTATIN CA 80 MG TABLET (FP) PO SCH (22:04)
[2018-03-05] MEDS: INSULIN (LEVEMIR) 100 UNITS/ML UNITS SQ SCH (23:01)
[2018-03-06] MEDS: HEPARIN NA (PORCINE) 5,000 UNITS/ML 1ML VIAL SQ SCH ×3 (06:08→22:11)
[2018-03-06] MEDS ORDERED: INSULIN (NOVOLOG) ASPART 100 UNITS/ML 10ML VIAL ONE (06:36)
--- NOTE | 2018-03-06 09:51 | PN ---
Progress Note (short form) - Note Progress Note: Neurology History of Present Illness 77-year-old female with past medical history significant for NIDDM, HTN, GERD, HLD, CAD s/p stents, CKD III, anemia and IBS presented to the emergency department with bilateral lower extremity swelling for 4 days. The patient reported having increased bilateral swelling to the legs, associated with 10- pound weight change. The patient reported associated symptoms of shortness of breath and orthopnea with difficulty moving around secondary to leg heaviness. She reported that the swelling has extended to her abdomen as well. The patient reported following up with Dr. Navarro (PCP) on Friday, who referred the patient the ER for IV Lasix. She's been admitted and being managed for CHF exacerbation. However, she developed episodes of confusion during her admission. Discussed with nurse who mentioned patient being disoriented on two occasions. She reported the son also noticed she was confused. She completed CT head which I reviewed and did not show acute changes. During my eval, she was able to tell me she's at [facility]. Believes it's March 2018. She knows President is Jessica. MRI brain completed and did not show acute changes, no infarcts, no space occupying lesions. Discussed with hospitalist, called son Jonnie [phone] yesterday, explained to him. Answered questions and he seemed appreciative of the conversation and insight. Allergies/Adverse Reactions: Allergies Allergy/AdvReac Type Severity Reaction Status Date / Time diphenhydramine HCl Allergy Severe Itching Verified 02/28/18 11:37 [From Benadryl] Influenza Virus Vaccines Allergy Verified 02/28/18 12:22 trazodone Allergy Verified 02/28/18 12:22 zolpidem [From Ambien] Allergy Verified 02/28/18 12:22 prestik Allergy Uncoded 02/28/18 12:22 Active Medications Alprazolam (Xanax -) 0.25 mg PO Q12H PRN PRN Reason: ANXIETY Amlodipine Besylate (Norvasc -) 10 mg PO DAILY [facility] Last Admin: 03/05/18 09:57 Dose: 10 mg Atorvastatin Calcium (Lipitor -) 80 mg PO HS [facility] Last Admin: 03/05/18 22:04 Dose: 80 mg Carvedilol (Coreg -) 25 mg PO BID [facility] Last Admin: 03/05/18 22:03 Dose: 25 mg Cholecalciferol (Vitamin D3 -) 2,000 unit PO DAILY [facility] Last Admin: 03/05/18 09:57 Dose: 2,000 unit Clopidogrel Bisulfate (Plavix -) 75 mg PO DAILY [facility] Last Admin: 03/05/18 09:57 Dose: 75 mg Dorzolamide HCl (Trusopt 2%) 1 drop OU DAILY [facility] Last Admin: 03/05/18 10:00 Dose: 1 drop Ferrous Sulfate (Feosol -) 325 mg PO BID [facility] Last Admin: 03/05/18 22:03 Dose: 325 mg Fluticasone Propionate (Flonase -) 1 spray NS DAILY PRN PRN Reason: NASAL ALLERGY Heparin Sodium (Porcine) (Heparin -) 5,000 unit SQ TID [facility] Last Admin: 03/06/18 06:08 Dose: Not Given Hydrochlorothiazide (Hctz -) 25 mg PO DAILY [facility] Last Admin: 03/05/18 09:57 Dose: 25 mg Sodium Chloride (Normal Saline -) 1,000 mls @ 75 mls/hr IV ASDIR [facility] Last Admin: 03/05/18 15:39 Dose: 75 mls/hr Insulin Aspart (Novolog Vial Sliding Scale -) 1 vial SQ TIDAC [facility]; Protocol Last Admin: 03/05/18 18:00 Dose: Not Given Insulin Detemir (Levemir Vial) 20 units SQ HS [facility] Last Admin: 03/05/18 23:01 Dose: Not Given Isosorbide Mononitrate (Imdur -) 30 mg PO BID [facility] Last Admin: 03/05/18 22:04 Dose: 30 mg Latanoprost (Xalatan 0.005% Eye Drops -) 1 drop OU HS [facility] Last Admin: 03/05/18 22:04 Dose: 1 drop Losartan Potassium (Cozaar -) 50 mg PO BID [facility] Last Admin: 03/05/18 22:03 Dose: 50 mg Multivitamins (Total B With C -) 1 each PO DAILY [facility] Last Admin: 03/05/18 09:58 Dose: 1 each Nitroglycerin (Nitrostat -) 0.4 mg SL TID PRN PRN Reason: FOR CHEST PAIN Non-Formulary Medication (Linaclotide [Linzess]) 290 mcg PO DAILY [facility] Pantoprazole Sodium (Protonix -) 40 mg PO DAILY [facility] Last Admin: 03/05/18 10:02 Dose: 40 mg Polyethylene Glycol (Miralax (For Daily Use) -) 17 gm PO DAILY [facility] Last Admin: 03/05/18 10:00 Dose: Not Given Sertraline HCl (Zoloft -) 100 mg PO BID [facility] Last Admin: 03/05/18 22:04 Dose: 100 mg *Physical Exam Vital Signs Period Temp Pulse Resp BP Sys/Morrison Pulse Ox Last 24 Hr 98 F-98.9 F 75-100 18-20 125-168/58-78 97-97 GENERAL: Awake, alert, and fully oriented, in no acute distress. HEAD: No signs of trauma EYES: PERRLA, EOMI, sclera anicteric, conjunctiva clear ENT: Auricles normal inspection, hearing grossly normal, nares patent, oropharynx clear without exudates. Moist mucosa NECK: Nontender, no stepoffs, Normal ROM, supple, no lymphadenopathy, JVD, or masses LUNGS: + bibasilar rales HEART: Regular rate and rhythm, normal S1 and S2, no murmurs, rubs or gallops ABDOMEN: Soft, nontender, normoactive bowel sounds. No guarding, no rebound. No masses EXTREMITIES: +2 PE BLE, Normal range of motion, No clubbing or cyanosis. No cords, erythema, or tenderness NEUROLOGICAL: Cranial nerves II through XII intact. 5/5 grossly, sensation intact in all extremities, Normal speech, normal cerebellar function SKIN: Warm, Dry, normal turgor, no rashes or lesions noted. CBCD WBC 11.7 K/mm3 (4.0-10.0) H 03/05/18 06:43 RBC 2.64 M/mm3 (3.60-5.2) L 03/05/18 06:43 Hgb 8.0 GM/dL (10.7-15.3) L 03/05/18 06:43 Hct 25.0 % (32.4-45.2) L 03/05/18 06:43 MCV 94.6 fl (80-96) 03/05/18 06:43 MCHC 31.9 g/dl (32.0-36.0) L 03/05/18 06:43 RDW 13.4 % (11.6-15.6) 03/05/18 06:43 Plt Count 297 K/MM3 (134-434) 03/05/18 06:43 MPV 9.5 fl (7.5-11.1) 03/05/18 06:43 CMP Sodium 145 mmol/L (136-145) 03/05/18 06:43 Potassium 3.9 mmol/L (3.5-5.1) 03/05/18 06:43 Chloride 111 mmol/L (98-107) H 03/05/18 06:43 Carbon Dioxide 24 mmol/L (21-32) 03/05/18 06:43 Anion Gap 10 MMOL/L (8-16) 03/05/18 06:43 BUN 42 mg/dL (7-18) H 03/05/18 06:43 Creatinine 1.2 mg/dL (0.55-1.3) 03/05/18 06:43 Creat Clearance w eGFR 43.56 (>60) 03/05/18 06:43 Random Glucose 189 mg/dL (74-106) H 03/05/18 06:43 Calcium 9.1 mg/dL (8.5-10.1) 03/05/18 06:43 Total Bilirubin 0.4 mg/dL (0.2-1) 03/05/18 06:43 AST 20 U/L (15-37) 03/05/18 06:43 ALT 38 U/L (13-61) 03/05/18 06:43 Alkaline Phosphatase 123 U/L (45-117) H 03/05/18 06:43 Total Protein 6.3 g/dl (6.4-8.2) L 03/05/18 06:43 Albumin 3.0 g/dl (3.4-5.0) L 03/05/18 06:43 CARDIAC ENZYMES Creatine Kinase 60 IU/L (26-192) 03/02/18 11:40 Troponin I 0.05 ng/ml (0.00-0.05) 03/02/18 11:40 Medical Decision Making 77-year-old female with past medical history significant for NIDDM, HTN, GERD, HLD, CAD s/p stents, CKD III, anemia and IBS presented to the emergency department with bilateral lower extremity swelling for 4 days. The patient reported having increased bilateral swelling to the legs, associated with 10- pound weight change. The patient reported associated symptoms of shortness of breath and orthopnea with difficulty moving around secondary to leg heaviness. She reported that the swelling has extended to her abdomen as well. The patient reported following up with Dr. Navarro (PCP) on Friday, who referred the patient the ER for IV Lasix. She's been admitted and being managed for CHF exacerbation. However, she developed episodes of confusion during her admission. Discussed with nurse who mentioned patient being disoriented on two occasions. She reported the son also noticed she was confused. She completed CT head which I reviewed and did not show acute changes. During my eval, she was able to tell me she's at [facility]. She knows it's February 2018 though believed it was the middle of the month. She knows President is Jessica. MRI brain reviewed and discussed with hospitalist and son in detail. Continue mgmt of CHF exacerbation. Confusion maybe episodes of delirium in context of being in hospital, hydration recommended. Monitor bp, maintain normotensive ranges. Monitor for infection, metabolic disturbances. Frequent reorientation suggested.
--- NOTE | 2018-03-06 10:28 | PN ---
Physical Exam: SUBJECTIVE: Patient seen and examined at the bedside. OBJECTIVE: mentation waxes and wanes. sleepy this morning, then this afternoon, more conversive but not at baseline. will get psyche consult as well cta noted, 80-85% stenosis. right upper lobe pna noted. likely aspiration? will amend diet to dysphagia. order speech and swallow. started on zosyn per ID. Vital Signs Period Temp Pulse Resp BP Sys/Morrison Pulse Ox Last 24 Hr 98 F-98.9 F 75-100 18-20 125-147/58-78 97-97 GENERAL: The patient is awake, confused in no acute distress. episodes of confusion overnight. HEAD: Normal with no signs of trauma. EYES: PERRL, extraocular movements intact, sclera anicteric, conjunctiva clear. No ptosis. ENT: Ears normal, nares patent, oropharynx clear without exudates, moist mucous membranes. NECK: Trachea midline, full range of motion, supple. LUNGS:fine crackles at the bases HEART: Regular rate and rhythm ABDOMEN: Soft, nontender, nondistended, normoactive bowel sounds, no guarding EXTREMITIES: no edema. NEUROLOGICAL: Normal speech, gait steady PSYCH: withdrawn at times. SKIN: Warm, dry, normal turgor, no rashes or lesions noted Laboratory Results - last 24 hr 03/05/18 03/05/18 03/05/18 11:45 16:30 16:55 POC Glucometer 196 258 TSH 1.68 03/05/18 03/06/18 22:13 06:10 POC Glucometer 242 242 TSH Active Medications Generic Name Dose Route Start Last Admin Trade Name Freq PRN Reason Stop Dose Admin Alprazolam 0.25 mg 03/04/18 16:58 Xanax - PO Q12H PRN ANXIETY Amlodipine Besylate 10 mg 03/01/18 10:00 03/05/18 09:57 Norvasc - PO 10 mg DAILY [facility] Administration Atorvastatin Calcium 80 mg 03/04/18 22:00 03/05/18 22:04 Lipitor - PO 80 mg HS [facility] Administration Carvedilol 25 mg 02/28/18 22:00 03/05/18 22:03 Coreg - PO 25 mg BID [facility] Administration Cholecalciferol 2,000 unit 03/01/18 10:00 03/05/18 09:57 Vitamin D3 - PO 2,000 unit DAILY [facility] Administration Clopidogrel Bisulfate 75 mg 03/01/18 10:00 03/05/18 09:57 Plavix - PO 75 mg DAILY [facility] Administration Dorzolamide HCl 1 drop 03/01/18 10:00 03/05/18 10:00 Trusopt 2% OU 1 drop DAILY [facility] Administration Ferrous Sulfate 325 mg 02/28/18 22:00 03/05/18 22:03 Feosol - PO 325 mg BID [facility] Administration Fluticasone Propionate 1 spray 02/28/18 15:16 Flonase - NS DAILY PRN NASAL ALLERGY Heparin Sodium (Porcine) 5,000 unit 03/05/18 14:00 03/06/18 06:08 Heparin - SQ Not Given TID [facility] Hydrochlorothiazide 25 mg 03/01/18 10:00 03/05/18 09:57 Hctz - PO 25 mg DAILY [facility] Administration Sodium Chloride 1,000 mls @ 75 mls/hr 03/05/18 15:30 03/05/18 15:39 Normal Saline - IV 75 mls/hr ASDIR [facility] Administration Insulin Aspart 1 vial 02/28/18 16:30 03/05/18 18:00 Novolog Vial Sliding Scale - SQ Not Given TIDAC [facility] Protocol Insulin Detemir 20 units 02/28/18 22:00 03/05/18 23:01 Levemir Vial SQ Not Given HS [facility] Isosorbide Mononitrate 30 mg 02/28/18 22:00 03/05/18 22:04 Imdur - PO 30 mg BID [facility] Administration Latanoprost 1 drop 02/28/18 22:00 03/05/18 22:04 Xalatan 0.005% Eye Drops - OU 1 drop HS [facility] Administration Losartan Potassium 50 mg 02/28/18 22:00 03/05/18 22:03 Cozaar - PO 50 mg BID [facility] Administration Multivitamins 1 each 03/01/18 10:00 03/05/18 09:58 Total B With C - PO 1 each DAILY [facility] Administration Nitroglycerin 0.4 mg 02/28/18 15:16 Nitrostat - SL TID PRN FOR CHEST PAIN Non-Formulary Medication 290 mcg 03/01/18 10:00 Linaclotide [Linzess] PO DAILY [facility] Pantoprazole Sodium 40 mg 03/04/18 10:00 03/05/18 10:02 Protonix - PO 40 mg DAILY [facility] Administration Polyethylene Glycol 17 gm 03/01/18 10:00 03/05/18 10:00 Miralax (For Daily Use) - PO Not Given DAILY [facility] Sertraline HCl 100 mg 02/28/18 22:00 03/05/18 22:04 Zoloft - PO 100 mg BID [facility] Administration Imaging: chest xray: new congestive changes and fluid in horizontal fissure compared with 07/23 EKG: nsr, TWI in leads 1 and avl, axis wnl, intervals wnl carotid doppler, stenosis of left internal artery, 80-99%. ASSESSMENT/PLAN: Patient is a 77 year old female with a significant past medical history of s/p 2 stents, HTN, HLD, DM, CKD stage III, depression/anxiety, glaucoma and IBS. She presented to the ED at the request of her PCP after she was noted to have increased leg swelling, SOB, cough, decreased physical activity over the past 4 days prior to admission. Patient reports she has had a 10 lb weight gain over the past several weeks. On admission she was noted to have a low grade temperature of 99F and labs notable with BNP 4756, BUN/Cr 56/1.8 (baseline), slightly elevated AST/ALT/Alk Phos elevated at 38/82/160. Her initial troponin was negative. Cardiology: CHF exacerbation. shortness of breath. improved since admission CXR with congestive changes. bnp elevated @ 4700 on admission. Given lasix 40mg iv in the Ed, now on HCTZ. no signs of volume overload. daily weights 62kg > 59kg. continue to monitor intake and output. echo with normal LVEF; severe pulmonary HTN Cardiology following. CAD S/p LAD and RCA stents. On imdur, nitroglycerin Outpatient cardiology follow up (Dr SCHUMACHER @ [place]) Hypertension. not at goal. On amlodopine 10mg daily, coreq 25 po bid, hctz 25mg daily, losartan 50mg bid. monitor. HLD, chronic On statin therapy, increased to lipitor 80mg daily Vascular Carotid stenosis Doppler study 11/2017, showed 70% occlusion of left internal carotid artery. Doppler study 02/2018, shows 80-99% occlusion of left internal carotid artery neck CTA with 80-85% stenosis. Vascular surgery consulted. Patient on Plavix 75mg daily. ID: Leukocytosis @ 13 Followed by ID. started on Zosyn for possible aspiration pneumonia as seen on CTA blood cultures re ordered and pending. GI: Transaminitis.Monitor with daily labs Neuro: TIA, history No neuro deficits noted. On Plavix [address] negative brain mri negative Altered mental status vs. delirium Patient reported to be confused overnight and intermittently during the day. Her mentation waxes and wanes Head Ct negative. brain mri negative. Re cultured to rule out acute infection. Being treated for pneumonia per CTA. now on Zosyn Endocrine: Diabetes. SS with Novolog coverage. On Levemir. diabetic diet. Renal: CKD Stage III. creat 1.3 Follows renal outpatient (Dr. Soto) Had neck cta 03/05. on NS @ 75cc Heme: Iron Deficiency Anemia. hmg/hct, low stable. On Iron 325mg bid tabs. GI: IBS. On Linzess 290 mcg PO qday Psyche: Depression/anxiety Hx of suicide attempts On Vistaril 25 mg PO qday, Zoloft 100 mg PO BID xanax prn fen tolerating PO monitor electrolytes low salt diet prophy ambulation heparin tid full code Visit type - Emergency Visit Emergency Visit: Yes ED Registration Date: 03/02/18 Care time: The patient presented to the Emergency Department on the above date and was hospitalized for further evaluation of their emergent condition. - New Patient This patient is new to me today: No - Critical Care Critical Care patient: No - Discharge Referral Referred to [facility] Med P.C.: No
[2018-03-06] MEDS: VITAMIN B COMPLEX W/C COMBO TABLET (FP) PO SCH (10:32)
[2018-03-06] MEDS: SERTRALINE HCL 50 MG TABLET (FP) PO SCH ×2 (10:34→22:11)
[2018-03-06] MEDS: CHOLECALCIFEROL (VITAMIN D3) 1,000 UNIT TABLET (FP) PO SCH (10:34)
[2018-03-06] MEDS: HYDROCHLOROTHIAZIDE 25 MG TABLET (FP) PO SCH (10:36)
[2018-03-06] MEDS: CARVEDILOL 25 MG TABLET (FP) PO SCH ×2 (10:36→22:10)
[2018-03-06] MEDS: PANTOPRAZOLE 40 MG TABLET (FP) PO SCH (10:36)
[2018-03-06] MEDS: ISOSORBIDE MONONITRATE 30 MG TAB.SR.24H (FP) PO SCH ×2 (10:36→22:10)
[2018-03-06] MEDS: FERROUS SO4 325 MG TABLET (FP) PO SCH ×2 (10:36→22:10)
[2018-03-06] MEDS: CLOPIDOGREL BISULFATE 75 MG TABLET (FP) PO SCH (10:36)
[2018-03-06] MEDS: amLODIPine BESYLATE 10 MG TABLET (FP) PO SCH (10:36)
[2018-03-06] MEDS: DORZOLAMIDE 2% HCL OPHTHALMIC SOLUTION 10 ML BOTTLE OU SCH (10:37)
[2018-03-06 10:54] LABS: BASO % 0.4 % (0-2.0); EOS % 0.7 % (0-4.5); HEMATOCRIT 25.2 % (32.4-45.2); HEMOGLOBIN 8.5 GM/dL (10.7-15.3); LYMPH % 8.6 % (8-40); MCH 31.6 pg (25.7-33.7); MCHC 33.6 g/dl (32.0-36.0); MEAN CELL VOLUME 94.1 fl (80-96); MEAN PLT VOLUME 9.5 fl (7.5-11.1); MONO % 5.9 % (3.8-10.2); NEUT % 84.4 % (42.8-82.8); PLATELET COUNT 320 K/MM3 (134-434); RBC 2.68 M/mm3 (3.60-5.2); RDW 13.9 % (11.6-15.6); WHITE BLOOD COUNT 13.7 K/mm3 (4.0-10.0)
[2018-03-06 11:03] LABS: ALBUMIN 2.9 g/dl (3.4-5.0); ALK PHOS 122 U/L (45-117); ANION GAP 8 MMOL/L (8-16); BILIRUBIN,TOTAL 0.4 mg/dL (0.2-1); BLOOD UREA NITROGEN 43 mg/dL (7-18); CALCIUM 8.8 mg/dL (8.5-10.1); CHLORIDE 114 mmol/L (98-107); CO2 24 mmol/L (21-32); CREATININE 1.3 mg/dL (0.55-1.3); GLUCOSE,RANDOM 178 mg/dL (74-106); MAGNESIUM 2.1 mg/dL (1.8-2.4); SGOT/AST 30 U/L (15-37); SGPT/ALT 38 U/L (13-61); SODIUM 146 mmol/L (136-145); TOT PROT 6.2 g/dl (6.4-8.2)
--- NOTE | 2018-03-06 11:58 | PN ---
Progress Note, Physician History of Present Illness: 77 year old black female (zaria Rouse), with a PMH significant for CAD s/p 2 stents ,(the 1st in 2005), HTN, HLD, DM, CKD stage III, Depression/anxiety, glaucoma and IBS presented to the ED at the request of her PCP with increased leg swelling and SOB, cough, ECKERT over the past 4 days. Patient reports she has had a 10 lb weight gain over the past several weeks though it has been harder for her to eat with the fluid accumulation and chronic gas problem. She was seen by her PCP Dr. Navarro on Friday who recommended she present to the ED for IV diuresis. Denies headaches, chest pain, palpitations, n/v/d. Upon admission to the ED she had a low grade temperature of 99.0. Labs notable for BNP 4756, BUN/Cr 56/1.8 (baseline), slightly elevated AST/ALT/Alk Phos elevated at 38/82/160, Trop negative CXR positive for congestive changes, ECG unremarkable. She was given IM Lasix in the ED which she reports at the time of exam not to have cause her to urinate very much yet. - Current Medication List Current Medications: Active Medications Alprazolam (Xanax -) 0.25 mg PO Q12H PRN PRN Reason: ANXIETY Amlodipine Besylate (Norvasc -) 10 mg PO DAILY [facility] Last Admin: 03/06/18 10:36 Dose: 10 mg Atorvastatin Calcium (Lipitor -) 80 mg PO HS [facility] Last Admin: 03/05/18 22:04 Dose: 80 mg Carvedilol (Coreg -) 25 mg PO BID [facility] Last Admin: 03/06/18 10:36 Dose: 25 mg Cholecalciferol (Vitamin D3 -) 2,000 unit PO DAILY [facility] Last Admin: 03/06/18 10:34 Dose: 2,000 unit Clopidogrel Bisulfate (Plavix -) 75 mg PO DAILY [facility] Last Admin: 03/06/18 10:36 Dose: 75 mg Dorzolamide HCl (Trusopt 2%) 1 drop OU DAILY [facility] Last Admin: 03/06/18 10:37 Dose: 1 drop Ferrous Sulfate (Feosol -) 325 mg PO BID [facility] Last Admin: 03/06/18 10:36 Dose: 325 mg Fluticasone Propionate (Flonase -) 1 spray NS DAILY PRN PRN Reason: NASAL ALLERGY Heparin Sodium (Porcine) (Heparin -) 5,000 unit SQ TID [facility] Last Admin: 03/06/18 06:08 Dose: Not Given Hydrochlorothiazide (Hctz -) 25 mg PO DAILY [facility] Last Admin: 03/06/18 10:36 Dose: 25 mg Sodium Chloride (Normal Saline -) 1,000 mls @ 75 mls/hr IV ASDIR [facility] Last Admin: 03/05/18 15:39 Dose: 75 mls/hr Insulin Aspart (Novolog Vial Sliding Scale -) 1 vial SQ TIDAC [facility]; Protocol Last Admin: 03/05/18 18:00 Dose: Not Given Insulin Detemir (Levemir Vial) 20 units SQ HS [facility] Last Admin: 03/05/18 23:01 Dose: Not Given Isosorbide Mononitrate (Imdur -) 30 mg PO BID [facility] Last Admin: 03/06/18 10:36 Dose: 30 mg Latanoprost (Xalatan 0.005% Eye Drops -) 1 drop OU HS [facility] Last Admin: 03/05/18 22:04 Dose: 1 drop Losartan Potassium (Cozaar -) 50 mg PO BID [facility] Last Admin: 03/05/18 22:03 Dose: 50 mg Multivitamins (Total B With C -) 1 each PO DAILY [facility] Last Admin: 03/06/18 10:32 Dose: 1 each Nitroglycerin (Nitrostat -) 0.4 mg SL TID PRN PRN Reason: FOR CHEST PAIN Non-Formulary Medication (Linaclotide [Linzess]) 290 mcg PO DAILY [facility] Pantoprazole Sodium (Protonix -) 40 mg PO DAILY [facility] Last Admin: 03/06/18 10:36 Dose: 40 mg Polyethylene Glycol (Miralax (For Daily Use) -) 17 gm PO DAILY [facility] Last Admin: 03/05/18 10:00 Dose: Not Given Sertraline HCl (Zoloft -) 100 mg PO BID [facility] Last Admin: 03/06/18 10:34 Dose: 100 mg - Objective Vital Signs: Vital Signs Temperature 98.5 F 03/06/18 10:00 Pulse Rate 88 03/06/18 10:00 Respiratory Rate 20 03/06/18 10:00 Blood Pressure 165/80 03/06/18 10:00 O2 Sat by Pulse Oximetry (%) 97 03/06/18 09:00 Eyes: Yes: WNL, Conjunctiva Clear, EOM Intact HENT: Yes: WNL, Atraumatic, Normocephalic Neck: Yes: WNL, Supple, Trachea Midline Cardiovascular: Yes: WNL, Regular Rate and Rhythm Respiratory: Yes: WNL, Regular, CTA Bilaterally Gastrointestinal: Yes: WNL, Normal Bowel Sounds Genitourinary: Yes: WNL Musculoskeletal: Yes: WNL Extremities: Yes: WNL Edema: Yes Integumentary: Yes: WNL Neurological: Yes: WNL, Alert, Oriented ...Motor Strength: WNL Psychiatric: Yes: WNL Labs: CBC, BMP 03/06/18 10:30 03/06/18 10:30 Assessment/Plan Problems (1) Acute on chronic diastolic (congestive) heart failure Assessment/Plan: ECHO: normal LVEF; severe pulmonary HTN On beta blockers. On ARB, HCTZ, Imdur. F/u BUN/Cr, electrolytes, daily weight, Is and Os. Code(s): I50.33 - ACUTE ON CHRONIC DIASTOLIC (CONGESTIVE) HEART FAILURE (2) CKD (chronic kidney disease) stage 3, GFR 30-59 ml/min Code(s): N18.3 - CHRONIC KIDNEY DISEASE, STAGE 3 (MODERATE) (3) IBS (irritable bowel syndrome) Code(s): K58.9 - IRRITABLE BOWEL SYNDROME WITHOUT DIARRHEA (4) Diabetes mellitus Code(s): E11.9 - TYPE 2 DIABETES MELLITUS WITHOUT COMPLICATIONS (5) Hyperlipidemia Code(s): E78.5 - HYPERLIPIDEMIA, UNSPECIFIED (6) Hypertension Assessment/Plan: See "diastolic CHF". Code(s): I10 - ESSENTIAL (PRIMARY) HYPERTENSION Qualifiers: Hypertension type: essential hypertension Qualified Code(s): I10 - Essential (primary) hypertension (7) Severe pulmonary arterial systolic hypertension Code(s): I27.21 - SECONDARY PULMONARY ARTERIAL HYPERTENSION (8) H/O heart artery stent Assessment/Plan: f/u records of coronary angiograms and PCIs. TNI 0.05 Consider stress MIBI when stable. Code(s): Z95.5 - PRESENCE OF CORONARY ANGIOPLASTY IMPLANT AND GRAFT PAD L ICAsevere stenosis
[2018-03-06] MEDS: INSULIN SLIDING SCALE (NOVOLOG) 1 VIAL SQ SCH ×2 (12:40→17:59)
--- NOTE | 2018-03-06 13:30 | PN ---
Progress Note, Physician History of Present Illness: stable no new issues - Current Medication List Current Medications: Active Medications Alprazolam (Xanax -) 0.25 mg PO Q12H PRN PRN Reason: ANXIETY Amlodipine Besylate (Norvasc -) 10 mg PO DAILY [facility] Last Admin: 03/06/18 10:36 Dose: 10 mg Atorvastatin Calcium (Lipitor -) 80 mg PO HS [facility] Last Admin: 03/05/18 22:04 Dose: 80 mg Carvedilol (Coreg -) 25 mg PO BID [facility] Last Admin: 03/06/18 10:36 Dose: 25 mg Cholecalciferol (Vitamin D3 -) 2,000 unit PO DAILY [facility] Last Admin: 03/06/18 10:34 Dose: 2,000 unit Clopidogrel Bisulfate (Plavix -) 75 mg PO DAILY [facility] Last Admin: 03/06/18 10:36 Dose: 75 mg Dorzolamide HCl (Trusopt 2%) 1 drop OU DAILY [facility] Last Admin: 03/06/18 10:37 Dose: 1 drop Ferrous Sulfate (Feosol -) 325 mg PO BID [facility] Last Admin: 03/06/18 10:36 Dose: 325 mg Fluticasone Propionate (Flonase -) 1 spray NS DAILY PRN PRN Reason: NASAL ALLERGY Heparin Sodium (Porcine) (Heparin -) 5,000 unit SQ TID [facility] Last Admin: 03/06/18 06:08 Dose: Not Given Hydrochlorothiazide (Hctz -) 25 mg PO DAILY [facility] Last Admin: 03/06/18 10:36 Dose: 25 mg Sodium Chloride (Normal Saline -) 1,000 mls @ 75 mls/hr IV ASDIR [facility] Last Admin: 03/05/18 15:39 Dose: 75 mls/hr Insulin Aspart (Novolog Vial Sliding Scale -) 1 vial SQ TIDAC [facility]; Protocol Last Admin: 03/06/18 12:40 Dose: 4 units Insulin Detemir (Levemir Vial) 20 units SQ [facility] Last Admin: 03/05/18 23:01 Dose: Not Given Isosorbide Mononitrate (Imdur -) 30 mg PO BID [facility] Last Admin: 03/06/18 10:36 Dose: 30 mg Latanoprost (Xalatan 0.005% Eye Drops -) 1 drop OU HS [facility] Last Admin: 03/05/18 22:04 Dose: 1 drop Losartan Potassium (Cozaar -) 50 mg PO BID [facility] Last Admin: 03/05/18 22:03 Dose: 50 mg Multivitamins (Total B With C -) 1 each PO DAILY [facility] Last Admin: 03/06/18 10:32 Dose: 1 each Nitroglycerin (Nitrostat -) 0.4 mg SL TID PRN PRN Reason: FOR CHEST PAIN Non-Formulary Medication (Linaclotide [Linzess]) 290 mcg PO DAILY [facility] Pantoprazole Sodium (Protonix -) 40 mg PO DAILY [facility] Last Admin: 03/06/18 10:36 Dose: 40 mg Polyethylene Glycol (Miralax (For Daily Use) -) 17 gm PO DAILY [facility] Last Admin: 03/05/18 10:00 Dose: Not Given Sertraline HCl (Zoloft -) 100 mg PO BID [facility] Last Admin: 03/06/18 10:34 Dose: 100 mg - Objective Vital Signs: Vital Signs Temperature 98.5 F 03/06/18 10:00 Pulse Rate 88 03/06/18 10:00 Respiratory Rate 20 03/06/18 10:00 Blood Pressure 165/80 03/06/18 10:00 O2 Sat by Pulse Oximetry (%) 97 03/06/18 09:00 Constitutional: Yes: No Distress, Calm Cardiovascular: Yes: S1, S2 Respiratory: Yes: Regular, CTA Bilaterally Gastrointestinal: Yes: Normal Bowel Sounds, Soft Musculoskeletal: Yes: WNL Extremities: Yes: WNL Neurological: Yes: Alert, Oriented Psychiatric: Yes: Alert Labs: CBC, BMP 03/06/18 10:30 03/06/18 10:30 Assessment/Plan CHF Exacerbation Transaminitis TIA history CAD Diabetes HTN HLD CKD Stage III Iron Deficiency Anemia IBS Depression/anxiety Glaucoma plan continue current mgmt abx incentive jamin await for final plan
[2018-03-06] MEDS ORDERED: PIPERACILLIN/TAZOBACTAM 3.375 GM VIAL IVPB ONE ×2 (13:50→17:47)
[2018-03-06] MEDS ORDERED: DEXTROSE 5%-WATER - 50 ML IVPB ONE ×2 (13:51→17:48)
[2018-03-06] MEDS: MULTIVITAMINS (DAILY MVI) TABLET (FP) PO SCH (14:14)
[2018-03-06] MEDS: LOSARTAN POTASSIUM 50 MG TABLET (FP) PO SCH ×2 (14:14→22:11)
[2018-03-06] MEDS: PIPERACILLIN/TAZOB 3.375 GM 3.375 GM in DEXTROSE 5%-WATER - 50 ML IVPB SCH ×2 (14:15→17:58)
--- NOTE | 2018-03-06 15:18 | PN ---
Progress Note, Physician History of Present Illness: Pt seen and examined at bedside. She is awake and alert. She get the CTA of the neck yesterday. She was started on fluids prior. - Current Medication List Current Medications: Active Medications Alprazolam (Xanax -) 0.25 mg PO Q12H PRN PRN Reason: ANXIETY Amlodipine Besylate (Norvasc -) 10 mg PO DAILY [facility] Last Admin: 03/06/18 10:36 Dose: 10 mg Atorvastatin Calcium (Lipitor -) 80 mg PO HS [facility] Last Admin: 03/05/18 22:04 Dose: 80 mg Carvedilol (Coreg -) 25 mg PO BID [facility] Last Admin: 03/06/18 10:36 Dose: 25 mg Cholecalciferol (Vitamin D3 -) 2,000 unit PO DAILY [facility] Last Admin: 03/06/18 10:34 Dose: 2,000 unit Clopidogrel Bisulfate (Plavix -) 75 mg PO DAILY [facility] Last Admin: 03/06/18 10:36 Dose: 75 mg Dorzolamide HCl (Trusopt 2%) 1 drop OU DAILY [facility] Last Admin: 03/06/18 10:37 Dose: 1 drop Ferrous Sulfate (Feosol -) 325 mg PO BID [facility] Last Admin: 03/06/18 10:36 Dose: 325 mg Fluticasone Propionate (Flonase -) 1 spray NS DAILY PRN PRN Reason: NASAL ALLERGY Heparin Sodium (Porcine) (Heparin -) 5,000 unit SQ TID [facility] Last Admin: 03/06/18 14:15 Dose: 5,000 unit Hydrochlorothiazide (Hctz -) 25 mg PO DAILY [facility] Last Admin: 03/06/18 10:36 Dose: 25 mg Sodium Chloride (Normal Saline -) 1,000 mls @ 75 mls/hr IV ASDIR [facility] Last Admin: 03/05/18 15:39 Dose: 75 mls/hr Piperacillin Sod/Tazobactam (Sod 3.375 gm/ Dextrose) 50 mls @ 100 mls/hr IVPB Q8H-IV [facility]; Protocol Last Admin: 03/06/18 14:15 Dose: 100 mls/hr Insulin Aspart (Novolog Vial Sliding Scale -) 1 vial SQ TIDAC [facility]; Protocol Last Admin: 03/06/18 12:40 Dose: 4 units Insulin Detemir (Levemir Vial) 20 units SQ HS [facility] Last Admin: 03/05/18 23:01 Dose: Not Given Isosorbide Mononitrate (Imdur -) 30 mg PO BID [facility] Last Admin: 03/06/18 10:36 Dose: 30 mg Latanoprost (Xalatan 0.005% Eye Drops -) 1 drop OU HS [facility] Last Admin: 03/05/18 22:04 Dose: 1 drop Losartan Potassium (Cozaar -) 50 mg PO BID [facility] Last Admin: 03/06/18 14:14 Dose: 50 mg Multivitamins (Total B With C -) 1 each PO DAILY [facility] Last Admin: 03/06/18 10:32 Dose: 1 each Multivitamins/Minerals/Vitamin C (Tab-A-Vit -) 1 tab PO DAILY [facility] Last Admin: 03/06/18 14:14 Dose: 1 tab Nitroglycerin (Nitrostat -) 0.4 mg SL TID PRN PRN Reason: FOR CHEST PAIN Non-Formulary Medication (Linaclotide [Linzess]) 290 mcg PO DAILY [facility] Pantoprazole Sodium (Protonix -) 40 mg PO DAILY [facility] Last Admin: 03/06/18 10:36 Dose: 40 mg Polyethylene Glycol (Miralax (For Daily Use) -) 17 gm PO DAILY [facility] Last Admin: 03/05/18 10:00 Dose: Not Given Ranitidine HCl (Zantac -) 150 mg PO BID [facility] Sertraline HCl (Zoloft -) 100 mg PO BID [facility] Last Admin: 03/06/18 10:34 Dose: 100 mg - Objective Vital Signs: Vital Signs Temperature 98.5 F 03/06/18 10:00 Pulse Rate 88 03/06/18 10:00 Respiratory Rate 20 03/06/18 10:00 Blood Pressure 165/80 03/06/18 10:00 O2 Sat by Pulse Oximetry (%) 97 03/06/18 09:00 Constitutional: Yes: Calm Eyes: Yes: Conjunctiva Clear HENT: Yes: Atraumatic Neck: Yes: Supple Cardiovascular: Yes: S1, S2 Respiratory: Yes: CTA Bilaterally Gastrointestinal: Yes: Soft Genitourinary: Yes: WNL Musculoskeletal: Yes: WNL Edema: No Neurological: Yes: Oriented Psychiatric: Yes: Oriented Labs: CBC, BMP 03/06/18 10:30 03/06/18 10:30 Problem List - Problems (1) CHF (congestive heart failure) Code(s): I50.9 - HEART FAILURE, UNSPECIFIED (2) CKD (chronic kidney disease) stage 3, GFR 30-59 ml/min Code(s): N18.3 - CHRONIC KIDNEY DISEASE, STAGE 3 (MODERATE) Assessment/Plan Current Medications Generic Name Dose Route Start Last Admin Trade Name Freq PRN Reason Stop Dose Admin Alprazolam 0.25 mg 03/04/18 16:58 Xanax - PO Q12H PRN ANXIETY Amlodipine Besylate 10 mg 03/01/18 10:00 03/06/18 10:36 Norvasc - PO 10 mg DAILY [facility] Administration Atorvastatin Calcium 80 mg 03/04/18 22:00 03/05/18 22:04 Lipitor - PO 80 mg HS [facility] Administration Carvedilol 25 mg 02/28/18 22:00 03/06/18 10:36 Coreg - PO 25 mg BID [facility] Administration Cholecalciferol 2,000 unit 03/01/18 10:00 03/06/18 10:34 Vitamin D3 - PO 2,000 unit DAILY [facility] Administration Clopidogrel Bisulfate 75 mg 03/01/18 10:00 03/06/18 10:36 Plavix - PO 75 mg DAILY [facility] Administration Dorzolamide HCl 1 drop 03/01/18 10:00 03/06/18 10:37 Trusopt 2% OU 1 drop DAILY [facility] Administration Ferrous Sulfate 325 mg 02/28/18 22:00 03/06/18 10:36 Feosol - PO 325 mg BID [facility] Administration Fluticasone Propionate 1 spray 02/28/18 15:16 Flonase - NS DAILY PRN NASAL ALLERGY Heparin Sodium (Porcine) 5,000 unit 03/05/18 14:00 03/06/18 14:15 Heparin - SQ 5,000 unit TID [facility] Administration Hydrochlorothiazide 25 mg 03/01/18 10:00 03/06/18 10:36 Hctz - PO 25 mg DAILY [facility] Administration Sodium Chloride 1,000 mls @ 75 mls/hr 03/05/18 15:30 03/05/18 15:39 Normal Saline - IV 75 mls/hr ASDIR [facility] Administration Piperacillin Sod/Tazobactam 50 mls @ 100 mls/hr 03/06/18 13:30 03/06/18 14:15 Sod 3.375 gm/ Dextrose IVPB 100 mls/hr Q8H-IV [facility] Administration Protocol Insulin Aspart 1 vial 02/28/18 16:30 03/06/18 12:40 Novolog Vial Sliding Scale - SQ 4 units TIDAC [facility] Administration Protocol Insulin Detemir 20 units 02/28/18 22:00 03/05/18 23:01 Levemir Vial SQ Not Given HS [facility] Isosorbide Mononitrate 30 mg 02/28/18 22:00 03/06/18 10:36 Imdur - PO 30 mg BID [facility] Administration Latanoprost 1 drop 02/28/18 22:00 03/05/18 22:04 Xalatan 0.005% Eye Drops - OU 1 drop HS [facility] Administration Losartan Potassium 50 mg 02/28/18 22:00 03/06/18 14:14 Cozaar - PO 50 mg BID [facility] Administration Multivitamins 1 each 03/01/18 10:00 03/06/18 10:32 Total B With C - PO 1 each DAILY [facility] Administration Multivitamins/Minerals/Vitamin C 1 tab 03/06/18 13:45 03/06/18 14:14 Tab-A-Vit - PO 1 tab DAILY [facility] Administration Nitroglycerin 0.4 mg 02/28/18 15:16 Nitrostat - SL TID PRN FOR CHEST PAIN Non-Formulary Medication 290 mcg 03/01/18 10:00 Linaclotide [Linzess] PO DAILY [facility] Pantoprazole Sodium 40 mg 03/04/18 10:00 03/06/18 10:36 Protonix - PO 40 mg DAILY [facility] Administration Polyethylene Glycol 17 gm 03/01/18 10:00 03/05/18 10:00 Miralax (For Daily Use) - PO Not Given DAILY [facility] Ranitidine HCl 150 mg 03/06/18 22:00 Zantac - PO BID [facility] Sertraline HCl 100 mg 02/28/18 22:00 03/06/18 10:34 Zoloft - PO 100 mg BID [facility] Administration Impression 1. CKD 2. DM 3. gerd 4. CAD 5. anemia 6. left IJ stenosis Plan - pt had ct angio yesterday - check bmp in am - monitor renal function - avoid nsaids - vascular surgery follow up Dr Zhu
--- NOTE | 2018-03-06 17:42 | PN ---
Progress Note (short form) - Note Progress Note: Vascular Surgery Pt's CTA reviewed. Left ICA stenosis 80%. Pt is currently asymptomatic. Pt here for swelling in legs secondary to CHF. Pt will need left CEA when stable. Cardiology wants stress test when stable. CEA can be done on this admission or as outpt once medically stable. Ata Chapa DO
[2018-03-06] MEDS: POLYETHYLENE GLYCOL 3350 119 GM BTL PO SCH (17:58)
[2018-03-06 20:24] LABS: ALBUMIN 2.6 g/dl (3.4-5.0); ALK PHOS 103 U/L (45-117); ANION GAP 10 MMOL/L (8-16); BILIRUBIN,TOTAL 0.3 mg/dL (0.2-1); BLOOD UREA NITROGEN 53 mg/dL (7-18); CALCIUM 8.3 mg/dL (8.5-10.1); CHLORIDE 116 mmol/L (98-107); CO2 22 mmol/L (21-32); CREATININE 1.8 mg/dL (0.55-1.3); GLUCOSE,RANDOM 262 mg/dL (74-106); MAGNESIUM 2.1 mg/dL (1.8-2.4); POTASSIUM 3.7 mmol/L (3.5-5.1); SGOT/AST 21 U/L (15-37); SGPT/ALT 33 U/L (13-61); SODIUM 148 mmol/L (136-145); TOT PROT 5.3 g/dl (6.4-8.2)
[2018-03-06] MEDS: ATORVASTATIN CA 80 MG TABLET (FP) PO SCH (22:10)
[2018-03-06] MEDS: RANITIDINE HCL 150 MG TABLET (FP) PO SCH (22:10)
[2018-03-06] MEDS: SODIUM CHLORIDE 1,000 ML IV SCH (22:14)
[2018-03-06] MEDS: INSULIN (LEVEMIR) 100 UNITS/ML UNITS SQ SCH (22:19)
[2018-03-06] MEDS: LATANOPROST 0.005% OPHTH SOLN 2.5ML BOTTLE OU SCH (22:20)
[2018-03-07] MEDS ORDERED: PIPERACILLIN/TAZOBACTAM 3.375 GM VIAL IVPB ONE ×3 (03:14→15:28)
[2018-03-07] MEDS ORDERED: DEXTROSE 5%-WATER - 50 ML IVPB ONE ×3 (03:14→15:28)
[2018-03-07] MEDS: PIPERACILLIN/TAZOB 3.375 GM 3.375 GM in DEXTROSE 5%-WATER - 50 ML IVPB SCH ×3 (04:00→17:21)
[2018-03-07] MEDS: INSULIN SLIDING SCALE (NOVOLOG) 1 VIAL SQ SCH ×3 (06:18→17:20)
[2018-03-07] MEDS: HEPARIN NA (PORCINE) 5,000 UNITS/ML 1ML VIAL SQ SCH ×3 (06:18→21:15)
--- NOTE | 2018-03-07 09:37 | PN ---
Progress Note, Physician History of Present Illness: 77 year old black female (zaria Rouse), with a PMH significant for CAD s/p 2 stents ,(the 1st in 2005), HTN, HLD, DM, CKD stage III, Depression/anxiety, glaucoma and IBS presented to the ED at the request of her PCP with increased leg swelling and SOB, cough, ECKERT over the past 4 days. Patient reports she has had a 10 lb weight gain over the past several weeks though it has been harder for her to eat with the fluid accumulation and chronic gas problem. She was seen by her PCP Dr. Navarro on Friday who recommended she present to the ED for IV diuresis. Denies headaches, chest pain, palpitations, n/v/d. Upon admission to the ED she had a low grade temperature of 99.0. Labs notable for BNP 4756, BUN/Cr 56/1.8 (baseline), slightly elevated AST/ALT/Alk Phos elevated at 38/82/160, Trop negative CXR positive for congestive changes, ECG unremarkable. She was given IM Lasix in the ED which she reports at the time of exam not to have cause her to urinate very much yet. - Current Medication List Current Medications: Active Medications Alprazolam (Xanax -) 0.25 mg PO Q12H PRN PRN Reason: ANXIETY Last Admin: 03/06/18 22:11 Dose: 0.25 mg Amlodipine Besylate (Norvasc -) 10 mg PO DAILY [facility] Last Admin: 03/06/18 10:36 Dose: 10 mg Atorvastatin Calcium (Lipitor -) 80 mg PO HS [facility] Last Admin: 03/06/18 22:10 Dose: 80 mg Carvedilol (Coreg -) 25 mg PO BID [facility] Last Admin: 03/06/18 22:10 Dose: 25 mg Cholecalciferol (Vitamin D3 -) 2,000 unit PO DAILY [facility] Last Admin: 03/06/18 10:34 Dose: 2,000 unit Clopidogrel Bisulfate (Plavix -) 75 mg PO DAILY [facility] Last Admin: 03/06/18 10:36 Dose: 75 mg Dorzolamide HCl (Trusopt 2%) 1 drop OU DAILY [facility] Last Admin: 03/06/18 10:37 Dose: 1 drop Ferrous Sulfate (Feosol -) 325 mg PO BID [facility] Last Admin: 03/06/18 22:10 Dose: 325 mg Fluticasone Propionate (Flonase -) 1 spray NS DAILY PRN PRN Reason: NASAL ALLERGY Heparin Sodium (Porcine) (Heparin -) 5,000 unit SQ TID [facility] Last Admin: 03/07/18 06:18 Dose: 5,000 unit Hydrochlorothiazide (Hctz -) 25 mg PO DAILY [facility] Last Admin: 03/06/18 10:36 Dose: 25 mg Sodium Chloride (Normal Saline -) 1,000 mls @ 75 mls/hr IV ASDIR [facility] Last Admin: 03/06/18 22:14 Dose: Not Given Piperacillin Sod/Tazobactam (Sod 3.375 gm/ Dextrose) 50 mls @ 100 mls/hr IVPB Q8H-IV [facility]; Protocol Last Admin: 03/07/18 04:00 Dose: 100 mls/hr Insulin Aspart (Novolog Vial Sliding Scale -) 1 vial SQ TIDAC [facility]; Protocol Last Admin: 03/07/18 06:18 Dose: 2 units Insulin Detemir (Levemir Vial) 20 units SQ HS [facility] Last Admin: 03/06/18 22:19 Dose: 20 units Isosorbide Mononitrate (Imdur -) 30 mg PO BID [facility] Last Admin: 03/06/18 22:10 Dose: 30 mg Latanoprost (Xalatan 0.005% Eye Drops -) 1 drop OU HS [facility] Last Admin: 03/06/18 22:20 Dose: 1 drop Losartan Potassium (Cozaar -) 50 mg PO BID [facility] Last Admin: 03/06/18 22:11 Dose: 50 mg Multivitamins (Total B With C -) 1 each PO DAILY [facility] Last Admin: 03/06/18 10:32 Dose: 1 each Multivitamins/Minerals/Vitamin C (Tab-A-Vit -) 1 tab PO DAILY [facility] Last Admin: 03/06/18 14:14 Dose: 1 tab Nitroglycerin (Nitrostat -) 0.4 mg SL TID PRN PRN Reason: FOR CHEST PAIN Non-Formulary Medication (Linaclotide [Linzess]) 290 mcg PO DAILY [facility] Pantoprazole Sodium (Protonix -) 40 mg PO DAILY [facility] Last Admin: 03/06/18 10:36 Dose: 40 mg Polyethylene Glycol (Miralax (For Daily Use) -) 17 gm PO DAILY [facility] Last Admin: 03/06/18 17:58 Dose: Not Given Ranitidine HCl (Zantac -) 150 mg PO BID [facility] Last Admin: 03/06/18 22:10 Dose: 150 mg Sertraline HCl (Zoloft -) 100 mg PO BID [facility] Last Admin: 03/06/18 22:11 Dose: 100 mg - Objective Vital Signs: Vital Signs Temperature 99.0 F 03/07/18 04:40 Pulse Rate 74 03/07/18 04:40 Respiratory Rate 20 03/07/18 04:40 Blood Pressure 175/71 H 03/07/18 04:40 O2 Sat by Pulse Oximetry (%) 97 03/06/18 21:00 Eyes: Yes: WNL, Conjunctiva Clear, EOM Intact HENT: Yes: WNL, Atraumatic, Normocephalic Neck: Yes: WNL, Supple, Trachea Midline Cardiovascular: Yes: WNL, Regular Rate and Rhythm Respiratory: Yes: WNL, Regular, CTA Bilaterally Gastrointestinal: Yes: WNL, Normal Bowel Sounds Genitourinary: Yes: WNL Musculoskeletal: Yes: WNL Extremities: Yes: WNL Edema: No Integumentary: Yes: WNL Neurological: Yes: WNL, Alert, Oriented ...Motor Strength: WNL Psychiatric: Yes: WNL Labs: CBC, BMP 03/06/18 10:30 03/06/18 19:30 Assessment/Plan Problems (1) Acute on chronic diastolic (congestive) heart failure Assessment/Plan: ECHO: normal LVEF; severe pulmonary HTN On beta blockers. On ARB, HCTZ, Imdur. F/u BUN/Cr, electrolytes, daily weight, Is and Os. Code(s): I50.33 - ACUTE ON CHRONIC DIASTOLIC (CONGESTIVE) HEART FAILURE (2) CKD (chronic kidney disease) stage 3, GFR 30-59 ml/min Code(s): N18.3 - CHRONIC KIDNEY DISEASE, STAGE 3 (MODERATE) (3) IBS (irritable bowel syndrome) Code(s): K58.9 - IRRITABLE BOWEL SYNDROME WITHOUT DIARRHEA (4) Diabetes mellitus Code(s): E11.9 - TYPE 2 DIABETES MELLITUS WITHOUT COMPLICATIONS (5) Hyperlipidemia Code(s): E78.5 - HYPERLIPIDEMIA, UNSPECIFIED (6) Hypertension Assessment/Plan: See "diastolic CHF". Code(s): I10 - ESSENTIAL (PRIMARY) HYPERTENSION Qualifiers: Hypertension type: essential hypertension Qualified Code(s): I10 - Essential (primary) hypertension (7) Severe pulmonary arterial systolic hypertension Code(s): I27.21 - SECONDARY PULMONARY ARTERIAL HYPERTENSION (8) H/O heart artery stent Assessment/Plan: f/u records of coronary angiograms and PCIs. TNI 0.05 Consider stress MIBI when stable. Code(s): Z95.5 - PRESENCE OF CORONARY ANGIOPLASTY IMPLANT AND GRAFT PAD L ICAsevere stenosis
[2018-03-07] MEDS: CARVEDILOL 25 MG TABLET (FP) PO SCH ×2 (09:55→21:15)
[2018-03-07] MEDS: amLODIPine BESYLATE 10 MG TABLET (FP) PO SCH (09:55)
[2018-03-07] MEDS: SERTRALINE HCL 50 MG TABLET (FP) PO SCH ×2 (09:55→21:15)
[2018-03-07] MEDS: FERROUS SO4 325 MG TABLET (FP) PO SCH ×2 (09:55→21:15)
[2018-03-07] MEDS: PANTOPRAZOLE 40 MG TABLET (FP) PO SCH (09:55)
[2018-03-07] MEDS: RANITIDINE HCL 150 MG TABLET (FP) PO SCH ×2 (09:56→21:15)
[2018-03-07] MEDS: ISOSORBIDE MONONITRATE 30 MG TAB.SR.24H (FP) PO SCH ×2 (09:56→21:15)
[2018-03-07] MEDS: CLOPIDOGREL BISULFATE 75 MG TABLET (FP) PO SCH (09:56)
[2018-03-07] MEDS: LOSARTAN POTASSIUM 50 MG TABLET (FP) PO SCH ×2 (09:56→21:15)
[2018-03-07] MEDS: CHOLECALCIFEROL (VITAMIN D3) 1,000 UNIT TABLET (FP) PO SCH (09:56)
[2018-03-07] MEDS: HYDROCHLOROTHIAZIDE 25 MG TABLET (FP) PO SCH (09:56)
[2018-03-07] MEDS: MULTIVITAMINS (DAILY MVI) TABLET (FP) PO SCH (09:56)
[2018-03-07] MEDS ORDERED: PT OWN MED DRAWER 7, Y5N ONE (09:57)
[2018-03-07] MEDS: POLYETHYLENE GLYCOL 3350 119 GM BTL PO SCH (09:58)
[2018-03-07] MEDS: DORZOLAMIDE 2% HCL OPHTHALMIC SOLUTION 10 ML BOTTLE OU SCH (09:58)
--- NOTE | 2018-03-07 10:10 | PN ---
Physical Exam: SUBJECTIVE: Patient seen and examined at the bedside. OBJECTIVE: discussed facial twitches with Dr. Jurado. will restart pt dose of xanax as scheduled and monitor for improvement. wbc trending down Vital Signs Period Temp Pulse Resp BP Sys/Morrison Pulse Ox Last 24 Hr 98.7 F-99.3 F 74-86 18-20 136-175/50-77 97 GENERAL: The patient is awake, confused in no acute distress. episodes of confusion overnight. awake today, still confused. HEAD: Normal with no signs of trauma. some facial twitches overnight. EYES: PERRL, extraocular movements intact, sclera anicteric, conjunctiva clear. No ptosis. ENT: Ears normal, nares patent, oropharynx clear without exudates, moist mucous membranes. NECK: Trachea midline, full range of motion, supple. LUNGS:fine crackles at the bases HEART: Regular rate and rhythm ABDOMEN: Soft, nontender, nondistended, normoactive bowel sounds, no guarding EXTREMITIES: no edema. NEUROLOGICAL: Normal speech, gait steady PSYCH: withdrawn at times. Laboratory Results - last 24 hr 03/06/18 03/06/18 03/06/18 10:30 10:30 12:03 WBC 13.7 H RBC 2.68 L Hgb 8.5 L Hct 25.2 L MCV 94.1 MCH 31.6 MCHC 33.6 RDW 13.9 Plt Count 320 MPV 9.5 Absolute Neuts (auto) 11.6 H Neutrophils % 84.4 H Lymphocytes % 8.6 D Monocytes % 5.9 Eosinophils % 0.7 Basophils % 0.4 Nucleated RBC % 0 Sodium 146 H Potassium 4.0 Chloride 114 H Carbon Dioxide 24 Anion Gap 8 BUN 43 H Creatinine 1.3 Creat Clearance w eGFR 39.72 POC Glucometer 212 Random Glucose 178 H Calcium 8.8 Magnesium 2.1 Total Bilirubin 0.4 AST 30 ALT 38 Alkaline Phosphatase 122 H Ammonia Total Protein 6.2 L Albumin 2.9 L Influenza A (Rapid) Influenza B (Rapid) 03/06/18 03/06/18 03/06/18 12:30 16:59 19:30 WBC RBC Hgb Hct MCV MCH MCHC RDW Plt Count MPV Absolute Neuts (auto) Neutrophils % Lymphocytes % Monocytes % Eosinophils % Basophils % Nucleated RBC % Sodium 148 H Potassium 3.7 Chloride 116 H Carbon Dioxide 22 Anion Gap 10 BUN 53 H Creatinine 1.8 H Creat Clearance w eGFR 27.28 POC Glucometer 242 Random Glucose 262 H Calcium 8.3 L Magnesium 2.1 Total Bilirubin 0.3 AST 21 ALT 33 Alkaline Phosphatase 103 Ammonia 17.00 Total Protein 5.3 L Albumin 2.6 L Influenza A (Rapid) Influenza B (Rapid) 03/06/18 03/06/18 03/06/18 19:30 22:19 22:20 WBC RBC Hgb Hct MCV MCH MCHC RDW Plt Count MPV Absolute Neuts (auto) Neutrophils % Lymphocytes % Monocytes % Eosinophils % Basophils % Nucleated RBC % Sodium Potassium Chloride Carbon Dioxide Anion Gap BUN Creatinine Creat Clearance w eGFR POC Glucometer 304 Random Glucose Calcium Magnesium Total Bilirubin AST ALT Alkaline Phosphatase Ammonia Total Protein Albumin 2.5 L Influenza A (Rapid) Negative Influenza B (Rapid) Negative 03/07/18 06:15 WBC RBC Hgb Hct MCV MCH MCHC RDW Plt Count MPV Absolute Neuts (auto) Neutrophils % Lymphocytes % Monocytes % Eosinophils % Basophils % Nucleated RBC % Sodium Potassium Chloride Carbon Dioxide Anion Gap BUN Creatinine Creat Clearance w eGFR POC Glucometer 160 Random Glucose Calcium Magnesium Total Bilirubin AST ALT Alkaline Phosphatase Ammonia Total Protein Albumin Influenza A (Rapid) Influenza B (Rapid) Active Medications Generic Name Dose Route Start Last Admin Trade Name Freq PRN Reason Stop Dose Admin Alprazolam 0.25 mg 03/04/18 16:58 03/06/18 22:11 Xanax - PO 0.25 mg Q12H PRN Administration ANXIETY Amlodipine Besylate 10 mg 03/01/18 10:00 03/07/18 09:55 Norvasc - PO 10 mg DAILY [facility] Administration Atorvastatin Calcium 80 mg 03/04/18 22:00 03/06/18 22:10 Lipitor - PO 80 mg HS [facility] Administration Carvedilol 25 mg 02/28/18 22:00 03/07/18 09:55 Coreg - PO 25 mg BID [facility] Administration Cholecalciferol 2,000 unit 03/01/18 10:00 03/07/18 09:56 Vitamin D3 - PO 2,000 unit DAILY [facility] Administration Clopidogrel Bisulfate 75 mg 03/01/18 10:00 03/07/18 09:56 Plavix - PO 75 mg DAILY [facility] Administration Dorzolamide HCl 1 drop 03/01/18 10:00 03/07/18 09:58 Trusopt 2% OU 1 drop DAILY [facility] Administration Ferrous Sulfate 325 mg 02/28/18 22:00 03/07/18 09:55 Feosol - PO 325 mg BID [facility] Administration Fluticasone Propionate 1 spray 02/28/18 15:16 Flonase - NS DAILY PRN NASAL ALLERGY Heparin Sodium (Porcine) 5,000 unit 03/05/18 14:00 03/07/18 06:18 Heparin - SQ 5,000 unit TID [facility] Administration Hydrochlorothiazide 25 mg 03/01/18 10:00 03/07/18 09:56 Hctz - PO 25 mg DAILY [facility] Administration Sodium Chloride 1,000 mls @ 75 mls/hr 03/05/18 15:30 03/06/18 22:14 Normal Saline - IV Not Given ASDIR [facility] Piperacillin Sod/Tazobactam 50 mls @ 100 mls/hr 03/06/18 13:30 03/07/18 09:55 Sod 3.375 gm/ Dextrose IVPB 100 mls/hr Q8H-IV [facility] Administration Protocol Insulin Aspart 1 vial 02/28/18 16:30 03/07/18 06:18 Novolog Vial Sliding Scale - SQ 2 units TIDAC [facility] Administration Protocol Insulin Detemir 20 units 02/28/18 22:00 03/06/18 22:19 Levemir Vial SQ 20 units HS [facility] Administration Isosorbide Mononitrate 30 mg 02/28/18 22:00 03/07/18 09:56 Imdur - PO 30 mg BID [facility] Administration Latanoprost 1 drop 02/28/18 22:00 03/06/18 22:20 Xalatan 0.005% Eye Drops - OU 1 drop HS [facility] Administration Losartan Potassium 50 mg 02/28/18 22:00 03/07/18 09:56 Cozaar - PO 50 mg BID [facility] Administration Multivitamins 1 each 03/01/18 10:00 03/06/18 10:32 Total B With C - PO 1 each DAILY [facility] Administration Multivitamins/Minerals/Vitamin C 1 tab 03/06/18 13:45 03/07/18 09:56 Tab-A-Vit - PO 1 tab DAILY [facility] Administration Nitroglycerin 0.4 mg 02/28/18 15:16 Nitrostat - SL TID PRN FOR CHEST PAIN Non-Formulary Medication 290 mcg 03/01/18 10:00 Linaclotide [Linzess] PO DAILY [facility] Pantoprazole Sodium 40 mg 03/04/18 10:00 03/07/18 09:55 Protonix - PO 40 mg DAILY [facility] Administration Polyethylene Glycol 17 gm 03/01/18 10:00 03/07/18 09:58 Miralax (For Daily Use) - PO 17 gm DAILY [facility] Administration Ranitidine HCl 150 mg 03/06/18 22:00 03/07/18 09:56 Zantac - PO 150 mg BID [facility] Administration Sertraline HCl 100 mg 02/28/18 22:00 03/07/18 09:55 Zoloft - PO 100 mg BID [facility] Administration Imaging: chest xray: new congestive changes and fluid in horizontal fissure compared with 07/23 EKG: nsr, TWI in leads 1 and avl, axis wnl, intervals wnl carotid doppler, stenosis of left internal artery, 80-99%. neck cta: stenosis 80-85% left carotid artery. ASSESSMENT/PLAN: Patient is a 77 year old female with a significant past medical history of s/p 2 stents, HTN, HLD, DM, CKD stage III, depression/anxiety, glaucoma and IBS. She presented to the ED at the request of her PCP after she was noted to have increased leg swelling, SOB, cough, decreased physical activity over the past 4 days prior to admission. Patient reports she has had a 10 lb weight gain over the past several weeks. On admission she was noted to have a low grade temperature of 99F and labs notable with BNP 4756, BUN/Cr 56/1.8 (baseline), slightly elevated AST/ALT/Alk Phos. Cardiology: CHF exacerbation. shortness of breath. improved since admission CXR with congestive changes. bnp elevated @ 4700 on admission. on HCTZ. no signs of volume overload. daily weights 62kg > 58kg. continue to monitor intake and output. echo with normal LVEF; severe pulmonary HTN Cardiology following. CAD S/p LAD and RCA stents. On imdur, nitroglycerin prn Outpatient cardiology follow up (Dr SCHUMACHER @ [facility]). Hypertension. On amlodopine 10mg daily, coreq 25 po bid, hctz 25mg daily, losartan 50mg bid. monitor. HLD, chronic On statin therapy, increased to lipitor 80mg daily Vascular Carotid stenosis Doppler study 11/2017, showed 70% occlusion of left internal carotid artery. Doppler study 02/2018, shows 80-99% occlusion of left internal carotid artery neck CTA with 80-85% stenosis. Vascular surgery consulted. Patient on Plavix 75mg daily. ID: Leukocytosis. trending down. On Zosyn for possible aspiration pneumonia as seen on CTA blood cultures re ordered and pending. no fevers. GI: Transaminitis. resolved. monitor with daily labs. Neuro: TIA, history No neuro deficits noted. On Plavix [address] negative brain mri negative Altered mental status vs. delirium Patient reported to be confused overnight and intermittently during the day. Her mentation waxes and wanes Head Ct negative. brain mri negative. Re cultured to rule out acute infection. Being treated for pneumonia per CTA. now on Zosyn Facial twitching. Patient on xanax at home, med placed on prn status here when pt became confused with ams. thought to be s/e of xanax. Now having intermittent facial twitching. will resume xanax bid sched. and monitor mentation and facial twitching. neurology following. Endocrine: Diabetes. SS with Novolog coverage. On Levemir. diabetic diet. Renal: CKD Stage III. creat 1.8. Follows renal outpatient (Dr. Soto). patient had cta neck with contrast on 03/05/18. renal following. on NS @ 75cc Heme: Iron Deficiency Anemia. hmg/hct, low stable. On Iron 325mg bid tabs. GI: IBS. On Linzess 290 mcg PO qday Psyche: Depression/anxiety Hx of suicide attempts On Vistaril 25 mg PO qday, Zoloft 100 mg PO BID xanax bid. fen tolerating PO monitor electrolytes low salt diet prophy ambulation heparin tid full code Visit type - Emergency Visit Emergency Visit: Yes ED Registration Date: 03/02/18 Care time: The patient presented to the Emergency Department on the above date and was hospitalized for further evaluation of their emergent condition. - New Patient This patient is new to me today: No - Critical Care Critical Care patient: No - Discharge Referral Referred to [facility] No
[2018-03-07 10:16] LABS: BASO % 0.7 % (0-2.0); EOS % 4.2 % (0-4.5); HEMATOCRIT 23.1 % (32.4-45.2); HEMOGLOBIN 7.8 GM/dL (10.7-15.3); LYMPH % 9.7 % (8-40); MCH 31.6 pg (25.7-33.7); MCHC 33.5 g/dl (32.0-36.0); MEAN CELL VOLUME 94.2 fl (80-96); MEAN PLT VOLUME 9.3 fl (7.5-11.1); MONO % 5.7 % (3.8-10.2); NEUT % 79.7 % (42.8-82.8); PLATELET COUNT 286 K/MM3 (134-434); RBC 2.46 M/mm3 (3.60-5.2); RDW 13.8 % (11.6-15.6); WHITE BLOOD COUNT 11.5 K/mm3 (4.0-10.0)
[2018-03-07 10:51] LABS: ALBUMIN 2.4 g/dl (3.4-5.0); ALK PHOS 98 U/L (45-117); ANION GAP 7 MMOL/L (8-16); BILIRUBIN,TOTAL 0.2 mg/dL (0.2-1); BLOOD UREA NITROGEN 54 mg/dL (7-18); CALCIUM 8.1 mg/dL (8.5-10.1); CHLORIDE 117 mmol/L (98-107); CO2 24 mmol/L (21-32); CREATININE 1.8 mg/dL (0.55-1.3); GLUCOSE,RANDOM 273 mg/dL (74-106); MAGNESIUM 2.1 mg/dL (1.8-2.4); POTASSIUM 3.9 mmol/L (3.5-5.1); SGOT/AST 21 U/L (15-37); SGPT/ALT 31 U/L (13-61); SODIUM 148 mmol/L (136-145); TOT PROT 5.4 g/dl (6.4-8.2)
[2018-03-07] MEDS: VITAMIN B COMPLEX W/C COMBO TABLET (FP) PO SCH (11:17)
--- NOTE | 2018-03-07 12:50 | PN ---
Progress Note (short form) - Note Progress Note: Neurology History of Present Illness 77-year-old female with past medical history significant for NIDDM, HTN, GERD, HLD, CAD s/p stents, CKD III, anemia and IBS presented to the emergency department with bilateral lower extremity swelling for 4 days. The patient reported having increased bilateral swelling to the legs, associated with 10- pound weight change. The patient reported associated symptoms of shortness of breath and orthopnea with difficulty moving around secondary to leg heaviness. She reported that the swelling has extended to her abdomen as well. The patient reported following up with Dr. Navarro (PCP) on Friday, who referred the patient the ER for IV Lasix. She's been admitted and being managed for CHF exacerbation. However, she developed episodes of confusion during her admission. Discussed with nurse who mentioned patient being disoriented on two occasions. She reported the son also noticed she was confused. She completed CT head which I reviewed and did not show acute changes. During my eval, she was able to tell me she's at [facility]. Believes it's March 2018. She knows President is Jessica. MRI brain completed and did not show acute changes, no infarcts, no space occupying lesions. Discussed with hospitalist, called son Gene [phone] previously, explained to him. Answered questions and he seemed appreciative of the conversation and insight. Spoke with hospitalist yesterday there was mention of twitch though not visualized by me. Has been off Xanax for several days and possibly was being minimized by xanax and more noticeable now. Allergies/Adverse Reactions: Allergies Allergy/AdvReac Type Severity Reaction Status Date / Time diphenhydramine HCl Allergy Severe Itching Verified 02/28/18 11:37 [From Benadryl] Influenza Virus Vaccines Allergy Verified 02/28/18 12:22 trazodone Allergy Verified 02/28/18 12:22 zolpidem [From Ambien] Allergy Verified 02/28/18 12:22 prestik Allergy Uncoded 02/28/18 12:22 Active Medications Alprazolam (Xanax -) 0.25 mg PO Q12H PRN PRN Reason: ANXIETY Last Admin: 03/06/18 22:11 Dose: 0.25 mg Amlodipine Besylate (Norvasc -) 10 mg PO DAILY [facility] Last Admin: 03/07/18 09:55 Dose: 10 mg Atorvastatin Calcium (Lipitor -) 80 mg PO HS [facility] Last Admin: 03/06/18 22:10 Dose: 80 mg Carvedilol (Coreg -) 25 mg PO BID [facility] Last Admin: 03/07/18 09:55 Dose: 25 mg Cholecalciferol (Vitamin D3 -) 2,000 unit PO DAILY [facility] Last Admin: 03/07/18 09:56 Dose: 2,000 unit Clopidogrel Bisulfate (Plavix -) 75 mg PO DAILY [facility] Last Admin: 03/07/18 09:56 Dose: 75 mg Dorzolamide HCl (Trusopt 2%) 1 drop OU DAILY [facility] Last Admin: 03/07/18 09:58 Dose: 1 drop Ferrous Sulfate (Feosol -) 325 mg PO BID [facility] Last Admin: 03/07/18 09:55 Dose: 325 mg Fluticasone Propionate (Flonase -) 1 spray NS DAILY PRN PRN Reason: NASAL ALLERGY Heparin Sodium (Porcine) (Heparin -) 5,000 unit SQ TID [facility] Last Admin: 03/07/18 06:18 Dose: 5,000 unit Hydrochlorothiazide (Hctz -) 25 mg PO DAILY [facility] Last Admin: 03/07/18 09:56 Dose: 25 mg Sodium Chloride (Normal Saline -) 1,000 mls @ 75 mls/hr IV ASDIR [facility] Last Admin: 03/06/18 22:14 Dose: Not Given Piperacillin Sod/Tazobactam (Sod 3.375 gm/ Dextrose) 50 mls @ 100 mls/hr IVPB Q8H-IV [facility]; Protocol Last Admin: 03/07/18 09:55 Dose: 100 mls/hr Insulin Aspart (Novolog Vial Sliding Scale -) 1 vial SQ TIDAC [facility]; Protocol Last Admin: 03/07/18 11:29 Dose: 6 units Insulin Detemir (Levemir Vial) 20 units SQ HS [facility] Last Admin: 03/06/18 22:19 Dose: 20 units Isosorbide Mononitrate (Imdur -) 30 mg PO BID [facility] Last Admin: 03/07/18 09:56 Dose: 30 mg Latanoprost (Xalatan 0.005% Eye Drops -) 1 drop OU HS [facility] Last Admin: 03/06/18 22:20 Dose: 1 drop Losartan Potassium (Cozaar -) 50 mg PO BID [facility] Last Admin: 03/07/18 09:56 Dose: 50 mg Multivitamins (Total B With C -) 1 each PO DAILY [facility] Last Admin: 03/07/18 11:17 Dose: 1 each Multivitamins/Minerals/Vitamin C (Tab-A-Vit -) 1 tab PO DAILY [facility] Last Admin: 03/07/18 09:56 Dose: 1 tab Nitroglycerin (Nitrostat -) 0.4 mg SL TID PRN PRN Reason: FOR CHEST PAIN Non-Formulary Medication (Linaclotide [Linzess]) 290 mcg PO DAILY [facility] Pantoprazole Sodium (Protonix -) 40 mg PO DAILY [facility] Last Admin: 03/07/18 09:55 Dose: 40 mg Polyethylene Glycol (Miralax (For Daily Use) -) 17 gm PO DAILY [facility] Last Admin: 03/07/18 09:58 Dose: 17 gm Ranitidine HCl (Zantac -) 150 mg PO BID [facility] Last Admin: 03/07/18 09:56 Dose: 150 mg Sertraline HCl (Zoloft -) 100 mg PO BID [facility] Last Admin: 03/07/18 09:55 Dose: 100 mg *Physical Exam Vital Signs Period Temp Pulse Resp BP Sys/Morrison Pulse Ox Last 24 Hr 98.7 F-99.3 F 74-86 18-20 136-181/50-77 95-97 GENERAL: Awake, alert, and fully oriented, in no acute distress. HEAD: No signs of trauma EYES: PERRLA, EOMI, sclera anicteric, conjunctiva clear ENT: Auricles normal inspection, hearing grossly normal, nares patent, oropharynx clear without exudates. Moist mucosa NECK: Nontender, no stepoffs, Normal ROM, supple, no lymphadenopathy, JVD, or masses LUNGS: + bibasilar rales HEART: Regular rate and rhythm, normal S1 and S2, no murmurs, rubs or gallops ABDOMEN: Soft, nontender, normoactive bowel sounds. No guarding, no rebound. No masses EXTREMITIES: +2 PE BLE, Normal range of motion, No clubbing or cyanosis. No cords, erythema, or tenderness NEUROLOGICAL: Cranial nerves II through XII intact. 5/5 grossly, sensation intact in all extremities, Normal speech, normal cerebellar function SKIN: Warm, Dry, normal turgor, no rashes or lesions noted. CBCD WBC 11.5 K/mm3 (4.0-10.0) H 03/07/18 10:05 RBC 2.46 M/mm3 (3.60-5.2) L 03/07/18 10:05 Hgb 7.8 GM/dL (10.7-15.3) L 03/07/18 10:05 Hct 23.1 % (32.4-45.2) L 03/07/18 10:05 MCV 94.2 fl (80-96) 03/07/18 10:05 MCHC 33.5 g/dl (32.0-36.0) 03/07/18 10:05 RDW 13.8 % (11.6-15.6) 03/07/18 10:05 Plt Count 286 K/MM3 (134-434) 03/07/18 10:05 MPV 9.3 fl (7.5-11.1) 03/07/18 10:05 CMP Sodium 148 mmol/L (136-145) H 03/07/18 10:05 Potassium 3.9 mmol/L (3.5-5.1) 03/07/18 10:05 Chloride 117 mmol/L (98-107) H 03/07/18 10:05 Carbon Dioxide 24 mmol/L (21-32) 03/07/18 10:05 Anion Gap 7 MMOL/L (8-16) L 03/07/18 10:05 BUN 54 mg/dL (7-18) H 03/07/18 10:05 Creatinine 1.8 mg/dL (0.55-1.3) H 03/07/18 10:05 Creat Clearance w eGFR 27.28 (>60) 03/07/18 10:05 Random Glucose 273 mg/dL (74-106) H 03/07/18 10:05 Calcium 8.1 mg/dL (8.5-10.1) L 03/07/18 10:05 Total Bilirubin 0.2 mg/dL (0.2-1) 03/07/18 10:05 AST 21 U/L (15-37) 03/07/18 10:05 ALT 31 U/L (13-61) 03/07/18 10:05 Alkaline Phosphatase 98 U/L (45-117) 03/07/18 10:05 Total Protein 5.4 g/dl (6.4-8.2) L 03/07/18 10:05 Albumin 2.4 g/dl (3.4-5.0) L 03/07/18 10:05 CARDIAC ENZYMES Creatine Kinase 60 IU/L (26-192) 03/02/18 11:40 Troponin I 0.05 ng/ml (0.00-0.05) 03/02/18 11:40 Medical Decision Making 77-year-old female with past medical history significant for NIDDM, HTN, GERD, HLD, CAD s/p stents, CKD III, anemia and IBS presented to the emergency department with bilateral lower extremity swelling for 4 days. The patient reported having increased bilateral swelling to the legs, associated with 10- pound weight change. The patient reported associated symptoms of shortness of breath and orthopnea with difficulty moving around secondary to leg heaviness. She reported that the swelling has extended to her abdomen as well. The patient reported following up with Dr. Navarro (PCP) on Friday, who referred the patient the ER for IV Lasix. She's been admitted and being managed for CHF exacerbation. However, she developed episodes of confusion during her admission. Discussed with nurse who mentioned patient being disoriented on two occasions. She reported the son also noticed she was confused. She completed CT head which I reviewed and did not show acute changes. During my eval, she was able to tell me she's at [facility]. She knows it's February 2018 though believed it was the middle of the month. She knows President is Jessica. MRI brain reviewed and discussed with hospitalist and son in detail. Continue mgmt of CHF exacerbation. Confusion maybe episodes of delirium in context of being in hospital, hydration recommended.poke with hospitalist yesterday there was mention of twitch though not visualized by me. Has been off Xanax for several days and possibly was being minimized by xanax and more noticeable now. Does not appear to be seizure, possibly just muscle spasm. Monitor bp, maintain normotensive ranges. Monitor for infection, metabolic disturbances. Frequent reorientation suggested.
[2018-03-07] MEDS: ALPRAZolam 0.25 MG TABLET PO PRN ×2 (13:43→21:23)
[2018-03-07] MEDS: SODIUM CHLORIDE 1,000 ML IV SCH ×2 (13:43→15:30)
--- NOTE | 2018-03-07 20:31 | PN ---
Progress Note (short form) - Note Progress Note: covering dr fields Problems 1. CKD 2. DM 3. gerd 4. CAD 5. anemia 6. left IJ stenosis Current Medications Alprazolam (Xanax -) 0.25 mg PO Q12H PRN PRN Reason: ANXIETY Last Admin: 03/07/18 13:43 Dose: 0.25 mg Amlodipine Besylate (Norvasc -) 10 mg PO DAILY [facility] Last Admin: 03/07/18 09:55 Dose: 10 mg Atorvastatin Calcium (Lipitor -) 80 mg PO HS [facility] Last Admin: 03/06/18 22:10 Dose: 80 mg Carvedilol (Coreg -) 25 mg PO BID [facility] Last Admin: 03/07/18 09:55 Dose: 25 mg Cholecalciferol (Vitamin D3 -) 2,000 unit PO DAILY [facility] Last Admin: 03/07/18 09:56 Dose: 2,000 unit Clopidogrel Bisulfate (Plavix -) 75 mg PO DAILY [facility] Last Admin: 03/07/18 09:56 Dose: 75 mg Dorzolamide HCl (Trusopt 2%) 1 drop OU DAILY [facility] Last Admin: 03/07/18 09:58 Dose: 1 drop Ferrous Sulfate (Feosol -) 325 mg PO BID [facility] Last Admin: 03/07/18 09:55 Dose: 325 mg Fluticasone Propionate (Flonase -) 1 spray NS DAILY PRN PRN Reason: NASAL ALLERGY Heparin Sodium (Porcine) (Heparin -) 5,000 unit SQ TID [facility] Last Admin: 03/07/18 13:43 Dose: 5,000 unit Hydrochlorothiazide (Hctz -) 25 mg PO DAILY [facility] Last Admin: 03/07/18 09:56 Dose: 25 mg Sodium Chloride (Normal Saline -) 1,000 mls @ 75 mls/hr IV ASDIR [facility] Last Admin: 03/07/18 15:30 Dose: 75 mls/hr Piperacillin Sod/Tazobactam (Sod 3.375 gm/ Dextrose) 50 mls @ 100 mls/hr IVPB Q8H-IV [facility]; Protocol Last Admin: 03/07/18 17:21 Dose: 100 mls/hr Insulin Aspart (Novolog Vial Sliding Scale -) 1 vial SQ TIDAC [facility]; Protocol Last Admin: 03/07/18 17:20 Dose: 4 units Insulin Detemir (Levemir Vial) 20 units SQ HS [facility] Last Admin: 03/06/18 22:19 Dose: 20 units Isosorbide Mononitrate (Imdur -) 30 mg PO BID [facility] Last Admin: 03/07/18 09:56 Dose: 30 mg Latanoprost (Xalatan 0.005% Eye Drops -) 1 drop OU HS [facility] Last Admin: 03/06/18 22:20 Dose: 1 drop Losartan Potassium (Cozaar -) 50 mg PO BID [facility] Last Admin: 03/07/18 09:56 Dose: 50 mg Multivitamins (Total B With C -) 1 each PO DAILY [facility] Last Admin: 03/07/18 11:17 Dose: 1 each Multivitamins/Minerals/Vitamin C (Tab-A-Vit -) 1 tab PO DAILY [facility] Last Admin: 03/07/18 09:56 Dose: 1 tab Nitroglycerin (Nitrostat -) 0.4 mg SL TID PRN PRN Reason: FOR CHEST PAIN Non-Formulary Medication (Linaclotide [Linzess]) 290 mcg PO DAILY [facility] Pantoprazole Sodium (Protonix -) 40 mg PO DAILY [facility] Last Admin: 03/07/18 09:55 Dose: 40 mg Polyethylene Glycol (Miralax (For Daily Use) -) 17 gm PO DAILY [facility] Last Admin: 03/07/18 09:58 Dose: 17 gm Ranitidine HCl (Zantac -) 150 mg PO BID [facility] Last Admin: 03/07/18 09:56 Dose: 150 mg Sertraline HCl (Zoloft -) 100 mg PO BID [facility] Last Admin: 03/07/18 09:55 Dose: 100 mg Last Vital Signs Temp Pulse Resp BP Pulse Ox 98.7 F 74 19 151/56 L 95 03/07/18 14:14 03/07/18 14:14 03/07/18 14:14 03/07/18 14:14 03/07/18 09:00 CBC, BMP 03/07/18 10:05 03/07/18 10:05 Hypernatremia increasing azotemia Plan -change IVF to half NS and increase rate to 100 / hour - pt had ct angio yesterday - check bmp in am - monitor renal function - avoid nsaids - vascular surgery follow up
[2018-03-07] MEDS: ATORVASTATIN CA 80 MG TABLET (FP) PO SCH (21:15)
[2018-03-07] MEDS: LATANOPROST 0.005% OPHTH SOLN 2.5ML BOTTLE OU SCH (21:17)
[2018-03-07] MEDS: INSULIN (LEVEMIR) 100 UNITS/ML UNITS SQ SCH (21:44)
[2018-03-07] MEDS: SODIUM CHLORIDE 0.45% 1,000 ML IV SCH (22:00)
[2018-03-08] MEDS ORDERED: PIPERACILLIN/TAZOBACTAM 3.375 GM VIAL IVPB ONE ×3 (00:37→14:26)
[2018-03-08] MEDS ORDERED: DEXTROSE 5%-WATER - 50 ML IVPB ONE ×3 (00:37→14:26)
[2018-03-08] MEDS: PIPERACILLIN/TAZOB 3.375 GM 3.375 GM in DEXTROSE 5%-WATER - 50 ML IVPB SCH ×3 (01:11→17:18)
[2018-03-08] MEDS: INSULIN SLIDING SCALE (NOVOLOG) 1 VIAL SQ SCH ×3 (06:36→17:18)
[2018-03-08] MEDS: HEPARIN NA (PORCINE) 5,000 UNITS/ML 1ML VIAL SQ SCH ×3 (06:44→21:40)
[2018-03-08 09:16] LABS: BASO % 0.6 % (0-2.0); EOS % 6.9 % (0-4.5); HEMATOCRIT 22.4 % (32.4-45.2); HEMOGLOBIN 7.6 GM/dL (10.7-15.3); LYMPH % 12.4 % (8-40); MCH 32.3 pg (25.7-33.7); MEAN CELL VOLUME 94.9 fl (80-96); MEAN PLT VOLUME 9.5 fl (7.5-11.1); MONO % 6.6 % (3.8-10.2); NEUT % 73.5 % (42.8-82.8); PLATELET COUNT 261 K/MM3 (134-434); RBC 2.36 M/mm3 (3.60-5.2); WHITE BLOOD COUNT 10.8 K/mm3 (4.0-10.0)
[2018-03-08] MEDS ORDERED: PT OWN MED DRAWER 7, Y5N ONE (09:23)
[2018-03-08] MEDS: RANITIDINE HCL 150 MG TABLET (FP) PO SCH ×2 (09:28→21:41)
[2018-03-08] MEDS: CHOLECALCIFEROL (VITAMIN D3) 1,000 UNIT TABLET (FP) PO SCH (09:28)
[2018-03-08] MEDS: FERROUS SO4 325 MG TABLET (FP) PO SCH ×2 (09:28→21:41)
[2018-03-08] MEDS: CARVEDILOL 25 MG TABLET (FP) PO SCH ×2 (09:28→21:41)
[2018-03-08] MEDS: PANTOPRAZOLE 40 MG TABLET (FP) PO SCH (09:28)
[2018-03-08] MEDS: ISOSORBIDE MONONITRATE 30 MG TAB.SR.24H (FP) PO SCH ×2 (09:28→21:41)
[2018-03-08] MEDS: MULTIVITAMINS (DAILY MVI) TABLET (FP) PO SCH (09:28)
[2018-03-08] MEDS: amLODIPine BESYLATE 10 MG TABLET (FP) PO SCH (09:28)
[2018-03-08] MEDS: CLOPIDOGREL BISULFATE 75 MG TABLET (FP) PO SCH (09:28)
[2018-03-08] MEDS: SERTRALINE HCL 50 MG TABLET (FP) PO SCH ×2 (09:28→21:40)
[2018-03-08] MEDS: LOSARTAN POTASSIUM 50 MG TABLET (FP) PO SCH ×2 (09:28→21:41)
[2018-03-08] MEDS: HYDROCHLOROTHIAZIDE 25 MG TABLET (FP) PO SCH (09:28)
[2018-03-08] MEDS: VITAMIN B COMPLEX W/C COMBO TABLET (FP) PO SCH (09:28)
[2018-03-08] MEDS: POLYETHYLENE GLYCOL 3350 119 GM BTL PO SCH (09:29)
--- NOTE | 2018-03-08 09:42 | PN ---
Progress Note, Physician History of Present Illness: 77 year old black female (zaria Rouse), with a PMH significant for CAD s/p 2 stents ,(the 1st in 2005), HTN, HLD, DM, CKD stage III, Depression/anxiety, glaucoma and IBS presented to the ED at the request of her PCP with increased leg swelling and SOB, cough, ECKERT over the past 4 days. Patient reports she has had a 10 lb weight gain over the past several weeks though it has been harder for her to eat with the fluid accumulation and chronic gas problem. She was seen by her PCP Dr. Navarro on Friday who recommended she present to the ED for IV diuresis. Denies headaches, chest pain, palpitations, n/v/d. Upon admission to the ED she had a low grade temperature of 99.0. Labs notable for BNP 4756, BUN/Cr 56/1.8 (baseline), slightly elevated AST/ALT/Alk Phos elevated at 38/82/160, Trop negative CXR positive for congestive changes, ECG unremarkable. She was given IM Lasix in the ED which she reports at the time of exam not to have cause her to urinate very much yet. - Current Medication List Current Medications: Active Medications Alprazolam (Xanax -) 0.25 mg PO Q12H PRN PRN Reason: ANXIETY Last Admin: 03/07/18 21:23 Dose: 0.25 mg Amlodipine Besylate (Norvasc -) [address] [facility] Last Admin: 03/08/18 09:28 Dose: 10 mg Atorvastatin Calcium (Lipitor -) [address] [facility] Last Admin: 03/07/18 21:15 Dose: 80 mg Carvedilol (Coreg -) [address] [facility] Last Admin: 03/08/18 09:28 Dose: 25 mg Cholecalciferol (Vitamin D3 -) 2,[address] [facility] Last Admin: 03/08/18 09:28 Dose: 2,000 unit Clopidogrel Bisulfate (Plavix -) [address] [facility] Last Admin: 03/08/18 09:28 Dose: 75 mg Dorzolamide HCl (Trusopt 2%) [address] [facility] Last Admin: 03/07/18 09:58 Dose: 1 drop Ferrous Sulfate (Feosol -) [address] [facility] Last Admin: 03/08/18 09:28 Dose: 325 mg Fluticasone Propionate (Flonase -) 1 spray NS DAILY PRN PRN Reason: NASAL ALLERGY Heparin Sodium (Porcine) (Heparin -) 5,[address] [facility] Last Admin: 03/08/18 06:44 Dose: 5,000 unit Hydrochlorothiazide (Hctz -) [address] [facility] Last Admin: 03/08/18 09:28 Dose: 25 mg Piperacillin Sod/Tazobactam (Sod 3.375 gm/ Dextrose) 50 mls @ 100 mls/hr IVPB Q8H-IV [facility]; Protocol Last Admin: 03/08/18 09:27 Dose: 100 mls/hr Sodium Chloride (1/2 Normal Saline) 1,000 mls @ 100 mls/hr IV ASDIR [facility] Last Admin: 03/07/18 22:00 Dose: 100 mls/hr Insulin Aspart (Novolog Vial Sliding Scale -) [address] [facility]; Protocol Last Admin: 03/08/18 06:36 Dose: Not Given Insulin Detemir (Levemir Vial) [address] [facility] Last Admin: 03/07/18 21:44 Dose: 20 units Isosorbide Mononitrate (Imdur -) [address] [facility] Last Admin: 03/08/18 09:28 Dose: 30 mg Latanoprost (Xalatan 0.005% Eye Drops -) [address] [facility] Last Admin: 03/07/18 21:17 Dose: 1 drop Losartan Potassium (Cozaar -) [address] [facility] Last Admin: 03/08/18 09:28 Dose: 50 mg Multivitamins (Total B With C -) [address] [facility] Last Admin: 03/08/18 09:28 Dose: 1 each Multivitamins/Minerals/Vitamin C (Tab-A-Vit -) [address] [facility] Last Admin: 03/08/18 09:28 Dose: 1 tab Nitroglycerin (Nitrostat -) 0.4 mg SL TID PRN PRN Reason: FOR CHEST PAIN Non-Formulary Medication (Linaclotide [Linzess]) [address] [facility] Pantoprazole Sodium (Protonix -) [address] [facility] Last Admin: 03/08/18 09:28 Dose: 40 mg Polyethylene Glycol (Miralax (For Daily Use) -) [address] [facility] Last Admin: 03/08/18 09:29 Dose: Not Given Ranitidine HCl (Zantac -) [address] [facility] Last Admin: 03/08/18 09:28 Dose: 150 mg Sertraline HCl (Zoloft -) [address] [facility] Last Admin: 03/08/18 09:28 Dose: 100 mg - Objective Vital Signs: Vital Signs Temperature 98.2 F 03/08/18 06:00 Pulse Rate 69 03/08/18 06:00 Respiratory Rate 16 03/08/18 06:00 Blood Pressure 180/68 H 03/08/18 06:00 O2 Sat by Pulse Oximetry (%) 95 03/07/18 21:00 Eyes: Yes: WNL, Conjunctiva Clear, EOM Intact HENT: Yes: WNL, Atraumatic, Normocephalic Neck: Yes: WNL, Supple, Trachea Midline Cardiovascular: Yes: WNL, Regular Rate and Rhythm Respiratory: Yes: WNL, Regular, CTA Bilaterally Gastrointestinal: Yes: WNL, Normal Bowel Sounds Genitourinary: Yes: WNL Musculoskeletal: Yes: WNL Extremities: Yes: WNL Edema: No Integumentary: Yes: WNL Neurological: Yes: WNL, Alert, Oriented ...Motor Strength: WNL Psychiatric: Yes: WNL Labs: CBC, BMP 03/08/18 08:55 Assessment/Plan Problems (1) Acute on chronic diastolic (congestive) heart failure Assessment/Plan: ECHO: normal LVEF; severe pulmonary HTN On beta blockers. On ARB, HCTZ, Imdur. F/u BUN/Cr, electrolytes, daily weight, Is and Os. Code(s): I50.33 - ACUTE ON CHRONIC DIASTOLIC (CONGESTIVE) HEART FAILURE (2) CKD (chronic kidney disease) stage 3, GFR 30-59 ml/min Code(s): N18.3 - CHRONIC KIDNEY DISEASE, STAGE 3 (MODERATE) (3) IBS (irritable bowel syndrome) Code(s): K58.9 - IRRITABLE BOWEL SYNDROME WITHOUT DIARRHEA (4) Diabetes mellitus Code(s): E11.9 - TYPE 2 DIABETES MELLITUS WITHOUT COMPLICATIONS (5) Hyperlipidemia Code(s): E78.5 - HYPERLIPIDEMIA, UNSPECIFIED (6) Hypertension Assessment/Plan: See "diastolic CHF". Code(s): I10 - ESSENTIAL (PRIMARY) HYPERTENSION Qualifiers: Hypertension type: essential hypertension Qualified Code(s): I10 - Essential (primary) hypertension (7) Severe pulmonary arterial systolic hypertension Code(s): I27.21 - SECONDARY PULMONARY ARTERIAL HYPERTENSION (8) H/O heart artery stent Assessment/Plan: f/u records of coronary angiograms and PCIs. TNI 0.05 lexiscan MIBI for risk stratification. Code(s): Z95.5 - PRESENCE OF CORONARY ANGIOPLASTY IMPLANT AND GRAFT PAD L ICAsevere stenosis awaiting CEA after the stress test.
--- NOTE | 2018-03-08 09:49 | PN ---
Physical Exam: SUBJECTIVE: Patient seen and examined OBJECTIVE: blood sugar 59, Levemir decreased to 10 units hypertensive. give one dose of hctz 12.5 x 1 now Vital Signs Period Temp Pulse Resp BP Sys/Morrison Pulse Ox Last 24 Hr 98.2 F-99.4 F 69-85 16-20 143-189/56-80 95 GENERAL: The patient is awake, in no acute distress. aox3 HEAD: Normal with no signs of trauma. no facial twitching reported overnight. EYES: PERRL, extraocular movements intact, sclera anicteric, conjunctiva clear. No ptosis. ENT: Ears normal, nares patent, oropharynx clear without exudates, moist mucous membranes. NECK: Trachea midline, full range of motion, supple. LUNGS:fine crackles at the bases. no leg edema. HEART: Regular rate and rhythm ABDOMEN: Soft, nontender, nondistended, normoactive bowel sounds, no guarding EXTREMITIES: no edema on either extremity. NEUROLOGICAL: Normal speech, gait steady PSYCH: more awake and alert Laboratory Results - last 24 hr 03/07/18 03/07/18 03/07/18 10:05 10:05 11:21 WBC 11.5 H RBC 2.46 L Hgb 7.8 L Hct 23.1 L MCV 94.2 MCH 31.6 MCHC 33.5 RDW 13.8 Plt Count 286 MPV 9.3 Absolute Neuts (auto) 9.2 H Neutrophils % 79.7 Lymphocytes % 9.7 Monocytes % 5.7 Eosinophils % 4.2 D Basophils % 0.7 Nucleated RBC % 0 Sodium 148 H Potassium 3.9 Chloride 117 H Carbon Dioxide 24 Anion Gap 7 L BUN 54 H Creatinine 1.8 H Creat Clearance w eGFR 27.28 POC Glucometer 263 Random Glucose 273 H Calcium 8.1 L Magnesium 2.1 Total Bilirubin 0.2 AST 21 ALT 31 Alkaline Phosphatase 98 Total Protein 5.4 L Albumin 2.4 L 03/07/18 03/07/18 03/08/18 16:58 21:30 06:30 WBC RBC Hgb Hct MCV MCH MCHC RDW Plt Count MPV Absolute Neuts (auto) Neutrophils % Lymphocytes % Monocytes % Eosinophils % Basophils % Nucleated RBC % Sodium Potassium Chloride Carbon Dioxide Anion Gap BUN Creatinine Creat Clearance w eGFR POC Glucometer 217 222 59 Random Glucose Calcium Magnesium Total Bilirubin AST ALT Alkaline Phosphatase Total Protein Albumin 03/08/18 08:55 WBC 10.8 H RBC 2.36 L Hgb 7.6 L Hct 22.4 L MCV 94.9 MCH 32.3 MCHC 34.0 RDW 14.0 Plt Count 261 MPV 9.5 Absolute Neuts (auto) 7.9 Neutrophils % 73.5 Lymphocytes % 12.4 D Monocytes % 6.6 Eosinophils % 6.9 H Basophils % 0.6 Nucleated RBC % 0 Sodium Potassium Chloride Carbon Dioxide Anion Gap BUN Creatinine Creat Clearance w eGFR POC Glucometer Random Glucose Calcium Magnesium Total Bilirubin AST ALT Alkaline Phosphatase Total Protein Albumin Active Medications Generic Name Dose Route Start Last Admin Trade Name Freq PRN Reason Stop Dose Admin Alprazolam 0.25 mg 03/07/18 13:15 03/07/18 21:23 Xanax - PO 0.25 mg Q12H PRN Administration ANXIETY Amlodipine Besylate 10 mg 03/01/18 10:00 03/08/18 09:28 Norvasc - PO 10 mg DAILY [facility] Administration Atorvastatin Calcium 80 mg 03/04/18 22:00 03/07/18 21:15 Lipitor - PO 80 mg HS [facility] Administration Carvedilol 25 mg 02/28/18 22:00 03/08/18 09:28 Coreg - PO 25 mg BID [facility] Administration Cholecalciferol 2,000 unit 03/01/18 10:00 03/08/18 09:28 Vitamin D3 - PO 2,000 unit DAILY [facility] Administration Clopidogrel Bisulfate 75 mg 03/01/18 10:00 03/08/18 09:28 Plavix - PO 75 mg DAILY [facility] Administration Dorzolamide HCl 1 drop 03/01/18 10:00 03/07/18 09:58 Trusopt 2% OU 1 drop DAILY [facility] Administration Ferrous Sulfate 325 mg 02/28/18 22:00 03/08/18 09:28 Feosol - PO 325 mg BID [facility] Administration Fluticasone Propionate 1 spray 02/28/18 15:16 Flonase - NS DAILY PRN NASAL ALLERGY Heparin Sodium (Porcine) 5,000 unit 03/05/18 14:00 03/08/18 06:44 Heparin - SQ 5,000 unit TID [facility] Administration Hydrochlorothiazide 25 mg 03/01/18 10:00 03/08/18 09:28 Hctz - PO 25 mg DAILY [facility] Administration Piperacillin Sod/Tazobactam 50 mls @ 100 mls/hr 03/06/18 13:30 03/08/18 09:27 Sod 3.375 gm/ Dextrose IVPB 100 mls/hr Q8H-IV [facility] Administration Protocol Sodium Chloride 1,000 mls @ 100 mls/hr 03/07/18 20:45 03/07/18 22:00 1/2 Normal Saline IV 100 mls/hr ASDIR [facility] Administration Insulin Aspart 1 vial 02/28/18 16:30 03/08/18 06:36 Novolog Vial Sliding Scale - SQ Not Given TIDAC [facility] Protocol Insulin Detemir 20 units 02/28/18 22:00 03/07/18 21:44 Levemir Vial SQ 20 units HS [facility] Administration Isosorbide Mononitrate 30 mg 02/28/18 22:00 03/08/18 09:28 Imdur - PO 30 mg BID [facility] Administration Latanoprost 1 drop 02/28/18 22:00 03/07/18 21:17 Xalatan 0.005% Eye Drops - OU 1 drop HS [facility] Administration Losartan Potassium 50 mg 02/28/18 22:00 03/08/18 09:28 Cozaar - PO 50 mg BID [facility] Administration Multivitamins 1 each 03/01/18 10:00 03/08/18 09:28 Total B With C - PO 1 each DAILY [facility] Administration Multivitamins/Minerals/Vitamin C 1 tab 03/06/18 13:45 03/08/18 09:28 Tab-A-Vit - PO 1 tab DAILY [facility] Administration Nitroglycerin 0.4 mg 02/28/18 15:16 Nitrostat - SL TID PRN FOR CHEST PAIN Non-Formulary Medication 290 mcg 03/01/18 10:00 Linaclotide [Linzess] PO DAILY [facility] Pantoprazole Sodium 40 mg 03/04/18 10:00 03/08/18 09:28 Protonix - PO 40 mg DAILY [facility] Administration Polyethylene Glycol 17 gm 03/01/18 10:00 03/08/18 09:29 Miralax (For Daily Use) - PO Not Given DAILY [facility] Ranitidine HCl 150 mg 03/06/18 22:00 03/08/18 09:28 Zantac - PO 150 mg BID [facility] Administration Sertraline HCl 100 mg 02/28/18 22:00 03/08/18 09:28 Zoloft - PO 100 mg BID [facility] Administration Imaging: chest xray: new congestive changes and fluid in horizontal fissure compared with 07/23 EKG: nsr, TWI in leads 1 and avl, axis wnl, intervals wnl carotid doppler, stenosis of left internal artery, 80-99%. neck cta: stenosis 80-85% left carotid artery. ASSESSMENT/PLAN: Patient is a 77 year old female with a significant past medical history of CAD s /p 2 stents, HTN, HLD, DM, CKD stage III, depression/anxiety, glaucoma and IBS. She presented to the ED at the request of her PCP after she was noted to have increased leg swelling, SOB, cough, decreased physical activity over the past 4 days prior to admission. Patient reports she has had a 10 lb weight gain over the past several weeks. On admission she was noted to have a low grade temperature of 99F and labs notable with BNP 4756, BUN/Cr 56/1.8 (baseline), slightly elevated AST/ALT/Alk Phos. Cardiology: CHF exacerbation. shortness of breath. resolved. CXR with congestive changes. bnp elevated @ 4700 on admission. on HCTZ. no current signs of volume overload. daily weights 62kg > 58kg. continue to monitor intake and output. echo with normal LVEF; severe pulmonary HTN Cardiology following. CAD S/p LAD and RCA stents. On [facility] Outpatient cardiology follow up (Dr SCHUMACHER @ [place]). being followed by cardiology here. Hypertension. elevated. On amlodopine 10mg daily, coreq 25 po bid, hctz 25mg daily, losartan 50mg bid. monitor. will give one dose of hctz 12.5 now. HLD, chronic On statin therapy, increased to lipitor 80mg daily Vascular Carotid stenosis. acute on chronic. Doppler study 11/2017, showed 70% occlusion of left internal carotid artery. Doppler study 02/2018, shows 80-99% occlusion of left internal carotid artery neck CTA with 80-85% stenosis. Vascular surgery consulted and following. Patient on Plavix 75mg daily. CEA surgery once cleared by cardiology. ID: Leukocytosis. trending down to normal. On Zosyn for possible aspiration pneumonia as seen on CTA blood cultures re ordered and pending. no fevers. GI: Transaminitis. resolved. monitor with daily labs. Neuro: TIA, history. No neuro deficits noted. On Plavix [address] negative brain mri negative Altered mental status vs. delirium. resolving. Patient reported to be confused ntermittently. Her mentation has improved. Head Ct negative. brain mri negative. Re cultured to rule out acute infection , but cultures are negative. Being treated for pneumonia per CTA. now on Zosyn (day 3) Facial twitching. resolving. Patient on xanax at home, med placed on prn status here when pt became confused with ams. Now having intermittent facial twitching. will resume xanax bid scheduled. neurology following. Endocrine: Diabetes. SS with Novolog coverage. On Levemir. diabetic diet. Renal: CKD Stage III. creat 1.6. baseline between 1.6~1.8. Follows renal outpatient (Dr. Soto). patient had cta neck with contrast on 03/05/18. monitor kidney f/x secondary post CTA. on 04/08 NS @ 75cc Heme: Iron Deficiency Anemia. hmg/hct, low stable. On Iron 325mg bid tabs. GI: IBS. On Linzess 290 mcg PO qday Psyche: Depression/anxiety Hx of suicide attempts On Vistaril 25 mg PO qday, Zoloft 100 mg PO BID xanax bid. fen tolerating PO monitor electrolytes low salt diet prophy ambulation heparin tid full code Visit type - Emergency Visit Emergency Visit: Yes ED Registration Date: 03/02/18 Care time: The patient presented to the Emergency Department on the above date and was hospitalized for further evaluation of their emergent condition. - New Patient This patient is new to me today: No - Critical Care Critical Care patient: No - Discharge Referral Referred to [facility] Med P.C.: No
[2018-03-08 10:00] LABS: ALBUMIN 2.4 g/dl (3.4-5.0); ALK PHOS 88 U/L (45-117); ANION GAP 10 MMOL/L (8-16); BILIRUBIN,TOTAL 0.2 mg/dL (0.2-1); BLOOD UREA NITROGEN 44 mg/dL (7-18); CALCIUM 7.9 mg/dL (8.5-10.1); CHLORIDE 115 mmol/L (98-107); CO2 22 mmol/L (21-32); CREATININE 1.6 mg/dL (0.55-1.3); GLUCOSE,RANDOM 178 mg/dL (74-106); POTASSIUM 3.6 mmol/L (3.5-5.1); SGOT/AST 27 U/L (15-37); SGPT/ALT 30 U/L (13-61); SODIUM 146 mmol/L (136-145); TOT PROT 5.3 g/dl (6.4-8.2)
[2018-03-08] MEDS: ALPRAZolam 0.25 MG TABLET PO PRN ×2 (11:11→21:44)
[2018-03-08] MEDS: DORZOLAMIDE 2% HCL OPHTHALMIC SOLUTION 10 ML BOTTLE OU SCH (11:12)
[2018-03-08] MEDS: SODIUM CHLORIDE 0.45% 1,000 ML IV SCH (13:16)
--- NOTE | 2018-03-08 14:04 | PN ---
Progress Note, Physician History of Present Illness: stable no new issues - Current Medication List Current Medications: Active Medications Alprazolam (Xanax -) 0.25 mg PO Q12H PRN PRN Reason: ANXIETY Last Admin: 03/08/18 11:11 Dose: 0.25 mg Amlodipine Besylate (Norvasc -) 10 mg PO DAILY [facility] Last Admin: 03/08/18 09:28 Dose: 10 mg Atorvastatin Calcium (Lipitor -) 80 mg PO HS [facility] Last Admin: 03/07/18 21:15 Dose: 80 mg Carvedilol (Coreg -) 25 mg PO BID [facility] Last Admin: 03/08/18 09:28 Dose: 25 mg Cholecalciferol (Vitamin D3 -) 2,000 unit PO DAILY [facility] Last Admin: 03/08/18 09:28 Dose: 2,000 unit Clopidogrel Bisulfate (Plavix -) 75 mg PO DAILY [facility] Last Admin: 03/08/18 09:28 Dose: 75 mg Dorzolamide HCl (Trusopt 2%) 1 drop OU DAILY [facility] Last Admin: 03/08/18 11:12 Dose: 1 drop Ferrous Sulfate (Feosol -) 325 mg PO BID [facility] Last Admin: 03/08/18 09:28 Dose: 325 mg Fluticasone Propionate (Flonase -) 1 spray NS DAILY PRN PRN Reason: NASAL ALLERGY Heparin Sodium (Porcine) (Heparin -) 5,000 unit SQ TID [facility] Last Admin: 03/08/18 13:16 Dose: 5,000 unit Hydralazine HCl (Apresoline -) 10 mg PO ONCE ONE Stop: 03/08/18 13:39 Hydrochlorothiazide (Hctz -) 25 mg PO DAILY [facility] Last Admin: 03/08/18 09:28 Dose: 25 mg Piperacillin Sod/Tazobactam (Sod 3.375 gm/ Dextrose) 50 mls @ 100 mls/hr IVPB Q8H-IV [facility]; Protocol Last Admin: 03/08/18 09:27 Dose: 100 mls/hr Sodium Chloride (1/2 Normal Saline) 1,000 mls @ 100 mls/hr IV ASDIR [facility] Last Admin: 03/08/18 13:16 Dose: 100 mls/hr Insulin Aspart (Novolog Vial Sliding Scale -) 1 vial SQ TIDAC [facility]; Protocol Last Admin: 03/08/18 11:15 Dose: 2 units Insulin Detemir (Levemir Vial) 10 units SQ HS [facility] Isosorbide Mononitrate (Imdur -) 30 mg PO BID [facility] Last Admin: 03/08/18 09:28 Dose: 30 mg Latanoprost (Xalatan 0.005% Eye Drops -) 1 drop OU HS [facility] Last Admin: 03/07/18 21:17 Dose: 1 drop Losartan Potassium (Cozaar -) 50 mg PO BID [facility] Last Admin: 03/08/18 09:28 Dose: 50 mg Multivitamins (Total B With C -) 1 each PO DAILY [facility] Last Admin: 03/08/18 09:28 Dose: 1 each Multivitamins/Minerals/Vitamin C (Tab-A-Vit -) 1 tab PO DAILY [facility] Last Admin: 03/08/18 09:28 Dose: 1 tab Nitroglycerin (Nitrostat -) 0.4 mg SL TID PRN PRN Reason: FOR CHEST PAIN Non-Formulary Medication (Linaclotide [Linzess]) 290 mcg PO DAILY [facility] Pantoprazole Sodium (Protonix -) 40 mg PO DAILY [facility] Last Admin: 03/08/18 09:28 Dose: 40 mg Polyethylene Glycol (Miralax (For Daily Use) -) 17 gm PO DAILY [facility] Last Admin: 03/08/18 09:29 Dose: Not Given Ranitidine HCl (Zantac -) 150 mg PO BID [facility] Last Admin: 03/08/18 09:28 Dose: 150 mg Sertraline HCl (Zoloft -) 100 mg PO BID [facility] Last Admin: 03/08/18 09:28 Dose: 100 mg - Objective Vital Signs: Vital Signs Temperature 98.4 F 03/08/18 14:01 Pulse Rate 71 03/08/18 14:01 Respiratory Rate 17 03/08/18 14:01 Blood Pressure 134/64 03/08/18 14:01 O2 Sat by Pulse Oximetry (%) 100 03/08/18 09:00 Constitutional: Yes: No Distress, Calm Cardiovascular: Yes: S1, S2 Respiratory: Yes: Regular, CTA Bilaterally Gastrointestinal: Yes: Normal Bowel Sounds, Soft Musculoskeletal: Yes: WNL Extremities: Yes: WNL Neurological: Yes: Alert, Oriented Psychiatric: Yes: Alert, Oriented Labs: CBC, BMP 03/08/18 08:55 03/08/18 08:55 Assessment/Plan CHF Exacerbation Transaminitis TIA history CAD Diabetes HTN HLD CKD Stage III Iron Deficiency Anemia IBS Depression/anxiety Glaucoma plan continue current mgmt abx incentive jamin await for final plan
[2018-03-08] MEDS ORDERED: hydrALAZINE HCL 10 MG TABLET PO ONE (14:15)
--- NOTE | 2018-03-08 19:05 | PN ---
Progress Note (short form) - Note Progress Note: covering dr fields Problems 1. CKD 2. DM 3. gerd 4. CAD 5. anemia 6. left IJ stenosis Current Medications Alprazolam (Xanax -) 0.25 mg PO Q12H PRN PRN Reason: ANXIETY Last Admin: 03/08/18 11:11 Dose: 0.25 mg Amlodipine Besylate (Norvasc -) 10 mg PO DAILY [facility] Last Admin: 03/08/18 09:28 Dose: 10 mg Atorvastatin Calcium (Lipitor -) 80 mg PO HS [facility] Last Admin: 03/07/18 21:15 Dose: 80 mg Carvedilol (Coreg -) 25 mg PO BID [facility] Last Admin: 03/08/18 09:28 Dose: 25 mg Cholecalciferol (Vitamin D3 -) 2,000 unit PO DAILY [facility] Last Admin: 03/08/18 09:28 Dose: 2,000 unit Clopidogrel Bisulfate (Plavix -) 75 mg PO DAILY [facility] Last Admin: 03/08/18 09:28 Dose: 75 mg Dorzolamide HCl (Trusopt 2%) 1 drop OU DAILY [facility] Last Admin: 03/08/18 11:12 Dose: 1 drop Ferrous Sulfate (Feosol -) 325 mg PO BID [facility] Last Admin: 03/08/18 09:28 Dose: 325 mg Fluticasone Propionate (Flonase -) 1 spray NS DAILY PRN PRN Reason: NASAL ALLERGY Heparin Sodium (Porcine) (Heparin -) 5,000 unit SQ TID [facility] Last Admin: 03/08/18 13:16 Dose: 5,000 unit Hydrochlorothiazide (Hctz -) 25 mg PO DAILY [facility] Last Admin: 03/08/18 09:28 Dose: 25 mg Piperacillin Sod/Tazobactam (Sod 3.375 gm/ Dextrose) 50 mls @ 100 mls/hr IVPB Q8H-IV [facility]; Protocol Last Admin: 03/08/18 17:18 Dose: 100 mls/hr Sodium Chloride (1/2 Normal Saline) 1,000 mls @ 100 mls/hr IV ASDIR [facility] Last Admin: 03/08/18 13:16 Dose: 100 mls/hr Insulin Aspart (Novolog Vial Sliding Scale -) 1 vial SQ TIDAC [facility]; Protocol Last Admin: 03/08/18 17:18 Dose: 2 units Insulin Detemir (Levemir Vial) 10 units SQ HS [facility] Isosorbide Mononitrate (Imdur -) 30 mg PO BID [facility] Last Admin: 03/08/18 09:28 Dose: 30 mg Latanoprost (Xalatan 0.005% Eye Drops -) 1 drop OU HS [facility] Last Admin: 03/07/18 21:17 Dose: 1 drop Losartan Potassium (Cozaar -) 50 mg PO BID [facility] Last Admin: 03/08/18 09:28 Dose: 50 mg Multivitamins (Total B With C -) 1 each PO DAILY [facility] Last Admin: 03/08/18 09:28 Dose: 1 each Multivitamins/Minerals/Vitamin C (Tab-A-Vit -) 1 tab PO DAILY [facility] Last Admin: 03/08/18 09:28 Dose: 1 tab Nitroglycerin (Nitrostat -) 0.4 mg SL TID PRN PRN Reason: FOR CHEST PAIN Non-Formulary Medication (Linaclotide [Linzess]) 290 mcg PO DAILY [facility] Pantoprazole Sodium (Protonix -) 40 mg PO DAILY [facility] Last Admin: 03/08/18 09:28 Dose: 40 mg Polyethylene Glycol (Miralax (For Daily Use) -) 17 gm PO DAILY [facility] Last Admin: 03/08/18 09:29 Dose: Not Given Ranitidine HCl (Zantac -) 150 mg PO BID [facility] Last Admin: 03/08/18 09:28 Dose: 150 mg Sertraline HCl (Zoloft -) 100 mg PO BID [facility] Last Admin: 03/08/18 09:28 Dose: 100 mg Last Vital Signs Temp Pulse Resp BP Pulse Ox 98 F 68 18 177/68 H 100 03/08/18 18:00 03/08/18 18:00 03/08/18 18:00 03/08/18 18:00 03/08/18 09:00 alert in nad no change in exam CBC, BMP 03/08/18 08:55 03/08/18 08:55 Hypernatremia improving improving azotemia severe anemia Plan continue same half NS - check bmp in am - monitor renal function - avoid nsaids - vascular surgery follow up
[2018-03-08] MEDS: INSULIN (LEVEMIR) 100 UNITS/ML UNITS SQ SCH (21:40)
[2018-03-08] MEDS: ATORVASTATIN CA 80 MG TABLET (FP) PO SCH (21:41)
[2018-03-08] MEDS: LATANOPROST 0.005% OPHTH SOLN 2.5ML BOTTLE OU SCH (21:42)
[2018-03-09] MEDS ORDERED: PIPERACILLIN/TAZOBACTAM 3.375 GM VIAL IVPB ONE ×3 (01:21→16:36)
[2018-03-09] MEDS ORDERED: DEXTROSE 5%-WATER - 50 ML IVPB ONE ×3 (01:21→16:36)
[2018-03-09] MEDS: SODIUM CHLORIDE 0.45% 1,000 ML IV SCH (01:41)
[2018-03-09] MEDS: PIPERACILLIN/TAZOB 3.375 GM 3.375 GM in DEXTROSE 5%-WATER - 50 ML IVPB SCH ×3 (01:42→17:19)
[2018-03-09] MEDS: HEPARIN NA (PORCINE) 5,000 UNITS/ML 1ML VIAL SQ SCH ×3 (05:55→21:51)
[2018-03-09] MEDS: INSULIN SLIDING SCALE (NOVOLOG) 1 VIAL SQ SCH ×3 (06:11→17:17)
[2018-03-09 08:44] LABS: BASO % 0.7 % (0-2.0); EOS % 4.6 % (0-4.5); HEMATOCRIT 24.2 % (32.4-45.2); HEMOGLOBIN 7.9 GM/dL (10.7-15.3); LYMPH % 12.1 % (8-40); MCH 30.9 pg (25.7-33.7); MCHC 32.7 g/dl (32.0-36.0); MEAN CELL VOLUME 94.7 fl (80-96); MEAN PLT VOLUME 9.1 fl (7.5-11.1); MONO % 6.5 % (3.8-10.2); NEUT % 76.1 % (42.8-82.8); PLATELET COUNT 247 K/MM3 (134-434); RBC 2.55 M/mm3 (3.60-5.2); RDW 13.8 % (11.6-15.6)
[2018-03-09 09:08] LABS: ALBUMIN 2.4 g/dl (3.4-5.0); ALK PHOS 89 U/L (45-117); ANION GAP 10 MMOL/L (8-16); BILIRUBIN,TOTAL 0.3 mg/dL (0.2-1); BLOOD UREA NITROGEN 30 mg/dL (7-18); CHLORIDE 114 mmol/L (98-107); CO2 22 mmol/L (21-32); CREATININE 1.4 mg/dL (0.55-1.3); GLUCOSE,RANDOM 103 mg/dL (74-106); POTASSIUM 3.6 mmol/L (3.5-5.1); SGOT/AST 25 U/L (15-37); SGPT/ALT 30 U/L (13-61); SODIUM 146 mmol/L (136-145); TOT PROT 5.2 g/dl (6.4-8.2)
[2018-03-09] MEDS: LOSARTAN POTASSIUM 50 MG TABLET (FP) PO SCH ×2 (09:10→21:51)
[2018-03-09] MEDS: ISOSORBIDE MONONITRATE 30 MG TAB.SR.24H (FP) PO SCH ×2 (09:10→21:51)
[2018-03-09] MEDS: amLODIPine BESYLATE 10 MG TABLET (FP) PO SCH (09:10)
[2018-03-09] MEDS ORDERED: REGADENOSON 0.4 MG/5 ML PRE-FILLED SYRINGE IVPUSH ONE ×2 (09:45→09:46)
[2018-03-09] MEDS: CARVEDILOL 25 MG TABLET (FP) PO SCH ×2 (12:32→21:51)
[2018-03-09] MEDS: MULTIVITAMINS (DAILY MVI) TABLET (FP) PO SCH (12:32)
[2018-03-09] MEDS: HYDROCHLOROTHIAZIDE 25 MG TABLET (FP) PO SCH (12:32)
[2018-03-09] MEDS: FERROUS SO4 325 MG TABLET (FP) PO SCH ×2 (12:32→21:51)
[2018-03-09] MEDS: RANITIDINE HCL 150 MG TABLET (FP) PO SCH ×2 (12:32→21:51)
[2018-03-09] MEDS: PANTOPRAZOLE 40 MG TABLET (FP) PO SCH (12:32)
[2018-03-09] MEDS: SERTRALINE HCL 50 MG TABLET (FP) PO SCH ×2 (12:32→21:51)
[2018-03-09] MEDS: CHOLECALCIFEROL (VITAMIN D3) 1,000 UNIT TABLET (FP) PO SCH (12:32)
[2018-03-09] MEDS: CLOPIDOGREL BISULFATE 75 MG TABLET (FP) PO SCH (12:32)
[2018-03-09] MEDS: POLYETHYLENE GLYCOL 3350 119 GM BTL PO SCH (12:34)
--- NOTE | 2018-03-09 12:36 | CONSULT ---
Admitting History and Physical - Primary Care Physician PCP: Noemi Polk - Admission History of Present Illness: Per EMR: Patient is a 77 year old female with a significant past medical history of CAD s /p 2 stents, HTN, HLD, DM, CKD stage III, depression/anxiety, glaucoma and IBS. She presented to the ED at the request of her PCP after she was noted to have increased leg swelling, SOB, cough, decreased physical activity over the past 4 days prior to admission. Patient reports she has had a 10 lb weight gain over the past several weeks. On admission she was noted to have a low grade temperature of 99F and labs notable with BNP 4756, BUN/Cr 56/1.8 (baseline), slightly elevated AST/ALT/Alk Phos. CHF exacerbation. shortness of breath. resolved. CXR with congestive changes Selected Entries 03/07/18 03/07/18 03/08/18 10:34 23:33 02:00 Breakfast 75% Supper 75% Temperature 98.6 F 03/08/18 03/08/18 03/08/18 06:00 09:57 10:00 Breakfast 50% Supper Temperature 98.2 F 98.4 F 03/08/18 03/08/18 03/08/18 14:01 18:00 22:00 Breakfast Supper 50% Temperature 98.4 F 98 F 98.7 F 03/09/18 03/09/18 03/09/18 01:21 05:00 09:00 Breakfast Supper Temperature 98.7 F 99.1 F 98.4 F 03/09/18 11:06 Breakfast NPO Supper Temperature Laboratory Tests 03/05/18 03/06/18 03/07/18 06:43 10:30 10:05 WBC 11.7 H 13.7 H 11.5 H 03/08/18 03/09/18 08:55 06:00 WBC 10.8 H 10.0 History Source: Patient Limitations to Obtaining History: No Limitations, Clinical Condition (tired, weak) - Past Medical History 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 Cardiovascular: Yes: CAD, CHF, HTN, Hyperlipdemia, Other (s/p stent in LAD and RCA.) Renal/: Yes: Renal Inusuff Psych: Yes: Anxiety, Depression, Other (had suicidal attempts in the past and recently few months ago had been admitted in psych [facility] for suicidal attempt.) Endocrine: Yes: Diabetes Mellitus - Past Surgical History Past Surgical History: Yes: - Advance Directives Advance Directives: Yes: Health Care Proxy - Smoking History Smoking history: Never smoked Have you smoked in the past 12 months: No Aproximately how many cigarettes per day: 0 - Alcohol/Substance Use Hx Alcohol Use: No History of Substance Use: reports: None - Social History ADL: Independent 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 of Recent Travel: No History - Admission Reason For Visit: CHF - Diagnostics X-ray: Report Reviewed CT Scan: Report Reviewed MRI: Report Reviewed - General Mental Status: Alert and Oriented, Awake and Alert, Able to Follow Commands, Vague (Accurate but slow to respond.) Ability to Follow Directions: Good Head/Neck Control: WFL - Hearing Hearing: Functional Hearing: Normal Speech Evaluation - Communication Primary Language: AMERICAN Communication: Yes: Within Normal Limits, Simple Responses - Speech Production Able to Make Needs Known: Yes: WNL Intelligibility: Yes: WNL - Speech Characteristics Voice Loudness: Normal, Mildly Soft/Quiet Voice Pitch: Yes: Normal Voice Phonatory-based Quality: Yes: Normal Speech Pattern: Normal Speech Clarity: < 100% Nasal Resonance: Normal Articulation: Yes: Precise - Language/Auditory Comprehension Follows: Yes: 1 Stage Simple Commands Observation: Able to respond to yes/no queries: Yes, Yes/No Confusion: No, Comprehends Conversational Speech: Yes - Language/Verbal Expression Able to Respond to Simple Queries: Yes: WNL Able to Communicate Wants and Needs: Yes: WNL Functional Communication Status: Yes: WNL Attention: Yes: Distractible, Mild Impairment - Swallow Evaluation/Bedside Assessment Current Nutritional Intake: Dysphagia Pureed, Thin Liquids, [place] Textured Liquids Oral Secretions: Yes: WFL Facial Symmetry on Retraction: Symmetrical Facial Movement: Controlled Against Resistance Opening: Normal Against Resistance Closing: Normal Pucker Lips: Normal Smile: Normal Lingual Movement: Normal, Symmetric Lingual Speed of Movement: Normal Lingual Movement Strgth Against Opposition: Normal Lingual Movement Characteristics: Normal Velopharyngeal Movement: Normal Laryngeal Movement: Labored,delay initiation Rate of Intake: Slow/Holding Bolus Size: Small Labial Seal: WFL Oral Prep Time: Increased A-P Transit: Impaired Timing of Swallow: Delayed Coughing/Throat Clear: Yes (1 instance of throat clearing on thin liquid.) Change in Voice: No Recommendations - Speech Evaluation, Impression/Plan Impression: Oral holding with slow PO intake. Nursing feels pt is tired from testing earlier. Oriented but slow to respond. Pt has puree/thick liquid and thin liquid at bedside. 1 instance of throat clearing on thin liquid.Repeated trials with good tolerance. - Dysphagia Impressions/Plan Dysphagia Impressions: Minimal Impairment, Risk of Aspiration, Ongoing Evaluation *Silent aspiration: cannot be R/O at bedside Dysphagia Treatment Plan: Elevate HOB during feed Recommendations: Modified Barium Swallow (If cough, congestion, throat clearing , fever) - Recommendations Diet Consistency: Dysphagia Pureed Medication Administration: Crushed with applesauce Liquids: Thin Liquids (trial. Observe tolerance) Supplement: Ensure, Magic Cup, Ensure Pudding
[2018-03-09] MEDS: ALPRAZolam 0.25 MG TABLET PO PRN (12:46)
--- NOTE | 2018-03-09 12:54 | PN ---
Progress Note, Physician History of Present Illness: Pt seen and examined at bedside. She denies shortness of breath. She denies dysuria. - Current Medication List Current Medications: Active Medications Alprazolam (Xanax -) 0.25 mg PO Q12H PRN PRN Reason: ANXIETY Last Admin: 03/09/18 12:46 Dose: 0.25 mg Amlodipine Besylate (Norvasc -) 10 mg PO DAILY [facility] Last Admin: 03/09/18 09:10 Dose: 10 mg Atorvastatin Calcium (Lipitor -) 80 mg PO HS [facility] Last Admin: 03/08/18 21:41 Dose: 80 mg Carvedilol (Coreg -) 25 mg PO BID [facility] Last Admin: 03/09/18 12:32 Dose: 25 mg Cholecalciferol (Vitamin D3 -) 2,000 unit PO DAILY [facility] Last Admin: 03/09/18 12:32 Dose: 2,000 unit Clopidogrel Bisulfate (Plavix -) 75 mg PO DAILY [facility] Last Admin: 03/09/18 12:32 Dose: 75 mg Dorzolamide HCl (Trusopt 2%) 1 drop OU DAILY [facility] Last Admin: 03/08/18 11:12 Dose: 1 drop Ferrous Sulfate (Feosol -) 325 mg PO BID [facility] Last Admin: 03/09/18 12:32 Dose: 325 mg Fluticasone Propionate (Flonase -) 1 spray NS DAILY PRN PRN Reason: NASAL ALLERGY Heparin Sodium (Porcine) (Heparin -) 5,000 unit SQ TID [facility] Last Admin: 03/09/18 05:55 Dose: 5,000 unit Hydrochlorothiazide (Hctz -) 25 mg PO DAILY [facility] Last Admin: 03/09/18 12:32 Dose: 25 mg Piperacillin Sod/Tazobactam (Sod 3.375 gm/ Dextrose) 50 mls @ 100 mls/hr IVPB Q8H-IV [facility]; Protocol Last Admin: 03/09/18 12:31 Dose: 100 mls/hr Sodium Chloride (1/2 Normal Saline) 1,000 mls @ 100 mls/hr IV ASDIR [facility] Last Admin: 03/09/18 01:41 Dose: 100 mls/hr Insulin Aspart (Novolog Vial Sliding Scale -) 1 vial SQ TIDAC [facility]; Protocol Last Admin: 03/09/18 12:34 Dose: Not Given Insulin Detemir (Levemir Vial) 10 units SQ HS [facility] Last Admin: 03/08/18 21:40 Dose: 10 units Isosorbide Mononitrate (Imdur -) 30 mg PO BID [facility] Last Admin: 03/09/18 09:10 Dose: 30 mg Latanoprost (Xalatan 0.005% Eye Drops -) 1 drop OU HS [facility] Last Admin: 03/08/18 21:42 Dose: 1 drop Losartan Potassium (Cozaar -) 50 mg PO BID [facility] Last Admin: 03/09/18 09:10 Dose: 50 mg Multivitamins (Total B With C -) 1 each PO DAILY [facility] Last Admin: 03/08/18 09:28 Dose: 1 each Multivitamins/Minerals/Vitamin C (Tab-A-Vit -) 1 tab PO DAILY [facility] Last Admin: 03/09/18 12:32 Dose: 1 tab Nitroglycerin (Nitrostat -) 0.4 mg SL TID PRN PRN Reason: FOR CHEST PAIN Non-Formulary Medication (Linaclotide [Linzess]) 290 mcg PO DAILY [facility] Pantoprazole Sodium (Protonix -) 40 mg PO DAILY [facility] Last Admin: 03/09/18 12:32 Dose: 40 mg Polyethylene Glycol (Miralax (For Daily Use) -) 17 gm PO DAILY [facility] Last Admin: 03/09/18 12:34 Dose: Not Given Ranitidine HCl (Zantac -) 150 mg PO BID [facility] Last Admin: 03/09/18 12:32 Dose: 150 mg Sertraline HCl (Zoloft -) 100 mg PO BID [facility] Last Admin: 03/09/18 12:32 Dose: 100 mg - Objective Vital Signs: Vital Signs Temperature 98.4 F 03/09/18 09:00 Pulse Rate 73 03/09/18 09:00 Respiratory Rate 18 03/09/18 09:00 Blood Pressure 192/78 H 03/09/18 09:00 O2 Sat by Pulse Oximetry (%) 98 03/09/18 09:00 Constitutional: Yes: Calm Eyes: Yes: Conjunctiva Clear HENT: Yes: Atraumatic Neck: Yes: Supple Cardiovascular: Yes: S1, S2 Respiratory: Yes: CTA Bilaterally Gastrointestinal: Yes: Soft Genitourinary: Yes: WNL Edema: Yes Edema: LLE: Trace, RLE: Trace Neurological: Yes: Oriented Psychiatric: Yes: Oriented Labs: CBC, BMP 03/09/18 06:00 03/09/18 08:20 Problem List - Problems (1) CHF (congestive heart failure) Code(s): I50.9 - HEART FAILURE, UNSPECIFIED (2) CKD (chronic kidney disease) stage 3, GFR 30-59 ml/min Code(s): N18.3 - CHRONIC KIDNEY DISEASE, STAGE 3 (MODERATE) Assessment/Plan Current Medications Generic Name Dose Route Start Last Admin Trade Name Freq PRN Reason Stop Dose Admin Alprazolam 0.25 mg 03/07/18 13:15 03/09/18 12:46 Xanax - PO 0.25 mg Q12H PRN Administration ANXIETY Amlodipine Besylate 10 mg 03/01/18 10:00 03/09/18 09:10 Norvasc - PO 10 mg DAILY [facility] Administration Atorvastatin Calcium 80 mg 03/04/18 22:00 03/08/18 21:41 Lipitor - PO 80 mg HS [facility] Administration Carvedilol 25 mg 02/28/18 22:00 03/09/18 12:32 Coreg - PO 25 mg BID [facility] Administration Cholecalciferol 2,000 unit 03/01/18 10:00 03/09/18 12:32 Vitamin D3 - PO 2,000 unit DAILY [facility] Administration Clopidogrel Bisulfate 75 mg 03/01/18 10:00 03/09/18 12:32 Plavix - PO 75 mg DAILY [facility] Administration Dorzolamide HCl 1 drop 03/01/18 10:00 03/08/18 11:12 Trusopt 2% OU 1 drop DAILY [facility] Administration Ferrous Sulfate 325 mg 02/28/18 22:00 03/09/18 12:32 Feosol - PO 325 mg BID [facility] Administration Fluticasone Propionate 1 spray 02/28/18 15:16 Flonase - NS DAILY PRN NASAL ALLERGY Heparin Sodium (Porcine) 5,000 unit 03/05/18 14:00 03/09/18 05:55 Heparin - SQ 5,000 unit TID [facility] Administration Hydrochlorothiazide 25 mg 03/01/18 10:00 03/09/18 12:32 Hctz - PO 25 mg DAILY [facility] Administration Piperacillin Sod/Tazobactam 50 mls @ 100 mls/hr 03/06/18 13:30 12/03/18 12:31 Sod 3.375 gm/ Dextrose IVPB 100 mls/hr Q8H-IV [facility] Administration Protocol Sodium Chloride 1,000 mls @ 100 mls/hr 03/07/18 20:45 03/09/18 01:41 1/2 Normal Saline IV 100 mls/hr ASDIR [facility] Administration Insulin Aspart 1 vial 02/28/18 16:30 03/09/18 12:34 Novolog Vial Sliding Scale - SQ Not Given TIDAC [facility] Protocol Insulin Detemir 10 units 03/08/18 09:49 03/08/18 21:40 Levemir Vial SQ 10 units HS [facility] Administration Isosorbide Mononitrate 30 mg 02/28/18 22:00 03/09/18 09:10 Imdur - PO 30 mg BID [facility] Administration Latanoprost 1 drop 02/28/18 22:00 03/08/18 21:42 Xalatan 0.005% Eye Drops - OU 1 drop HS [facility] Administration Losartan Potassium 50 mg 02/28/18 22:00 03/09/18 09:10 Cozaar - PO 50 mg BID [facility] Administration Multivitamins 1 each 03/01/18 10:00 03/08/18 09:28 Total B With C - PO 1 each DAILY [facility] Administration Multivitamins/Minerals/Vitamin C 1 tab 03/06/18 13:45 03/09/18 12:32 Tab-A-Vit - PO 1 tab DAILY [facility] Administration Nitroglycerin 0.4 mg 02/28/18 15:16 Nitrostat - SL TID PRN FOR CHEST PAIN Non-Formulary Medication 290 mcg 03/01/18 10:00 Linaclotide [Linzess] PO DAILY [facility] Pantoprazole Sodium 40 mg 03/04/18 10:00 03/09/18 12:32 Protonix - PO 40 mg DAILY [facility] Administration Polyethylene Glycol 17 gm 03/01/18 10:00 03/09/18 12:34 Miralax (For Daily Use) - PO Not Given DAILY [facility] Ranitidine HCl 150 mg 03/06/18 22:00 03/09/18 12:32 Zantac - PO 150 mg BID [facility] Administration Sertraline HCl 100 mg 02/28/18 22:00 03/09/18 12:32 Zoloft - PO 100 mg BID [facility] Administration Impression 1. CKD 2. DM 3. gerd 4. CAD 5. anemia 6. left IJ stenosis Plan - d/c 04/08 ns - start d5w with potassium at 40 cc - repeat labs in am - follow up speech and swallow - renal function stable - avoid nsaids - vascular surgery follow up Dr Zhu
[2018-03-09] MEDS: VITAMIN B COMPLEX W/C COMBO TABLET (FP) PO SCH (12:56)
[2018-03-09] MEDS: DORZOLAMIDE 2% HCL OPHTHALMIC SOLUTION 10 ML BOTTLE OU SCH (12:57)
[2018-03-09] MEDS ORDERED: DEXTROSE 5%-WATER - 1,000 ML with POTASSIUM CHLORIDE 10 MEQ IVPB SCH (13:00)
--- NOTE | 2018-03-09 15:33 | PN ---
Progress Note, Physician History of Present Illness: patient stable no complaints' weakness improving - Current Medication List Current Medications: Active Medications Alprazolam (Xanax -) 0.25 mg PO Q12H PRN PRN Reason: ANXIETY Last Admin: 03/09/18 12:46 Dose: 0.25 mg Amlodipine Besylate (Norvasc -) 10 mg PO DAILY [facility] Last Admin: 03/09/18 09:10 Dose: 10 mg Atorvastatin Calcium (Lipitor -) 80 mg PO HS [facility] Last Admin: 03/08/18 21:41 Dose: 80 mg Carvedilol (Coreg -) 25 mg PO BID [facility] Last Admin: 03/09/18 12:32 Dose: 25 mg Cholecalciferol (Vitamin D3 -) 2,000 unit PO DAILY [facility] Last Admin: 03/09/18 12:32 Dose: 2,000 unit Clopidogrel Bisulfate (Plavix -) 75 mg PO DAILY [facility] Last Admin: 03/09/18 12:32 Dose: 75 mg Dorzolamide HCl (Trusopt 2%) 1 drop OU DAILY [facility] Last Admin: 03/09/18 12:57 Dose: 1 drop Ferrous Sulfate (Feosol -) 325 mg PO BID [facility] Last Admin: 03/09/18 12:32 Dose: 325 mg Fluticasone Propionate (Flonase -) 1 spray NS DAILY PRN PRN Reason: NASAL ALLERGY Heparin Sodium (Porcine) (Heparin -) 5,000 unit SQ TID [facility] Last Admin: 03/09/18 13:28 Dose: 5,000 unit Hydrochlorothiazide (Hctz -) 25 mg PO DAILY [facility] Last Admin: 03/09/18 12:32 Dose: 25 mg Piperacillin Sod/Tazobactam (Sod 3.375 gm/ Dextrose) 50 mls @ 100 mls/hr IVPB Q8H-IV [facility]; Protocol Last Admin: 03/09/18 12:31 Dose: 100 mls/hr Potassium Chloride 10 meq/ (Dextrose) 1,005 mls @ 41.875 mls/hr IVPB Q24H [facility] Insulin Aspart (Novolog Vial Sliding Scale -) 1 vial SQ TIDAC [facility]; Protocol Last Admin: 03/09/18 12:34 Dose: Not Given Insulin Detemir (Levemir Vial) 10 units SQ [facility] Last Admin: 03/08/18 21:40 Dose: 10 units Isosorbide Mononitrate (Imdur -) 30 mg PO BID [facility] Last Admin: 03/09/18 09:10 Dose: 30 mg Latanoprost (Xalatan 0.005% Eye Drops -) 1 drop OU HS [facility] Last Admin: 03/08/18 21:42 Dose: 1 drop Losartan Potassium (Cozaar -) 50 mg PO BID [facility] Last Admin: 03/09/18 09:10 Dose: 50 mg Multivitamins (Total B With C -) 1 each PO DAILY [facility] Last Admin: 03/09/18 12:56 Dose: 1 each Multivitamins/Minerals/Vitamin C (Tab-A-Vit -) 1 tab PO DAILY [facility] Last Admin: 03/09/18 12:32 Dose: 1 tab Nitroglycerin (Nitrostat -) 0.4 mg SL TID PRN PRN Reason: FOR CHEST PAIN Non-Formulary Medication (Linaclotide [Linzess]) 290 mcg PO DAILY [facility] Pantoprazole Sodium (Protonix -) 40 mg PO DAILY [facility] Last Admin: 03/09/18 12:32 Dose: 40 mg Polyethylene Glycol (Miralax (For Daily Use) -) 17 gm PO DAILY [facility] Last Admin: 03/09/18 12:34 Dose: Not Given Ranitidine HCl (Zantac -) 150 mg PO BID [facility] Last Admin: 03/09/18 12:32 Dose: 150 mg Sertraline HCl (Zoloft -) 100 mg PO BID [facility] Last Admin: 03/09/18 12:32 Dose: 100 mg - Objective Vital Signs: Vital Signs Temperature 98.1 F 03/09/18 14:00 Pulse Rate 84 03/09/18 14:00 Respiratory Rate 18 03/09/18 09:00 Blood Pressure 155/66 03/09/18 14:00 O2 Sat by Pulse Oximetry (%) 98 03/09/18 09:00 Constitutional: Yes: No Distress, Calm Cardiovascular: Yes: Regular Rate and Rhythm Respiratory: Yes: Regular, CTA Bilaterally Gastrointestinal: Yes: Normal Bowel Sounds, Soft Musculoskeletal: Yes: WNL Extremities: Yes: WNL Neurological: Yes: Alert, Oriented Psychiatric: Yes: Alert, Oriented Labs: CBC, BMP 03/09/18 06:00 03/09/18 08:20 Assessment/Plan CHF Exacerbation Transaminitis TIA history CAD Diabetes HTN HLD CKD Stage III Iron Deficiency Anemia IBS Depression/anxiety Glaucoma plan continue current mgmt ordoñez witch to oral tomorrow wbc has normalized rest as per the team
[2018-03-09] MEDS: POTASSIUM CHLORIDE 10 MEQ in DEXTROSE 5%-WATER - 1,000 ML IVPB SCH (15:50)
--- NOTE | 2018-03-09 17:20 | PN ---
Progress Note, Physician History of Present Illness: 77 year old black female (zaria Rouse), with a PMH significant for CAD s/p 2 stents ,(the 1st in 2005), HTN, HLD, DM, CKD stage III, Depression/anxiety, glaucoma and IBS presented to the ED at the request of her PCP with increased leg swelling and SOB, cough, ECKERT over the past 4 days. Patient reports she has had a 10 lb weight gain over the past several weeks though it has been harder for her to eat with the fluid accumulation and chronic gas problem. She was seen by her PCP Dr. Navarro on Friday who recommended she present to the ED for IV diuresis. Denies headaches, chest pain, palpitations, n/v/d. Upon admission to the ED she had a low grade temperature of 99.0. Labs notable for BNP 4756, BUN/Cr 56/1.8 (baseline), slightly elevated AST/ALT/Alk Phos elevated at 38/82/160, Trop negative CXR positive for congestive changes, ECG unremarkable. She was given IM Lasix in the ED which she reports at the time of exam not to have cause her to urinate very much yet. - Current Medication List Current Medications: Active Medications Alprazolam (Xanax -) 0.25 mg PO Q12H PRN PRN Reason: ANXIETY Last Admin: 03/09/18 12:46 Dose: 0.25 mg Amlodipine Besylate (Norvasc -) 10 mg PO DAILY [facility] Last Admin: 03/09/18 09:10 Dose: 10 mg Atorvastatin Calcium (Lipitor -) 80 mg PO HS [facility] Last Admin: 03/08/18 21:41 Dose: 80 mg Carvedilol (Coreg -) 25 mg PO BID [facility] Last Admin: 03/09/18 12:32 Dose: 25 mg Cholecalciferol (Vitamin D3 -) 2,000 unit PO DAILY [facility] Last Admin: 03/09/18 12:32 Dose: 2,000 unit Clopidogrel Bisulfate (Plavix -) 75 mg PO DAILY [facility] Last Admin: 03/09/18 12:32 Dose: 75 mg Dorzolamide HCl (Trusopt 2%) 1 drop OU DAILY [facility] Last Admin: 03/09/18 12:57 Dose: 1 drop Ferrous Sulfate (Feosol -) 325 mg PO BID [facility] Last Admin: 03/09/18 12:32 Dose: 325 mg Fluticasone Propionate (Flonase -) 1 spray NS DAILY PRN PRN Reason: NASAL ALLERGY Heparin Sodium (Porcine) (Heparin -) 5,000 unit SQ TID [facility] Last Admin: 03/09/18 13:28 Dose: 5,000 unit Hydrochlorothiazide (Hctz -) 25 mg PO DAILY [facility] Last Admin: 03/09/18 12:32 Dose: 25 mg Piperacillin Sod/Tazobactam (Sod 3.375 gm/ Dextrose) 50 mls @ 100 mls/hr IVPB Q8H-IV [facility]; Protocol Last Admin: 03/09/18 17:19 Dose: 100 mls/hr Potassium Chloride 10 meq/ (Dextrose) 1,005 mls @ 41.875 mls/hr IVPB Q24H [facility] Last Admin: 03/09/18 15:50 Dose: 41.875 mls/hr Insulin Aspart (Novolog Vial Sliding Scale -) 1 vial SQ TIDAC [facility]; Protocol Last Admin: 03/09/18 17:17 Dose: Not Given Insulin Detemir (Levemir Vial) 10 units SQ HS [facility] Last Admin: 03/08/18 21:40 Dose: 10 units Isosorbide Mononitrate (Imdur -) 30 mg PO BID [facility] Last Admin: 03/09/18 09:10 Dose: 30 mg Latanoprost (Xalatan 0.005% Eye Drops -) 1 drop OU HS [facility] Last Admin: 03/08/18 21:42 Dose: 1 drop Losartan Potassium (Cozaar -) 50 mg PO BID [facility] Last Admin: 03/09/18 09:10 Dose: 50 mg Multivitamins (Total B With C -) 1 each PO DAILY [facility] Last Admin: 03/09/18 12:56 Dose: 1 each Multivitamins/Minerals/Vitamin C (Tab-A-Vit -) 1 tab PO DAILY [facility] Last Admin: 03/09/18 12:32 Dose: 1 tab Nitroglycerin (Nitrostat -) 0.4 mg SL TID PRN PRN Reason: FOR CHEST PAIN Non-Formulary Medication (Linaclotide [Linzess]) 290 mcg PO DAILY [facility] Pantoprazole Sodium (Protonix -) 40 mg PO DAILY [facility] Last Admin: 03/09/18 12:32 Dose: 40 mg Polyethylene Glycol (Miralax (For Daily Use) -) 17 gm PO DAILY [facility] Last Admin: 03/09/18 12:34 Dose: Not Given Ranitidine HCl (Zantac -) 150 mg PO BID [facility] Last Admin: 03/09/18 12:32 Dose: 150 mg Sertraline HCl (Zoloft -) 100 mg PO BID [facility] Last Admin: 03/09/18 12:32 Dose: 100 mg - Objective Vital Signs: Vital Signs Temperature 98.1 F 03/09/18 14:00 Pulse Rate 84 03/09/18 14:00 Respiratory Rate 18 03/09/18 09:00 Blood Pressure 155/66 03/09/18 14:00 O2 Sat by Pulse Oximetry (%) 98 03/09/18 09:00 Eyes: Yes: WNL, Conjunctiva Clear, EOM Intact HENT: Yes: WNL, Atraumatic, Normocephalic Neck: Yes: WNL, Supple, Trachea Midline Cardiovascular: Yes: WNL, Regular Rate and Rhythm Respiratory: Yes: WNL, Regular, CTA Bilaterally Gastrointestinal: Yes: WNL, Normal Bowel Sounds Genitourinary: Yes: WNL Musculoskeletal: Yes: WNL Extremities: Yes: WNL Edema: No Integumentary: Yes: WNL Neurological: Yes: WNL, Alert, Oriented ...Motor Strength: WNL Psychiatric: Yes: WNL Labs: CBC, BMP 03/09/18 06:00 03/09/18 08:20 Assessment/Plan Problems (1) Acute on chronic diastolic (congestive) heart failure Assessment/Plan: ECHO: normal LVEF; severe pulmonary HTN On beta blockers. On ARB, HCTZ, Imdur. F/u BUN/Cr, electrolytes, daily weight, Is and Os. Code(s): I50.33 - ACUTE ON CHRONIC DIASTOLIC (CONGESTIVE) HEART FAILURE (2) CKD (chronic kidney disease) stage 3, GFR 30-59 ml/min Code(s): N18.3 - CHRONIC KIDNEY DISEASE, STAGE 3 (MODERATE) (3) IBS (irritable bowel syndrome) Code(s): K58.9 - IRRITABLE BOWEL SYNDROME WITHOUT DIARRHEA (4) Diabetes mellitus Code(s): E11.9 - TYPE 2 DIABETES MELLITUS WITHOUT COMPLICATIONS (5) Hyperlipidemia Code(s): E78.5 - HYPERLIPIDEMIA, UNSPECIFIED (6) Hypertension Assessment/Plan: See "diastolic CHF". Code(s): I10 - ESSENTIAL (PRIMARY) HYPERTENSION Qualifiers: Hypertension type: essential hypertension Qualified Code(s): I10 - Essential (primary) hypertension (7) Severe pulmonary arterial systolic hypertension Code(s): I27.21 - SECONDARY PULMONARY ARTERIAL HYPERTENSION (8) H/O heart artery stent Assessment/Plan: f/u records of coronary angiograms and PCIs. TNI 0.05 lexiscan MIBI for risk stratification. Code(s): Z95.5 - PRESENCE OF CORONARY ANGIOPLASTY IMPLANT AND GRAFT PAD L ICAsevere stenosis awaiting CEA after the stress test - cancelled today due to htn
--- NOTE | 2018-03-09 17:39 | PN ---
Physical Exam: SUBJECTIVE: Patient seen and examined at the bedside. feels well, mentation at baseline. ambulating in room OBJECTIVE: patient admitted for chf exacerbation which has resolved. developed AMS during hospitalization. workup reveal left carotid stenosis, worse from 11/2017. for a left CEA but needs cardiac clearance first. CTA incidentally showed pnemonia (aspiration?) and is now on zosyn. She needs a Lexiscan stress test before the CEA. They attempted today but her BP became elevated and could not complete test 2/2 to high BP. the second part of the lexiscan stress test tomorrow if bp is better. no caffeine. npo after midnight. cardiology aware and following. Vital Signs Period Temp Pulse Resp BP Sys/Morrison Pulse Ox Last 24 Hr 98 F-99.1 F 68-84 18-18 147-192/66-105 98-98 GENERAL: The patient is awake, in no acute distress. aox3 HEAD: Normal with no signs of trauma. no facial twitching reported overnight. EYES: PERRL, extraocular movements intact, sclera anicteric, conjunctiva clear. No ptosis. ENT: Ears normal, nares patent, oropharynx clear without exudates, moist mucous membranes. NECK: Trachea midline, full range of motion, supple. LUNGS: clear to auscultation upper lobes, lower lobes diminished. no leg edema. HEART: Regular rate and rhythm ABDOMEN: Soft, nontender, nondistended, normoactive bowel sounds, no guarding EXTREMITIES: no edema on either extremity. NEUROLOGICAL: Normal speech, gait steady PSYCH: more awake and alert Laboratory Results - last 24 hr 03/08/18 03/09/18 03/09/18 21:32 05:33 06:00 WBC 10.0 RBC 2.55 L Hgb 7.9 L Hct 24.2 L MCV 94.7 MCH 30.9 MCHC 32.7 RDW 13.8 Plt Count 247 MPV 9.1 Absolute Neuts (auto) 7.6 Neutrophils % 76.1 Lymphocytes % 12.1 Monocytes % 6.5 Eosinophils % 4.6 H Basophils % 0.7 Nucleated RBC % 0 Sodium Potassium Chloride Carbon Dioxide Anion Gap BUN Creatinine Creat Clearance w eGFR POC Glucometer 199 104 Random Glucose Calcium Total Bilirubin AST ALT Alkaline Phosphatase Total Protein Albumin 03/09/18 03/09/18 03/09/18 08:20 08:40 12:18 WBC RBC Hgb Hct MCV MCH MCHC RDW Plt Count MPV Absolute Neuts (auto) Neutrophils % Lymphocytes % Monocytes % Eosinophils % Basophils % Nucleated RBC % Sodium 146 H Potassium 3.6 Chloride 114 H Carbon Dioxide 22 Anion Gap 10 BUN 30 H Creatinine 1.4 H Creat Clearance w eGFR 36.46 POC Glucometer 124 140 Random Glucose 103 Calcium 8.0 L Total Bilirubin 0.3 AST 25 ALT 30 Alkaline Phosphatase 89 Total Protein 5.2 L Albumin 2.4 L Active Medications Generic Name Dose Route Start Last Admin Trade Name Freq PRN Reason Stop Dose Admin Alprazolam 0.25 mg 03/07/18 13:15 03/09/18 12:46 Xanax - PO 0.25 mg Q12H PRN Administration ANXIETY Amlodipine Besylate 10 mg 03/01/18 10:00 03/09/18 09:10 Norvasc - PO 10 mg DAILY BLAS Administration Atorvastatin Calcium 80 mg 03/04/18 22:00 03/08/18 21:41 Lipitor - PO 80 mg HS BLAS Administration Carvedilol 25 mg 02/28/18 22:00 03/09/18 12:32 Coreg - PO 25 mg BID BLAS Administration Cholecalciferol 2,000 unit 03/01/18 10:00 03/09/18 12:32 Vitamin D3 - PO 2,000 unit DAILY BLAS Administration Clopidogrel Bisulfate 75 mg 03/01/18 10:00 03/09/18 12:32 Plavix - PO 75 mg DAILY BLAS Administration Dorzolamide HCl 1 drop 03/01/18 10:00 03/09/18 12:57 Trusopt 2% OU 1 drop DAILY BLAS Administration Ferrous Sulfate 325 mg 02/28/18 22:00 03/09/18 12:32 Feosol - PO 325 mg BID BLAS Administration Fluticasone Propionate 1 spray 02/28/18 15:16 Flonase - NS DAILY PRN NASAL ALLERGY Heparin Sodium (Porcine) 5,000 unit 03/05/18 14:00 03/09/18 13:28 Heparin - SQ 5,000 unit TID BLAS Administration Hydrochlorothiazide 25 mg 03/01/18 10:00 03/09/18 12:32 Hctz - PO 25 mg DAILY BLSA Administration Piperacillin Sod/Tazobactam 50 mls @ 100 mls/hr 03/06/18 13:30 03/09/18 17:19 Sod 3.375 gm/ Dextrose IVPB 100 mls/hr Q8H-IV BLAS Administration Protocol Potassium Chloride 10 meq/ 1,005 mls @ 41.875 mls/hr 03/09/18 13:40 03/09/18 15:50 Dextrose IVPB 41.875 mls/hr Q24H BLAS Administration Insulin Aspart 1 vial 02/28/18 16:30 03/09/18 17:17 Novolog Vial Sliding Scale - SQ Not Given TIDAC BLAS Protocol Insulin Detemir 10 units 03/08/18 09:49 03/08/18 21:40 Levemir Vial SQ 10 units HS BLAS Administration Isosorbide Mononitrate 30 mg 02/28/18 22:00 03/09/18 09:10 Imdur - PO 30 mg BID BLAS Administration Latanoprost 1 drop 02/28/18 22:00 03/08/18 21:42 Xalatan 0.005% Eye Drops - OU 1 drop HS BLAS Administration Losartan Potassium 50 mg 02/28/18 22:00 03/09/18 09:10 Cozaar - PO 50 mg BID BLAS Administration Multivitamins 1 each 03/01/18 10:00 03/09/18 12:56 Total B With C - PO 1 each DAILY BLAS Administration Multivitamins/Minerals/Vitamin C 1 tab 03/06/18 13:45 03/09/18 12:32 Tab-A-Vit - PO 1 tab DAILY BLAS Administration Nitroglycerin 0.4 mg 02/28/18 15:16 Nitrostat - SL TID PRN FOR CHEST PAIN Non-Formulary Medication 290 mcg 03/01/18 10:00 Linaclotide [Linzess] PO DAILY BLAS Pantoprazole Sodium 40 mg 03/04/18 10:00 03/09/18 12:32 Protonix - PO 40 mg DAILY BLAS Administration Polyethylene Glycol 17 gm 03/01/18 10:00 03/09/18 12:34 Miralax (For Daily Use) - PO Not Given DAILY BLAS Ranitidine HCl 150 mg 03/06/18 22:00 03/09/18 12:32 Zantac - PO 150 mg BID BLAS Administration Sertraline HCl 100 mg 02/28/18 22:00 03/09/18 12:32 Zoloft - PO 100 mg BID BLAS Administration Imaging: chest xray: new congestive changes and fluid in horizontal fissure compared with 07/23 EKG: nsr, TWI in leads 1 and avl, axis wnl, intervals wnl carotid doppler, stenosis of left internal artery, 80-99%. neck cta: stenosis 80-85% left carotid artery. ASSESSMENT/PLAN: Patient is a 77 year old female with a significant past medical history of CAD s /p 2 stents, HTN, HLD, DM, CKD stage III, depression/anxiety, glaucoma and IBS. She presented to the ED at the request of her PCP after she was noted to have increased leg swelling, SOB, cough, decreased physical activity over the past 4 days prior to admission. Patient reports she has had a 10 lb weight gain over the past several weeks. On admission she was noted to have a low grade temperature of 99F and labs notable with BNP 4756, BUN/Cr 56/1.8 (baseline), slightly elevated AST/ALT/Alk Phos. Cardiology: CHF exacerbation. shortness of breath. resolved. tolerating room air. CXR with congestive changes. bnp elevated @ 4700 on admission. on HCTZ. no current signs of volume overload. daily weights 62kg > 58kg. echo with normal LVEF; severe pulmonary HTN. Cardiology following. CAD S/p LAD and RCA stents. On imdur. Outpatient cardiology follow up (Dr SCHUMACHER @ [place]). being followed by cardiology here. Hypertension. elevated. On amlodopine 10mg daily, coreq 25 po bid, hctz 25mg daily, losartan 50mg bid. Imdur. uptitration of cardiac meds per cardiology. HLD, chronic. On statin therapy, increased to lipitor 80mg during hospitalization. Vascular Carotid stenosis. acute on chronic. Doppler study 11/2017, showed 70% occlusion of left internal carotid artery. Doppler study 02/2018, shows 80-99% occlusion of left internal carotid artery neck CTA with 80-85% stenosis. Vascular surgery consulted and following. Patient on Plavix 75mg daily. CEA surgery once cleared by cardiology. ID: Leukocytosis. resolved. On Zosyn for possible aspiration pneumonia as seen on CTA. blood cultures negative. no fevers. GI: Transaminitis. resolved. Neuro: TIA, history. No neuro deficits noted. On Plavix [address] negative brain mri negative Acute metabolic encephalopathy. resolved. Altered mental status vs. delirium. resolved. Her mentation has improved and back to baseline. Head Ct negative. brain mri negative. Re cultured to rule out acute infection , but cultures are negative. Being treated for pneumonia per CTA. now on Zosyn (day 4) Facial twitching. resolved Patient on xanax at home, med placed on prn status here when pt became confused with ams. xanax bid scheduled. neurology following. Endocrine: Diabetes. chronic. SS with Novolog coverage. On Levemir. diabetic diet. blood sugars stable. Renal: CKD Stage III. creat 1.6. baseline between 1.6~1.8. Follows renal outpatient (Dr. Soto). patient had cta neck with contrast on 03/05/18. monitor kidney f/x post CTA. on 04/08 NS @ 75cc. renal following. Heme: Iron Deficiency Anemia. hmg/hct, low stable. On Iron 325mg bid tabs. GI: IBS. On Linzess 290 mcg PO qday Psyche: Depression/anxiety Hx of suicide attempts On Vistaril 25 mg PO qday, Zoloft 100 mg PO BID xanax bid. fen tolerating PO monitor electrolytes low salt diet prophy ambulation heparin tid Discharge plan: Stress test prior to CEA surgery. full code. Visit type - Emergency Visit Emergency Visit: Yes ED Registration Date: 03/02/18 Care time: The patient presented to the Emergency Department on the above date and was hospitalized for further evaluation of their emergent condition. - New Patient This patient is new to me today: No - Critical Care Critical Care patient: No - Discharge Referral Referred to [facility] Med P.C.: No
[2018-03-09] MEDS: INSULIN (LEVEMIR) 100 UNITS/ML UNITS SQ SCH (21:50)
[2018-03-09] MEDS: ATORVASTATIN CA 80 MG TABLET (FP) PO SCH (21:51)
[2018-03-09] MEDS: LATANOPROST 0.005% OPHTH SOLN 2.5ML BOTTLE OU SCH (21:55)
[2018-03-10] MEDS ORDERED: DEXTROSE 5%-WATER - 50 ML IVPB ONE ×2 (01:21→10:31)
[2018-03-10] MEDS ORDERED: PIPERACILLIN/TAZOBACTAM 3.375 GM VIAL IVPB ONE ×2 (01:21→10:31)
[2018-03-10] MEDS: PIPERACILLIN/TAZOB 3.375 GM 3.375 GM in DEXTROSE 5%-WATER - 50 ML IVPB SCH ×2 (02:03→12:48)
[2018-03-10] MEDS: INSULIN SLIDING SCALE (NOVOLOG) 1 VIAL SQ SCH ×3 (06:36→17:27)
[2018-03-10] MEDS: HEPARIN NA (PORCINE) 5,000 UNITS/ML 1ML VIAL SQ SCH ×3 (06:36→22:50)
[2018-03-10] MEDS: ALPRAZolam 0.25 MG TABLET PO PRN ×3 (06:39→22:58)
[2018-03-10] MEDS: amLODIPine BESYLATE 10 MG TABLET (FP) PO SCH ×2 (06:39→12:52)
[2018-03-10] MEDS: ISOSORBIDE MONONITRATE 30 MG TAB.SR.24H (FP) PO SCH ×3 (06:40→22:51)
[2018-03-10] MEDS: LOSARTAN POTASSIUM 50 MG TABLET (FP) PO SCH ×3 (06:40→22:51)
--- NOTE | 2018-03-10 08:17 | PN ---
Physical Exam: SUBJECTIVE: Patient seen and examined; no events reported to me overnight from nursing. She is afebrile and hemodynamically stable. She denies any neurologic complaints, is not altered, and is free of any cardiopulmonary issues. She feels well and is waiting for her stress test but is nervous regarding this. This AM when I saw her I confirmed her SBP to be ~190 bilaterally. We will give her an additional dose of xanax given the likely anxiety component and a dose of IV hydralazine and followup. Overall plan remains to obtain Lexiscan to risk stratify for L-CEA procedure. Feather Baler input reviewed and appreciated. Not requiring O2. OBJECTIVE: Vital Signs Period Temp Pulse Resp BP Sys/Morrison Pulse Ox Last 24 Hr 97.8 F-99.2 F 73-88 17-20 135-192/64-79 97-98 GENERAL: The patient is awake, alert, and fully oriented, in no acute distress. HEAD: Normal with no signs of trauma. EYES: PERRL, extraocular movements intact ENT: Ears normal, nares patent, oropharynx clear without exudates, moist mucous membranes. NECK: Trachea midline, full range of motion, supple. LUNGS: Breath sounds equal, clear to auscultation bilaterally, no wheezes HEART: Regular rate and rhythm, S1, S2 without murmur, rub or gallop. ABDOMEN: Soft, nontender, nondistended, normoactive bowel sounds, no guarding, no rebound, no hepatosplenomegaly, no masses. EXTREMITIES: 2+ pulses, warm, well-perfused, no edema. NEUROLOGICAL: Cranial nerves II through XII grossly intact. No fnd PSYCH: Normal mood, normal affect. SKIN: Warm, dry, normal turgor, no rashes or lesions noted Laboratory Results - last 24 hr 03/09/18 03/09/18 03/09/18 06:00 08:20 08:40 WBC 10.0 RBC 2.55 L Hgb 7.9 L Hct 24.2 L MCV 94.7 MCH 30.9 MCHC 32.7 RDW 13.8 Plt Count 247 MPV 9.1 Absolute Neuts (auto) 7.6 Neutrophils % 76.1 Lymphocytes % 12.1 Monocytes % 6.5 Eosinophils % 4.6 H Basophils % 0.7 Nucleated RBC % 0 Sodium 146 H Potassium 3.6 Chloride 114 H Carbon Dioxide 22 Anion Gap 10 BUN 30 H Creatinine 1.4 H Creat Clearance w eGFR 36.46 POC Glucometer 124 Random Glucose 103 Calcium 8.0 L Total Bilirubin 0.3 AST 25 ALT 30 Alkaline Phosphatase 89 Total Protein 5.2 L Albumin 2.4 L 03/09/18 03/09/18 03/09/18 12:18 16:58 21:48 WBC RBC Hgb Hct MCV MCH MCHC RDW Plt Count MPV Absolute Neuts (auto) Neutrophils % Lymphocytes % Monocytes % Eosinophils % Basophils % Nucleated RBC % Sodium Potassium Chloride Carbon Dioxide Anion Gap BUN Creatinine Creat Clearance w eGFR POC Glucometer 140 126 160 Random Glucose Calcium Total Bilirubin AST ALT Alkaline Phosphatase Total Protein Albumin 03/10/18 06:36 WBC RBC Hgb Hct MCV MCH MCHC RDW Plt Count MPV Absolute Neuts (auto) Neutrophils % Lymphocytes % Monocytes % Eosinophils % Basophils % Nucleated RBC % Sodium Potassium Chloride Carbon Dioxide Anion Gap BUN Creatinine Creat Clearance w eGFR POC Glucometer 164 Random Glucose Calcium Total Bilirubin AST ALT Alkaline Phosphatase Total Protein Albumin Active Medications Generic Name Dose Route Start Last Admin Trade Name Freq PRN Reason Stop Dose Admin Alprazolam 0.25 mg 03/07/18 13:15 03/10/18 06:39 Xanax - PO 0.25 mg Q12H PRN Administration ANXIETY Amlodipine Besylate 10 mg 03/01/18 10:00 03/10/18 06:39 Norvasc - PO 10 mg DAILY BLAS Administration Atorvastatin Calcium 80 mg 03/04/18 22:00 03/09/18 21:51 Lipitor - PO 80 mg HS BLAS Administration Carvedilol 25 mg 02/28/18 22:00 03/09/18 21:51 Coreg - PO 25 mg BID BLAS Administration Cholecalciferol 2,000 unit 03/01/18 10:00 03/09/18 12:32 Vitamin D3 - PO 2,000 unit DAILY BLAS Administration Clopidogrel Bisulfate 75 mg 03/01/18 10:00 03/09/18 12:32 Plavix - PO 75 mg DAILY BLAS Administration Dorzolamide HCl 1 drop 03/01/18 10:00 03/09/18 12:57 Trusopt 2% OU 1 drop DAILY BLAS Administration Ferrous Sulfate 325 mg 02/28/18 22:00 03/09/18 21:51 Feosol - PO 325 mg BID BLAS Administration Fluticasone Propionate 1 spray 02/28/18 15:16 Flonase - NS DAILY PRN NASAL ALLERGY Heparin Sodium (Porcine) 5,000 unit 03/05/18 14:00 03/10/18 06:36 Heparin - SQ 5,000 unit TID BLAS Administration Hydrochlorothiazide 25 mg 03/01/18 10:00 03/09/18 12:32 Hctz - PO 25 mg DAILY BLAS Administration Piperacillin Sod/Tazobactam 50 mls @ 100 mls/hr 03/06/18 13:30 03/10/18 02:03 Sod 3.375 gm/ Dextrose IVPB 100 mls/hr Q8H-IV BLAS Administration Protocol Potassium Chloride 10 meq/ 1,005 mls @ 41.875 mls/hr 03/09/18 13:40 03/09/18 15:50 Dextrose IVPB 41.875 mls/hr Q24H BLAS Administration Insulin Aspart 1 vial 02/28/18 16:30 03/10/18 06:36 Novolog Vial Sliding Scale - SQ Not Given TIDAC [facility] Protocol Insulin Detemir 10 units 03/08/18 09:49 03/09/18 21:50 Levemir Vial SQ 5 units HS BLAS Administration Isosorbide Mononitrate 30 mg 02/28/18 22:00 03/10/18 06:40 Imdur - PO 30 mg BID BLAS Administration Latanoprost 1 drop 02/28/18 22:00 03/09/18 21:55 Xalatan 0.005% Eye Drops - OU 1 drop HS BLAS Administration Losartan Potassium 50 mg 02/28/18 22:00 03/10/18 06:40 Cozaar - PO 50 mg BID BLAS Administration Multivitamins 1 each 03/01/18 10:00 03/09/18 12:56 Total B With C - PO 1 each DAILY BLAS Administration Multivitamins/Minerals/Vitamin C 1 tab 03/06/18 13:45 03/09/18 12:32 Tab-A-Vit - PO 1 tab DAILY BLAS Administration Nitroglycerin 0.4 mg 02/28/18 15:16 Nitrostat - SL TID PRN FOR CHEST PAIN Non-Formulary Medication 290 mcg 03/01/18 10:00 Linaclotide [Linzess] PO DAILY BLAS Pantoprazole Sodium 40 mg 03/04/18 10:00 03/09/18 12:32 Protonix - PO 40 mg DAILY BLAS Administration Polyethylene Glycol 17 gm 03/01/18 10:00 03/09/18 12:34 Miralax (For Daily Use) - PO Not Given DAILY BLAS Ranitidine HCl 150 mg 03/06/18 22:00 03/09/18 21:51 Zantac - PO 150 mg BID BLAS Administration Sertraline HCl 100 mg 02/28/18 22:00 03/09/18 21:51 Zoloft - PO 100 mg BID BLAS Administration ASSESSMENT/PLAN: 1) Carotid A. Stenosis (L), severe -CEA planned after stress test today; plan to control BP and obtain lexiscan. -No new neuro signs; reviewed old studies. Continue to observe on telemetry. 2) CAD s/p PCI (LAD, RCA) -No issues; CV following. Continue BB, Plavix, etc. without any changes to medications 3) HLD -Continue current tx; no changes 4) CHF -Euvolemic today; echo reviewed -Continue current medications; monitor QD weights, Is and oS 5) HTN, uncontrolled -190s this AM manually; giving additional dose of IV hydralazine and additional xanax as likely anxiety component as well -Increasing BP meds per cardiology. Is on Amlodipine, Coreg, HCTZ, Losartan, Imdur 6) Suspected Pneumonia (? Asp?) -No growth on cultures, no WBC increase, afebrile, off O2 -ID following; change to PO today per their service. Appreciate input. 7) History of TIA -Negative acute neuro workup with neuroimaging; at neuro baseline with no FNDs 8) AMS -Remains resolved, at neurologic baseline. 9) Iron Deficiency Anemia -At baseline; continue current management 10) IBS -Continue Linzess 11) Psych hx -Continue current medication 12) Glaucoma -Continue current medication; no acute issues 13) CKD -Remains at baseline; continue to monitor BMP and UOP. No elyte abnl 14) Facial Twitch -Continue xanax Full Code Visit type - Emergency Visit Emergency Visit: No - New Patient This patient is new to me today: No - Critical Care Critical Care patient: No
[2018-03-10] MEDS ORDERED: hydrALAZINE HCL 20 MG/ML VIAL ONE (09:03)
[2018-03-10 09:13] LABS: BASO % 0.7 % (0-2.0); EOS % 3.4 % (0-4.5); HEMATOCRIT 23.9 % (32.4-45.2); HEMOGLOBIN 8.3 GM/dL (10.7-15.3); LYMPH % 11.8 % (8-40); MCH 32.7 pg (25.7-33.7); MCHC 34.6 g/dl (32.0-36.0); MEAN CELL VOLUME 94.5 fl (80-96); MEAN PLT VOLUME 9.6 fl (7.5-11.1); MONO % 7.4 % (3.8-10.2); NEUT % 76.7 % (42.8-82.8); PLATELET COUNT 262 K/MM3 (134-434); RBC 2.53 M/mm3 (3.60-5.2); RDW 13.9 % (11.6-15.6); WHITE BLOOD COUNT 10.2 K/mm3 (4.0-10.0)
--- NOTE | 2018-03-10 09:42 | PN ---
Progress Note (short form) - Note Progress Note: Neurology History of Present Illness 77-year-old female with past medical history significant for NIDDM, HTN, GERD, HLD, CAD s/p stents, CKD III, anemia and IBS presented to the emergency department with bilateral lower extremity swelling for 4 days. The patient reported having increased bilateral swelling to the legs, associated with 10- pound weight change. The patient reported associated symptoms of shortness of breath and orthopnea with difficulty moving around secondary to leg heaviness. She reported that the swelling has extended to her abdomen as well. The patient reported following up with Dr. Navarro (PCP) on Friday, who referred the patient the ER for IV Lasix. She's been admitted and being managed for CHF exacerbation. However, she developed episodes of confusion during her admission. Discussed with nurse who mentioned patient being disoriented on two occasions. She reported the son also noticed she was confused. She completed CT head which I reviewed and did not show acute changes. During my eval, she was able to tell me she's at [facility]. Believes it's March 2018. She knows President is Jessica. MRI brain completed and did not show acute changes, no infarcts, no space occupying lesions. Discussed with hospitalist, called son Gene [phone] previously, explained to him. Answered questions and he seemed appreciative of the conversation and insight. Spoke with hospitalist yesterday there was mention of twitch though not visualized by me. Remains stable with intact mental status. Remains on Zosyn. Allergies/Adverse Reactions: Allergies Allergy/AdvReac Type Severity Reaction Status Date / Time diphenhydramine HCl Allergy Severe Itching Verified 02/28/18 11:37 [From Benadryl] Influenza Virus Vaccines Allergy Verified 02/28/18 12:22 trazodone Allergy Verified 02/28/18 12:22 zolpidem [From Ambien] Allergy Verified 02/28/18 12:22 prestik Allergy Uncoded 02/28/18 12:22 Active Medications Alprazolam (Xanax -) 0.25 mg PO Q12H PRN PRN Reason: ANXIETY Last Admin: 03/10/18 09:06 Dose: 0.25 mg Amlodipine Besylate (Norvasc -) 10 mg PO DAILY [facility] Last Admin: 03/10/18 06:39 Dose: 10 mg Atorvastatin Calcium (Lipitor -) 80 mg PO HS [facility] Last Admin: 03/09/18 21:51 Dose: 80 mg Carvedilol (Coreg -) 25 mg PO BID [facility] Last Admin: 03/09/18 21:51 Dose: 25 mg Cholecalciferol (Vitamin D3 -) 2,000 unit PO DAILY [facility] Last Admin: 03/09/18 12:32 Dose: 2,000 unit Clopidogrel Bisulfate (Plavix -) 75 mg PO DAILY [facility] Last Admin: 03/09/18 12:32 Dose: 75 mg Dorzolamide HCl (Trusopt 2%) 1 drop OU DAILY [facility] Last Admin: 03/09/18 12:57 Dose: 1 drop Ferrous Sulfate (Feosol -) 325 mg PO BID [facility] Last Admin: 03/09/18 21:51 Dose: 325 mg Fluticasone Propionate (Flonase -) 1 spray NS DAILY PRN PRN Reason: NASAL ALLERGY Heparin Sodium (Porcine) (Heparin -) 5,000 unit SQ TID [facility] Last Admin: 03/10/18 06:36 Dose: 5,000 unit Hydrochlorothiazide (Hctz -) 25 mg PO DAILY [facility] Last Admin: 03/09/18 12:32 Dose: 25 mg Piperacillin Sod/Tazobactam (Sod 3.375 gm/ Dextrose) 50 mls @ 100 mls/hr IVPB Q8H-IV [facility]; Protocol Last Admin: 03/10/18 02:03 Dose: 100 mls/hr Potassium Chloride 10 meq/ (Dextrose) 1,005 mls @ 41.875 mls/hr IVPB Q24H [facility] Last Admin: 03/09/18 15:50 Dose: 41.875 mls/hr Insulin Aspart (Novolog Vial Sliding Scale -) 1 vial SQ TIDAC [facility]; Protocol Last Admin: 03/10/18 06:36 Dose: Not Given Insulin Detemir (Levemir Vial) 10 units SQ HS [facility] Last Admin: 03/09/18 21:50 Dose: 5 units Isosorbide Mononitrate (Imdur -) 30 mg PO BID [facility] Last Admin: 03/10/18 06:40 Dose: 30 mg Latanoprost (Xalatan 0.005% Eye Drops -) 1 drop OU HS [facility] Last Admin: 03/09/18 21:55 Dose: 1 drop Losartan Potassium (Cozaar -) 50 mg PO BID [facility] Last Admin: 03/10/18 06:40 Dose: 50 mg Multivitamins (Total B With C -) 1 each PO DAILY [facility] Last Admin: 03/09/18 12:56 Dose: 1 each Multivitamins/Minerals/Vitamin C (Tab-A-Vit -) 1 tab PO DAILY [facility] Last Admin: 03/09/18 12:32 Dose: 1 tab Nitroglycerin (Nitrostat -) 0.4 mg SL TID PRN PRN Reason: FOR CHEST PAIN Non-Formulary Medication (Linaclotide [Linzess]) 290 mcg PO DAILY [facility] Pantoprazole Sodium (Protonix -) 40 mg PO DAILY [facility] Last Admin: 03/09/18 12:32 Dose: 40 mg Polyethylene Glycol (Miralax (For Daily Use) -) 17 gm PO DAILY [facility] Last Admin: 03/09/18 12:34 Dose: Not Given Ranitidine HCl (Zantac -) 150 mg PO BID [facility] Last Admin: 03/09/18 21:51 Dose: 150 mg Sertraline HCl (Zoloft -) 100 mg PO BID [facility] Last Admin: 03/09/18 21:51 Dose: 100 mg *Physical Exam Vital Signs Period Temp Pulse Resp BP Sys/Morrison Pulse Ox Last 24 Hr 97.8 F-99.2 F 77-88 17-20 135-180/64-79 97 GENERAL: Awake, alert, and fully oriented, in no acute distress. HEAD: No signs of trauma EYES: PERRLA, EOMI, sclera anicteric, conjunctiva clear ENT: Auricles normal inspection, hearing grossly normal, nares patent, oropharynx clear without exudates. Moist mucosa NECK: Nontender, no stepoffs, Normal ROM, supple, no lymphadenopathy, JVD, or masses LUNGS: + bibasilar rales HEART: Regular rate and rhythm, normal S1 and S2, no murmurs, rubs or gallops ABDOMEN: Soft, nontender, normoactive bowel sounds. No guarding, no rebound. No masses EXTREMITIES: +2 PE BLE, Normal range of motion, No clubbing or cyanosis. No cords, erythema, or tenderness NEUROLOGICAL: Cranial nerves II through XII intact. 5/5 grossly, sensation intact in all extremities, Normal speech, normal cerebellar function SKIN: Warm, Dry, normal turgor, no rashes or lesions noted. CBCD WBC 10.2 K/mm3 (4.0-10.0) H 03/10/18 08:45 RBC 2.53 M/mm3 (3.60-5.2) L 03/10/18 08:45 Hgb 8.3 GM/dL (10.7-15.3) L 03/10/18 08:45 Hct 23.9 % (32.4-45.2) L 03/10/18 08:45 MCV 94.5 fl (80-96) 03/10/18 08:45 MCHC 34.6 g/dl (32.0-36.0) 03/10/18 08:45 RDW 13.9 % (11.6-15.6) 03/10/18 08:45 Plt Count 262 K/MM3 (134-434) 03/10/18 08:45 MPV 9.6 fl (7.5-11.1) 03/10/18 08:45 CMP Sodium 146 mmol/L (136-145) H 03/09/18 08:20 Potassium 3.6 mmol/L (3.5-5.1) 03/09/18 08:20 Chloride 114 mmol/L (98-107) H 03/09/18 08:20 Carbon Dioxide 22 mmol/L (21-32) 03/09/18 08:20 Anion Gap 10 MMOL/L (8-16) 03/09/18 08:20 BUN 30 mg/dL (7-18) H 03/09/18 08:20 Creatinine 1.4 mg/dL (0.55-1.3) H 03/09/18 08:20 Creat Clearance w eGFR 36.46 (>60) 03/09/18 08:20 Random Glucose 103 mg/dL (74-106) 03/09/18 08:20 Calcium 8.0 mg/dL (8.5-10.1) L 03/09/18 08:20 Total Bilirubin 0.3 mg/dL (0.2-1) 03/09/18 08:20 AST 25 U/L (15-37) 03/09/18 08:20 ALT 30 U/L (13-61) 03/09/18 08:20 Alkaline Phosphatase 89 U/L (45-117) 03/09/18 08:20 Total Protein 5.2 g/dl (6.4-8.2) L 03/09/18 08:20 Albumin 2.4 g/dl (3.4-5.0) L 03/09/18 08:20 CARDIAC ENZYMES Creatine Kinase 60 IU/L (26-192) 03/02/18 11:40 Troponin I 0.05 ng/ml (0.00-0.05) 03/02/18 11:40 Medical Decision Making 77-year-old female with past medical history significant for NIDDM, HTN, GERD, HLD, CAD s/p stents, CKD III, anemia and IBS presented to the emergency department with bilateral lower extremity swelling for 4 days. The patient reported having increased bilateral swelling to the legs, associated with 10- pound weight change. The patient reported associated symptoms of shortness of breath and orthopnea with difficulty moving around secondary to leg heaviness. She reported that the swelling has extended to her abdomen as well. The patient reported following up with Dr. Navarro (PCP) on Friday, who referred the patient the ER for IV Lasix. She's been admitted and being managed for CHF exacerbation. However, she developed episodes of confusion during her admission. Discussed with nurse who mentioned patient being disoriented on two occasions. She reported the son also noticed she was confused. She completed CT head which I reviewed and did not show acute changes. During my eval, she was able to tell me she's at [facility]. She knows it's February 2018 though believed it was the middle of the month. She knows President is Jessica. MRI brain reviewed and discussed with hospitalist and son in detail. Continue mgmt of CHF exacerbation. Confusion maybe episodes of delirium in context of being in hospital, hydration recommended.poke with hospitalist yesterday there was mention of twitch though not visualized by me. Has been off Xanax for several days and possibly was being minimized by xanax and more noticeable now. Does not appear to be seizure, possibly just muscle spasm. Monitor bp, maintain normotensive ranges. Monitor for infection, metabolic disturbances. On Zosyn, mental status appears to be at baseline. Frequent reorientation suggested.
[2018-03-10] MEDS ORDERED: REGADENOSON 0.4 MG/5 ML PRE-FILLED SYRINGE IVPUSH ONE ×2 (10:00→10:06)
[2018-03-10 10:02] LABS: ALBUMIN 2.6 g/dl (3.4-5.0); ALK PHOS 94 U/L (45-117); ANION GAP 10 MMOL/L (8-16); BILIRUBIN,TOTAL 0.3 mg/dL (0.2-1); BLOOD UREA NITROGEN 21 mg/dL (7-18); CALCIUM 8.2 mg/dL (8.5-10.1); CHLORIDE 112 mmol/L (98-107); CO2 22 mmol/L (21-32); CREATININE 1.3 mg/dL (0.55-1.3); GLUCOSE,RANDOM 137 mg/dL (74-106); MAGNESIUM 1.8 mg/dL (1.8-2.4); POTASSIUM 3.5 mmol/L (3.5-5.1); SGOT/AST 31 U/L (15-37); SGPT/ALT 33 U/L (13-61); SODIUM 144 mmol/L (136-145); TOT PROT 5.4 g/dl (6.4-8.2)
[2018-03-10] MEDS ORDERED: PT OWN MED DRAWER 7, Y5N ONE (10:31)
--- NOTE | 2018-03-10 11:48 | PN ---
Progress Note, IMPORT EXPORT CLERK - Note Progress Note: Selected Entries 03/09/18 03/09/18 03/09/18 01:21 05:00 09:00 Lunch Supper Temperature 98.7 F 99.1 F 98.4 F 03/09/18 03/09/18 03/09/18 13:51 14:00 17:00 Lunch 75% Supper Temperature 98.1 F 97.8 F 03/09/18 03/09/18 03/10/18 20:23 22:00 02:10 Lunch Supper 50% Temperature 98.3 F 98.1 F 03/10/18 06:00 Lunch Supper Temperature 99.2 F Laboratory Tests 03/09/18 03/10/18 06:00 08:45 WBC 10.0 10.2 H Off floor for study. To follow for possible diet upgrade?
[2018-03-10] MEDS: SERTRALINE HCL 50 MG TABLET (FP) PO SCH ×2 (12:49→22:51)
[2018-03-10] MEDS: HYDROCHLOROTHIAZIDE 25 MG TABLET (FP) PO SCH (12:49)
[2018-03-10] MEDS: FERROUS SO4 325 MG TABLET (FP) PO SCH ×2 (12:49→22:51)
[2018-03-10] MEDS: MULTIVITAMINS (DAILY MVI) TABLET (FP) PO SCH (12:50)
[2018-03-10] MEDS: CLOPIDOGREL BISULFATE 75 MG TABLET (FP) PO SCH (12:50)
[2018-03-10] MEDS: CARVEDILOL 25 MG TABLET (FP) PO SCH ×2 (12:50→22:51)
[2018-03-10] MEDS: PANTOPRAZOLE 40 MG TABLET (FP) PO SCH (12:50)
[2018-03-10] MEDS: CHOLECALCIFEROL (VITAMIN D3) 1,000 UNIT TABLET (FP) PO SCH (12:50)
--- NOTE | 2018-03-10 12:50 | PN ---
Progress Note (short form) - Note Progress Note: CEA pending results of stress test (ordered). Vascular Surgery still following.
[2018-03-10] MEDS: POLYETHYLENE GLYCOL 3350 119 GM BTL PO SCH (12:51)
[2018-03-10] MEDS: RANITIDINE HCL 150 MG TABLET (FP) PO SCH ×2 (12:51→22:51)
[2018-03-10] MEDS: VITAMIN B COMPLEX W/C COMBO TABLET (FP) PO SCH (12:51)
[2018-03-10] MEDS: DORZOLAMIDE 2% HCL OPHTHALMIC SOLUTION 10 ML BOTTLE OU SCH (12:52)
[2018-03-10] MEDS: POTASSIUM CHLORIDE 10 MEQ in DEXTROSE 5%-WATER - 1,000 ML IVPB SCH (13:45)
--- NOTE | 2018-03-10 14:14 | PN ---
Progress Note, Physician History of Present Illness: stable no complaints feels weak - Current Medication List Current Medications: Active Medications Alprazolam (Xanax -) 0.25 mg PO Q12H PRN PRN Reason: ANXIETY Last Admin: 03/10/18 09:06 Dose: 0.25 mg Amlodipine Besylate (Norvasc -) 10 mg PO DAILY [facility] Last Admin: 03/10/18 12:52 Dose: Not Given Atorvastatin Calcium (Lipitor -) 80 mg PO HS [facility] Last Admin: 03/09/18 21:51 Dose: 80 mg Carvedilol (Coreg -) 25 mg PO BID [facility] Last Admin: 03/10/18 12:50 Dose: 25 mg Cholecalciferol (Vitamin D3 -) 2,000 unit PO DAILY [facility] Last Admin: 03/10/18 12:50 Dose: 2,000 unit Clopidogrel Bisulfate (Plavix -) 75 mg PO DAILY [facility] Last Admin: 03/10/18 12:50 Dose: 75 mg Dorzolamide HCl (Trusopt 2%) 1 drop OU DAILY [facility] Last Admin: 03/10/18 12:52 Dose: 1 drop Ferrous Sulfate (Feosol -) 325 mg PO BID [facility] Last Admin: 03/10/18 12:49 Dose: 325 mg Fluticasone Propionate (Flonase -) 1 spray NS DAILY PRN PRN Reason: NASAL ALLERGY Heparin Sodium (Porcine) (Heparin -) 5,000 unit SQ TID [facility] Last Admin: 03/10/18 06:36 Dose: 5,000 unit Hydrochlorothiazide (Hctz -) 25 mg PO DAILY [facility] Last Admin: 03/10/18 12:49 Dose: 25 mg Piperacillin Sod/Tazobactam (Sod 3.375 gm/ Dextrose) 50 mls @ 100 mls/hr IVPB Q8H-IV [facility]; Protocol Last Admin: 03/10/18 12:48 Dose: 100 mls/hr Potassium Chloride 10 meq/ (Dextrose) 1,005 mls @ 41.875 mls/hr IVPB Q24H [facility] Last Admin: 03/09/18 15:50 Dose: 41.875 mls/hr Insulin Aspart (Novolog Vial Sliding Scale -) 1 vial SQ TIDAC [facility]; Protocol Last Admin: 03/10/18 12:50 Dose: Not Given Insulin Detemir (Levemir Vial) 10 units SQ [facility] Last Admin: 03/09/18 21:50 Dose: 5 units Isosorbide Mononitrate (Imdur -) 30 mg PO BID [facility] Last Admin: 03/10/18 12:51 Dose: Not Given Latanoprost (Xalatan 0.005% Eye Drops -) 1 drop OU HS [facility] Last Admin: 03/09/18 21:55 Dose: 1 drop Losartan Potassium (Cozaar -) 50 mg PO BID [facility] Last Admin: 03/10/18 12:51 Dose: Not Given Multivitamins (Total B With C -) 1 each PO DAILY [facility] Last Admin: 03/10/18 12:51 Dose: 1 each Multivitamins/Minerals/Vitamin C (Tab-A-Vit -) 1 tab PO DAILY [facility] Last Admin: 03/10/18 12:50 Dose: 1 tab Nitroglycerin (Nitrostat -) 0.4 mg SL TID PRN PRN Reason: FOR CHEST PAIN Non-Formulary Medication (Linaclotide [Linzess]) 290 mcg PO DAILY [facility] Pantoprazole Sodium (Protonix -) 40 mg PO DAILY [facility] Last Admin: 03/10/18 12:50 Dose: 40 mg Polyethylene Glycol (Miralax (For Daily Use) -) 17 gm PO DAILY [facility] Last Admin: 03/10/18 12:51 Dose: Not Given Ranitidine HCl (Zantac -) 150 mg PO BID [facility] Last Admin: 03/10/18 12:51 Dose: 150 mg Sertraline HCl (Zoloft -) 100 mg PO BID [facility] Last Admin: 03/10/18 12:49 Dose: 100 mg - Objective Vital Signs: Vital Signs Temperature 98.4 F 03/10/18 08:00 Pulse Rate 78 03/10/18 09:30 Respiratory Rate 20 03/10/18 09:30 Blood Pressure 165/80 03/10/18 09:30 O2 Sat by Pulse Oximetry (%) 98 03/10/18 09:00 Constitutional: Yes: No Distress, Calm Cardiovascular: Yes: S1, S2 Respiratory: Yes: Regular, CTA Bilaterally Gastrointestinal: Yes: Normal Bowel Sounds, Soft Musculoskeletal: Yes: WNL Extremities: Yes: WNL Neurological: Yes: Alert, Oriented Psychiatric: Yes: Alert, Oriented Labs: CBC, BMP 03/10/18 08:45 03/10/18 08:45 Assessment/Plan CHF Exacerbation Transaminitis TIA history CAD Diabetes HTN HLD CKD Stage III Iron Deficiency Anemia IBS Depression/anxiety Glaucoma plan will stop abx await for stress test results rest continue current mgmt patient stable
--- NOTE | 2018-03-10 14:53 | PN ---
Progress Note, Physician History of Present Illness: Pt seen and examined at bedside. She is awake and appears comfortable. She denies shortness of breath. - Current Medication List Current Medications: Active Medications Alprazolam (Xanax -) 0.25 mg PO Q12H PRN PRN Reason: ANXIETY Last Admin: 03/10/18 09:06 Dose: 0.25 mg Amlodipine Besylate (Norvasc -) 10 mg PO DAILY [facility] Last Admin: 03/10/18 12:52 Dose: Not Given Atorvastatin Calcium (Lipitor -) 80 mg PO HS [facility] Last Admin: 03/09/18 21:51 Dose: 80 mg Carvedilol (Coreg -) 25 mg PO BID [facility] Last Admin: 03/10/18 12:50 Dose: 25 mg Cholecalciferol (Vitamin D3 -) 2,000 unit PO DAILY [facility] Last Admin: 03/10/18 12:50 Dose: 2,000 unit Clopidogrel Bisulfate (Plavix -) 75 mg PO DAILY [facility] Last Admin: 03/10/18 12:50 Dose: 75 mg Dorzolamide HCl (Trusopt 2%) 1 drop OU DAILY [facility] Last Admin: 03/10/18 12:52 Dose: 1 drop Ferrous Sulfate (Feosol -) 325 mg PO BID [facility] Last Admin: 03/10/18 12:49 Dose: 325 mg Fluticasone Propionate (Flonase -) 1 spray NS DAILY PRN PRN Reason: NASAL ALLERGY Heparin Sodium (Porcine) (Heparin -) 5,000 unit SQ TID [facility] Last Admin: 03/10/18 14:44 Dose: 5,000 unit Hydrochlorothiazide (Hctz -) 25 mg PO DAILY [facility] Last Admin: 03/10/18 12:49 Dose: 25 mg Potassium Chloride 10 meq/ (Dextrose) 1,005 mls @ 41.875 mls/hr IVPB Q24H [facility] Last Admin: 03/10/18 13:45 Dose: 41.875 mls/hr Insulin Aspart (Novolog Vial Sliding Scale -) 1 vial SQ TIDAC [facility]; Protocol Last Admin: 03/10/18 12:50 Dose: Not Given Insulin Detemir (Levemir Vial) 10 units SQ [facility] Last Admin: 03/09/18 21:50 Dose: 5 units Isosorbide Mononitrate (Imdur -) 30 mg PO BID [facility] Last Admin: 03/10/18 12:51 Dose: Not Given Latanoprost (Xalatan 0.005% Eye Drops -) 1 drop OU HS [facility] Last Admin: 03/09/18 21:55 Dose: 1 drop Losartan Potassium (Cozaar -) 50 mg PO BID [facility] Last Admin: 03/10/18 12:51 Dose: Not Given Multivitamins (Total B With C -) 1 each PO DAILY [facility] Last Admin: 03/10/18 12:51 Dose: 1 each Multivitamins/Minerals/Vitamin C (Tab-A-Vit -) 1 tab PO DAILY [facility] Last Admin: 03/10/18 12:50 Dose: 1 tab Nitroglycerin (Nitrostat -) 0.4 mg SL TID PRN PRN Reason: FOR CHEST PAIN Non-Formulary Medication (Linaclotide [Linzess]) 290 mcg PO DAILY [facility] Pantoprazole Sodium (Protonix -) 40 mg PO DAILY [facility] Last Admin: 03/10/18 12:50 Dose: 40 mg Polyethylene Glycol (Miralax (For Daily Use) -) 17 gm PO DAILY [facility] Last Admin: 03/10/18 12:51 Dose: Not Given Ranitidine HCl (Zantac -) 150 mg PO BID [facility] Last Admin: 03/10/18 12:51 Dose: 150 mg Sertraline HCl (Zoloft -) 100 mg PO BID [facility] Last Admin: 03/10/18 12:49 Dose: 100 mg - Objective Vital Signs: Vital Signs Temperature 98.4 F 03/10/18 08:00 Pulse Rate 78 03/10/18 09:30 Respiratory Rate 20 03/10/18 09:30 Blood Pressure 165/80 03/10/18 09:30 O2 Sat by Pulse Oximetry (%) 98 03/10/18 09:00 Constitutional: Yes: Calm Eyes: Yes: Conjunctiva Clear HENT: Yes: Atraumatic Neck: Yes: Supple Cardiovascular: Yes: S1, S2 Respiratory: Yes: CTA Bilaterally Gastrointestinal: Yes: Soft Genitourinary: Yes: WNL Musculoskeletal: Yes: WNL Edema: Yes Edema: LLE: 1+, RLE: 1+ Neurological: Yes: Oriented Psychiatric: Yes: Oriented Labs: CBC, BMP 03/10/18 08:45 03/10/18 08:45 Problem List - Problems (1) CHF (congestive heart failure) Code(s): I50.9 - HEART FAILURE, UNSPECIFIED (2) CKD (chronic kidney disease) stage 3, GFR 30-59 ml/min Code(s): N18.3 - CHRONIC KIDNEY DISEASE, STAGE 3 (MODERATE) Assessment/Plan Current Medications Generic Name Dose Route Start Last Admin Trade Name Freq PRN Reason Stop Dose Admin Alprazolam 0.25 mg 03/07/18 13:15 03/10/18 09:06 Xanax - PO 0.25 mg Q12H PRN Administration ANXIETY Amlodipine Besylate 10 mg 03/01/18 10:00 03/10/18 12:52 Norvasc - PO Not Given DAILY [facility] Atorvastatin Calcium 80 mg 03/04/18 22:00 03/09/18 21:51 Lipitor - PO 80 mg HS [facility] Administration Carvedilol 25 mg 02/28/18 22:00 03/10/18 12:50 Coreg - PO 25 mg BID [facility] Administration Cholecalciferol 2,000 unit 03/01/18 10:00 03/10/18 12:50 Vitamin D3 - PO 2,000 unit DAILY [facility] Administration Clopidogrel Bisulfate 75 mg 03/01/18 10:00 03/10/18 12:50 Plavix - PO 75 mg DAILY [facility] Administration Dorzolamide HCl 1 drop 03/01/18 10:00 03/10/18 12:52 Trusopt 2% OU 1 drop DAILY [facility] Administration Ferrous Sulfate 325 mg 02/28/18 22:00 03/10/18 12:49 Feosol - PO 325 mg BID [facility] Administration Fluticasone Propionate 1 spray 02/28/18 15:16 Flonase - NS DAILY PRN NASAL ALLERGY Heparin Sodium (Porcine) 5,000 unit 03/05/18 14:00 03/10/18 14:44 Heparin - SQ 5,000 unit TID [facility] Administration Hydrochlorothiazide 25 mg 03/01/18 10:00 03/10/18 12:49 Hctz - PO 25 mg DAILY [facility] Administration Potassium Chloride 10 meq/ 1,005 mls @ 41.875 mls/hr 03/09/18 13:40 03/10/18 13:45 Dextrose IVPB 41.875 mls/hr Q24H [facility] Administration Insulin Aspart 1 vial 02/28/18 16:30 03/10/18 12:50 Novolog Vial Sliding Scale - SQ Not Given TIDAC [facility] Protocol Insulin Detemir 10 units 03/08/18 09:49 03/09/18 21:50 Levemir Vial SQ 5 units HS [facility] Administration Isosorbide Mononitrate 30 mg 02/28/18 22:00 03/10/18 12:51 Imdur - PO Not Given BID [facility] Latanoprost 1 drop 02/28/18 22:00 03/09/18 21:55 Xalatan 0.005% Eye Drops - OU 1 drop HS [facility] Administration Losartan Potassium 50 mg 02/28/18 22:00 03/10/18 12:51 Cozaar - PO Not Given BID [facility] Multivitamins 1 each 03/01/18 10:00 03/10/18 12:51 Total B With C - PO 1 each DAILY [facility] Administration Multivitamins/Minerals/Vitamin C 1 tab 03/06/18 13:45 03/10/18 12:50 Tab-A-Vit - PO 1 tab DAILY [facility] Administration Nitroglycerin 0.4 mg 02/28/18 15:16 Nitrostat - SL TID PRN FOR CHEST PAIN Non-Formulary Medication 290 mcg 03/01/18 10:00 Linaclotide [Linzess] PO DAILY [facility] Pantoprazole Sodium 40 mg 03/04/18 10:00 03/10/18 12:50 Protonix - PO 40 mg DAILY [facility] Administration Polyethylene Glycol 17 gm 03/01/18 10:00 03/10/18 12:51 Miralax (For Daily Use) - PO Not Given DAILY [facility] Ranitidine HCl 150 mg 03/06/18 22:00 03/10/18 12:51 Zantac - PO 150 mg BID [facility] Administration Sertraline HCl 100 mg 02/28/18 22:00 03/10/18 12:49 Zoloft - PO 100 mg BID [facility] Administration Impression 1. CKD 2. DM 3. gerd 4. CAD 5. anemia 6. left IJ stenosis Plan - d/c fluids - monitor bp - pt did not get all of her bp meds - encourage PO intake - renal function stable - avoid nsaids Dr Zhu
--- NOTE | 2018-03-10 16:31 | PN ---
Progress Note, Physician Chief Complaint: Pt denies chest pain or dyspnea. History of Present Illness: 77 year old black female (zaria Rouse), with a PMH significant for CAD s/p 2 stents ,(the 1st in 2005), HTN, HLD, DM, CKD stage III, Depression/anxiety, glaucoma and IBS presented to the ED at the request of her PCP with increased leg swelling and SOB, cough, ECKERT over the past 4 days. Patient reports she has had a 10 lb weight gain over the past several weeks though it has been harder for her to eat with the fluid accumulation and chronic gas problem. She was seen by her PCP Dr. Navarro on Friday who recommended she present to the ED for IV diuresis. Denies headaches, chest pain, palpitations, n/v/d. Upon admission to the ED she had a low grade temperature of 99.0. Labs notable for BNP 4756, BUN/Cr 56/1.8 (baseline), slightly elevated AST/ALT/Alk Phos elevated at 38/82/160, Trop negative CXR positive for congestive changes, ECG unremarkable. She was given IM Lasix in the ED which she reports at the time of exam not to have cause her to urinate very much yet. - Current Medication List Current Medications: Active Medications Alprazolam (Xanax -) 0.25 mg PO Q12H PRN PRN Reason: ANXIETY Last Admin: 03/10/18 09:06 Dose: 0.25 mg Amlodipine Besylate (Norvasc -) 10 mg PO DAILY [facility] Last Admin: 03/10/18 12:52 Dose: Not Given Atorvastatin Calcium (Lipitor -) 80 mg PO [facility] Last Admin: 03/09/18 21:51 Dose: 80 mg Carvedilol (Coreg -) 25 mg PO BID [facility] Last Admin: 03/10/18 12:50 Dose: 25 mg Cholecalciferol (Vitamin D3 -) 2,000 unit PO DAILY [facility] Last Admin: 03/10/18 12:50 Dose: 2,000 unit Clopidogrel Bisulfate (Plavix -) 75 mg PO DAILY [facility] Last Admin: 03/10/18 12:50 Dose: 75 mg Dorzolamide HCl (Trusopt 2%) 1 drop OU DAILY [facility] Last Admin: 03/10/18 12:52 Dose: 1 drop Ferrous Sulfate (Feosol -) 325 mg PO BID [facility] Last Admin: 03/10/18 12:49 Dose: 325 mg Fluticasone Propionate (Flonase -) 1 spray NS DAILY PRN PRN Reason: NASAL ALLERGY Heparin Sodium (Porcine) (Heparin -) 5,000 unit SQ TID [facility] Last Admin: 03/10/18 14:44 Dose: 5,000 unit Hydrochlorothiazide (Hctz -) 25 mg PO DAILY [facility] Last Admin: 03/10/18 12:49 Dose: 25 mg Insulin Aspart (Novolog Vial Sliding Scale -) 1 vial SQ [facility]IDAC [facility]; Protocol Last Admin: 03/10/18 12:50 Dose: Not Given Insulin Detemir (Levemir Vial) 10 units SQ HS [facility] Last Admin: 03/09/18 21:50 Dose: 5 units Isosorbide Mononitrate (Imdur -) 30 mg PO BID [facility] Last Admin: 03/10/18 12:51 Dose: Not Given Latanoprost (Xalatan 0.005% Eye Drops -) 1 drop OU HS [facility] Last Admin: 03/09/18 21:55 Dose: 1 drop Losartan Potassium (Cozaar -) 50 mg PO BID [facility] Last Admin: 03/10/18 12:51 Dose: Not Given Multivitamins (Total B With C -) 1 each PO DAILY [facility] Last Admin: 03/10/18 12:51 Dose: 1 each Multivitamins/Minerals/Vitamin C (Tab-A-Vit -) 1 tab PO DAILY [facility] Last Admin: 03/10/18 12:50 Dose: 1 tab Nitroglycerin (Nitrostat -) 0.4 mg SL TID PRN PRN Reason: FOR CHEST PAIN Non-Formulary Medication (Linaclotide [Linzess]) 290 mcg PO DAILY [facility] Pantoprazole Sodium (Protonix -) 40 mg PO DAILY [facility] Last Admin: 03/10/18 12:50 Dose: 40 mg Polyethylene Glycol (Miralax (For Daily Use) -) 17 gm PO DAILY [facility] Last Admin: 03/10/18 12:51 Dose: Not Given Ranitidine HCl (Zantac -) 150 mg PO BID [facility] Last Admin: 03/10/18 12:51 Dose: 150 mg Sertraline HCl (Zoloft -) 100 mg PO BID [facility] Last Admin: 03/10/18 12:49 Dose: 100 mg - Objective Vital Signs: Vital Signs Temperature 98.2 F 03/10/18 15:15 Pulse Rate 75 03/10/18 15:15 Respiratory Rate 20 03/10/18 15:15 Blood Pressure 129/58 L 03/10/18 15:15 O2 Sat by Pulse Oximetry (%) 98 03/10/18 09:00 Constitutional: Yes: No Distress Eyes: Yes: WNL HENT: Yes: WNL Neck: Yes: WNL Cardiovascular: Yes: Regular Rate and Rhythm, S1, S2 Respiratory: Yes: WNL Gastrointestinal: Yes: Soft ...Rectal Exam: Yes: Deferred Genitourinary: No: Anuria Breast(s): Yes: WNL Musculoskeletal: Yes: Muscle Weakness Extremities: Yes: Cool Edema: No Peripheral Pulses WNL: Yes Integumentary: Yes: WNL Psychiatric: Yes: Alert Labs: CBC, BMP 03/10/18 08:45 03/10/18 08:45 Abnormal Lab Results 03/12/18 03/13/18 03/13/18 16:35 06:00 06:00 WBC 11.8 H RBC 2.40 L Hgb 7.7 L Hct 22.7 L Absolute Neuts (auto) 9.2 H Chloride 110 H 112 H Anion Gap 7 L BUN 19 H 19 H Random Glucose 230 H Calcium 8.2 L Problem List - Problems (1) Acute on chronic diastolic (congestive) heart failure Assessment/Plan: ECHO: normal LVEF; severe pulmonary HTN On beta blockers. On ARB, HCTZ, Imdur. F/u BUN/Cr, electrolytes, daily weight, Is and Os. Code(s): I50.33 - ACUTE ON CHRONIC DIASTOLIC (CONGESTIVE) HEART FAILURE (2) CKD (chronic kidney disease) stage 3, GFR 30-59 ml/min Code(s): N18.3 - CHRONIC KIDNEY DISEASE, STAGE 3 (MODERATE) (3) IBS (irritable bowel syndrome) Code(s): K58.9 - IRRITABLE BOWEL SYNDROME WITHOUT DIARRHEA (4) Diabetes mellitus Code(s): E11.9 - TYPE 2 DIABETES MELLITUS WITHOUT COMPLICATIONS (5) Hyperlipidemia Code(s): E78.5 - HYPERLIPIDEMIA, UNSPECIFIED (6) Hypertension Assessment/Plan: See "diastolic CHF". Code(s): I10 - ESSENTIAL (PRIMARY) HYPERTENSION Qualifiers: Hypertension type: essential hypertension Qualified Code(s): I10 - Essential (primary) hypertension (7) Severe pulmonary arterial systolic hypertension Code(s): I27.21 - SECONDARY PULMONARY ARTERIAL HYPERTENSION (8) H/O heart artery stent Assessment/Plan: Stress MIBI: no myocardial ischemia. From a cardiac perspective, pt is cleared to undergo carotid endarterectomy. Code(s): Z95.5 - PRESENCE OF CORONARY ANGIOPLASTY IMPLANT AND GRAFT
[2018-03-10] MEDS: LATANOPROST 0.005% OPHTH SOLN 2.5ML BOTTLE OU SCH (22:30)
[2018-03-10] MEDS: INSULIN (LEVEMIR) 100 UNITS/ML UNITS SQ SCH (22:50)
[2018-03-10] MEDS: ATORVASTATIN CA 80 MG TABLET (FP) PO SCH (22:51)
[2018-03-11] MEDS: HEPARIN NA (PORCINE) 5,000 UNITS/ML 1ML VIAL SQ SCH ×3 (05:43→22:38)
[2018-03-11] MEDS: INSULIN SLIDING SCALE (NOVOLOG) 1 VIAL SQ SCH ×3 (06:08→17:02)
[2018-03-11] MEDS: CARVEDILOL 25 MG TABLET (FP) PO SCH ×2 (09:02→22:35)
[2018-03-11] MEDS: MULTIVITAMINS (DAILY MVI) TABLET (FP) PO SCH (09:02)
[2018-03-11] MEDS: ISOSORBIDE MONONITRATE 30 MG TAB.SR.24H (FP) PO SCH ×2 (09:02→22:35)
[2018-03-11] MEDS: LOSARTAN POTASSIUM 50 MG TABLET (FP) PO SCH ×2 (09:02→22:35)
[2018-03-11] MEDS: FERROUS SO4 325 MG TABLET (FP) PO SCH ×2 (09:03→22:35)
[2018-03-11] MEDS: SERTRALINE HCL 50 MG TABLET (FP) PO SCH ×2 (09:03→22:42)
[2018-03-11] MEDS: HYDROCHLOROTHIAZIDE 25 MG TABLET (FP) PO SCH (09:03)
[2018-03-11] MEDS: RANITIDINE HCL 150 MG TABLET (FP) PO SCH ×2 (09:03→22:35)
[2018-03-11] MEDS: amLODIPine BESYLATE 10 MG TABLET (FP) PO SCH (09:03)
[2018-03-11] MEDS: CHOLECALCIFEROL (VITAMIN D3) 1,000 UNIT TABLET (FP) PO SCH (09:03)
[2018-03-11] MEDS: PANTOPRAZOLE 40 MG TABLET (FP) PO SCH (09:04)
[2018-03-11] MEDS: CLOPIDOGREL BISULFATE 75 MG TABLET (FP) PO SCH (09:04)
[2018-03-11] MEDS: POLYETHYLENE GLYCOL 3350 119 GM BTL PO SCH (09:08)
[2018-03-11] MEDS: DORZOLAMIDE 2% HCL OPHTHALMIC SOLUTION 10 ML BOTTLE OU SCH (09:08)
[2018-03-11] MEDS: VITAMIN B COMPLEX W/C COMBO TABLET (FP) PO SCH (09:08)
--- NOTE | 2018-03-11 09:15 | PN ---
Progress Note (short form) - Note Progress Note: Neurology History of Present Illness 77-year-old female with past medical history significant for NIDDM, HTN, GERD, HLD, CAD s/p stents, CKD III, anemia and IBS presented to the emergency department with bilateral lower extremity swelling for 4 days. The patient reported having increased bilateral swelling to the legs, associated with 10- pound weight change. The patient reported associated symptoms of shortness of breath and orthopnea with difficulty moving around secondary to leg heaviness. She reported that the swelling has extended to her abdomen as well. The patient reported following up with Dr. Navarro (PCP) on Friday, who referred the patient the ER for IV Lasix. She's been admitted and being managed for CHF exacerbation. However, she developed episodes of confusion during her admission. Discussed with nurse who mentioned patient being disoriented on two occasions. She reported the son also noticed she was confused. She completed CT head which I reviewed and did not show acute changes. During my eval, she was able to tell me she's at [facility]. Believes it's March 2018. She knows President is Jessica. MRI brain completed and did not show acute changes, no infarcts, no space occupying lesions. Discussed with hospitalist, called son Gene previously, explained to him. Answered questions and he seemed appreciative of the conversation and insight. Spoke with hospitalist, there was mention of twitch though not visualized by me. Xanax prn already ordered. Remains stable with intact mental status. Remains on Zosyn. Allergies/Adverse Reactions: Allergies Allergy/AdvReac Type Severity Reaction Status Date / Time diphenhydramine HCl Allergy Severe Itching Verified 02/28/18 11:37 [From Benadryl] Influenza Virus Vaccines Allergy Verified 02/28/18 12:22 trazodone Allergy Verified 02/28/18 12:22 zolpidem [From Ambien] Allergy Verified 02/28/18 12:22 prestik Allergy Uncoded 02/28/18 12:22 Active Medications Alprazolam (Xanax -) 0.25 mg PO Q12H PRN PRN Reason: ANXIETY Last Admin: 03/10/18 22:58 Dose: 0.25 mg Amlodipine Besylate (Norvasc -) 10 mg PO DAILY [facility] Last Admin: 03/11/18 09:03 Dose: 10 mg Atorvastatin Calcium (Lipitor -) 80 mg PO HS [facility] Last Admin: 03/10/18 22:51 Dose: 80 mg Carvedilol (Coreg -) 25 mg PO BID [facility] Last Admin: 03/11/18 09:02 Dose: 25 mg Cholecalciferol (Vitamin D3 -) 2,000 unit PO DAILY [facility] Last Admin: 03/11/18 09:03 Dose: 2,000 unit Clopidogrel Bisulfate (Plavix -) 75 mg PO DAILY [facility] Last Admin: 03/10/18 12:50 Dose: 75 mg Dorzolamide HCl (Trusopt 2%) 1 drop OU DAILY [facility] Last Admin: 03/11/18 09:08 Dose: 1 drop Ferrous Sulfate (Feosol -) 325 mg PO BID [facility] Last Admin: 03/11/18 09:03 Dose: 325 mg Fluticasone Propionate (Flonase -) 1 spray NS DAILY PRN PRN Reason: NASAL ALLERGY Heparin Sodium (Porcine) (Heparin -) 5,000 unit SQ TID [facility] Last Admin: 03/11/18 05:43 Dose: 5,000 unit Hydrochlorothiazide (Hctz -) 25 mg PO DAILY [facility] Last Admin: 03/11/18 09:03 Dose: 25 mg Insulin Aspart (Novolog Vial Sliding Scale -) [facility] Last Admin: 03/11/18 06:08 Dose: Not Given Insulin Detemir (Levemir Vial) 10 units SQ [facility] Last Admin: 03/10/18 22:50 Dose: 8 units Isosorbide Mononitrate (Imdur -) 30 mg PO BID [facility] Last Admin: 03/11/18 09:02 Dose: 30 mg Latanoprost (Xalatan 0.005% Eye Drops -) 1 drop OU HS [facility] Last Admin: 03/10/18 22:30 Dose: 1 drop Losartan Potassium (Cozaar -) 50 mg PO BID [facility] Last Admin: 03/11/18 09:02 Dose: 50 mg Multivitamins (Total B With C -) 1 each PO DAILY [facility] Last Admin: 03/11/18 09:08 Dose: 1 each Multivitamins/Minerals/Vitamin C (Tab-A-Vit -) 1 tab PO DAILY [facility] Last Admin: 03/11/18 09:02 Dose: 1 tab Nitroglycerin (Nitrostat -) 0.4 mg SL TID PRN PRN Reason: FOR CHEST PAIN Non-Formulary Medication (Linaclotide [Linzess]) 290 mcg PO DAILY [facility] Pantoprazole Sodium (Protonix -) 40 mg PO DAILY [facility] Last Admin: 03/11/18 09:04 Dose: 40 mg Polyethylene Glycol (Miralax (For Daily Use) -) 17 gm PO DAILY [facility] Last Admin: 03/11/18 09:08 Dose: Not Given Ranitidine HCl (Zantac -) 150 mg PO BID [facility] Last Admin: 03/11/18 09:03 Dose: 150 mg Sertraline HCl (Zoloft -) 100 mg PO BID [facility] Last Admin: 03/11/18 09:03 Dose: 100 mg *Physical Exam Vital Signs Period Temp Pulse Resp BP Sys/Morrison Pulse Ox Last 24 Hr 98.2 F-98.6 F 73-83 19-20 112-171/58-80 96 GENERAL: Awake, alert, and fully oriented, in no acute distress. HEAD: No signs of trauma EYES: PERRLA, EOMI, sclera anicteric, conjunctiva clear ENT: Auricles normal inspection, hearing grossly normal, nares patent, oropharynx clear without exudates. Moist mucosa NECK: Nontender, no stepoffs, Normal ROM, supple, no lymphadenopathy, JVD, or masses LUNGS: + bibasilar rales HEART: Regular rate and rhythm, normal S1 and S2, no murmurs, rubs or gallops ABDOMEN: Soft, nontender, normoactive bowel sounds. No guarding, no rebound. No masses EXTREMITIES: +2 PE BLE, Normal range of motion, No clubbing or cyanosis. No cords, erythema, or tenderness NEUROLOGICAL: Cranial nerves II through XII intact. 5/5 grossly, sensation intact in all extremities, Normal speech, normal cerebellar function SKIN: Warm, Dry, normal turgor, no rashes or lesions noted. CBCD WBC 10.2 K/mm3 (4.0-10.0) H 03/10/18 08:45 RBC 2.53 M/mm3 (3.60-5.2) L 03/10/18 08:45 Hgb 8.3 GM/dL (10.7-15.3) L 03/10/18 08:45 Hct 23.9 % (32.4-45.2) L 03/10/18 08:45 MCV 94.5 fl (80-96) 03/10/18 08:45 MCHC 34.6 g/dl (32.0-36.0) 03/10/18 08:45 RDW 13.9 % (11.6-15.6) 03/10/18 08:45 Plt Count 262 K/MM3 (134-434) 03/10/18 08:45 MPV 9.6 fl (7.5-11.1) 03/10/18 08:45 CMP Sodium 144 mmol/L (136-145) 03/10/18 08:45 Potassium 3.5 mmol/L (3.5-5.1) 03/10/18 08:45 Chloride 112 mmol/L (98-107) H 03/10/18 08:45 Carbon Dioxide 22 mmol/L (21-32) 03/10/18 08:45 Anion Gap 10 MMOL/L (8-16) 03/10/18 08:45 BUN 21 mg/dL (7-18) H 03/10/18 08:45 Creatinine 1.3 mg/dL (0.55-1.3) 03/10/18 08:45 Creat Clearance w eGFR 39.72 (>60) 03/10/18 08:45 Random Glucose 137 mg/dL (74-106) H 03/10/18 08:45 Calcium 8.2 mg/dL (8.5-10.1) L 03/10/18 08:45 Total Bilirubin 0.3 mg/dL (0.2-1) 03/10/18 08:45 AST 31 U/L (15-37) 03/10/18 08:45 ALT 33 U/L (13-61) 03/10/18 08:45 Alkaline Phosphatase 94 U/L (45-117) 03/10/18 08:45 Total Protein 5.4 g/dl (6.4-8.2) L 03/10/18 08:45 Albumin 2.6 g/dl (3.4-5.0) L 03/10/18 08:45 CARDIAC ENZYMES Creatine Kinase 60 IU/L (26-192) 03/02/18 11:40 Troponin I 0.05 ng/ml (0.00-0.05) 03/02/18 11:40 Medical Decision Making 77-year-old female with past medical history significant for NIDDM, HTN, GERD, HLD, CAD s/p stents, CKD III, anemia and IBS presented to the emergency department with bilateral lower extremity swelling for 4 days. The patient reported having increased bilateral swelling to the legs, associated with 10- pound weight change. The patient reported associated symptoms of shortness of breath and orthopnea with difficulty moving around secondary to leg heaviness. She reported that the swelling has extended to her abdomen as well. The patient reported following up with Dr. Navarro (PCP) on Friday, who referred the patient the ER for IV Lasix. She's been admitted and being managed for CHF exacerbation. However, she developed episodes of confusion during her admission. Discussed with nurse who mentioned patient being disoriented on two occasions. She reported the son also noticed she was confused. She completed CT head which I reviewed and did not show acute changes. During my eval, she was able to tell me she's at [facility]. MRI negative. Confusion maybe episodes of delirium in context of being in hospital, hydration recommended. Twitch not visualized by me. Xanax is ordered as PRN. Monitor bp, maintain normotensive ranges. Monitor for infection, metabolic disturbances. On Zosyn, mental status appears to be at baseline. Continued reorientation suggested.
[2018-03-11 09:38] LABS: ANION GAP 10 MMOL/L (8-16); BLOOD UREA NITROGEN 19 mg/dL (7-18); CALCIUM 8.6 mg/dL (8.5-10.1); CHLORIDE 112 mmol/L (98-107); CO2 24 mmol/L (21-32); CREATININE 1.2 mg/dL (0.55-1.3); GLUCOSE,RANDOM 160 mg/dL (74-106); POTASSIUM 3.5 mmol/L (3.5-5.1); SODIUM 146 mmol/L (136-145)
[2018-03-11 09:43] LABS: HEMATOCRIT 24.6 % (32.4-45.2); HEMOGLOBIN 8.4 GM/dL (10.7-15.3); MCH 32.3 pg (25.7-33.7); MEAN CELL VOLUME 94.9 fl (80-96); MEAN PLT VOLUME 10.2 fl (7.5-11.1); PLATELET COUNT 259 K/MM3 (134-434); RBC 2.59 M/mm3 (3.60-5.2); RDW 14.3 % (11.6-15.6)
--- NOTE | 2018-03-11 09:44 | PN ---
Physical Exam: SUBJECTIVE: Patient seen and examined; poor PO intake reported. Neurology requested slight hydration and she appears slightly dry on her labs so will give 250cc isotonic and recheck BMP in the AM. She remains at her baseline mentation and off O2. No complaints this AM. Spoke to sgy; she wishes to NOT go home for what appears to be safety concerns and to wait inpatient until the procedure is able to be done. Will discuss with OR regarding potential times for procedure. 10 sys ROS done and negative aside from HPI. OBJECTIVE: Vital Signs Period Temp Pulse Resp BP Sys/Morrison Pulse Ox Last 24 Hr 98.2 F-98.6 F 73-83 19-20 112-171/58-73 96 GENERAL: The patient is awake, alert, and fully oriented, in no acute distress. HEAD: Normal with no signs of trauma. EYES: PERRL, extraocular movements intact, sclera anicteric, conjunctiva clear. No ptosis. ENT: Ears normal, nares patent, oropharynx clear without exudates, moist mucous membranes. NECK: Trachea midline, full range of motion, supple. LUNGS: Breath sounds equal, clear to auscultation bilaterally, no wheezes, no crackles, no accessory muscle use. HEART: Regular rate and rhythm, S1, S2 without murmur, rub or gallop. ABDOMEN: Soft, nontender, nondistended, normoactive bowel sounds, no guarding, no rebound, no hepatosplenomegaly, no masses. EXTREMITIES: 2+ pulses, warm, well-perfused, no edema. NEUROLOGICAL: Cranial nerves II through XII grossly intact. Normal speech, gait not observed. PSYCH: Normal mood, normal affect. SKIN: Warm, dry, normal turgor, no rashes or lesions noted Laboratory Results - last 24 hr 03/10/18 03/10/18 03/10/18 08:45 12:46 16:38 Sodium 144 Potassium 3.5 Chloride 112 H Carbon Dioxide 22 Anion Gap 10 BUN 21 H Creatinine 1.3 Creat Clearance w eGFR 39.72 POC Glucometer 150 202 Random Glucose 137 H Calcium 8.2 L Magnesium 1.8 Total Bilirubin 0.3 AST 31 ALT 33 Alkaline Phosphatase 94 Total Protein 5.4 L Albumin 2.6 L 03/10/18 03/11/18 03/11/18 22:47 04:22 08:55 Sodium 146 H Potassium 3.5 Chloride 112 H Carbon Dioxide 24 Anion Gap 10 BUN 19 H Creatinine 1.2 Creat Clearance w eGFR 43.56 POC Glucometer 182 133 Random Glucose 160 H Calcium 8.6 Magnesium Total Bilirubin AST ALT Alkaline Phosphatase Total Protein Albumin Active Medications Generic Name Dose Route Start Last Admin Trade Name Freq PRN Reason Stop Dose Admin Alprazolam 0.25 mg 03/07/18 13:15 03/10/18 22:58 Xanax - PO 0.25 mg Q12H PRN Administration ANXIETY Amlodipine Besylate 10 mg 03/01/18 10:00 03/11/18 09:03 Norvasc - PO 10 mg DAILY [facility] Administration Atorvastatin Calcium 80 mg 03/04/18 22:00 03/10/18 22:51 Lipitor - PO 80 mg HS [facility] Administration Carvedilol 25 mg 02/28/18 22:00 03/11/18 09:02 Coreg - PO 25 mg BID [facility] Administration Cholecalciferol 2,000 unit 03/01/18 10:00 03/11/18 09:03 Vitamin D3 - PO 2,000 unit DAILY [facility] Administration Clopidogrel Bisulfate 75 mg 03/01/18 10:00 03/10/18 12:50 Plavix - PO 75 mg DAILY [facility] Administration Dorzolamide HCl 1 drop 03/01/18 10:00 03/11/18 09:08 Trusopt 2% OU 1 drop DAILY [facility] Administration Ferrous Sulfate 325 mg 02/28/18 22:00 03/11/18 09:03 Feosol - PO 325 mg BID [facility] Administration Fluticasone Propionate 1 spray 02/28/18 15:16 Flonase - NS DAILY PRN NASAL ALLERGY Heparin Sodium (Porcine) 5,000 unit 03/05/18 14:00 03/11/18 05:43 Heparin - SQ 5,000 unit TID [facility] Administration Hydrochlorothiazide 25 mg 03/01/18 10:00 03/11/18 09:03 Hctz - PO 25 mg DAILY [facility] Administration Lactated Ringer's 1,000 ml in 1,000 mls @ 75 mls/hr 03/11/18 09:45 Lactated Ringers Solution IV ASDIR [facility] Insulin Aspart 1 vial 02/28/18 16:30 03/11/18 06:08 Novolog Vial Sliding Scale - SQ Not Given TIDAC [facility] Protocol Insulin Detemir 10 units 03/08/18 09:49 12/04/18 22:50 Levemir Vial SQ 8 units HS [facility] Administration Isosorbide Mononitrate 30 mg 02/28/18 22:00 03/11/18 09:02 Imdur - PO 30 mg BID [facility] Administration Latanoprost 1 drop 02/28/18 22:00 03/10/18 22:30 Xalatan 0.005% Eye Drops - OU 1 drop HS [facility] Administration Losartan Potassium 50 mg 02/28/18 22:00 03/11/18 09:02 Cozaar - PO 50 mg BID [facility] Administration Multivitamins 1 each 03/01/18 10:00 03/11/18 09:08 Total B With C - PO 1 each DAILY [facility] Administration Multivitamins/Minerals/Vitamin C 1 tab 03/06/18 13:45 03/11/18 09:02 Tab-A-Vit - PO 1 tab DAILY [facility] Administration Nitroglycerin 0.4 mg 02/28/18 15:16 Nitrostat - SL TID PRN FOR CHEST PAIN Non-Formulary Medication 290 mcg 03/01/18 10:00 Linaclotide [Linzess] PO DAILY [facility] Pantoprazole Sodium 40 mg 03/04/18 10:00 03/11/18 09:04 Protonix - PO 40 mg DAILY [facility] Administration Polyethylene Glycol 17 gm 03/01/18 10:00 03/11/18 09:08 Miralax (For Daily Use) - PO Not Given DAILY [facility] Ranitidine HCl 150 mg 03/06/18 22:00 03/11/18 09:03 Zantac - PO 150 mg BID [facility] Administration Sertraline HCl 100 mg 02/28/18 22:00 03/11/18 09:03 Zoloft - PO 100 mg BID [facility] Administration ASSESSMENT/PLAN: 1) Carotid A. Stenosis (L), severe -Stress test negative; medically optimiized for procuedure -No new neuro signs; reviewed old studies. Continue to observe. Can DC telemetry and move to med surg floor. -Wants to have procedure done inlateint; will discuss with Dr. Chapa's service. 2) CAD s/p PCI (LAD, RCA) -No issues; CV following. Continue BB, Plavix, etc. without any changes to medications -Stress test negative; if procedure to be done friday hold plavix day of procedure 3) HLD -Continue current tx; no changes 4) CHF -Euvolemic today; echo reviewed -Continue current medications; monitor QD weights, Is and oS 5) HTN, uncontrolled -Improved; monitor. Has a component of anxiety driving her HTN. -Increasing BP meds per cardiology. Is on Amlodipine, Coreg, HCTZ, Losartan, Imdur 6) Suspected Pneumonia (? Asp?) -Off abx per ID; monitor. -appreciate specialist input 7) History of TIA -Negative acute neuro workup with neuroimaging; at neuro baseline with no FNDs 8) AMS -Remains resolved, at neurologic baseline. Keeping hydrated, redirect her as needed. Neurology input greatly appreciated. 9) Iron Deficiency Anemia -At baseline; continue current management 10) IBS -Continue Linzess 11) Psych hx -Continue current medication 12) Glaucoma -Continue current medication; no acute issues 13) CKD -Remains at baseline; continue to monitor BMP and UOP. No elyte abnl 14) Facial Twitch -Continue xanax Full Code Visit type - Emergency Visit Emergency Visit: No - New Patient This patient is new to me today: No - Critical Care Critical Care patient: No
[2018-03-11] MEDS ORDERED: INFUS IV SCH (09:45)
[2018-03-11] MEDS ORDERED: LACTATED RINGERS IV SCH (09:45)
--- NOTE | 2018-03-11 11:37 | PN ---
Progress Note, Physician History of Present Illness: 77 year old black female (zaria Rouse), with a PMH significant for CAD s/p 2 stents ,(the 1st in 2005), HTN, HLD, DM, CKD stage III, Depression/anxiety, glaucoma and IBS presented to the ED at the request of her PCP with increased leg swelling and SOB, cough, ECKERT over the past 4 days. Patient reports she has had a 10 lb weight gain over the past several weeks though it has been harder for her to eat with the fluid accumulation and chronic gas problem. She was seen by her PCP Dr. Navarro on Friday who recommended she present to the ED for IV diuresis. Denies headaches, chest pain, palpitations, n/v/d. Upon admission to the ED she had a low grade temperature of 99.0. Labs notable for BNP 4756, BUN/Cr 56/1.8 (baseline), slightly elevated AST/ALT/Alk Phos elevated at 38/82/160, Trop negative CXR positive for congestive changes, ECG unremarkable. She was given IM Lasix in the ED which she reports at the time of exam not to have cause her to urinate very much yet. - Current Medication List Current Medications: Active Medications Alprazolam (Xanax -) 0.25 mg PO Q12H PRN PRN Reason: ANXIETY Last Admin: 03/10/18 22:58 Dose: 0.25 mg Amlodipine Besylate (Norvasc -) 10 mg PO DAILY [facility] Last Admin: 03/11/18 09:03 Dose: 10 mg Atorvastatin Calcium (Lipitor -) 80 mg PO HS [facility] Last Admin: 03/10/18 22:51 Dose: 80 mg Carvedilol (Coreg -) 25 mg PO BID [facility] Last Admin: 03/11/18 09:02 Dose: 25 mg Cholecalciferol (Vitamin D3 -) 2,000 unit PO DAILY [facility] Last Admin: 03/11/18 09:03 Dose: 2,000 unit Clopidogrel Bisulfate (Plavix -) 75 mg PO DAILY [facility] Last Admin: 03/10/18 12:50 Dose: 75 mg Dorzolamide HCl (Trusopt 2%) 1 drop OU DAILY [facility] Last Admin: 03/11/18 09:08 Dose: 1 drop Ferrous Sulfate (Feosol -) 325 mg PO BID [facility] Last Admin: 03/11/18 09:03 Dose: 325 mg Fluticasone Propionate (Flonase -) 1 spray NS DAILY PRN PRN Reason: NASAL ALLERGY Heparin Sodium (Porcine) (Heparin -) 5,000 unit SQ TID [facility] Last Admin: 03/11/18 05:43 Dose: 5,000 unit Hydrochlorothiazide (Hctz -) 25 mg PO DAILY [facility] Last Admin: 03/11/18 09:03 Dose: 25 mg Lactated Ringer's (Lactated Ringers Solution) 1,000 ml in 250 mls @ 75 mls/hr IV ASDIR [facility] Stop: 03/11/18 13:04 Insulin Aspart (Novolog Vial Sliding Scale -) 1 vial SQ TIDAC [facility]; Protocol Last Admin: 03/11/18 06:08 Dose: Not Given Insulin Detemir (Levemir Vial) 10 units SQ HS [facility] Last Admin: 03/10/18 22:50 Dose: 8 units Isosorbide Mononitrate (Imdur -) 30 mg PO BID [facility] Last Admin: 03/11/18 09:02 Dose: 30 mg Latanoprost (Xalatan 0.005% Eye Drops -) 1 drop OU HS [facility] Last Admin: 03/10/18 22:30 Dose: 1 drop Losartan Potassium (Cozaar -) 50 mg PO BID [facility] Last Admin: 03/11/18 09:02 Dose: 50 mg Multivitamins (Total B With C -) 1 each PO DAILY [facility] Last Admin: 03/11/18 09:08 Dose: 1 each Multivitamins/Minerals/Vitamin C (Tab-A-Vit -) 1 tab PO DAILY [facility] Last Admin: 03/11/18 09:02 Dose: 1 tab Nitroglycerin (Nitrostat -) 0.4 mg SL TID PRN PRN Reason: FOR CHEST PAIN Non-Formulary Medication (Linaclotide [Linzess]) 290 mcg PO DAILY [facility] Pantoprazole Sodium (Protonix -) 40 mg PO DAILY [facility] Last Admin: 03/11/18 09:04 Dose: 40 mg Polyethylene Glycol (Miralax (For Daily Use) -) 17 gm PO DAILY [facility] Last Admin: 03/11/18 09:08 Dose: Not Given Ranitidine HCl (Zantac -) 150 mg PO BID [facility] Last Admin: 03/11/18 09:03 Dose: 150 mg Sertraline HCl (Zoloft -) 100 mg PO BID [facility] Last Admin: 03/11/18 09:03 Dose: 100 mg - Objective Vital Signs: Vital Signs Temperature 98.6 F 03/11/18 05:00 Pulse Rate 73 03/11/18 05:00 Respiratory Rate 19 03/11/18 05:00 Blood Pressure 171/73 H 03/11/18 05:00 O2 Sat by Pulse Oximetry (%) 96 03/10/18 21:00 Eyes: Yes: WNL, Conjunctiva Clear, EOM Intact HENT: Yes: WNL, Atraumatic, Normocephalic Neck: Yes: WNL, Supple, Trachea Midline Cardiovascular: Yes: WNL, Regular Rate and Rhythm Respiratory: Yes: WNL, Regular, CTA Bilaterally Gastrointestinal: Yes: WNL, Normal Bowel Sounds Genitourinary: Yes: WNL Musculoskeletal: Yes: WNL Extremities: Yes: WNL Edema: No Integumentary: Yes: WNL Neurological: Yes: WNL, Alert, Oriented ...Motor Strength: WNL Psychiatric: Yes: WNL Labs: CBC, BMP 03/11/18 08:55 03/11/18 08:55 Assessment/Plan - Problems (1) Acute on chronic diastolic (congestive) heart failure Assessment/Plan: ECHO: normal LVEF; severe pulmonary HTN On beta blockers. On ARB, HCTZ, Imdur. F/u BUN/Cr, electrolytes, daily weight, Is and Os. Code(s): I50.33 - ACUTE ON CHRONIC DIASTOLIC (CONGESTIVE) HEART FAILURE (2) CKD (chronic kidney disease) stage 3, GFR 30-59 ml/min Code(s): N18.3 - CHRONIC KIDNEY DISEASE, STAGE 3 (MODERATE) (3) IBS (irritable bowel syndrome) Code(s): K58.9 - IRRITABLE BOWEL SYNDROME WITHOUT DIARRHEA (4) Diabetes mellitus Code(s): E11.9 - TYPE 2 DIABETES MELLITUS WITHOUT COMPLICATIONS (5) Hyperlipidemia Code(s): E78.5 - HYPERLIPIDEMIA, UNSPECIFIED (6) Hypertension Code(s): I10 - ESSENTIAL (PRIMARY) HYPERTENSION Qualifiers: Hypertension type: essential hypertension Qualified Code(s): I10 - Essential (primary) hypertension (7) Severe pulmonary arterial systolic hypertension Code(s): I27.21 - SECONDARY PULMONARY ARTERIAL HYPERTENSION (8) H/O heart artery stent Assessment/Plan: Stress MIBI today: no myocardial ischemia. From a cardiac perspective, pt is cleared to undergo carotid endarterectomy. Code(s): Z95.5 - PRESENCE OF CORONARY ANGIOPLASTY IMPLANT AND GRAFT
--- NOTE | 2018-03-11 12:49 | PN ---
Progress Note, Physician History of Present Illness: Pt seen and examined at bedside. She is awake and alert. She denies shortness of breath. She is tolerating regular liquids. - Current Medication List Current Medications: Active Medications Alprazolam (Xanax -) 0.25 mg PO Q12H PRN PRN Reason: ANXIETY Last Admin: 03/10/18 22:58 Dose: 0.25 mg Amlodipine Besylate (Norvasc -) 10 mg PO DAILY [facility] Last Admin: 03/11/18 09:03 Dose: 10 mg Atorvastatin Calcium (Lipitor -) 80 mg PO HS [facility] Last Admin: 03/10/18 22:51 Dose: 80 mg Carvedilol (Coreg -) 25 mg PO BID [facility] Last Admin: 03/11/18 09:02 Dose: 25 mg Cholecalciferol (Vitamin D3 -) 2,000 unit PO DAILY [facility] Last Admin: 03/11/18 09:03 Dose: 2,000 unit Clopidogrel Bisulfate (Plavix -) 75 mg PO DAILY [facility] Last Admin: 03/10/18 12:50 Dose: 75 mg Dorzolamide HCl (Trusopt 2%) 1 drop OU DAILY [facility] Last Admin: 03/11/18 09:08 Dose: 1 drop Ferrous Sulfate (Feosol -) 325 mg PO BID [facility] Last Admin: 03/11/18 09:03 Dose: 325 mg Fluticasone Propionate (Flonase -) 1 spray NS DAILY PRN PRN Reason: NASAL ALLERGY Heparin Sodium (Porcine) (Heparin -) 5,000 unit SQ TID [facility] Last Admin: 03/11/18 05:43 Dose: 5,000 unit Hydrochlorothiazide (Hctz -) 25 mg PO DAILY [facility] Last Admin: 03/11/18 09:03 Dose: 25 mg Lactated Ringer's (Lactated Ringers Solution) 1,000 ml in 250 mls @ 75 mls/hr IV ASDIR [facility] Stop: 03/11/18 13:04 Insulin Aspart (Novolog Vial Sliding Scale -) 1 vial SQ [facility]; Protocol Last Admin: 03/11/18 06:08 Dose: Not Given Insulin Detemir (Levemir Vial) 10 units SQ [facility] Last Admin: 03/10/18 22:50 Dose: 8 units Isosorbide Mononitrate (Imdur -) 30 mg PO BID [facility] Last Admin: 03/11/18 09:02 Dose: 30 mg Latanoprost (Xalatan 0.005% Eye Drops -) 1 drop OU HS [facility] Last Admin: 03/10/18 22:30 Dose: 1 drop Losartan Potassium (Cozaar -) 50 mg PO BID [facility] Last Admin: 03/11/18 09:02 Dose: 50 mg Multivitamins (Total B With C -) 1 each PO DAILY [facility] Last Admin: 03/11/18 09:08 Dose: 1 each Multivitamins/Minerals/Vitamin C (Tab-A-Vit -) 1 tab PO DAILY [facility] Last Admin: 03/11/18 09:02 Dose: 1 tab Nitroglycerin (Nitrostat -) 0.4 mg SL TID PRN PRN Reason: FOR CHEST PAIN Non-Formulary Medication (Linaclotide [Linzess]) 290 mcg PO DAILY [facility] Pantoprazole Sodium (Protonix -) 40 mg PO DAILY [facility] Last Admin: 03/11/18 09:04 Dose: 40 mg Polyethylene Glycol (Miralax (For Daily Use) -) 17 gm PO DAILY [facility] Last Admin: 03/11/18 09:08 Dose: Not Given Ranitidine HCl (Zantac -) 150 mg PO BID [facility] Last Admin: 03/11/18 09:03 Dose: 150 mg Sertraline HCl (Zoloft -) 100 mg PO BID [facility] Last Admin: 03/11/18 09:03 Dose: 100 mg - Objective Vital Signs: Vital Signs Temperature 98.6 F 03/11/18 05:00 Pulse Rate 73 03/11/18 05:00 Respiratory Rate 19 03/11/18 05:00 Blood Pressure 171/73 H 03/11/18 05:00 O2 Sat by Pulse Oximetry (%) 96 03/10/18 21:00 Constitutional: Yes: Calm Eyes: Yes: Conjunctiva Clear HENT: Yes: Atraumatic Cardiovascular: Yes: S1, S2 Respiratory: Yes: CTA Bilaterally Gastrointestinal: Yes: Normal Bowel Sounds, Soft Genitourinary: Yes: WNL Musculoskeletal: Yes: WNL Edema: LLE: Trace, RLE: Trace Neurological: Yes: Oriented Psychiatric: Yes: Oriented Labs: CBC, BMP 03/11/18 08:55 03/11/18 08:55 Problem List - Problems (1) CHF (congestive heart failure) Code(s): I50.9 - HEART FAILURE, UNSPECIFIED (2) CKD (chronic kidney disease) stage 3, GFR 30-59 ml/min Code(s): N18.3 - CHRONIC KIDNEY DISEASE, STAGE 3 (MODERATE) Assessment/Plan Current Medications Generic Name Dose Route Start Last Admin Trade Name Freq PRN Reason Stop Dose Admin Alprazolam 0.25 mg 03/07/18 13:15 03/10/18 22:58 Xanax - PO 0.25 mg Q12H PRN Administration ANXIETY Amlodipine Besylate 10 mg 03/01/18 10:00 03/11/18 09:03 Norvasc - PO 10 mg DAILY [facility] Administration Atorvastatin Calcium 80 mg 03/04/18 22:00 03/10/18 22:51 Lipitor - PO 80 mg HS [facility] Administration Carvedilol 25 mg 02/28/18 22:00 03/11/18 09:02 Coreg - PO 25 mg BID [facility] Administration Cholecalciferol 2,000 unit 03/01/18 10:00 03/11/18 09:03 Vitamin D3 - PO 2,000 unit DAILY [facility] Administration Clopidogrel Bisulfate 75 mg 03/01/18 10:00 03/10/18 12:50 Plavix - PO 75 mg DAILY [facility] Administration Dorzolamide HCl 1 drop 03/01/18 10:00 03/11/18 09:08 Trusopt 2% OU 1 drop DAILY [facility] Administration Ferrous Sulfate 325 mg 02/28/18 22:00 03/11/18 09:03 Feosol - PO 325 mg BID [facility] Administration Fluticasone Propionate 1 spray 02/28/18 15:16 Flonase - NS DAILY PRN NASAL ALLERGY Heparin Sodium (Porcine) 5,000 unit 03/05/18 14:00 03/11/18 05:43 Heparin - SQ 5,000 unit TID [facility] Administration Hydrochlorothiazide 25 mg 03/01/18 10:00 03/11/18 09:03 Hctz - PO 25 mg DAILY [facility] Administration Lactated Ringer's 1,000 ml in 250 mls @ 75 mls/hr 03/11/18 09:45 Lactated Ringers Solution IV 03/11/18 13:04 ASDIR [facility] Insulin Aspart 1 vial 02/28/18 16:30 03/11/18 06:08 Novolog Vial Sliding Scale - SQ Not Given TIDAC [facility] Protocol Insulin Detemir 10 units 03/08/18 09:49 03/10/18 22:50 Levemir Vial SQ 8 units HS [facility] Administration Isosorbide Mononitrate 30 mg 02/28/18 22:00 03/11/18 09:02 Imdur - PO 30 mg BID [facility] Administration Latanoprost 1 drop 02/28/18 22:00 03/10/18 22:30 Xalatan 0.005% Eye Drops - OU 1 drop HS [facility] Administration Losartan Potassium 50 mg 02/28/18 22:00 03/11/18 09:02 Cozaar - PO 50 mg BID [facility] Administration Multivitamins 1 each 03/01/18 10:00 03/11/18 09:08 Total B With C - PO 1 each DAILY [facility] Administration Multivitamins/Minerals/Vitamin C 1 tab 03/06/18 13:45 03/11/18 09:02 Tab-A-Vit - PO 1 tab DAILY [facility] Administration Nitroglycerin 0.4 mg 02/28/18 15:16 Nitrostat - SL TID PRN FOR CHEST PAIN Non-Formulary Medication 290 mcg 03/01/18 10:00 Linaclotide [Linzess] PO DAILY [facility] Pantoprazole Sodium 40 mg 03/04/18 10:00 03/11/18 09:04 Protonix - PO 40 mg DAILY [facility] Administration Polyethylene Glycol 17 gm 03/01/18 10:00 03/11/18 09:08 Miralax (For Daily Use) - PO Not Given DAILY [facility] Ranitidine HCl 150 mg 03/06/18 22:00 03/11/18 09:03 Zantac - PO 150 mg BID [facility] Administration Sertraline HCl 100 mg 02/28/18 22:00 03/11/18 09:03 Zoloft - PO 100 mg BID [facility] Administration Impression 1. CKD 2. DM 3. gerd 4. CAD 5. anemia 6. left IJ stenosis 7. hypernatremia 8. HTN Plan - do not recommend that fluids are started - repeat bp after am meds - renal function is stable - monitor bp - encourage free water intake - avoid nsaids Dr Zhu
--- NOTE | 2018-03-11 13:46 | PN ---
Progress Note, BEHAVIOR CLINICIAN - Note Progress Note: Selected Entries 03/09/18 03/09/18 03/09/18 01:21 05:00 09:00 Lunch Supper Temperature 98.7 F 99.1 F 98.4 F 03/09/18 03/09/18 03/09/18 13:51 14:00 17:00 Lunch 75% Supper Temperature 98.1 F 97.8 F 03/09/18 03/09/18 03/10/18 20:23 22:00 02:10 Lunch Supper 50% Temperature 98.3 F 98.1 F 03/10/18 06:00 Lunch Supper Temperature 99.2 F Laboratory Tests 03/09/18 03/10/18 06:00 08:45 WBC 10.0 10.2 H Doing quite well. Verbal. Speech clear. Swallowing overtly intact. Consider reg diet/thin liquids.
--- NOTE | 2018-03-11 13:49 | PN ---
Progress Note, Physician - Current Medication List Current Medications: Active Medications Alprazolam (Xanax -) 0.25 mg PO Q12H PRN PRN Reason: ANXIETY Last Admin: 03/10/18 22:58 Dose: 0.25 mg Amlodipine Besylate (Norvasc -) 10 mg PO DAILY [facility] Last Admin: 03/11/18 09:03 Dose: 10 mg Atorvastatin Calcium (Lipitor -) 80 mg PO HS [facility] Last Admin: 03/10/18 22:51 Dose: 80 mg Carvedilol (Coreg -) 25 mg PO BID [facility] Last Admin: 03/11/18 09:02 Dose: 25 mg Cholecalciferol (Vitamin D3 -) 2,000 unit PO DAILY [facility] Last Admin: 03/11/18 09:03 Dose: 2,000 unit Clopidogrel Bisulfate (Plavix -) 75 mg PO DAILY [facility] Last Admin: 03/10/18 12:50 Dose: 75 mg Dorzolamide HCl (Trusopt 2%) 1 drop OU DAILY [facility] Last Admin: 03/11/18 09:08 Dose: 1 drop Ferrous Sulfate (Feosol -) 325 mg PO BID [facility] Last Admin: 03/11/18 09:03 Dose: 325 mg Fluticasone Propionate (Flonase -) 1 spray NS DAILY PRN PRN Reason: NASAL ALLERGY Heparin Sodium (Porcine) (Heparin -) 5,000 unit SQ TID [facility] Last Admin: 03/11/18 05:43 Dose: 5,000 unit Hydrochlorothiazide (Hctz -) 25 mg PO DAILY [facility] Last Admin: 03/11/18 09:03 Dose: 25 mg Insulin Aspart ([facility]ial Sliding [facility] -) [facility] Last Admin: 03/11/18 06:08 Dose: Not Given Insulin Detemir (Levemir Vial) 10 units SQ HS [facility] Last Admin: 03/10/18 22:50 Dose: 8 units Isosorbide Mononitrate (Imdur -) 30 mg PO BID [facility] Last Admin: 03/11/18 09:02 Dose: 30 mg Latanoprost (Xalatan 0.005% Eye Drops -) 1 drop OU HS [facility] Last Admin: 03/10/18 22:30 Dose: 1 drop Losartan Potassium (Cozaar -) 50 mg PO BID [facility] Last Admin: 03/11/18 09:02 Dose: 50 mg Multivitamins (Total B With C -) 1 each PO DAILY [facility] Last Admin: 03/11/18 09:08 Dose: 1 each Multivitamins/Minerals/Vitamin C (Tab-A-Vit -) 1 tab PO DAILY [facility] Last Admin: 03/11/18 09:02 Dose: 1 tab Nitroglycerin (Nitrostat -) 0.4 mg SL TID PRN PRN Reason: FOR CHEST PAIN Non-Formulary Medication (Linaclotide [Linzess]) 290 mcg PO DAILY [facility] Pantoprazole Sodium (Protonix -) 40 mg PO DAILY [facility] Last Admin: 03/11/18 09:04 Dose: 40 mg Polyethylene Glycol (Miralax (For Daily Use) -) 17 gm PO DAILY [facility] Last Admin: 03/11/18 09:08 Dose: Not Given Ranitidine HCl (Zantac -) 150 mg PO BID [facility] Last Admin: 03/11/18 09:03 Dose: 150 mg Sertraline HCl (Zoloft -) 100 mg PO BID [facility] Last Admin: 03/11/18 09:03 Dose: 100 mg - Objective Vital Signs: Vital Signs Temperature 98.3 F 03/11/18 10:00 Pulse Rate 78 03/11/18 10:00 Respiratory Rate 20 03/11/18 10:00 Blood Pressure 169/88 03/11/18 10:00 O2 Sat by Pulse Oximetry (%) 97 03/11/18 10:00 Labs: CBC, BMP 03/11/18 08:55 03/11/18 08:55
--- NOTE | 2018-03-11 14:59 | PN ---
Progress Note (short form) - Note Progress Note: Vascular Surgery Pt's stress test is negative. CTA shows left ICA stenosis of 80-85% stenosis. CAlled CT to reconstruct images on CTA. once reviewed, can do CEA on friday if family prefers. CAn also do as outpt since the current admission was not due to her carotid stenosis. Will speak to family. Ata Chapa DO
[2018-03-11] MEDS ORDERED: LOPERAMIDE HCL 2 MG CAPSULE PO ONE (18:17)
[2018-03-11] MEDS: ATORVASTATIN CA 80 MG TABLET (FP) PO SCH (22:35)
[2018-03-11] MEDS: INSULIN (LEVEMIR) 100 UNITS/ML UNITS SQ SCH (22:40)
[2018-03-11] MEDS: LATANOPROST 0.005% OPHTH SOLN 2.5ML BOTTLE OU SCH (22:41)
[2018-03-11] MEDS: ALPRAZolam 0.25 MG TABLET PO PRN (22:42)
[2018-03-12] MEDS: INSULIN SLIDING SCALE (NOVOLOG) 1 VIAL SQ SCH ×2 (06:30→17:20)
[2018-03-12] MEDS: HEPARIN NA (PORCINE) 5,000 UNITS/ML 1ML VIAL SQ SCH (06:40)
[2018-03-12 07:04] LABS: BASO % 0.4 % (0-2.0); EOS % 3.2 % (0-4.5); HEMATOCRIT 23.9 % (32.4-45.2); HEMOGLOBIN 7.6 GM/dL (10.7-15.3); LYMPH % 12.4 % (8-40); MCH 30.4 pg (25.7-33.7); MCHC 31.9 g/dl (32.0-36.0); MEAN CELL VOLUME 95.4 fl (80-96); MEAN PLT VOLUME 10.4 fl (7.5-11.1); MONO % 6.9 % (3.8-10.2); NEUT % 77.1 % (42.8-82.8); PLATELET COUNT 206 K/MM3 (134-434); RDW 14.3 % (11.6-15.6); WHITE BLOOD COUNT 11.6 K/mm3 (4.0-10.0)
[2018-03-12 07:43] LABS: ANION GAP 9 MMOL/L (8-16); BLOOD UREA NITROGEN 19 mg/dL (7-18); CALCIUM 8.3 mg/dL (8.5-10.1); CHLORIDE 113 mmol/L (98-107); CO2 25 mmol/L (21-32); CREATININE 1.1 mg/dL (0.55-1.3); GLUCOSE,RANDOM 113 mg/dL (74-106); MAGNESIUM 1.8 mg/dL (1.8-2.4); POTASSIUM 3.7 mmol/L (3.5-5.1); SODIUM 147 mmol/L (136-145)
--- NOTE | 2018-03-12 08:16 | PN ---
Physical Exam: SUBJECTIVE: Patient seen and examined; no issues reported to me overnight. Remains in good spirits. NPO at [facility] for carotid endarterectomy. Wants to do inpatient. No new complaints; denies any syncope, new dizziness, neuro issues, etc. 10 sys ROS done and negative aside from HPI OBJECTIVE: Vital Signs Period Temp Pulse Resp BP Sys/Morrison Pulse Ox Last 24 Hr 97.9 F-98.6 F 72-86 18-20 138-178/66-88 97-97 GENERAL: The patient is awake, alert, and fully oriented, in no acute distress. HEAD: Normal with no signs of trauma. EYES: PERRL, extraocular movements intact, sclera anicteric, conjunctiva clear. No ptosis. ENT: Ears normal, nares patent, oropharynx clear without exudates, moist mucous membranes. NECK: Trachea midline, full range of motion, supple. LUNGS: Breath sounds equal, clear to auscultation bilaterally, no wheezes, no crackles, no accessory muscle use. HEART: Regular rate and rhythm, S1, S2 without murmur, rub or gallop. ABDOMEN: Soft, nontender, nondistended, normoactive bowel sounds, no guarding, no rebound, no hepatosplenomegaly, no masses. EXTREMITIES: 2+ pulses, warm, well-perfused, no edema. NEUROLOGICAL: Cranial nerves II through XII grossly intact. Normal speech, gait not observed. PSYCH: Normal mood, normal affect. SKIN: Warm, dry, normal turgor, no rashes or lesions noted Laboratory Results - last 24 hr 03/11/18 03/11/18 03/11/18 08:55 08:55 17:01 WBC 12.0 H RBC 2.59 L Hgb 8.4 L Hct 24.6 L MCV 94.9 MCH 32.3 MCHC 34.0 RDW 14.3 Plt Count 259 MPV 10.2 Sodium 146 H Potassium 3.5 Chloride 112 H Carbon Dioxide 24 Anion Gap 10 BUN 19 H Creatinine 1.2 Creat Clearance w eGFR 43.56 POC Glucometer 170 Random Glucose 160 H Calcium 8.6 Magnesium 03/11/18 03/12/18 03/12/18 21:20 05:30 06:09 WBC RBC Hgb Hct MCV MCH MCHC RDW Plt Count MPV Sodium 147 H Potassium 3.7 Chloride 113 H Carbon Dioxide 25 Anion Gap 9 BUN 19 H Creatinine 1.1 Creat Clearance w eGFR 48.16 POC Glucometer 250 137 Random Glucose 113 H Calcium 8.3 L Magnesium 1.8 Active Medications Generic Name Dose Route Start Last Admin Trade Name Freq PRN Reason Stop Dose Admin Alprazolam 0.25 mg 03/07/18 13:15 03/11/18 22:42 Xanax - PO 0.25 mg Q12H PRN Administration ANXIETY Amlodipine Besylate 10 mg 03/01/18 10:00 03/11/18 09:03 Norvasc - PO 10 mg DAILY [facility] Administration Atorvastatin Calcium 80 mg 03/04/18 22:00 03/11/18 22:35 Lipitor - PO 80 mg HS [facility] Administration Carvedilol 25 mg 02/28/18 22:00 03/11/18 22:35 Coreg - PO 25 mg BID [facility] Administration Cholecalciferol 2,000 unit 03/01/18 10:00 03/11/18 09:03 Vitamin D3 - PO 2,000 unit DAILY [facility] Administration Clopidogrel Bisulfate 75 mg 03/01/18 10:00 03/10/18 12:50 Plavix - PO 75 mg DAILY [facility] Administration Dorzolamide HCl 1 drop 03/01/18 10:00 03/11/18 09:08 Trusopt 2% OU 1 drop DAILY [facility] Administration Ferrous Sulfate 325 mg 02/28/18 22:00 03/11/18 22:35 Feosol - PO 325 mg BID [facility] Administration Fluticasone Propionate 1 spray 02/28/18 15:16 Flonase - NS DAILY PRN NASAL ALLERGY Heparin Sodium (Porcine) 5,000 unit 03/05/18 14:00 03/12/18 06:40 Heparin - SQ 5,000 unit TID [facility] Administration Hydrochlorothiazide 25 mg 03/01/18 10:00 03/11/18 09:03 Hctz - PO 25 mg DAILY [facility] Administration Insulin Aspart 1 vial 02/28/18 16:30 03/12/18 06:30 Novolog Vial Sliding Scale - SQ Not Given TIDAC [facility] Protocol Insulin Detemir 10 units 03/08/18 09:49 03/11/18 22:40 Levemir Vial SQ 10 units HS [facility] Administration Isosorbide Mononitrate 30 mg 02/28/18 22:00 03/11/18 22:35 Imdur - PO 30 mg BID [facility] Administration Latanoprost 1 drop 02/28/18 22:00 03/11/18 22:41 Xalatan 0.005% Eye Drops - OU 1 drop HS [facility] Administration Losartan Potassium 50 mg 02/28/18 22:00 03/11/18 22:35 Cozaar - PO 50 mg BID [facility] Administration Multivitamins 1 each 03/01/18 10:00 03/11/18 09:08 Total B With C - PO 1 each DAILY [facility] Administration Multivitamins/Minerals/Vitamin C 1 tab 03/06/18 13:45 03/11/18 09:02 Tab-A-Vit - PO 1 tab DAILY [facility] Administration Nitroglycerin 0.4 mg 02/28/18 15:16 Nitrostat - SL TID PRN FOR CHEST PAIN Pantoprazole Sodium 40 mg 03/04/18 10:00 03/11/18 09:04 Protonix - PO 40 mg DAILY [facility] Administration Polyethylene Glycol 17 gm 03/01/18 10:00 03/11/18 09:08 Miralax (For Daily Use) - PO Not Given DAILY [facility] Ranitidine HCl 150 mg 03/06/18 22:00 03/11/18 22:35 Zantac - PO 150 mg BID [facility] Administration Sertraline HCl 100 mg 02/28/18 22:00 03/11/18 22:42 Zoloft - PO Not Given BID [facility] ASSESSMENT/PLAN: Overall no changes to plan; NPO at midnight for procedure. Will not give IVF during that point as the patient is at risk for fluid overload. Will touch base with Dr. Chapa's service. Holding plavix in AM. No further changes. 1) Carotid A. Stenosis (L), severe -NPO at midnight for CEA; may resume diet after per swallow recs -Stress test negative; medically optimiized for procuedure. Holding plavix in AM. -No new neuro signs; reviewed old studies. Continue to observe. -Wants to have procedure done inpateint; will discuss with Dr. Chapa's service. 2) CAD s/p PCI (LAD, RCA) -No issues; CV following. Continue BB, Plavix, etc. without any changes to medications -Stress test negative; if procedure to be done friday hold plavix day of procedure 3) HLD -Continue current tx; no changes 4) CHF -Euvolemic today; echo reviewed -Continue current medications; monitor QD weights, Is and oS 5) HTN, uncontrolled -Improved; monitor. Has a component of anxiety driving her HTN. -Increasing BP meds per cardiology. Is on Amlodipine, Coreg, HCTZ, Losartan, Imdur 6) Suspected Pneumonia (? Asp?) -Off abx per ID; monitor. -appreciate specialist input 7) History of TIA -Negative acute neuro workup with neuroimaging; at neuro baseline with no FNDs 8) AMS -Remains resolved, at neurologic baseline. Keeping hydrated, redirect her as needed. Neurology input greatly appreciated. 9) Iron Deficiency Anemia -At baseline; continue current management 10) IBS -Continue Linzess 11) Psych hx -Continue current medication 12) Glaucoma -Continue current medication; no acute issues 13) CKD -Remains at baseline; continue to monitor BMP and UOP. No elyte abnl 14) Facial Twitch -Continue xanax 15) Hypernatremia -D5W today for 75cc/hr and recheck BMP at 3PM. Does have a slight free H20 Deficit Full Code Visit type - Emergency Visit Emergency Visit: No - New Patient This patient is new to me today: No - Critical Care Critical Care patient: No
[2018-03-12] MEDS ORDERED: DEXTROSE 5%-WATER - 1,000 ML IV SCH (08:45)
[2018-03-12] MEDS: LOSARTAN POTASSIUM 50 MG TABLET (FP) PO SCH ×2 (10:40→21:55)
[2018-03-12] MEDS: MULTIVITAMINS (DAILY MVI) TABLET (FP) PO SCH (10:41)
[2018-03-12] MEDS: RANITIDINE HCL 150 MG TABLET (FP) PO SCH ×2 (10:41→21:55)
[2018-03-12] MEDS: amLODIPine BESYLATE 10 MG TABLET (FP) PO SCH (10:41)
[2018-03-12] MEDS: CHOLECALCIFEROL (VITAMIN D3) 1,000 UNIT TABLET (FP) PO SCH (10:41)
[2018-03-12] MEDS: PANTOPRAZOLE 40 MG TABLET (FP) PO SCH (10:42)
[2018-03-12] MEDS: FERROUS SO4 325 MG TABLET (FP) PO SCH ×2 (10:42→21:55)
[2018-03-12] MEDS: ISOSORBIDE MONONITRATE 30 MG TAB.SR.24H (FP) PO SCH ×2 (10:42→21:55)
[2018-03-12] MEDS: POLYETHYLENE GLYCOL 3350 119 GM BTL PO SCH (10:43)
[2018-03-12] MEDS: CARVEDILOL 25 MG TABLET (FP) PO SCH ×2 (10:43→21:55)
[2018-03-12] MEDS: HYDROCHLOROTHIAZIDE 25 MG TABLET (FP) PO SCH (10:43)
[2018-03-12] MEDS: SERTRALINE HCL 50 MG TABLET (FP) PO SCH ×2 (10:43→21:54)
[2018-03-12] MEDS: VITAMIN B COMPLEX W/C COMBO TABLET (FP) PO SCH (10:44)
[2018-03-12] MEDS: CLOPIDOGREL BISULFATE 75 MG TABLET (FP) PO SCH (10:44)
[2018-03-12] MEDS: DORZOLAMIDE 2% HCL OPHTHALMIC SOLUTION 10 ML BOTTLE OU SCH (10:44)
--- NOTE | 2018-03-12 12:37 | PN ---
Progress Note, Physician - Current Medication List Current Medications: Active Medications Alprazolam (Xanax -) 0.25 mg PO Q12H PRN PRN Reason: ANXIETY Last Admin: 03/11/18 22:42 Dose: 0.25 mg Amlodipine Besylate (Norvasc -) 10 mg PO DAILY [facility] Last Admin: 03/12/18 10:41 Dose: 10 mg Atorvastatin Calcium (Lipitor -) 80 mg PO HS [facility] Last Admin: 03/11/18 22:35 Dose: 80 mg Carvedilol (Coreg -) 25 mg PO BID [facility] Last Admin: 03/12/18 10:43 Dose: 25 mg Cholecalciferol (Vitamin D3 -) 2,000 unit PO DAILY [facility] Last Admin: 03/12/18 10:41 Dose: 2,000 unit Clopidogrel Bisulfate (Plavix -) 75 mg PO DAILY [facility] Stop: 03/12/18 23:59 Last Admin: 03/12/18 10:44 Dose: Not Given Dorzolamide HCl (Trusopt 2%) 1 drop OU DAILY [facility] Last Admin: 03/12/18 10:44 Dose: 1 drop Ferrous Sulfate (Feosol -) 325 mg PO BID [facility] Last Admin: 03/12/18 10:42 Dose: 325 mg Fluticasone Propionate (Flonase -) 1 spray NS DAILY PRN PRN Reason: NASAL ALLERGY Heparin Sodium (Porcine) (Heparin -) 5,000 unit SQ TID [facility] Last Admin: 03/12/18 06:40 Dose: 5,000 unit Hydrochlorothiazide (Hctz -) 25 mg PO DAILY [facility] Last Admin: 03/12/18 10:43 Dose: 25 mg Dextrose (D5w -) 1,000 mls @ 75 mls/hr IV ASDIR [facility] Last Admin: 03/12/18 10:44 Dose: 75 mls/hr Insulin Aspart (Novolog Vial Sliding Scale -) [facility]; Protocol Last Admin: 03/12/18 06:30 Dose: Not Given Insulin Detemir (Levemir Vial) 10 units SQ [facility] Last Admin: 03/11/18 22:40 Dose: 10 units Isosorbide Mononitrate (Imdur -) 30 mg PO BID [facility] Last Admin: 03/12/18 10:42 Dose: 30 mg Latanoprost (Xalatan 0.005% Eye Drops -) 1 drop OU HS [facility] Last Admin: 03/11/18 22:41 Dose: 1 drop Losartan Potassium (Cozaar -) 50 mg PO BID [facility] Last Admin: 03/12/18 10:40 Dose: 50 mg Multivitamins (Total B With C -) 1 each PO DAILY [facility] Last Admin: 03/12/18 10:44 Dose: 1 each Multivitamins/Minerals/Vitamin C (Tab-A-Vit -) 1 tab PO DAILY [facility] Last Admin: 03/12/18 10:41 Dose: 1 tab Nitroglycerin (Nitrostat -) 0.4 mg SL TID PRN PRN Reason: FOR CHEST PAIN Pantoprazole Sodium (Protonix -) 40 mg PO DAILY [facility] Last Admin: 03/12/18 10:42 Dose: 40 mg Polyethylene Glycol (Miralax (For Daily Use) -) 17 gm PO DAILY [facility] Last Admin: 03/12/18 10:43 Dose: Not Given Ranitidine HCl (Zantac -) 150 mg PO BID [facility] Last Admin: 03/12/18 10:41 Dose: 150 mg Sertraline HCl (Zoloft -) 100 mg PO BID [facility] Last Admin: 03/12/18 10:43 Dose: 100 mg - Objective Vital Signs: Vital Signs Temperature 98.1 F 03/12/18 06:00 Pulse Rate 72 03/12/18 06:00 Respiratory Rate 18 03/12/18 06:00 Blood Pressure 169/82 03/12/18 06:00 O2 Sat by Pulse Oximetry (%) 97 03/11/18 21:00 Labs: CBC, BMP 03/12/18 05:30 03/12/18 05:30
--- NOTE | 2018-03-12 14:11 | PN ---
Progress Note, SKETCH LINER - Note Progress Note: Selected Entries 03/09/18 03/09/18 03/09/18 01:21 05:00 09:00 Lunch Supper Temperature 98.7 F 99.1 F 98.4 F 03/09/18 03/09/18 03/09/18 13:51 14:00 17:00 Lunch 75% Supper Temperature 98.1 F 97.8 F 03/09/18 03/09/18 03/10/18 20:23 22:00 02:10 Lunch Supper 50% Temperature 98.3 F 98.1 F 03/10/18 06:00 Lunch Supper Temperature 99.2 F Laboratory Tests 03/09/18 03/10/18 06:00 08:45 WBC 10.0 10.2 H Selected Entries 03/11/18 03/11/18 03/11/18 01:00 05:00 10:00 Breakfast Lunch Supper Temperature 98.5 F 98.6 F 98.3 F 03/11/18 03/11/18 03/11/18 10:58 14:00 17:00 Breakfast 75% Lunch 75% Supper Temperature 97.9 F 98.5 F 03/11/18 03/11/18 03/12/18 21:00 22:53 02:06 Breakfast Lunch Supper 75% Temperature 98.5 F 98.6 F 03/12/18 06:00 Breakfast Lunch Supper Temperature 98.1 F Doing quite well. Verbal. Speech clear. Swallowing overtly intact. Diet upgrade to reg diet/thin liquids. No further f/u indicated.
--- NOTE | 2018-03-12 15:22 | PN ---
Progress Note, Physician History of Present Illness: Pt seen and examined at bedside. She is awake and appears comfortable. - Current Medication List Current Medications: Active Medications Alprazolam (Xanax -) 0.25 mg PO Q12H PRN PRN Reason: ANXIETY Last Admin: 03/11/18 22:42 Dose: 0.25 mg Amlodipine Besylate (Norvasc -) 10 mg PO DAILY [facility] Last Admin: 03/12/18 10:41 Dose: 10 mg Atorvastatin Calcium (Lipitor -) 80 mg PO HS [facility] Last Admin: 03/11/18 22:35 Dose: 80 mg Carvedilol (Coreg -) 25 mg PO BID [facility] Last Admin: 03/12/18 10:43 Dose: 25 mg Cholecalciferol (Vitamin D3 -) 2,000 unit PO DAILY [facility] Last Admin: 03/12/18 10:41 Dose: 2,000 unit Clopidogrel Bisulfate (Plavix -) 75 mg PO DAILY [facility] Stop: 03/12/18 23:59 Last Admin: 03/12/18 10:44 Dose: Not Given Dorzolamide HCl (Trusopt 2%) 1 drop OU DAILY [facility] Last Admin: 03/12/18 10:44 Dose: 1 drop Ferrous Sulfate (Feosol -) 325 mg PO BID [facility] Last Admin: 03/12/18 10:42 Dose: 325 mg Fluticasone Propionate (Flonase -) 1 spray NS DAILY PRN PRN Reason: NASAL ALLERGY Hydrochlorothiazide (Hctz -) 25 mg PO DAILY [facility] Last Admin: 03/12/18 10:43 Dose: 25 mg Dextrose (D5w -) 1,000 mls @ 75 mls/hr IV ASDIR [facility] Last Admin: 03/12/18 10:44 Dose: 75 mls/hr Insulin Aspart (Novolog Vial Sliding Scale -) 1 vial SQ TIDAC [facility]; Protocol Last Admin: 03/12/18 06:30 Dose: Not Given Insulin Detemir (Levemir Vial) 10 units SQ [facility] Last Admin: 03/11/18 22:40 Dose: 10 units Isosorbide Mononitrate (Imdur -) 30 mg PO BID [facility] Last Admin: 03/12/18 10:42 Dose: 30 mg Latanoprost (Xalatan 0.005% Eye Drops -) 1 drop OU HS [facility] Last Admin: 03/11/18 22:41 Dose: 1 drop Losartan Potassium (Cozaar -) 50 mg PO BID [facility] Last Admin: 03/12/18 10:40 Dose: 50 mg Multivitamins (Total B With C -) 1 each PO DAILY [facility] Last Admin: 03/12/18 10:44 Dose: 1 each Multivitamins/Minerals/Vitamin C (Tab-A-Vit -) 1 tab PO DAILY [facility] Last Admin: 03/12/18 10:41 Dose: 1 tab Nitroglycerin (Nitrostat -) 0.4 mg SL TID PRN PRN Reason: FOR CHEST PAIN Pantoprazole Sodium (Protonix -) 40 mg PO DAILY [facility] Last Admin: 03/12/18 10:42 Dose: 40 mg Polyethylene Glycol (Miralax (For Daily Use) -) 17 gm PO DAILY [facility] Last Admin: 03/12/18 10:43 Dose: Not Given Ranitidine HCl (Zantac -) 150 mg PO BID [facility] Last Admin: 03/12/18 10:41 Dose: 150 mg Sertraline HCl (Zoloft -) 100 mg PO BID [facility] Last Admin: 03/12/18 10:43 Dose: 100 mg - Objective Vital Signs: Vital Signs Temperature 98.2 F 03/12/18 10:00 Pulse Rate 84 03/12/18 10:00 Respiratory Rate 18 03/12/18 10:00 Blood Pressure 166/74 03/12/18 10:00 O2 Sat by Pulse Oximetry (%) 98 03/12/18 10:00 Constitutional: Yes: Calm Eyes: Yes: Conjunctiva Clear HENT: Yes: Atraumatic Cardiovascular: Yes: S1, S2 Respiratory: Yes: CTA Bilaterally Gastrointestinal: Yes: Normal Bowel Sounds, Soft Musculoskeletal: Yes: WNL Edema: LLE: Trace, RLE: Trace Neurological: Yes: Oriented Labs: CBC, BMP 03/12/18 05:30 03/12/18 05:30 Problem List - Problems (1) CHF (congestive heart failure) Code(s): I50.9 - HEART FAILURE, UNSPECIFIED (2) CKD (chronic kidney disease) stage 3, GFR 30-59 ml/min Code(s): N18.3 - CHRONIC KIDNEY DISEASE, STAGE 3 (MODERATE) Assessment/Plan Current Medications Generic Name Dose Route Start Last Admin Trade Name Freq PRN Reason Stop Dose Admin Alprazolam 0.25 mg 03/07/18 13:15 03/11/18 22:42 Xanax - PO 0.25 mg Q12H PRN Administration ANXIETY Amlodipine Besylate 10 mg 03/01/18 10:00 03/12/18 10:41 Norvasc - PO 10 mg DAILY [facility] Administration Atorvastatin Calcium 80 mg 03/04/18 22:00 03/11/18 22:35 Lipitor - PO 80 mg HS [facility] Administration Carvedilol 25 mg 02/28/18 22:00 03/12/18 10:43 Coreg - PO 25 mg BID [facility] Administration Cholecalciferol 2,000 unit 03/01/18 10:00 03/12/18 10:41 Vitamin D3 - PO 2,000 unit DAILY [facility] Administration Clopidogrel Bisulfate 75 mg 03/01/18 10:00 03/12/18 10:44 Plavix - PO 03/12/18 23:59 Not Given DAILY [facility] Dorzolamide HCl 1 drop 03/01/18 10:00 03/12/18 10:44 Trusopt 2% OU 1 drop DAILY [facility] Administration Ferrous Sulfate 325 mg 02/28/18 22:00 03/12/18 10:42 Feosol - PO 325 mg BID [facility] Administration Fluticasone Propionate 1 spray 02/28/18 15:16 Flonase - NS DAILY PRN NASAL ALLERGY Hydrochlorothiazide 25 mg 03/01/18 10:00 03/12/18 10:43 Hctz - PO 25 mg DAILY [facility] Administration Dextrose 1,000 mls @ 75 mls/hr 03/12/18 08:45 03/12/18 10:44 D5w - IV 75 mls/hr ASDIR [facility] Administration Insulin Aspart 1 vial 02/28/18 16:30 03/12/18 06:30 Novolog Vial Sliding Scale - SQ Not Given TIDAC [facility] Protocol Insulin Detemir 10 units 03/08/18 09:49 03/11/18 22:40 Levemir Vial SQ 10 units HS [facility] Administration Isosorbide Mononitrate 30 mg 02/28/18 22:00 03/12/18 10:42 Imdur - PO 30 mg BID [facility] Administration Latanoprost 1 drop 02/28/18 22:00 03/11/18 22:41 Xalatan 0.005% Eye Drops - OU 1 drop HS [facility] Administration Losartan Potassium 50 mg 02/28/18 22:00 03/12/18 10:40 Cozaar - PO 50 mg BID [facility] Administration Multivitamins 1 each 03/01/18 10:00 03/12/18 10:44 Total B With C - PO 1 each DAILY [facility] Administration Multivitamins/Minerals/Vitamin C 1 tab 03/06/18 13:45 03/12/18 10:41 Tab-A-Vit - PO 1 tab DAILY [facility] Administration Nitroglycerin 0.4 mg 02/28/18 15:16 Nitrostat - SL TID PRN FOR CHEST PAIN Pantoprazole Sodium 40 mg 03/04/18 10:00 03/12/18 10:42 Protonix - PO 40 mg DAILY [facility] Administration Polyethylene Glycol 17 gm 03/01/18 10:00 03/12/18 10:43 Miralax (For Daily Use) - PO Not Given DAILY [facility] Ranitidine HCl 150 mg 03/06/18 22:00 03/12/18 10:41 Zantac - PO 150 mg BID [facility] Administration Sertraline HCl 100 mg 02/28/18 22:00 03/12/18 10:43 Zoloft - PO 100 mg BID [facility] Administration Impression 1. CKD 2. DM 3. gerd 4. CAD 5. anemia 6. left IJ stenosis 7. hypernatremia 8. HTN Plan - monitor volume status - monitor bp - monitor renal function on cozaar - vascular input appreciated - encourage free water intake - avoid nsaids Dr Zhu
--- NOTE | 2018-03-12 16:13 | PN ---
Progress Note (short form) - Note Progress Note: Vascular Surgery Pt seen and examined. Doing well. Explained to pt that plavix was stopped two days ago, and ideally should be stopped 7-10 days. Especially when operating in the neck. Post op bleeding could lead to hematoma that can compromise pt's airway. Pt agrees with going home and coming back next thurs for outpt CEA. I will book pt as outpt. Ata Chapa dO
[2018-03-12 17:57] LABS: ANION GAP 7 MMOL/L (8-16); BLOOD UREA NITROGEN 19 mg/dL (7-18); CALCIUM 8.2 mg/dL (8.5-10.1); CHLORIDE 110 mmol/L (98-107); CO2 25 mmol/L (21-32); CREATININE 1.2 mg/dL (0.55-1.3); GLUCOSE,RANDOM 230 mg/dL (74-106); POTASSIUM 3.7 mmol/L (3.5-5.1); SODIUM 141 mmol/L (136-145)
[2018-03-12] MEDS: ATORVASTATIN CA 80 MG TABLET (FP) PO SCH (21:55)
[2018-03-12] MEDS: LATANOPROST 0.005% OPHTH SOLN 2.5ML BOTTLE OU SCH (21:59)
[2018-03-12] MEDS: INSULIN (LEVEMIR) 100 UNITS/ML UNITS SQ SCH (22:01)
[2018-03-12] MEDS ORDERED: ALPRAZolam 0.25 MG TABLET PO PRN (23:03)
[2018-03-12] MEDS ORDERED: PT OWN MED DRAWER 7, Y5N ONE (23:32)
[2018-03-12] MEDS ORDERED: MELATONIN 5 MG TABLETS PO ONE (23:47)
[2018-03-13 02:23] VITALS: TEMP 99
[2018-03-13] MEDS: amLODIPine BESYLATE 10 MG TABLET (FP) PO SCH ×2 (06:24→10:48)
[2018-03-13] MEDS: INSULIN SLIDING SCALE (NOVOLOG) 1 VIAL SQ SCH (06:29)
[2018-03-13 07:26] LABS: BASO % 0.4 % (0-2.0); EOS % 2.4 % (0-4.5); HEMATOCRIT 22.7 % (32.4-45.2); HEMOGLOBIN 7.7 GM/dL (10.7-15.3); MCH 32.2 pg (25.7-33.7); MEAN CELL VOLUME 94.5 fl (80-96); MEAN PLT VOLUME 10.6 fl (7.5-11.1); MONO % 7.5 % (3.8-10.2); NEUT % 77.7 % (42.8-82.8); PLATELET COUNT 220 K/MM3 (134-434); RDW 14.5 % (11.6-15.6); WHITE BLOOD COUNT 11.8 K/mm3 (4.0-10.0)
[2018-03-13 08:02] LABS: ANION GAP 8 MMOL/L (8-16); BLOOD UREA NITROGEN 19 mg/dL (7-18); CALCIUM 8.9 mg/dL (8.5-10.1); CHLORIDE 112 mmol/L (98-107); CO2 25 mmol/L (21-32); CREATININE 1.1 mg/dL (0.55-1.3); GLUCOSE,RANDOM 88 mg/dL (74-106); SODIUM 145 mmol/L (136-145)
[2018-03-13] MEDS ORDERED: PT OWN MED DRAWER 7, Y5N ONE (10:06)
[2018-03-13] MEDS: SERTRALINE HCL 50 MG TABLET (FP) PO SCH (10:42)
[2018-03-13] MEDS: LOSARTAN POTASSIUM 50 MG TABLET (FP) PO SCH (10:42)
[2018-03-13] MEDS: CHOLECALCIFEROL (VITAMIN D3) 1,000 UNIT TABLET (FP) PO SCH (10:42)
[2018-03-13] MEDS: CARVEDILOL 25 MG TABLET (FP) PO SCH (10:42)
[2018-03-13] MEDS: PANTOPRAZOLE 40 MG TABLET (FP) PO SCH (10:42)
[2018-03-13] MEDS: HYDROCHLOROTHIAZIDE 25 MG TABLET (FP) PO SCH (10:42)
[2018-03-13] MEDS: DORZOLAMIDE 2% HCL OPHTHALMIC SOLUTION 10 ML BOTTLE OU SCH (10:43)
[2018-03-13] MEDS: POLYETHYLENE GLYCOL 3350 119 GM BTL PO SCH (10:43)
[2018-03-13] MEDS: VITAMIN B COMPLEX W/C COMBO TABLET (FP) PO SCH (10:43)
[2018-03-13] MEDS: FERROUS SO4 325 MG TABLET (FP) PO SCH (10:44)
[2018-03-13] MEDS: ISOSORBIDE MONONITRATE 30 MG TAB.SR.24H (FP) PO SCH (10:44)
[2018-03-13] MEDS: RANITIDINE HCL 150 MG TABLET (FP) PO SCH (10:45)
[2018-03-13] MEDS: MULTIVITAMINS (DAILY MVI) TABLET (FP) PO SCH (10:47)
--- NOTE | 2018-03-13 12:48 | DS ---
Physical Exam: SUBJECTIVE: Patient seen and examined, she reports she is feeling well. She will schedule and OP carotid endarterectomy with Dr. Chapa after Plavix is held for appropriate number of days. OBJECTIVE: Vital Signs Period Temp Pulse Resp BP Sys/Morrison Pulse Ox Last 24 Hr 97.2 F-99.0 F 74-79 20-20 138-189/62-73 98 PHYSICAL EXAM GENERAL: The patient is awake, alert, and fully oriented, in no acute distress. HEAD: Normal with no signs of trauma. EYES: PERRL, extraocular movements intact, sclera anicteric, conjunctiva clear. ENT: Ears normal, nares patent, oropharynx clear without exudates, moist mucous membranes. NECK: Trachea midline, full range of motion, supple. LUNGS: Breath sounds equal, clear to auscultation bilaterally, no wheezes, no crackles, no accessory muscle use. HEART: Regular rate and rhythm, S1, S2 without murmur, rub or gallop. ABDOMEN: Soft, nontender, nondistended, normoactive bowel sounds, no guarding, no rebound, no hepatosplenomegaly, no masses. EXTREMITIES: +2 edema to BLE, 2+ pulses, warm, well-perfused, no edema. NEUROLOGICAL: No facial droop, tongue midline, normal speech, gait not observed. PSYCH: Normal mood, normal affect. SKIN: Warm, dry, normal turgor, no rashes or lesions noted. LABS Laboratory Results - last 24 hr 03/12/18 03/12/18 03/12/18 16:35 17:19 21:51 WBC RBC Hgb Hct MCV MCH MCHC RDW Plt Count MPV Absolute Neuts (auto) Neutrophils % Lymphocytes % Monocytes % Eosinophils % Basophils % Nucleated RBC % Sodium 141 Potassium 3.7 Chloride 110 H Carbon Dioxide 25 Anion Gap 7 L BUN 19 H Creatinine 1.2 Creat Clearance w eGFR 43.56 POC Glucometer 270 200 Random Glucose 230 H Calcium 8.2 L 03/13/18 03/13/18 03/13/18 05:57 06:00 06:00 WBC 11.8 H RBC 2.40 L Hgb 7.7 L Hct 22.7 L MCV 94.5 MCH 32.2 MCHC 34.0 RDW 14.5 Plt Count 220 MPV 10.6 Absolute Neuts (auto) 9.2 H Neutrophils % 77.7 Lymphocytes % 12.0 Monocytes % 7.5 Eosinophils % 2.4 Basophils % 0.4 Nucleated RBC % 0 Sodium 145 Potassium 4.0 Chloride 112 H Carbon Dioxide 25 Anion Gap 8 BUN 19 H Creatinine 1.1 Creat Clearance w eGFR 48.16 POC Glucometer 117 Random Glucose 88 Calcium 8.9 HOSPITAL COURSE: Date of Admission:03/02/18 Date of Discharge: 03/13/18 77 year old female with a PMH significant for CAD s/p 2 stents, HTN, HLD, DM, CKD stage III, Depression/anxiety, glaucoma and IBS admitted for chf exacerbation. Several days into her stay, she developed AMS. Workup revealed worsening left carotid stenosis since 11/2017. CTA incidentally showed pneumonia and she was treated with a course of Zosyn. She had a negative Lexiscan stress test for the CEA. She was scheduled to have CEA today, but Plavix had not been held long enough. She will schedule an OP CEA with Dr. Chapa for next week. Carotid Artery Stenosis (L) - Severe - Stress test negative; medically optimized for CEA - Holding Plavix until procedure next week as OP with Dr. Chapa CAD s/p PCI (LAD, RCA) - Continue BB, and Plavix - Stress test negative HLD - Continue Atorvastatin 80 mg PO QHS CHF - Some lower leg edema today - Start Lasix 20 mg with KCL 10 meq upon DC HTN - Has a component of anxiety driving her HTN. - Amlodipine 10 mg qday , Carvedilol 25 mg BID, Lasix 20 mg qday, Losartan 50 mg BID, Imdur 30 mg BID Suspected Pneumonia (? Asp?) -Off abx per ID; monitor. -appreciate specialist input History of TIA - Negative acute neuro workup with neuroimaging; at neuro baseline with no FNDs AMS -Remains resolved; at neurologic baseline. Iron Deficiency Anemia - H&H currently stable: 8.04/29.5 - FeSO4 325 mg PO BID IBS - Linzess 290 mcg PO qday - Miralax 238 gm qday Depression/anxiety - Hx of suicide attempts - Xanax 1 mg PO BID - Vistaril 25 mg PO qday - Zoloft 100 mg PO BID Glaucoma - Dorzolamide 2% 1 gtt OU qday - Lantanoprost 0.005% 1 gtt OU qhs Supplement - Vitamin D3 - Vitamin B Complex CKD - Remains at baseline - Continue to monitor BMP and UOP. No elyte abnl Hypernatremia - Resolved - 147 yesterday; 145 today - Given D5W @ 75cc/hr - Sodium restricted diet Minutes to complete discharge: 40 Discharge Summary Reason For Visit: CHF Current Active Problems Abnormal liver function tests (Acute) Acute on chronic diastolic (congestive) heart failure (Acute) Anemia, unspecified (Acute) CHF (congestive heart failure) (Acute) CKD (chronic kidney disease) stage 3, GFR 30-59 ml/min (Acute) H/O heart artery stent (Acute) IBS (irritable bowel syndrome) (Acute) Leukocytosis, unspecified (Acute) Severe pulmonary arterial systolic hypertension (Acute) TIA on medication (Acute) - Instructions Diet, Activity, Other Instructions: Dusty Eldridge were admitted to [facility] from 03/02/18 - 03/13/18 for congestive heart failure exacerbation. Several days into your stay, you developed increased confusion. Workup revealed worsening left carotid stenosis since 11/2017. CTA incidentally showed pneumonia you were treated with IV antibiotic Zosyn. You passed a stress test for your carotid endarterectomy with Dr. Chapa next week. Continue your home medications as before EXCEPT with the following changes: STOP taking Hydrocholorthiazide 25 mg START taking Lasix 20 mg once a day Potassium Chloride 10 meq once a day INCREASE Lipitor from 40 mg at bedtime to 80 mg at bedtime HOLD Plavix until your procedure with Dr. Chapa next week. Please return to the ER if you have any signs or symptoms of chest pain, shortness of breath, uncontrollable fever, chills, nausea, vomiting, numbness, tingling, or weakness in any part of your body, changes in vision, or slurred speech. [facility] [phone] Referrals: Leah Navarro [Primary Care Provider] - Disposition: HOME - Home Medications Comprehensive Discharge Medication List: Ambulatory Orders Alprazolam [Xanax] 1 mg PO BID PRN 11/11/17 Amlodipine Besylate [Norvasc -] 10 mg PO DAILY #30 tablet 11/11/17 Atorvastatin Ca [Lipitor] 40 mg PO HS 11/11/17 Carvedilol 25 mg PO BID #60 tablet 11/11/17 Cholecalciferol (Vitamin D3) [Vitamin D3] 1 cap PO DAILY 11/11/17 Dorzolamide HCl [Trusopt 2% -] 1 drop OU DAILY 11/11/17 Ferrous Sulfate 325 mg PO BID 11/11/17 Hydrochlorothiazide [Hctz -] 25 mg PO DAILY #30 tablet 11/11/17 Insulin Aspart [Novolog Flexpen] See Protocol SQ TIDCM 11/11/17 Insulin Detemir [Levemir Flextouch] 20 units SQ DAILY 11/11/17 Isosorbide Mononitrate [Isosorbide Mononitrate ER] 30 mg PO BID #60 tab.er.24h 11/11/17 Latanoprost 0.005% Eye Drops [Xalatan 0.005% Eye Drops -] 1 drop OU HS 11/11/17 Linaclotide [Linzess] 290 mcg PO DAILY 11/11/17 Losartan Potassium 50 mg PO BID #60 tablet 11/11/17 Nitroglycerin [Nitrostat] 0.4 mg SL TID PRN 11/11/17 Polyethylene Glycol 3350 [Powderlax] 238 gm PO DAILY 11/11/17 Sertraline HCl 100 mg PO BID 11/11/17 Vitamin B Complex 1 cap PO DAILY 11/11/17 Fluticasone Prop 0.05% Nasal [Flonase -] 1 spray NS DAILY PRN 02/28/18 Furosemide [Lasix -] 20 mg PO DAILY 30 Days #30 tablet 03/13/18 Insulin (Levemir) [Levemir Vial] 10 units SQ HS units 03/13/18 Multivitamins [Multivit ([facility] Formulary)] 1 tab PO DAILY tab 03/13/18 Potassium Chloride [K-Dur -] 10 meq PO DAILY #30 tablet.er 03/13/18 This patient is new to me today: No Emergency Visit: No Critical Care patient: No - Discharge Referral Referred to [facility] Med [facility] Yes Physician Referral: Ata Chapa DO (Vas) (CEA)
--- NOTE | 2018-03-13 13:12 | PN ---
Progress Note, Physician History of Present Illness: patient doing well no complaints off of abx plan for procedure next week sometime wants to go home - Current Medication List Current Medications: Active Medications Alprazolam (Xanax -) 0.25 mg PO Q12H PRN PRN Reason: ANXIETY Last Admin: 03/13/18 06:26 Dose: 0.25 mg Amlodipine Besylate (Norvasc -) 10 mg PO DAILY [facility] Last Admin: 03/13/18 10:48 Dose: 10 mg Atorvastatin Calcium (Lipitor -) 80 mg PO HS [facility] Last Admin: 03/12/18 21:55 Dose: 80 mg Carvedilol (Coreg -) 25 mg PO BID [facility] Last Admin: 03/13/18 10:42 Dose: 25 mg Cholecalciferol (Vitamin D3 -) 2,000 unit PO DAILY [facility] Last Admin: 03/13/18 10:42 Dose: 2,000 unit Dorzolamide HCl (Trusopt 2%) 1 drop OU DAILY [facility] Last Admin: 03/13/18 10:43 Dose: 1 drop Ferrous Sulfate (Feosol -) 325 mg PO BID [facility] Last Admin: 03/13/18 10:44 Dose: 325 mg Fluticasone Propionate (Flonase -) 1 spray NS DAILY PRN PRN Reason: NASAL ALLERGY Furosemide (Lasix -) 20 mg PO DAILY [facility] Hydrochlorothiazide (Hctz -) 25 mg PO DAILY [facility] Last Admin: 03/13/18 10:42 Dose: 25 mg Insulin Aspart (Novolog Vial Sliding Scale -) [facility] Protocol Last Admin: 03/13/18 06:29 Dose: Not Given Insulin Detemir (Levemir Vial) 10 units SQ [facility] Last Admin: 03/12/18 22:01 Dose: 10 units Isosorbide Mononitrate (Imdur -) 30 mg PO BID [facility] Last Admin: 03/13/18 10:44 Dose: 30 mg Latanoprost (Xalatan 0.005% Eye Drops -) 1 drop OU [facility] Last Admin: 03/12/18 21:59 Dose: 1 drop Losartan Potassium (Cozaar -) 50 mg PO BID [facility] Last Admin: 03/13/18 10:42 Dose: 50 mg Multivitamins (Total B With C -) 1 each PO DAILY [facility] Last Admin: 03/13/18 10:43 Dose: 1 each Multivitamins/Minerals/Vitamin C (Tab-A-Vit -) 1 tab PO DAILY [facility] Last Admin: 03/13/18 10:47 Dose: 1 tab Nitroglycerin (Nitrostat -) 0.4 mg SL TID PRN PRN Reason: FOR CHEST PAIN Pantoprazole Sodium (Protonix -) 40 mg PO DAILY [facility] Last Admin: 03/13/18 10:42 Dose: 40 mg Polyethylene Glycol (Miralax (For Daily Use) -) 17 gm PO DAILY [facility] Last Admin: 03/13/18 10:43 Dose: 17 gm Potassium Chloride (K-Dur -) 10 meq PO DAILY [facility] Ranitidine HCl (Zantac -) 150 mg PO BID [facility] Last Admin: 03/13/18 10:45 Dose: 150 mg Sertraline HCl (Zoloft -) 100 mg PO BID [facility] Last Admin: 03/13/18 10:42 Dose: 100 mg - Objective Vital Signs: Vital Signs Temperature 99.0 F 03/13/18 02:20 Pulse Rate 74 03/13/18 06:00 Respiratory Rate 20 03/13/18 06:00 Blood Pressure 189/73 H 03/13/18 06:00 O2 Sat by Pulse Oximetry (%) 98 03/12/18 20:33 Constitutional: Yes: No Distress, Calm Cardiovascular: Yes: Regular Rate and Rhythm Respiratory: Yes: Regular, CTA Bilaterally Gastrointestinal: Yes: Normal Bowel Sounds, Soft Musculoskeletal: Yes: WNL Extremities: Yes: WNL Neurological: Yes: Alert, Oriented Psychiatric: Yes: Alert, Oriented Labs: CBC, BMP 03/13/18 06:00 03/13/18 06:00 Assessment/Plan CHF Exacerbation Transaminitis TIA history CAD Diabetes HTN HLD CKD Stage III Iron Deficiency Anemia IBS Depression/anxiety Glaucoma plan stable off of abx wants to go home rest continue current mgmt patient stable
[2018-03-13 14:35] VITALS: BP 156/60; PULSE 78
--- NOTE | 2018-03-13 16:32 | PN ---
Progress Note, Physician History of Present Illness: Pt seen and examined at bedside. She is awake and alert. She denies shortness of breath. She will go home and come for [facility] as outpt. - Current Medication List Current Medications: Active Medications Alprazolam (Xanax -) 0.25 mg PO Q12H PRN PRN Reason: ANXIETY Last Admin: 03/13/18 06:26 Dose: 0.25 mg Amlodipine Besylate (Norvasc -) 10 mg PO DAILY [facility] Last Admin: 03/13/18 10:48 Dose: 10 mg Atorvastatin Calcium (Lipitor -) 80 mg PO HS [facility] Last Admin: 03/12/18 21:55 Dose: 80 mg Carvedilol (Coreg -) 25 mg PO BID [facility] Last Admin: 03/13/18 10:42 Dose: 25 mg Cholecalciferol (Vitamin D3 -) 2,000 unit PO DAILY [facility] Last Admin: 03/13/18 10:42 Dose: 2,000 unit Dorzolamide HCl (Trusopt 2%) 1 drop OU DAILY [facility] Last Admin: 03/13/18 10:43 Dose: 1 drop Ferrous Sulfate (Feosol -) 325 mg PO BID [facility] Last Admin: 03/13/18 10:44 Dose: 325 mg Fluticasone Propionate (Flonase -) 1 spray NS DAILY PRN PRN Reason: NASAL ALLERGY Furosemide (Lasix -) 20 mg PO DAILY [facility] Hydrochlorothiazide (Hctz -) 25 mg PO DAILY [facility] Last Admin: 03/13/18 10:42 Dose: 25 mg Insulin Aspart (Novolog Vial Sliding Scale -) [facility] Last Admin: 03/13/18 06:29 Dose: Not Given Insulin Detemir (Levemir Vial) 10 units SQ [facility] Last Admin: 03/12/18 22:01 Dose: 10 units Isosorbide Mononitrate (Imdur -) 30 mg PO BID [facility] Last Admin: 03/13/18 10:44 Dose: 30 mg Latanoprost (Xalatan 0.005% Eye Drops -) 1 drop OU HS [facility] Last Admin: 03/12/18 21:59 Dose: 1 drop Losartan Potassium (Cozaar -) 50 mg PO BID [facility] Last Admin: 03/13/18 10:42 Dose: 50 mg Multivitamins (Total B With C -) 1 each PO DAILY [facility] Last Admin: 03/13/18 10:43 Dose: 1 each Multivitamins/Minerals/Vitamin C (Tab-A-Vit -) 1 tab PO DAILY [facility] Last Admin: 03/13/18 10:47 Dose: 1 tab Nitroglycerin (Nitrostat -) 0.4 mg SL TID PRN PRN Reason: FOR CHEST PAIN Pantoprazole Sodium (Protonix -) 40 mg PO DAILY [facility] Last Admin: 03/13/18 10:42 Dose: 40 mg Polyethylene Glycol (Miralax (For Daily Use) -) 17 gm PO DAILY [facility] Last Admin: 03/13/18 10:43 Dose: 17 gm Potassium Chloride (K-Dur -) 10 meq PO DAILY [facility] Ranitidine HCl (Zantac -) 150 mg PO BID [facility] Last Admin: 03/13/18 10:45 Dose: 150 mg Sertraline HCl (Zoloft -) 100 mg PO BID [facility] Last Admin: 03/13/18 10:42 Dose: 100 mg - Objective Vital Signs: Vital Signs Temperature 99.0 F 03/13/18 02:20 Pulse Rate 78 03/13/18 14:00 Respiratory Rate 18 03/13/18 14:00 Blood Pressure 156/60 03/13/18 14:00 O2 Sat by Pulse Oximetry (%) 98 03/13/18 09:00 Constitutional: Yes: Calm Eyes: Yes: Conjunctiva Clear HENT: Yes: Atraumatic Neck: Yes: Supple Cardiovascular: Yes: S1, S2 Respiratory: Yes: CTA Bilaterally Gastrointestinal: Yes: WNL Genitourinary: Yes: WNL Musculoskeletal: Yes: WNL Edema: Yes Edema: LLE: Trace, RLE: Trace Neurological: Yes: Oriented Psychiatric: Yes: Oriented Labs: CBC, BMP 03/13/18 06:00 03/13/18 06:00 Problem List - Problems (1) CHF (congestive heart failure) Code(s): I50.9 - HEART FAILURE, UNSPECIFIED (2) CKD (chronic kidney disease) stage 3, GFR 30-59 ml/min Code(s): N18.3 - CHRONIC KIDNEY DISEASE, STAGE 3 (MODERATE) Assessment/Plan Current Medications Generic Name Dose Route Start Last Admin Trade Name Freq PRN Reason Stop Dose Admin Alprazolam 0.25 mg 03/12/18 23:03 03/13/18 06:26 Xanax - PO 0.25 mg Q12H PRN Administration ANXIETY Amlodipine Besylate 10 mg 03/01/18 10:00 03/13/18 10:48 Norvasc - PO 10 mg DAILY [facility] Administration Atorvastatin Calcium 80 mg 03/04/18 22:00 03/12/18 21:55 Lipitor - PO 80 mg HS [facility] Administration Carvedilol 25 mg 02/28/18 22:00 03/13/18 10:42 Coreg - PO 25 mg BID [facility] Administration Cholecalciferol 2,000 unit 03/01/18 10:00 03/13/18 10:42 Vitamin D3 - PO 2,000 unit DAILY [facility] Administration Dorzolamide HCl 1 drop 03/01/18 10:00 03/13/18 10:43 Trusopt 2% OU 1 drop DAILY [facility] Administration Ferrous Sulfate 325 mg 02/28/18 22:00 03/13/18 10:44 Feosol - PO 325 mg BID [facility] Administration Fluticasone Propionate 1 spray 02/28/18 15:16 Flonase - NS DAILY PRN NASAL ALLERGY Furosemide 20 mg 03/14/18 10:00 Lasix - PO DAILY [facility] Hydrochlorothiazide 25 mg 03/01/18 10:00 03/13/18 10:42 Hctz - PO 25 mg DAILY [facility] Administration Insulin Aspart 1 vial 02/28/18 16:30 03/13/18 06:29 Novolog Vial Sliding Scale - SQ Not Given TIDAC [facility] Protocol Insulin Detemir 10 units 03/08/18 09:49 03/12/18 22:01 Levemir Vial SQ 10 units HS [facility] Administration Isosorbide Mononitrate 30 mg 02/28/18 22:00 03/13/18 10:44 Imdur - PO 30 mg BID [facility] Administration Latanoprost 1 drop 02/28/18 22:00 03/12/18 21:59 Xalatan 0.005% Eye Drops - OU 1 drop HS [facility] Administration Losartan Potassium 50 mg 02/28/18 22:00 03/13/18 10:42 Cozaar - PO 50 mg BID [facility] Administration Multivitamins 1 each 03/01/18 10:00 03/13/18 10:43 Total B With C - PO 1 each DAILY [facility] Administration Multivitamins/Minerals/Vitamin C 1 tab 03/06/18 13:45 03/13/18 10:47 Tab-A-Vit - PO 1 tab DAILY [facility] Administration Nitroglycerin 0.4 mg 02/28/18 15:16 Nitrostat - SL TID PRN FOR CHEST PAIN Pantoprazole Sodium 40 mg 03/04/18 10:00 03/13/18 10:42 Protonix - PO 40 mg DAILY [facility] Administration Polyethylene Glycol 17 gm 03/01/18 10:00 03/13/18 10:43 Miralax (For Daily Use) - PO 17 gm DAILY [facility] Administration Potassium Chloride 10 meq 03/14/18 10:00 K-Dur - PO DAILY [facility] Ranitidine HCl 150 mg 03/06/18 22:00 03/13/18 10:45 Zantac - PO 150 mg BID [facility] Administration Sertraline HCl 100 mg 02/28/18 22:00 03/13/18 10:42 Zoloft - PO 100 mg BID [facility] Administration Impression 1. CKD 2. DM 3. gerd 4. CAD 5. anemia 6. left IJ stenosis 7. hypernatremia 8. HTN Plan - renal function stable - sodium improved - outpt follow up with Dr Eason - encourage PO intake - monitor bp closely - avoid nsaids Dr Zhu
[2018-03-14] MEDS ORDERED: FUROSEMIDE 20 MG TABLET (FP) PO SCH (10:00)
[2018-03-14] MEDS ORDERED: POTASSIUM CHLORIDE TABS 10 MEQ TABLET.ER (FP) PO SCH (10:00)
== END 2018-03-13 18:37 | disposition home or self-care (01) | DRG 291 ==
LOC: JER 11:11 → JERBED 14:42 → J4W 17:27 → OBSVTOIN 03-02 10:49
PROVIDERS: ADMIT Hospitalist; ATTEND Nurse Practitioner Adult Health
DX: I13.0 Hypertensive heart and chronic kidney disease with heart failure and stage 1 through stage 4 chronic kidney disease, or unspecified chronic kidney disease (principal); J69.0 Pneumonitis due to inhalation of food and vomit; I50.33 Acute on chronic diastolic (congestive) heart failure; G92 Toxic encephalopathy; E87.0 Hyperosmolality and hypernatremia; I65.22 Occlusion and stenosis of left carotid artery; N18.3 Chronic kidney disease, stage 3 (moderate); E11.22 Type 2 diabetes mellitus with diabetic chronic kidney disease; I27.21 Secondary pulmonary arterial hypertension; D50.9 Iron deficiency anemia, unspecified; K58.9 Irritable bowel syndrome, unspecified; R94.5 Abnormal results of liver function studies; D72.829 Elevated white blood cell count, unspecified; R74.0 Nonspecific elevation of levels of transaminase and lactic acid dehydrogenase [LDH]; R25.3 Fasciculation; R13.10 Dysphagia, unspecified; Z79.4 Long term (current) use of insulin; I25.10 Atherosclerotic heart disease of native coronary artery without angina pectoris; K58.1 Irritable bowel syndrome with constipation; D64.9 Anemia, unspecified; Z95.5 Presence of coronary angioplasty implant and graft; K21.9 Gastro-esophageal reflux disease without esophagitis; E78.5 Hyperlipidemia, unspecified; F32.9 Major depressive disorder, single episode, unspecified; F41.9 Anxiety disorder, unspecified; H40.9 Unspecified glaucoma; Z86.73 Personal history of transient ischemic attack (TIA), and cerebral infarction without residual deficits; Z86.718 Personal history of other venous thrombosis and embolism
CPT/HCPCS: 36415; 70450-TC; 70498-TC; 70551-TC; 71046-TC-FY; 78452-TC; 80048; 80053; 81003; 81015; 82040; 82140; 82550; 82552; 82607; 82728; 82746; 82962; 83036; 83540; 83605; 83735; 83880; 84443; 84484; 85025; 85027; 86850; 86900; 86901; 87040; 87086; 93005; 93010; 93017; 93306-TC; 93880-TC; 94761; 97116-GP; 97161-GP; 99282-25; A9502; G0378; J1644; J2785; J7030